=== PATIENT | female | born 1960 | race Two or more races ===

== ENCOUNTER → 2020-09-24 09:58 | Outpatient (BNVA) | payer OTHER, SELFPAY | PROVIDERS: PCP Internal Medicine; Visit Provider Student in an Organized Health Care Education/Training Program | DX: Z76.89 Persons encountering health services in other specified circumstances (principal) ==

== ENCOUNTER 2020-10-11 10:53 | Outpatient (REF) | payer OTHER, SELFPAY ==
--- NOTE | 2020-10-11 | PFT_ITS ---
FLOWS: FEV1 of 99% of predicted at 2.69 L. FVC 97% of predicted at 3.32 L. The patient refused bronchodilator testing. LUNG VOLUMES: Total lung capacity 106% of predicted at 5.69 L. Residual volume 101% of predicted at 2.17 L. Slow vital capacity 109% of predicted at 3.53 L. Expiratory reserve volume 168% of predicted at 1.55 L. Diffusion capacity is mildly decreased. IMPRESSION: No obstructive or restrictive ventilatory defect. The patient refused bronchodilator testing. Isolated decrease in diffusion capacity suggests underlying pulmonary vascular or parenchymal disease. Clinical correlation is advised. MD SHABBIR Guerra/MODL / [id number]
== END 2020-10-11 10:54 | disposition home or self-care (01) ==
LOC: HO.RESP 10:53
PROVIDERS: Visit Provider Internal Medicine Pulmonary Disease
DX: M35.00 Sjogren syndrome, unspecified (principal)
CPT/HCPCS: 94010; 94727; 94729

== ENCOUNTER 2020-11-08 10:22 | Outpatient (REF) | payer OTHER, SELFPAY ==
--- NOTE | 2020-11-08 10:26 | CT_ITS ---
EXAMINATION: CT CHEST WITHOUT CONTRAST CLINICAL INFORMATION: Pulmonary nodules. COMPARISON: None TECHNIQUE: Multidetector volumetric CT imaging of the chest was done. Axial MIP volume rendering provided. Sagittal and coronal reformatted images were obtained. This CT examination was performed using dose optimization techniques as appropriate, variously including the following: *Automated exposure control *Adjustment of mA and/or kV according to patient size (this includes techniques or standardized protocols for targeted exams where dose is matched to indication/reason for exam; i.e. extremities or head) *Use of iterative reconstruction technique DLP: 109 mGy-cm FINDINGS: GRADUATE INTERNSHIP: Unremarkable. LUNGS: The lungs are well expanded with bilateral apical pleural thickening and parenchymal scarring. There is a 2 mm nodule left apex image 72/5, tubular subpleural nodule right upper lobe axial image 14/4, 2 mm subpleural nodule left upper lobe axial image 138/5, 2 mm nodule right upper lobe axial image 160/5, 2 mm nodule right upper lobe anteriorly image 184/5, 214/5, 2 mm nodule left upper lobe likely intrabronchial image 235/5, 2 mm nodule left lower lobe axial image 370/5. There are small 1 mm calcified nodules in the right lung. No large mass or consolidation seen. There is no ground-glass density. MEDIASTINUM: Heart size and the great vessels are normal caliber. Central trachea and the bronchi are widely patent. There are surgical mary likely on either side of trachea likely from thyroidectomy. No abnormal-sized mediastinal or hilar lymph nodes seen. There is no pericardial effusion. PLEURA: There is no pleural effusion. No pleural mass or thickening. AXILLA: No lymphadenopathy. UPPER ABDOMEN: Visualized liver, spleen, pancreas and bilateral adrenal glands are unremarkable. There are no radiopaque gallstones. OSSEOUS STRUCTURES: There is no lytic or sclerotic process. 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 There is C7 rib fused to T1 rib. Hemangioma of T10 vertebra is noted. CT/CT chest wo con IMPRESSION: Several small 2 mm and less pleural nodules. A few 1 mm calcified nodules right upper lobes. No abnormal mediastinal lymph nodes or mass. According to the UPDATED 2017 Fleischner Society recommendations, the advised follow-up imaging for nodules less than 2 mm there is no followup required. If patient is high risk, optional followup can be performed in 12 months.
== END 2020-11-08 10:23 | disposition home or self-care (01) ==
LOC: HO.CT 10:22
PROVIDERS: Visit Provider Internal Medicine Pulmonary Disease
DX: R91.8 Other nonspecific abnormal finding of lung field (principal)
CPT/HCPCS: 71250

== ENCOUNTER → 2020-11-12 15:08 | Outpatient (BNVA) | payer OTHER, SELFPAY | PROVIDERS: PCP Internal Medicine; Visit Provider Internal Medicine Pulmonary Disease ==

== ENCOUNTER → 2020-11-18 14:37 | Outpatient (BNVA) | payer OTHER, SELFPAY | PROVIDERS: PCP Internal Medicine; Visit Provider Internal Medicine Gastroenterology ==

== ENCOUNTER → 2020-12-02 15:44 | Outpatient (BNVA) | payer OTHER, SELFPAY | PROVIDERS: PCP Internal Medicine; Visit Provider Student in an Organized Health Care Education/Training Program ==

== ENCOUNTER → 2020-12-20 07:49 | Outpatient (BNVA) | payer OTHER, SELFPAY | PROVIDERS: Visit Provider Internal Medicine Gastroenterology ==

== ENCOUNTER 2021-01-10 16:45 | Outpatient (REF) | payer OTHER, SELFPAY ==
[2021-01-10 18:20] LABS: Blood Urea Nitrogen 14 mg/dL (9-16); Estimated Glomerular Filt Rate > 60
== END 2021-01-10 16:46 | disposition home or self-care (01) ==
LOC: HO.LAB 16:45
PROVIDERS: Visit Provider Internal Medicine Gastroenterology
DX: R93.2 Abnormal findings on diagnostic imaging of liver and biliary tract (principal)
CPT/HCPCS: 36415; 82565; 84520

== ENCOUNTER 2021-01-13 18:20 | Outpatient (REF) | payer OTHER, SELFPAY ==
--- NOTE | ~2021-01-13 | MR_ITS ---
EXAMINATION: MR ABDOMEN WITHOUT AND WITH CONTRAST CLINICAL INFORMATION: Abnormal findings on diagnostic imaging of liver and biliary tract. The report of a CT scan performed at [facility] 10/15/2020 indicates 1.6 cm low-density lesion in right lobe of liver. Density greater than simple fluid. Several similar smaller lesions within the right lobe of the liver. Subcentimeter low-density lesion within the left lobe of the liver. COMPARISON: The previous outside CT is not available for direct comparison. TECHNIQUE: Anatomic and fluid sensitive MR sequences were used to examine the abdomen. Imaging before and after the IV administration of 6.5 mL of Gadavist. MRCP was performed. FINDINGS: There is artifact on many of the images including portions of the liver which limits evaluation. LIVER: The right lobe of the liver measures 15.0 cm which is within normal limits. The liver contour is smooth. The background hepatic signal is homogeneous. There are at least 5 focal liver lesions. In the posteromedial aspect at the upper aspect of hepatic segment 6 there is a circumscribed homogeneous T2 intense mass which measures 2.0 cm. This demonstrates peripheral nodular enhancement equal to the blood pool. This progresses over later phases and completely enhances on late phase imaging. There is adjacent abnormal signal with irregular but persistent enhancement. There is a punctate internal hyperintensity. This may correspond to a phlebolith. There is a 1.0 cm somewhat linear signal abnormality in the periphery of the right lobe at the interface between hepatic segments 6 and 7. Artifact limits early phase assessment, but this completely enhances on late phase. This is also hyperintense on anatomic series. There is an approximately 1.0 cm sharply circumscribed T2 intense lesion abutting the ventral aspect of hepatic segment 3. This demonstrates homogeneous late-phase enhancement. Artifact limits characterization of the early phase enhancement. There are a few other tiny lesions in the liver. These are difficult to characterize. BILIARY TRACT: There is no cholelithiasis or biliary dilation. SPLEEN: Within normal limits. PANCREAS: Within normal limits. ADRENAL GLANDS: There is minimal nodular thickening in the medial limb of the left adrenal gland. This is too small to characterize on wyt-gi-[id number] chemical shift imaging. In the absence of a known primary malignancy or clinical evidence of abnormal hormone secretion this does not require any further evaluation. KIDNEYS: There is no dilation of the urinary collecting system on either side. There is a tiny cyst in the medial lower right kidney. GASTROINTESTINAL TRACT: No definite bowel wall thickening. ABDOMINAL WALL: No significant hernia is appreciated. LYMPHOVASCULAR STRUCTURES AND FLUID: There is no abdominal aortic aneurysm. The portal vein enhances. No enlarged lymph nodes in the upper abdomen. MUSCULOSKELETAL: There is a signal abnormality in the right side of one of the midthoracic vertebrae on the right. This may represent hemangioma. This has a bubbly appearance on CT and extends into the posterior elements. VISUALIZED LOWER CHEST: Artifact limits assessment. No suspicious signal abnormality in the visualized lower chest. MR/MR abdomen wo/w con IMPRESSION: There are multiple focal liver lesions. There is no evidence of underlying chronic liver disease. There is no history to suggest the presence of underlying primary malignancy. The largest lesion is characterized as a hemangioma based on morphology, signal features and enhancement pattern. The smaller lesions may also represent hemangiomata but are difficult to fully characterize. In the absence of a known primary malignancy or underlying chronic liver disease these do not require any further evaluation.
== END 2021-01-13 18:21 | disposition home or self-care (01) ==
LOC: HO.MRI 18:20
PROVIDERS: Visit Provider Internal Medicine Gastroenterology
DX: R93.2 Abnormal findings on diagnostic imaging of liver and biliary tract (principal)
CPT/HCPCS: 74183; A9585

== ENCOUNTER → 2021-01-27 09:26 | Outpatient (BNVA) | payer OTHER, SELFPAY | PROVIDERS: PCP Internal Medicine; Visit Provider Internal Medicine Gastroenterology ==

== ENCOUNTER 2021-01-31 09:25 | Day surgery (SDC) | payer OTHER, SELFPAY ==
[2021-01-26 10:56] VITALS: BMI 21.4
[2021-01-31 09:39] VITALS: BP 143/78; PULSE 76; RESP 18; TEMP 36.5; O2SAT 100
--- NOTE | 2021-01-31 10:08 | HO.ANESPROP2 ---
[facility] Active Problems Active Problems: All Active Problems (Updated 01/27/21 @ 10:29 by Ricarda Aguilar MD) Hepatic hemangioma (Acute) Pulmonary nodules (Acute) GERD (gastroesophageal reflux disease) (Acute) Dysphagia (Acute) Abnormal CT scan, liver (Acute) MIRLANDE positive (Acute) Sjogrens syndrome (Acute) Past Medical History Medical History MIRLANDE positive Ankylosis of thoracic spine Arthritis of both hips Goiter Pulmonary nodules Sicca syndrome with keratoconjunctivitis Sjogrens syndrome Family History Family History Father Diabetes Stroke Mother Alzheimer disease Parkinson disease Surgical History Surgical History History of thyroidectomy Hx of colonoscopy Social History Social History Household Members: None Alcohol intake: never Smoking Status: Former smoker Smoking Quit Date: 20 yrs ago Use of substances other than those prescribed or required for medical reasons: Yes Substance Use Type: Marijuana Substance Use Frequency: Daily Have you been hit, kicked, punched, or otherwise hurt by someone within the past year? 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 0.5 mg-rell-Zn tablet levothyroxine 88 mcg capsule 88 mcg PO DAILY 09/24/20 01/27/21 Unknown History lorazepam 0.5 mg tablet 0.5 mg PO BEDTIME PRN 09/24/20 01/27/21 Unknown History multivitamin with iron 1 tab PO DAILY 09/24/20 01/27/21 Unknown History Exam Exam Date and Time: January 31, 2021 1008 Height,Weight and Vital Signs: Height 5 ft 6 in Weight 60.328 kg Last Vital Signs Temp 97.7 F 01/31/21 09:39 Pulse 76 01/31/21 09:39 Resp 18 01/31/21 09:39 BP 143/78 H 01/31/21 09:39 Pulse Ox 100 01/31/21 09:39 Airway Mallampati Class: II TM Dist: >3cm Neck ROM: Full Loose/Missing/Broken Teeth: No Heart: RRR Lungs: CTA Assessment and Plan Assessment Anesthesia Assessment: Anesthesia Plan Discussed and Chart Reviewed Final Anesthetic Review NPO: Yes ASA Class: II Final Preanesthetic Review: Meds/Allgs Chart Reviewed, Consent Obtained/Reviewed and Anes Risks/Benef Reviewed Patient Risk: Low Procedure Risk: Intermediate Anesthetic Plan Anesthetic Plan: MAC: Disposition: Standard PACU
--- NOTE | 2021-01-31 10:09 | P.OP_ITS ---
Operative Note Operative Note Date of Service: 01/31/21 Narrative: Pre-op diagnosis: Dysphagia, gerd Post-op diagnosis: other (GERD, dysphagia, gastritis) Procedure: FLEXIBLE TRANSORAL UPPER GASTROINTESTINAL ENDOSCOPY WITH BIOPSIES AND ESOPHAGEAL BALLOON DILATION Consent: Indications for the procedure and potential complications of bleeding, perforation, reaction to medications and missed diagnosis were discussed with the patient and informed consent was obtained. Instrument: Olympus GIF H 190 mid size upper endoscope Monitoring: Vital signs and clinical assessment, continuous EKG monitoring, Pulse oximetry, Carbon Dioxide monitoring and blood pressure monitoring were done throughout the procedure. Procedure: The patient was placed in the left lateral decubitis position and pre-procedure medications were administered and a bite block was placed. The endoscope was inserted into the mouth and advanced under direct vision to the third part of duodenum. A careful inspection was made as the upper endoscope was withdrawn including a retroflexed examination of the proximal stomach; Findings and interventions are described below. Findings: Larynx: Normal Esophagus: GE junction at 36 cms. Irregular Z line - biopsied to check for Roberson's. Balloon dilation was performed with a 19 and 20 mm (60 F) CRE balloon x 60 seconds at each level. Biopsies were obtained from proximal esophagus to check for EOE. Stomach: Moderate diffuse gastric erythema with nodular appearing gastric mucosa - biopsies were obtained from the antrum and body. Grade 2 flap valve on retroflexed examination of the cardia. Duodenum: Normal bulb and descending duodenum Intervention: Biopsies as noted above Impression and Post Procedure Diagnosis: Endoscopy Findings: ESOPHAGUS: GE junction at 36 cms. Irregular Z line - biopsied to check for Roberson's. Balloon dilation was performed with a 19 and 20 mm CRE balloon x 60 seconds at each level. Biopsies were obtained from proximal esophagus to check for EOE. STOMACH: Moderate diffuse gastric erythema with nodular appearing gastric mucosa - biopsies were obtained from the antrum and body. Plan: Await pathology results. Patient has an appointment on 02/08/21 in the GI Clinic with Ricarda Aguilar M.D. If biopsies are normal, I will schedule patient for esophageal manometry at [facility] for further evaluation of dysphagia. Above findings were reviewed with the patient. Surgeon: Ricarda Aguilar MD Anesthesia: MAC (Dr Thomas) Measurement Department Chief Clerk: Emy Asher Estimated blood loss (mL): 0 Pathology: other ( A: GASTRIC ANTRUM R/O H. PYLORI B: GASTRIC BODY C: EG JUNCTION R/O ROBERSON'S D: PROXIMAL ESOPHAGUS R/O EOE) Condition: stable Disposition: PACU
--- NOTE | 2021-01-31 10:09 | MHC.SHP ---
Pre-Procedural Eval Section A The patient is an INPATIENT: No Changes since office visit: Yes Patient answered all questions; No Cold of Flu in the past 2 weeks, No New Medical Problems and No Changes in Medication The History & Physical has been completed within 30 days and I have reviewed it.: Yes Section B Chief Complaint: Dysphagia Allergies: Allergies Allergy/AdvReac Type Severity Reaction Status Date / Time penicillin V Allergy Intermediate swollen Verified 01/27/21 09:27 Exam Surgical H&P Exam: Normal: Heart, Normal: Lungs, Normal: Extremities and Normal: Abdomen Plan Diagnosis/Plan: Unchanged I have reviewed the history and physical and performed a pertinent physical examination on my patient. No changes have occurred unless specified.
[2021-01-31] MEDS: Lactated Ringers 1,000 ML 50 ML IV (10:47)
[2021-01-31 11:12] VITALS: BP 106/63; PULSE 81; RESP 18; TEMP 36.4; O2SAT 100
[2021-01-31 11:27] VITALS: BP 117/74; PULSE 88; RESP 18; O2SAT 99
[2021-01-31 11:35] VITALS: BP 121/69; PULSE 78; RESP 18; TEMP 36.6; O2SAT 100
== END 2021-01-31 12:00 | disposition home or self-care (01) ==
PROVIDERS: Visit Provider Internal Medicine Gastroenterology
PROC: (CPT 43239; principal; 2021-01-31 11:40)
DX: R13.10 Dysphagia, unspecified (principal); K21.9 Gastro-esophageal reflux disease without esophagitis; K29.50 Unspecified chronic gastritis without bleeding; B96.81 Helicobacter pylori [H. pylori] as the cause of diseases classified elsewhere; M35.00 Sjogren syndrome, unspecified; R91.8 Other nonspecific abnormal finding of lung field; Z87.891 Personal history of nicotine dependence; F12.90 Cannabis use, unspecified, uncomplicated; Z79.899 Other long term (current) drug therapy; Z88.0 Allergy status to penicillin
CPT/HCPCS: 43239; 43249; 88305; 88342; C1726

== ENCOUNTER → 2021-02-08 13:30 | Outpatient (BNVA) | payer OTHER, SELFPAY | PROVIDERS: Visit Provider Internal Medicine Gastroenterology ==

== ENCOUNTER 2021-02-22 14:38 | Outpatient (REF) | payer OTHER, SELFPAY ==
[2021-02-22 15:43] LABS: C Reactive Protein 0.07 mg/dL (< or = 0.50)
[2021-02-22 15:55] LABS: Glucose Urine UA NEG (NEG); Leukocyte Esterase Urine NEG (NEG); Nitrite Urine NEG (NEG); PH 6.5 (5.0-8.0); Urine Blood NEG (NEG); Urine Ketones NEG (NEG); Urine Protein NEG (NEG-TRACE)
[2021-02-22 16:06] LABS: Appearance Urine CLEAR; Color Urine YELLOW
[2021-02-22 16:19] LABS: Erythrocyte Sedimentation Rate 23 MM/HR (0-20)
[2021-02-22 18:39] LABS: Amorphous Sediment Urine 2+ /LPF; RBC Urine 0 /HPF (0); Squamous Epithelial Cell Urine TRACE /LPF; WBC Urine 0 /HPF (0-4)
[2021-02-23 10:57] LABS: Complement C3 72 mg/dL (83-193)
[2021-02-23 12:31] LABS: Anti DNA DS Antibody 2 IU/mL
[2021-02-23 15:01] LABS: IgA 333 mg/dL (70-320); IgG 1498 mg/dL (600-1540); IgM 204 mg/dL (50-300)
[2021-02-23 22:17] LABS: Prot Elec - Alpha1 0.3 g/dL (0.2-0.3); Prot Elec - Alpha2 0.7 g/dL (0.5-0.9); Prot Elec - Beta 1 0.4 g/dL (0.4-0.6); Prot Elec - Beta 2 0.4 g/dL (0.2-0.5); Prot Elec - Gamma 1.5 g/dL (0.8-1.7); Prot Elec - Total Protein 7.2 g/dL (6.1-8.1)
== END 2021-02-22 14:39 | disposition home or self-care (01) ==
LOC: HO.LAB 14:38
PROVIDERS: PCP Internal Medicine; Visit Provider Student in an Organized Health Care Education/Training Program
DX: M35.00 Sjogren syndrome, unspecified (principal)
CPT/HCPCS: 36415; 81001; 82784; 84155; 84165; 85652; 86140; 86160; 86225; 86334

== ENCOUNTER → 2021-03-01 09:59 | Outpatient (BNVA) | payer OTHER, SELFPAY | PROVIDERS: Visit Provider Student in an Organized Health Care Education/Training Program ==

== ENCOUNTER 2021-03-14 06:43 | Outpatient (REF) | payer OTHER, SELFPAY ==
[2021-03-14 07:01] LABS: MANUAL DIFF FLAG NO
[2021-03-14 07:05] LABS: Basophils Percent Auto 0.3 % (0-2); Eosinophils Percent Auto 1.1 % (0-4); Hematocrit 35.3 % (37-47); Hemoglobin 11.9 g/dl (12.0-16.0); Imm Gran Abs Auto 0.02 X10*3/uL (0.00-0.03); Imm Gran Pct Auto 0.5 % (0.0-0.4); Lymphocytes Absolute Auto 1.6 X10*3/uL (1.2-4.9); Lymphocytes Percent Auto 43.3 % (20-40); Mean Corpuscular HGB Conc 33.7 g/dl (31.0-35.0); Mean Corpuscular Hemoglobin 30.1 pg (27.0-33.0); Mean Corpuscular Volume 89.4 fL (80-98); Mean Platelet Volume 10.2 fL (9.4-12.3); Monocytes Absolute Auto 0.4 X10*3/uL (0.1-1.2); Monocytes Percent Auto 9.8 % (2-11); Neutrophils Absolute Auto 1.7 X10*3/uL (2.0-8.3); Platelet Count 152 X10*3/uL (160-400); Red Blood Count 3.95 X10*6/uL (4.20-5.50); Red Cell Distribution Width 13.6 % (11.0-16.0); White Blood Count 3.8 X10*3/uL (4.8-10.8)
[2021-03-14 07:36] LABS: Alanine Aminotransferase 19 U/L (0-31); Albumin Level 3.9 g/dL (3.5-5.0); Alkaline Phosphatase 80 U/L (39-117); Anion Gap 10 (12-20); Aspartate Amino Transferase 15 U/L (5-31); Blood Urea Nitrogen 14 mg/dL (9-16); Calcium 8.5 mg/dL (8.4-10.2); Carbon Dioxide 24 mmol/L (22-29); Chloride 113 mmol/L (96-108); Cholesterol 156 mg/dL; Estimated Glomerular Filt Rate > 60; Glucose Fasting 90 mg/dL (60-99); HDL Cholesterol 43 mg/dL; LDL Cholesterol Calculated 99 mg/dl; Potassium 3.9 mmol/L (3.3-5.1); Sodium 143 mmol/L (135-145); Total Protein 6.8 g/dL (6.5-8.0); Triglycerides 74 mg/dL
[2021-03-14 07:56] LABS: Thyroid Stimulating Hormone 0.68 uIU/mL (0.32-4.0)
== END 2021-03-14 06:44 | disposition home or self-care (01) ==
LOC: HO.LAB 06:43
PROVIDERS: PCP Internal Medicine; Visit Provider Internal Medicine
DX: K21.9 Gastro-esophageal reflux disease without esophagitis (principal); E78.5 Hyperlipidemia, unspecified; E03.9 Hypothyroidism, unspecified
CPT/HCPCS: 36415; 80053; 80061; 84443; 85025

== ENCOUNTER → 2021-04-18 09:16 | Outpatient (BNVA) | payer OTHER, SELFPAY | PROVIDERS: PCP Internal Medicine | DX: N32.81 Overactive bladder (principal) | CPT/HCPCS: 51798 ==

== ENCOUNTER → 2021-04-25 08:16 | Outpatient (BNVA) | payer OTHER, SELFPAY | PROVIDERS: PCP Internal Medicine; Visit Provider Nurse Practitioner Gerontology ==

== ENCOUNTER 2021-06-14 07:23 | Outpatient (REF) | payer OTHER, SELFPAY ==
[2021-06-14 07:54] LABS: MANUAL DIFF FLAG NO
[2021-06-14 08:02] LABS: Basophils Percent Auto 0.3 % (0-2); Eosinophils Percent Auto 0.8 % (0-4); Hematocrit 37.9 % (37-47); Hemoglobin 12.6 g/dl (12.0-16.0); Imm Gran Abs Auto 0.01 X10*3/uL (0.00-0.03); Imm Gran Pct Auto 0.3 % (0.0-0.4); Lymphocytes Absolute Auto 1.4 X10*3/uL (1.2-4.9); Lymphocytes Percent Auto 36.2 % (20-40); Mean Corpuscular HGB Conc 33.2 g/dl (31.0-35.0); Mean Corpuscular Hemoglobin 30.1 pg (27.0-33.0); Mean Corpuscular Volume 90.5 fL (80-98); Mean Platelet Volume 9.7 fL (9.4-12.3); Monocytes Absolute Auto 0.3 X10*3/uL (0.1-1.2); Monocytes Percent Auto 8.1 % (2-11); Neutrophils Absolute Auto 2.1 X10*3/uL (2.0-8.3); Neutrophils Percent Auto 54.3 % (45-73); Platelet Count 183 X10*3/uL (160-400); Red Blood Count 4.19 X10*6/uL (4.20-5.50); Red Cell Distribution Width 13.2 % (11.0-16.0); White Blood Count 3.8 X10*3/uL (4.8-10.8)
[2021-06-14 08:34] LABS: Alanine Aminotransferase 18 U/L (0-31); Albumin Level 4.1 g/dL (3.5-5.0); Alkaline Phosphatase 77 U/L (39-117); Anion Gap 12 (12-20); Aspartate Amino Transferase 15 U/L (5-31); Bilirubin Total 1.3 mg/dL (0.0-1.0); Blood Urea Nitrogen 10 mg/dL (9-16); C Reactive Protein 0.08 mg/dL (< or = 0.50); Calcium 9.2 mg/dL (8.4-10.2); Carbon Dioxide 24 mmol/L (22-29); Chloride 109 mmol/L (96-108); Estimated Glomerular Filt Rate > 60; Glucose Random 90 mg/dL (60-115); Potassium 4.2 mmol/L (3.3-5.1); Sodium 141 mmol/L (135-145); Total Protein 7.6 g/dL (6.5-8.0)
[2021-06-14 08:53] LABS: Free T4 (Free Thyroxine) 1.15 ng/dL (0.71-1.85); Thyroid Stimulating Hormone 0.63 uIU/mL (0.32-4.0)
[2021-06-14 09:00] LABS: Erythrocyte Sedimentation Rate 18 MM/HR (0-20)
[2021-06-14 09:43] LABS: Appearance Urine HAZY; Color Urine YELLOW; Glucose Urine UA NEG (NEG); Leukocyte Esterase Urine 1+ (NEG); Nitrite Urine NEG (NEG); PH 6.5 (5.0-8.0); Specific Gravity - Urine 1.025 (1.005-1.025); Urine Blood NEG (NEG); Urine Ketones NEG (NEG); Urine Protein NEG (NEG-TRACE)
[2021-06-14 10:32] LABS: Amorphous Sediment Urine 1+ /LPF; Mucus Urine 1+ /LPF; RBC Urine 0 /HPF (0); Squamous Epithelial Cell Urine 2+ /LPF
[2021-06-15 20:21] LABS: Thyroglobulin Antibodies 261 IU/mL (< or = 1)
[2021-06-15 20:26] LABS: Thyroid Peroxidase Antibodies 11 IU/mL (<9)
[2021-06-16 12:16] LABS: Complement C3 107 mg/dL (83-193)
[2021-06-17 14:11] LABS: Anti DNA DS Antibody 2 IU/mL; SM/Ribonucleoprotein Ab <1.0 NEG AI (<1.0 NEG); Smith Protein <1.0 NEG AI (<1.0 NEG)
== END 2021-06-14 07:24 | disposition home or self-care (01) ==
LOC: HO.LAB 07:23
PROVIDERS: Absent Provider Student in an Organized Health Care Education/Training Program; PCP Internal Medicine; Visit Provider Nurse Practitioner Gerontology
DX: E89.0 Postprocedural hypothyroidism (principal); M35.00 Sjogren syndrome, unspecified; R76.8 Other specified abnormal immunological findings in serum
CPT/HCPCS: 36415; 80053; 81001; 84439; 84443; 85025; 85652; 86140; 86160; 86225; 86235; 86376; 86800

== ENCOUNTER 2021-07-25 08:10 | Outpatient (REF) | payer OTHER, SELFPAY ==
[2021-07-25 14:32] LABS: Appearance Urine CLEAR; Color Urine YELLOW; Glucose Urine UA NEG (NEG); Leukocyte Esterase Urine NEG (NEG); Nitrite Urine NEG (NEG); Specific Gravity - Urine 1.025 (1.005-1.025); Urine Blood NEG (NEG); Urine Ketones NEG (NEG); Urine Protein NEG (NEG-TRACE)
[2021-07-25 14:35] LABS: Alanine Aminotransferase 16 U/L (0-31); Alkaline Phosphatase 85 U/L (39-117); Anion Gap 12 (12-20); Aspartate Amino Transferase 17 U/L (5-31); Bilirubin Total 0.9 mg/dL (0.0-1.0); Blood Urea Nitrogen 10 mg/dL (9-16); Calcium 8.9 mg/dL (8.4-10.2); Carbon Dioxide 22 mmol/L (22-29); Chloride 112 mmol/L (96-108); Estimated Glomerular Filt Rate > 60; Glucose Random 90 mg/dL (60-115); Potassium 3.5 mmol/L (3.3-5.1); Sodium 142 mmol/L (135-145); Total Protein 7.1 g/dL (6.5-8.0)
[2021-07-25 15:04] LABS: RBC Urine 0-2 /HPF (0); Squamous Epithelial Cell Urine 1+ /LPF; WBC Urine 0 /HPF (0-4)
[2021-07-26 14:51] LABS: Complement C3 115 mg/dL (83-193)
== END 2021-07-25 08:11 | disposition home or self-care (01) ==
LOC: HO.LAB 08:10
PROVIDERS: Student in an Organized Health Care Education/Training Program; PCP Internal Medicine; Visit Provider Internal Medicine Gastroenterology
DX: R76.8 Other specified abnormal immunological findings in serum (principal); R13.10 Dysphagia, unspecified; K21.9 Gastro-esophageal reflux disease without esophagitis; R93.2 Abnormal findings on diagnostic imaging of liver and biliary tract; D18.03 Hemangioma of intra-abdominal structures; K29.70 Gastritis, unspecified, without bleeding; A00-B99 Certain infectious and parasitic diseases
CPT/HCPCS: 36415; 80053; 81001; 86160

== ENCOUNTER 2021-08-08 14:57 | Outpatient (REF) | payer OTHER, SELFPAY | END 2021-08-08 14:58 | disposition home or self-care (01) | LOC: HO.LNP 14:57 | PROVIDERS: Visit Provider Internal Medicine Gastroenterology | DX: K29.70 Gastritis, unspecified, without bleeding (principal); B96.81 Helicobacter pylori [H. pylori] as the cause of diseases classified elsewhere | CPT/HCPCS: 87338 ==

== ENCOUNTER → 2021-08-31 10:00 | Outpatient (BNVA) | payer OTHER, SELFPAY | PROVIDERS: PCP Internal Medicine; Visit Provider Nurse Practitioner Gerontology ==

== ENCOUNTER → 2021-11-03 10:18 | Outpatient (BNVA) | payer OTHER, SELFPAY | PROVIDERS: PCP Internal Medicine; Visit Provider Internal Medicine Gastroenterology ==

== ENCOUNTER 2021-12-01 11:06 | Outpatient (REF) | payer OTHER, SELFPAY ==
--- NOTE | 2021-12-01 17:26 | PFT_ITS ---
INDICATION: Sjogren syndrome. SPIROMETRY: FEV1 to FVC of 84% with an FEV1 of 2.68 L, which is 100% predicted; FVC 3.19 L, which is 94% predicted. No significant response to bronchodilators noted. Maximum voluntary ventilation 114% predicted. LUNG VOLUMES: Total lung capacity 100% predicted with an expiratory reserve volume of 118% predicted. DIFFUSION CAPACITY: DLCO 64% predicted. COMPARISONS: PFTs from October 11, 2020. INTERPRETATION: No obstructive nor restrictive ventilatory defects identified. No significant response to bronchodilators noted. Normal maximum voluntary ventilation. Lung volumes are within normal limits. However, the patient does have an isolated [id number] diffusion impairment. When compared to 2020, there is significant decrease in the FVC, no significant change in the FEV1, significant decrease in the total lung capacity, and no significant change on the diffusion capacity. Clinical correlation warranted. Cristobal Flaherty MD MR/MODL / [id number]
== END 2021-12-01 11:07 | disposition home or self-care (01) ==
LOC: HO.RESP 11:06
PROVIDERS: PCP Internal Medicine; Visit Provider Internal Medicine Pulmonary Disease
DX: M35.00 Sjogren syndrome, unspecified (principal)
CPT/HCPCS: 94060; 94727; 94729

== ENCOUNTER → 2021-12-19 13:01 | Outpatient (BNVA) | payer OTHER, SELFPAY | PROVIDERS: PCP Internal Medicine | DX: J84.9 Interstitial pulmonary disease, unspecified (principal); F12.90 Cannabis use, unspecified, uncomplicated; R91.8 Other nonspecific abnormal finding of lung field; Z87.891 Personal history of nicotine dependence | CPT/HCPCS: 99212 ==

== ENCOUNTER 2022-05-01 10:13 | Outpatient (REF) | payer OTHER, SELFPAY ==
[2022-05-01 10:34] LABS: MANUAL DIFF FLAG NO
[2022-05-01 11:55] LABS: Basophils Percent Auto 0.3 % (0-2); Eosinophils Percent Auto 0.5 % (0-4); Hematocrit 35.9 % (37.0-47.0); Hemoglobin 11.8 g/dl (12.0-16.0); Imm Gran Abs Auto 0.01 X10*3/uL (0.00-0.03); Imm Gran Pct Auto 0.3 % (0.0-0.4); Lymphocytes Absolute Auto 1.7 X10*3/uL (1.2-4.9); Lymphocytes Percent Auto 44.6 % (20-40); Mean Corpuscular HGB Conc 32.9 g/dl (31.0-35.0); Mean Corpuscular Hemoglobin 29.8 pg (27.0-33.0); Mean Corpuscular Volume 90.7 fL (80.0-98.0); Mean Platelet Volume 10.7 fL (9.4-12.3); Monocytes Absolute Auto 0.3 X10*3/uL (0.1-1.2); Monocytes Percent Auto 7.9 % (2-11); Neutrophils Absolute Auto 1.8 x10*3/uL (2.0-8.3); Neutrophils Percent Auto 46.4 % (45-73); Platelet Count 160 X10*3/uL (160-400); Red Blood Count 3.96 X10*6/uL (4.20-5.50); Red Cell Distribution Width 13.3 % (11.0-16.0); White Blood Count 3.8 X10*3/uL (4.8-10.8)
[2022-05-01 12:30] LABS: Alanine Aminotransferase 14 U/L (0-31); Alkaline Phosphatase 73 U/L (39-117); Anion Gap 9 (12-20); Aspartate Amino Transferase 13 U/L (5-31); Blood Urea Nitrogen 10 mg/dL (9-16); Calcium 8.7 mg/dL (8.4-10.2); Carbon Dioxide 25 mmol/L (22-29); Chloride 111 mmol/L (96-108); Cholesterol 162 mg/dL; Estimated Glomerular Filt Rate > 60; Glucose Fasting 83 mg/dL (60-99); HDL Cholesterol 40 mg/dL; LDL Cholesterol Calculated 104 mg/dl; Potassium 4.1 mmol/L (3.3-5.1); Sodium 141 mmol/L (135-145); Triglycerides 93 mg/dL
[2022-05-01 12:51] LABS: Vitamin D 25-OH Total 27.2 ng/mL (>30)
[2022-05-01 13:03] LABS: Folate 10.3 ng/mL (> or = 4.0); Vitamin B12 313 pg/mL (200-900)
== END 2022-05-01 10:14 | disposition home or self-care (01) ==
LOC: HO.LAB 10:13
PROVIDERS: PCP Internal Medicine; Visit Provider Nurse Practitioner Family
DX: Z13.1 Encounter for screening for diabetes mellitus (principal); Z13.220 Encounter for screening for lipoid disorders; B02.29 Other postherpetic nervous system involvement
CPT/HCPCS: 36415; 80053; 80061; 82306; 82607; 82746; 85025

== ENCOUNTER 2022-07-24 10:09 | Outpatient (REF) | payer OTHER, SELFPAY ==
--- NOTE | ~2022-07-24 | FL_ITS ---
EXAMINATION: FL BARIUM SWALLOW CLINICAL INFORMATION: Inability to swallow. Pain in the neck region. COMPARISON: None TECHNIQUE: Barium swallow examination is performed using fluoroscopic evaluation in addition to multiple fluoroscopic spot views. The patient is imaged both upright and prone and using both thick and thin sulfate along with effervescent granules. Fluoroscopy time: 2.5 minutes DAP: 3.834 Gy-cm2 Images: 78 FINDINGS: Following oral administration of thick barium and barium-coated turkey, there is normal propagation of bolus from the oral cavity through the pharynx, esophagus into the stomach without any evidence of obstruction, narrowing or stricture. The course, caliber and peristalsis of the esophagus is normal. There is no laryngeal penetration or aspiration. No intraluminal filling defects seen in the pharynx. FL/FL barium swallow IMPRESSION: Unremarkable barium swallow exam.
== END 2022-07-24 10:10 | disposition home or self-care (01) ==
LOC: HO.XRAY 10:09
PROVIDERS: Visit Provider Internal Medicine Gastroenterology
DX: R13.10 Dysphagia, unspecified (principal)
CPT/HCPCS: 74220

== ENCOUNTER 2022-08-25 11:05 | Outpatient (REF) | payer OTHER, SELFPAY ==
[2022-08-25 11:22] LABS: MANUAL DIFF FLAG NO
[2022-08-25 11:58] LABS: Basophils Percent Auto 0.3 % (0-2); Eosinophils Percent Auto 0.3 % (0-4); Hematocrit 36.5 % (37.0-47.0); Hemoglobin 12.4 g/dl (12.0-16.0); Imm Gran Abs Auto 0.02 X10*3/uL (0.00-0.03); Imm Gran Pct Auto 0.5 % (0.0-0.4); Lymphocytes Absolute Auto 1.5 X10*3/uL (1.2-4.9); Lymphocytes Percent Auto 41.2 % (20-40); Mean Corpuscular Hemoglobin 30.1 pg (27.0-33.0); Mean Corpuscular Volume 88.6 fL (80.0-98.0); Mean Platelet Volume 10.3 fL (9.4-12.3); Monocytes Absolute Auto 0.3 X10*3/uL (0.1-1.2); Monocytes Percent Auto 8.7 % (2-11); Neutrophils Absolute Auto 1.8 x10*3/uL (2.0-8.3); Platelet Count 161 X10*3/uL (160-400); Red Blood Count 4.12 X10*6/uL (4.20-5.50); Red Cell Distribution Width 13.6 % (11.0-16.0); White Blood Count 3.7 X10*3/uL (4.8-10.8)
[2022-08-25 12:48] LABS: TSH reflex Free T4 0.74 uIU/mL (0.32-4.0)
[2022-08-25 12:53] LABS: Alanine Aminotransferase 15 U/L (0-31); Alkaline Phosphatase 86 U/L (39-117); Anion Gap 14 (12-20); Aspartate Amino Transferase 14 U/L (5-31); Bilirubin Total 1.4 mg/dL (0.0-1.0); Blood Urea Nitrogen 10 mg/dL (9-16); Calcium 8.8 mg/dL (8.4-10.2); Carbon Dioxide 22 mmol/L (22-29); Chloride 111 mmol/L (96-108); Cholesterol 164 mg/dL; Estimated Glomerular Filt Rate > 60; Glucose Fasting 96 mg/dL (60-99); HDL Cholesterol 43 mg/dL; LDL Cholesterol Calculated 107 mg/dl; Potassium 3.9 mmol/L (3.3-5.1); Sodium 143 mmol/L (135-145); Total Protein 7.6 g/dL (6.5-8.0); Triglycerides 70 mg/dL
[2022-08-25 13:03] LABS: Albumin Level 4.2 g/dL (3.5-5.0); Free T4 (Free Thyroxine) 1.27 ng/dL (0.71-1.85); Thyroid Stimulating Hormone 0.75 uIU/mL (0.32-4.0)
[2022-08-25 14:10] LABS: Vitamin D 25-OH Total 32.2 ng/mL (>30)
== END 2022-08-25 11:06 | disposition home or self-care (01) ==
LOC: HO.LAB 11:05
PROVIDERS: Nurse Practitioner Gerontology; PCP Nurse Practitioner Family; Visit Provider Nurse Practitioner Family
DX: Z00.00 Encounter for general adult medical examination without abnormal findings (principal); E89.0 Postprocedural hypothyroidism; B02.29 Other postherpetic nervous system involvement; R79.89 Other specified abnormal findings of blood chemistry
CPT/HCPCS: 36415; 80053; 80061; 82306; 84439; 84443; 85025

== ENCOUNTER 2022-09-11 10:15 | Outpatient (REF) | payer OTHER, SELFPAY ==
[2022-09-11 10:47] LABS: MANUAL DIFF FLAG NO
[2022-09-11 10:54] LABS: Basophils Percent Auto 0.2 % (0-2); Eosinophils Percent Auto 0.2 % (0-4); Hematocrit 37.6 % (37.0-47.0); Hemoglobin 12.7 g/dl (12.0-16.0); Imm Gran Abs Auto 0.02 X10*3/uL (0.00-0.03); Imm Gran Pct Auto 0.5 % (0.0-0.4); Lymphocytes Absolute Auto 1.7 X10*3/uL (1.2-4.9); Lymphocytes Percent Auto 39.8 % (20-40); Mean Corpuscular HGB Conc 33.8 g/dl (31.0-35.0); Mean Corpuscular Hemoglobin 29.7 pg (27.0-33.0); Mean Corpuscular Volume 88.1 fL (80.0-98.0); Monocytes Absolute Auto 0.3 X10*3/uL (0.1-1.2); Monocytes Percent Auto 7.1 % (2-11); Neutrophils Absolute Auto 2.2 x10*3/uL (2.0-8.3); Neutrophils Percent Auto 52.2 % (45-73); Platelet Count 151 X10*3/uL (160-400); Red Blood Count 4.27 X10*6/uL (4.20-5.50); Red Cell Distribution Width 13.2 % (11.0-16.0); White Blood Count 4.3 X10*3/uL (4.8-10.8)
[2022-09-11 11:46] LABS: Erythrocyte Sedimentation Rate 18 MM/HR (0-20)
[2022-09-11 15:39] LABS: Creatinine Urine 120.94 mg/dL; Total Protein Urine Random < 7 mg/dL (<12)
[2022-09-13 18:22] LABS: Complement C3 129 mg/dL (83-193)
[2022-09-14 13:23] LABS: Anti DNA DS Antibody 1 IU/mL; SM/Ribonucleoprotein Ab <1.0 NEG AI (<1.0 NEG); Smith Protein <1.0 NEG AI (<1.0 NEG)
== END 2022-09-11 10:16 | disposition home or self-care (01) ==
LOC: HO.10HDL 10:15
PROVIDERS: Visit Provider Internal Medicine Rheumatology
DX: M35.00 Sjogren syndrome, unspecified (principal); R76.8 Other specified abnormal immunological findings in serum
CPT/HCPCS: 36415; 84156; 85025; 85652; 86160; 86225; 86235

== ENCOUNTER 2022-09-18 14:33 | Outpatient (REF) | payer OTHER, SELFPAY ==
--- NOTE | ~2022-09-18 | XR_ITS ---
EXAMINATION: XR ANKLE, RIGHT CLINICAL INFORMATION: Pain right ankle and joints of right foot. COMPARISON: None TECHNIQUE: AP, lateral, and mortise views of the right ankle. FINDINGS: The ankle mortise and subtalar joints are maintained normal. No bony erosive changes, loose bodies or joint effusion seen. There is a moderate size calcaneal heel and small retrocalcaneal enthesophytes. Also visualized are small enthesophytes along the medial and lateral malleoli. The intertarsal, tarsometatarsal joints are normal. There is mild lateral malleolar soft tissue swelling. XR/XR ankle RT min 3V IMPRESSION: Moderate size calcaneal heel and small retrocalcaneal enthesophytes. No visible acute fracture, dislocation or subluxation seen. Mild lateral malleolar soft tissue swelling. Small enthesophytes along the tip of medial and lateral malleoli.
--- NOTE | ~2022-09-18 | XR_ITS ---
EXAMINATION: XR KNEE, RIGHT CLINICAL INFORMATION: Pain. COMPARISON: None TECHNIQUE: 3 views of the right knee. FINDINGS: The tricompartment joint space is maintained normal. There are no loose bodies, bony erosive changes, fracture or suprapatellar joint effusion. There is anterior superior and anterior inferior patellar enthesophytes. XR/XR knee RT 3V IMPRESSION: Anterior superior and anterior inferior patellar enthesophytes. No visible acute fracture, dislocation or subluxation seen.
--- NOTE | ~2022-09-18 | MM_ITS ---
EXAMINATION: MM SCREENING DIGITAL BREAST TOMOSYNTHESIS, BILATERAL CLINICAL INFORMATION: Screening. Asymptomatic. The lifetime risk of breast cancer based on the Tyrer-Cuzick Model is 6%. COMPARISON: Mammography: August 15, 2021 and studies dating back to January 18, 2019 TECHNIQUE: Digital breast tomosynthesis is performed in both the craniocaudal and mediolateral oblique views along with computer-aided detection (CAD). Synthesized 2D images are generated from the tomosynthesis. FINDINGS: The breasts are extremely dense, which lowers the sensitivity of mammography (ACR BI-RADS breast composition Category d). There are no significant masses, abnormal calcifications, or other abnormalities. MM/MM tomosynthesis screening BI IMPRESSION: No significant changes from prior exam. ASSESSMENT: BI-RADS 1: Negative RECOMMENDATION: Routine annual mammography screening. This patient's information was entered into a reminder system with a target due date for their next mammogram.
== END 2022-09-18 14:34 | disposition home or self-care (01) ==
LOC: HO.MAMMO 14:33
PROVIDERS: Absent Provider Internal Medicine Rheumatology; PCP Nurse Practitioner Family; Visit Provider Nurse Practitioner Family
DX: Z12.31 Encounter for screening mammogram for malignant neoplasm of breast (principal); M25.571 Pain in right ankle and joints of right foot; G89.29 Other chronic pain; M25.561 Pain in right knee
CPT/HCPCS: 73562; 73610; 77063; 77067

== ENCOUNTER → 2022-11-30 08:04 | Outpatient (BNVA) | payer OTHER, SELFPAY | PROVIDERS: PCP Nurse Practitioner Family; Visit Provider Internal Medicine Gastroenterology | DX: Z13.89 Encounter for screening for other disorder (principal) ==

== ENCOUNTER 2022-12-08 15:31 | Outpatient (REF) | payer OTHER, SELFPAY ==
[2022-12-10 14:10] LABS: H Pylori Breath Test Negative (Negative)
== END 2022-12-08 15:32 | disposition home or self-care (01) ==
LOC: CF 15:31
PROVIDERS: PCP Nurse Practitioner Family; Visit Provider Internal Medicine Gastroenterology
DX: Z11.0 Encounter for screening for intestinal infectious diseases (principal)
CPT/HCPCS: 36415; 83013

== ENCOUNTER → 2023-02-14 07:34 | Outpatient (BNVA) | payer OTHER, SELFPAY | PROVIDERS: PCP Nurse Practitioner Family; Visit Provider Psychiatry & Neurology Neurology ==

== ENCOUNTER 2023-02-15 12:09 | Outpatient (REF) | payer OTHER, SELFPAY ==
[2023-02-15 14:44] LABS: Alanine Aminotransferase 13 U/L (0-31); Albumin Level 4.1 g/dL (3.5-5.0); Alkaline Phosphatase 72 U/L (39-117); Anion Gap 13 (12-20); Aspartate Amino Transferase 15 U/L (5-31); Bilirubin Total 1.5 mg/dL (0.0-1.0); Blood Urea Nitrogen 10 mg/dL (9-16); Carbon Dioxide 25 mmol/L (22-29); Chloride 111 mmol/L (96-108); Estimated Glomerular Filt Rate > 60; Glucose Random 79 mg/dL (60-115); Potassium 4.1 mmol/L (3.3-5.1); Sodium 145 mmol/L (135-145); Total Protein 7.1 g/dL (6.5-8.0)
[2023-02-15 14:50] LABS: TSH reflex Free T4 0.12 uIU/mL (0.32-4.0); Vitamin D 25-OH Total 30.7 ng/mL (>30)
== END 2023-02-15 12:10 | disposition home or self-care (01) ==
LOC: HO.LAB 12:09
PROVIDERS: PCP Internal Medicine; Visit Provider Nurse Practitioner Family
DX: E03.9 Hypothyroidism, unspecified (principal); B02.29 Other postherpetic nervous system involvement; E55.9 Vitamin D deficiency, unspecified
CPT/HCPCS: 36415; 80053; 82306; 84439; 84443

== ENCOUNTER 2023-04-05 08:19 | Outpatient (REF) | payer OTHER, SELFPAY ==
--- NOTE | 2023-04-05 08:21 | EMG_ITS ---
Bilateral tibial and peroneal motor studies were performed. Bilateral sural and superficial peroneal sensory studies were performed. Tibial H reflexes were obtained and paraspinal muscles were tested with a needle. IMPRESSION: Moderately severe axonal sensory motor peripheral neuropathy. MD STEPHY Avila/EDUARDO / [id number]
== END 2023-04-05 08:20 | disposition home or self-care (01) ==
LOC: HO.NEURO 08:19
PROVIDERS: PCP Internal Medicine; Visit Provider Psychiatry & Neurology Neurology
DX: G60.8 Other hereditary and idiopathic neuropathies (principal)
CPT/HCPCS: 95886; 95911

== ENCOUNTER 2023-05-10 11:28 | Outpatient (AMB) | payer SELFPAY ==
--- NOTE | 2023-05-10 11:33 | A.OFFVIS_ITS ---
Intake Vital Signs 05/10/23 11:35 Height 5 ft 6 in Weight 144 lb BMI 23.2 BP 113/55 L Blood Pressure Location Lt brachial Position Sitting Pulse 88 Intake Visit Reasons: 6 month follow up Intake Note: Patient follow up for h pylori results. Patient cc: Nauseas on and off, sharp RLQ pain, abdominal bloating, some burning sensation, between diarrhea and constipation. Patient still have some swallowing problems. Quotation Checker Required: No Accompanied by: Self / Same As Patient Allergies penicillin V Allergy (Intermediate, Verified 05/10/23 11:33) swollen Penicillins Allergy (Unknown, Verified 05/10/23 11:33) Swelling Medication List - Last Reconciled 05/10/23 by Ricarda Aguilar MD gabapentin 300 mg PO TID 90 days ibuprofen 800 mg PO Q8H PRN 30 days levothyroxine 75 mcg PO DAILY 90 days lorazepam 0.5 mg PO BEDTIME PRN HPI 6 month follow up HPI Details GI clinic visit for this 62 YF with positive MIRLANDE, pulmonary nodules and Sjogren's syndrome for FU of dysphagia OUTSIDE LABS:? 10/15/20 showed H&H of 12.1 and 35.1, platelet 164, normal Chem panel, lipase and LFTs IMAGING STUDIES:? 07/24/22 BARIUM SWALLOW SHOWED: Following oral administration of thick barium and barium-coated turkey, there is normal propagation of bolus from the oral cavity through the pharynx, esophagus into the stomach without any evidence of obstruction, narrowing or stricture. The course, caliber and peristalsis of the esophagus is normal. There is no laryngeal penetration or aspiration. No intraluminal filling defects seen in the pharynx. 01/13/21 MRI abdomen showed: There are multiple focal liver lesions. There is no evidence of underlying chronic liver disease. There is no history to suggest the presence of underlying primary malignancy. The largest lesion is characterized as a hemangioma based on morphology, signal features and enhancement pattern. The smaller lesions may also represent hemangiomata but are difficult to fully characterize. In the absence of a known primary malignancy or underlying chronic liver disease these do not require any further evaluation. 10/15/[address] SCAN (WITHOUT IV CONTRAST)AT [facility] SHOWED: A 1.8 cm low-density lesion within the right lobe of the liver.? The density of this lesion is greater than simple fluid. Several smaller lesions within the right lobe of the liver.? Subcentimeter low- density lesion within the left lobe of the liver. Bilateral adrenal gland thickening. Subcentimeter low-density lesions within the left ovary most likely representing small cysts. IMPRESSION 1. No evidence of nephrolithiasis 2.? Multiple appendicoliths within the appendix 3. Indeterminate lesions within the liver some of which have soft tissue density. Further evaluation with contrast enhanced MRI or CT scan is recommended on an outpatient basis if these are not correct arise previously 11/08/20 MODIFIED BARIUM SWALLOW SHOWED: At fluoroscopy there was a normal initiation of swallowing reflex without evidence for aspiration or penetration. Vallecular residue was identified with multiple barium challenges. The patient tolerated a 13 mm barium tablet. ENDOSCOPIC STUDIES:? 01/31/2021 EGD SHOWED: ESOPHAGUS: GE junction at 36 cms.? Irregular Z line - biopsied to check for Dawson's. Balloon dilation was performed with a 19 and 20 mm CRE balloon x 60 seconds at each level. Biopsies were obtained from proximal esophagus to check for EOE. STOMACH: Moderate diffuse gastric erythema with nodular appearing gastric mucosa - biopsies were obtained from the antrum and body. Plan:? Patient has an appointment on 02/08/21 in the GI Clinic with iRcarda Aguilar M.D. If biopsies are normal, I will schedule patient for esophageal manometry at [facility] for further evaluation of dysphagia. BIOPSIES SHOWED: A.? Stomach, antrum, biopsy: - Antral-type mucosa with severe chronic, focally active, inflammation. ? - Rare form consistent with H pylori identified. B.? Stomach, body, biopsy: - Oxyntic mucosa with severe chronic active inflammation. ? - Positive for H pylori. C.? EG junction, biopsy: - Cardiofundic-type mucosa with moderate chronic inactive inflammation; no intestinal metaplasia seen. ? - Squamous mucosa within normal limits. D.? Esophagus, proximal, biopsy:? Squamous epithelium within normal limits; no inflammation seen. TODAY'S VISIT: Continues to have dysphagia and is handling it, Gets intermittent sharp 6-7/10 stabbing RLQ pain - once in a while Pain is quick and resolves in 2-3 seconds. Unable to identify any precipitating factors. Denies association with food or activity. Can have pain while she is sitting down. Constipation last 2-3 days followed by normal stools followed by diarrhea The kind that you got to run Stool is usually brown. When she has diarrhea, it can be black and upto 6-7 or more in a day. If diarrhea gets real bad, she takes peptobismol PAST VISITS: Continues to have abdominal bloating and would like to be checked for H Pylori infection. Still have issues with swallowing and has learnt to live with it Thinks dysphagia is likely due to dry mouth related to sjogren's. Has constipation alternating with diarrhea. Had constipation x 3 weeks and then had soft stools. Now having normal stools and there are times when she has diarrhea. Not taking a PPI at present. Patient follow up for dysphagia and Barium Swallow results. Patient cc: diarrhea and acid reflex both on and off. Patient said her throat is closing, she is been having difficulty to swallow solid and the liquid bothers her throat too. Also her neck is hurting and stiffness. It feels as if my throat is closing. Sometimes when she drinks liquids, it seems that it may go in the wrong pipe. Denies coughing spells with drinking liquids. Also notes neck pain and stiffness Trying to chew the food more and is more mindful of how she swallows. Scheduled to see Rheumatology in 09/2022. Feels acidy and has a sour stomach. Has been having constipation with bloating for the past 3 days - stomach is streching. Has a BM 1-2 times a day with hard stools - difficult to pass stool. Had soft stools 4-5 days ago Had a colonoscopy 3-4 yrs ago. Saw the ENT physician (Dr Moreno) and was told everything is normal. Patient cc: Nauseas, some abdominal pain, she need GERD medication, diarrhea but more constipation, hemorrhoids are out without blood, and some dysphagia. Complains of nausea, intermittent regurgitation with burning. Afraid to have esophageal manometry Has nausea, abdominal pain, diarrhea with ? dehydration Has been having more of acid reflux. Able to swallow a little more since her last EGD - still has to be careful. Unable to go for manometry testing since she was told she had to stay for the whole day. EGD and bx results reviewed. She was swallowing a little better Sometimes she feels a burp is stuck in the esophagus and makes her throat tighter. Avoiding steaks. Being very careful with what she eats. Its hard to adjust and accept - takes rice and makes sure it has some liquid gr morgan and water so she does not choke. Dying to eat a cheese papaselli napper grinder. Seen at [facility] ER in Sep, 2020 and was informed she had some lesions in the liver. MRI results reviewed with the patient Had a ? modified barium swallow test at [facility] on 11/08/20 by her neurologist. Complains of dysphagia 1.5 yrs - had a choking episode and had to cough it out. Noticed intermittent problems with noodles. Had to have a hemlich manuver at a restuarant after she had some steak Has to be really careful what she eats and has lost 30 lbs. Intermittent mild acid reflux and burping. Has chronic constipation and denies black stools or rectal bleeding. (stool is normal most of the time) Patient denies major cardiac or pulmonary problems, Has loud snoring and denies sleep apnea Denies problems with anesthesia in the past. Denies being on chronic anticoagulation. Patient denies known family history of colon cancer or other GI malignancies. Dad had colon polyps removed [facility] Medical History MIRLANDE positive Ankylosis of thoracic spine Arthritis of both hips Depression Goiter Hypothyroidism Ingrown toenail Mild recurrent major depression Overactive bladder Postherpetic neuralgia Pulmonary nodules Sicca syndrome with keratoconjunctivitis Sjogrens syndrome Surgical History History of brain surgery History of thyroidectomy Hx of colonoscopy Hx of esophagogastroduodenoscopy Family History Father Diabetes Stroke Alzheimer disease Mother Alzheimer disease Parkinson disease Depression Son Multiple sclerosis Son Learning disability Brother Diabetes Sister Diabetes Hypertension Social History Household Members: None Housing: Condominium Alcohol intake: never Patient Tobacco Use Status: Former Tobacco user Tobacco use type: Cigarette e-Cigarette/Vaping Use: Never Used Second Hand Smoke Exposure: No Substance Use Type: Marijuana service: No Current occupational status: employed Current occupation: [employer] Cognitive needs: No Hearing needs: No Vision needs: No Review of Systems Const All systems reviewed & are unremarkable except as noted in HPI and below Physical Exam Vital Signs: Last Vital Signs Pulse 88 05/10/23 11:35 BP 113/55 L 05/10/23 11:35 BMI result Body Mass Index 23.2 Const General: healthy appearing and no acute distress Nutritional Appearance: average body habitus Orientation/consciousness: patient oriented x3 Limitations: no limitations HEENT Head: Yes normal to inspection Ears: hearing grossly normal bilaterally Eyes Sclerae: sclerae normal Pupils: Equal, round and reactive pupils present Neck Neck: Yes normal visual inspection Chest Chest palpation & inspection: normal inspection of the chest Resp Effort & Inspection: normal respiratory effort Auscultation: clear to auscultation bilaterally Cardio Palpation: normal PMI Rate: regular rate Rhythm: regular rhythm Heart sounds: S1 normal heart sound present, S2 normal heart sound present and no murmurs GI Palpation (GI): Soft to palpation, nontender and No hepatosplenomegaly present Auscultation: normal bowel sounds Rectal Exam - Female: deferred Skin General skin exam: no rashes or lesions noted Neuro General: patient oriented x3, gait normal and moves all extremities Cranial nerves: Yes Equal, round and reactive pupils present Psych Appearance: grossly normal Mental Status: mental status grossly normal Assessment & Plan Assessment & Plan (1) Helicobacter pylori gastritis: Comment: 01/31/21 EGD with dilation was performed with temporary improvement lasting for a few days. Gastric bx was positive for H Pylori.? Post treatment stool test for H Pylori antigen was negative in 08/2021 Code(s): K29.70 - Gastritis, unspecified, without bleeding; B96.81 - Helicobacter pylori [H. pylori] as the cause of diseases classified elsewhere (2) GERD (gastroesophageal reflux disease): Code(s): K21.9 - Gastro-esophageal reflux disease without esophagitis Qualifiers: Esophagitis presence: esophagitis presence not specified Qualified Code(s): K21.9 - Gastro-esophageal reflux disease without esophagitis (3) Hepatic hemangioma: Code(s): D18.03 - Hemangioma of intra-abdominal structures (4) Dysphagia: Code(s): R13.10 - Dysphagia, unspecified (5) Abnormal CT scan, liver: Code(s): R93.2 - Abnormal findings on diagnostic imaging of liver and biliary tract Plan 62 YF with Sjogren's syndrome, positive MIRLANDE and pulmonary nodules referred to GI for evaluation of GERD and dysphagia. 09/2020 EGD was negative and dilation to 20 mm was performed with transient improvement in swallowing lasting for a week after EGD. 11/08/20 MODIFIED BARIUM SWALLOW SHOWED: At fluoroscopy there was a normal initiation of swallowing reflex without evidence for aspiration or penetration. Vallecular residue was identified with multiple barium challenges. The patient tolerated a 13 mm barium tablet. Dysphagia is likely related to dry mouth and esophageal motility disorder associated with Sjogren syndrome 01/31/21 EGD with dilation was performed with temporary improvement lasting for a few days. Gastric bx was positive for H Pylori.? Post treatment stool test for H Pylori antigen was negative in 08/2021 Pt was referred to [facility] for esophageal manometry/impedence testing - she is reluctant to go since she was told she will need to stay there all day. 10/15/[address] scan without IV contrast showed indeterminate lesions within the liver some of which have soft tissue density. MRI showed the largest lesion characterized as a hemangioma based on morphology, signal features and enhancement pattern. The smaller lesions may also represent hemangiomata but are difficult to fully characterize. Pt complains of constipation and bloating.? She was prescribed Senna. Advised to call back if symptoms persist. If pt continues to have constipation, she will be scheduled for further evaluation with Colonoscopy (she may need same day EGD + dil for dysphagia) Last colon was in 2017 at [facility] and was normal per patient 11/30/22 H Pylori Breath test was performed at pt's request and was negative 05/10/23 Pt advised to schedule an EGD (FU of dysphagia and diarrhea) and a colonoscopy (diarrhea alternating with constipation) GI FU in 4 months Coding Level of Care Code Est Pt Level 4 (21024) Diagnoses Helicobacter pylori gastritis K29.70; B96.81 GERD (gastroesophageal reflux disease) K21.9 Esophagitis presence: esophagitis presence not specified Hepatic hemangioma D18.[address] scan, liver R93.2 Time Spent (min) 24
[2023-05-10 11:35] VITALS: BP 113/55; PULSE 88; BMI 23.2
== END 2023-05-10 12:55 | disposition home or self-care (01) ==
PROVIDERS: Visit Provider Internal Medicine Gastroenterology
DX: K29.70 Gastritis, unspecified, without bleeding (principal); B96.81 Helicobacter pylori [H. pylori] as the cause of diseases classified elsewhere; K21.9 Gastro-esophageal reflux disease without esophagitis; D18.03 Hemangioma of intra-abdominal structures; R13.10 Dysphagia, unspecified; R93.2 Abnormal findings on diagnostic imaging of liver and biliary tract
CPT/HCPCS: 99214

== ENCOUNTER → 2023-05-10 11:28 | Outpatient (BNVA) | payer OTHER, SELFPAY | PROVIDERS: Visit Provider Internal Medicine Gastroenterology ==

== ENCOUNTER 2023-05-16 10:10 | Outpatient (AMB) | payer SELFPAY ==
[2023-05-16 10:23] VITALS: BP 104/62; BMI 23.4
--- NOTE | 2023-05-16 10:23 | MHC.OFFVIS ---
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 No complaints. Last Mammogram was BI-RADS 1 in 09/28 Last Colonoscopy was in 2019, the recommendation was to repeat in 5 years [facility] Medical History MIRLANDE positive Ankylosis of thoracic spine Arthritis of both hips Depression Goiter Hypothyroidism Ingrown toenail Mild recurrent major depression Overactive bladder Postherpetic neuralgia Pulmonary nodules Sicca syndrome with keratoconjunctivitis Sjogrens syndrome Surgical History History of brain surgery History of thyroidectomy Hx of colonoscopy Hx of esophagogastroduodenoscopy Family History Father Diabetes Stroke Alzheimer disease Mother Alzheimer disease Parkinson disease Depression Son Multiple sclerosis Son Learning disability Brother Diabetes Sister Diabetes Hypertension Social History Household Members: None Housing: Condominium Alcohol intake: never Patient Tobacco Use Status: Former Tobacco user Tobacco use type: Cigarette e-Cigarette/Vaping Use: Never Used Second Hand Smoke Exposure: No Substance Use Type: Marijuana service: No Current occupational status: employed Current occupation: [employer] Cognitive needs: No Hearing needs: No Vision needs: No Female Reproductive History Menstrual Menopause type: natural Total pregnancies: 2 Full term: 2 Number of Living Children: 2 Date of Mammogram: 09/18/22 Review of Systems Const All systems reviewed & are unremarkable except as noted in HPI and below Card Reports as per HPI Resp Reports as per HPI GI Reports as per HPI and Reports no additional complaints Reports as per HPI Physical Exam Vital Signs: BMI result Body Mass Index 23.4 Const General: cooperative, healthy appearing and comfortable Chest Chest palpation & inspection: normal inspection of the chest and normal palpation of entire chest wall Breast/axilla inspection: normal inspection of the breasts and normal inspection of the axillae Breast/axilla palpation: normal palpation of the breasts, normal palpation of the axillae and no axillary lymphadenopathy Resp Effort & Inspection: normal respiratory effort Auscultation: clear to auscultation bilaterally Percussion: percussion normal Cardio Palpation: normal PMI Rate: regular rate Rhythm: regular rhythm Heart sounds: no murmurs and no rubs Peripheral pulses: Peripheral pulses 2+ throughout GI Inspection: Yes normal to inspection Palpation (GI): Soft to palpation, nontender, no guarding, not rigid and No hepatosplenomegaly present Percussion: Yes normal to percussion Auscultation: normal bowel sounds Rectal Exam - Female: deferred General: Yes bladder normal to palpation External Female Exam: No lesion Speculum Exam - Vagina: normal appearance of the vagina, normal palpation, normal vaginal discharge and not erythematous Speculum Exam - Cervix: normal appearance of the cervix and normal palpation Bimanual exam- vagina & uterus: normal bimanual exam, normal palpation, uterine size normal, bladder normal to palpation, consistency normal and normal palpation Bimanual Exam- Adnexa, other: normal adnexae, no masses and no tenderness Assessment & Plan Assessment & Plan (1) Well woman exam: Code(s): Z01.419 - Encounter for gynecological examination (general) (routine) without abnormal findings Plan: Co testing done. Counseled the patient about the recommended dietary allowance of 1200 mg of Calcium & 600 IU of vitamin D. Mammogram ordered for 09/29 , the patient is up-to-date with her screening colonoscopy . The patient was instructed to perform monthly self-breast exams and schedule annual exam in a year; all questions answered and the patient verbalized understanding. Coding Level of Care Code New Pt Prev Care 40-64y(02391) Diagnoses Well woman exam Z01.419
== END 2023-05-16 10:51 | disposition home or self-care (01) ==
LOC: HO.HWS 10:10
PROVIDERS: PCP Internal Medicine; Visit Provider Obstetrics & Gynecology
DX: Z01.419 Encounter for gynecological examination (general) (routine) without abnormal findings (principal)
CPT/HCPCS: 99386

== ENCOUNTER 2023-05-16 10:10 | Outpatient (REF) | payer OTHER, SELFPAY ==
[2023-05-23 04:14] LABS: HPV mRNA E6/E7 rflx Not Detected (Not Detected)
== END 2023-05-16 10:11 | disposition home or self-care (01) ==
LOC: HO.LNP 10:10
PROVIDERS: PCP Internal Medicine; Visit Provider Obstetrics & Gynecology
DX: Z01.419 Encounter for gynecological examination (general) (routine) without abnormal findings (principal)
CPT/HCPCS: 87624; 88142

== ENCOUNTER 2023-05-23 07:38 | Outpatient (AMB) | payer OTHER, SELFPAY ==
--- NOTE | 2023-05-23 07:39 | MHC.OFFVIS ---
Intake Vital Signs 05/23/23 07:40 Height 5 ft 6 in Weight 146 lb 4 oz BMI 23.6 BP 140/80 H Blood Pressure Location Rt brachial Position Sitting Pulse 71 Pulse Source Pulse Oximeter Pulse Oximetry (%) 99 Oxygen Delivery Method Room Air Intake Visit Reasons: 3m follow up polyneuropathy-confirmed Intake Note: Pt presents as 3 month f/u for polyneuropathy Postdoctoral Fellow Required: No Allergies Penicillins Allergy (Unknown, Verified 05/23/23 07:48) Swelling Medication List - Last Reconciled 05/23/23 by Brigitte Gutiérrez MD gabapentin 300 mg PO TID 90 days ibuprofen 800 mg PO Q8H PRN 30 days levothyroxine 75 mcg PO DAILY 90 days lorazepam 0.5 mg PO BEDTIME PRN HPI HPI Comments History of Present Illness Details 62y/o female comes for follow up of numbness , tingling in bilateral lower extremities. 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 In April 2022 she had shingles in her right leg. SInce then she started having tingling numbness and pain in her right foot and leg . she started having numbness and tingling in her left foot a few weeks later. she feels her right leg is worse now- she is on gabapentin Her right knee and leg weakness balance is better with PT she was diagnosed with Sjogrens about 5 years ago - she sees Dr. Aparicio and currently not on any medications. She denies any burning sensation or redness in her feet. She had a brain surgery for a cyst in 1991 and had numbness in left toe. she also reports chronic sleep issues. she has loud snoring with frequent arousals and excessive daytime fatigue [facility] Medical History (Updated 05/23/23 @ 08:12 by Brigitte Gutiérrez MD) MIRLANDE positive Ankylosis of thoracic spine Arthritis of both hips Depression Goiter Hypothyroidism Ingrown toenail Loud snoring Mild recurrent major depression Overactive bladder Postherpetic neuralgia Pulmonary nodules Sicca syndrome with keratoconjunctivitis Sjogrens syndrome Witnessed apneic spells Surgical History History of brain surgery History of thyroidectomy Hx of colonoscopy Hx of esophagogastroduodenoscopy Family History Father Diabetes Stroke Alzheimer disease Mother Alzheimer disease Parkinson disease Depression Son Multiple sclerosis Son Learning disability Brother Diabetes Sister Diabetes Hypertension Social History Household Members: None Housing: Condominium Alcohol intake: never Patient Tobacco Use Status: Former Tobacco user Tobacco use type: Cigarette e-Cigarette/Vaping Use: Never Used Second Hand Smoke Exposure: No service: No Current occupational status: employed Current occupation: [employer] Cognitive needs: No Hearing needs: No Vision needs: No Physical Exam Vital Signs: Last Vital Signs Pulse 71 05/23/23 07:40 BP 140/80 H 05/23/23 07:40 Pulse Ox 99 05/23/23 07:40 Oxygen Delivery Method Room Air 05/23/23 07:40 BMI result Body Mass Index 23.6 Const General: cooperative, comfortable and no acute distress Nutritional Appearance: average body habitus Orientation/consciousness: patient oriented x3 Neuro Other: decreased pp in su feet and right leg Right knee swollen with restricted range of motion General: patient oriented x3, tone normal, moves all extremities and no focal motor deficits Cognition (Neuro): normal cognition Gait exam (Neuro): Antalgic gait present Motor exam (neuro): 5/5 motor strength present throughout and Normal motor muscle tone present throughout Deep tendon reflexes (DTR's): Right triceps reflex intensity grade: 2+, Left triceps reflex intensity grade: 2+, Rt Biceps (C5, C6): 2+, Left biceps reflex intensity grade: 2+, Right brachioradialis reflex intensity grade: 2+, Left brachioradialis reflex intensity grade: 2+, Right patellar reflex intensity grade: 3+ and Left patellar reflex intensity grade: 3+ Coordination: [id number] test normal Results Reviewed Results Reviewed: EMG ? Bilateral tibial and peroneal motor studies were performed.? Bilateral sural and superficial peroneal sensory studies were performed.? Tibial H reflexes were obtained and paraspinal muscles were tested with a needle. ? IMPRESSION:? Moderately severe axonal sensory motor peripheral neuropathy. Assessment & Plan Assessment & Plan (1) Peripheral neuropathy: Comment: ? sjogrens related Code(s): G62.9 - Polyneuropathy, unspecified (2) Knee pain, chronic: Code(s): M25.569 - Pain in unspecified knee; G89.29 - Other chronic pain (3) Postherpetic neuralgia: Code(s): B02.29 - Other postherpetic nervous system involvement (4) Loud snoring: Code(s): R06.83 - Snoring Plan EMG NCS LE- results discussed Continue gabapentin 300mg tid suggested alpha lipoic acid 300mg qd PT for right knee and gait training- helped and she is continuing to exercise Home sleep test for sleep apnea Orders: Orders RT home sleep study Today R06.81 - Apnea, not elsewhere classified, R06.83 - Snoring Coding Level of Care Code Est Pt Level 4 (37150) Diagnoses Peripheral neuropathy G62.9 Knee pain, chronic M25.569; G89.29 Postherpetic neuralgia B02.29 Loud snoring R06.83
[2023-05-23 07:40] VITALS: BP 140/80; PULSE 71; O2SAT 99; BMI 23.6
== END 2023-05-23 08:00 | disposition home or self-care (01) ==
PROVIDERS: Visit Provider Psychiatry & Neurology Neurology
DX: G62.9 Polyneuropathy, unspecified (principal); M25.569 Pain in unspecified knee; G89.29 Other chronic pain; B02.29 Other postherpetic nervous system involvement; R06.83 Snoring
CPT/HCPCS: 99214

== ENCOUNTER → 2023-05-23 07:38 | Outpatient (BNVA) | payer OTHER, SELFPAY | PROVIDERS: Visit Provider Psychiatry & Neurology Neurology | DX: B02.29 Other postherpetic nervous system involvement (principal); G62.9 Polyneuropathy, unspecified; M25.569 Pain in unspecified knee; G89.29 Other chronic pain ==

== ENCOUNTER → 2023-06-28 09:46 | Outpatient (REF) | payer OTHER, SELFPAY ==
--- NOTE | 2023-06-28 10:19 | HM_ITS ---
* Total monitoring time 2 days. * Underlying rhythm is sinus. Average ventricular rate 72/Min. Range 49 to 135/Min. * Rare supraventricular and ventricular ectopy. * No sustained arrhythmias. * No significant pauses or AV blocks. * No patient markers or events in diary. MTDD
[2023-06-28 11:17] LABS: Thyroid Stimulating Hormone 2.19 uIU/mL (0.32-4.0)
[2023-06-28 11:19] LABS: TSH reflex Free T4 2.23 uIU/mL (0.32-4.0)
[2023-06-28 11:34] LABS: Folate 10.6 ng/mL (> or = 4.0); Vitamin B12 598 pg/mL (200-900)
== END ==
LOC: HO.SL 09:46
PROVIDERS: Nurse Practitioner Family; Absent Provider Internal Medicine; PCP Internal Medicine; Visit Provider Psychiatry & Neurology Neurology
DX: G47.33 Obstructive sleep apnea (adult) (pediatric) (principal); E53.8 Deficiency of other specified B group vitamins; E89.0 Postprocedural hypothyroidism; R06.83 Snoring; R00.2 Palpitations
CPT/HCPCS: 36415; 82607; 82746; 84443; 93225; 95806

== ENCOUNTER → 2023-06-28 10:17 | Outpatient (BNV) | payer OTHER, SELFPAY | PROVIDERS: Absent Provider Internal Medicine; PCP Internal Medicine; Visit Provider Psychiatry & Neurology Neurology | DX: G47.33 Obstructive sleep apnea (adult) (pediatric) (principal) | CPT/HCPCS: 95806 ==

== ENCOUNTER → 2023-06-28 10:19 | Outpatient (BNV) | payer OTHER, SELFPAY | PROVIDERS: Absent Provider Internal Medicine; PCP Internal Medicine; Visit Provider Internal Medicine | DX: I47.1 Supraventricular tachycardia (principal) | CPT/HCPCS: 93227 ==

== ENCOUNTER 2023-07-05 10:47 | Outpatient (AMB) | payer OTHER, SELFPAY ==
--- NOTE | 2023-07-05 10:58 | MHC.OFFVIS ---
Intake Vital Signs 07/05/23 10:59 Height 5 ft 6 in Weight 140 lb 3.424 oz BMI 22.6 BP 126/80 Blood Pressure Location Lt brachial Position Sitting Pulse 72 Intake Visit Reasons: NPV/Palpitations/Sharon Bautista Tolliver Intake Note: NPV w/ EKG Transformation Consultant Required: No Accompanied by: Self / Same As Patient Allergies Penicillins Allergy (Unknown, Verified 07/05/23 11:02) Swelling Medication List - Last Reconciled 07/05/23 by Vitaly Swain MD bisacodyl (Dulcolax (bisacodyl)) 10 mg (2 x 5 mg) PO ONCE 2 days gabapentin 400 mg PO TID 90 days ibuprofen 800 mg PO Q8H PRN 30 days levothyroxine 75 mcg PO DAILY 90 days lorazepam 0.5 mg PO BEDTIME PRN polyethylene glycol 3350 (Miralax) 17 grams PO DAILY 1 day tramadol 50 mg PO Q4H PRN HPI HPI Comments History of Present Illness Details Lily has been referred for palpitations. She states she gets random episodes as she can feel some heart fluttering. She does not have any known cardiac issues. No history of any coronary artery disease, myocardial infarction or cardiomyopathy. No limitations of any activity and she states she never has chest pains or shortness of breath or other symptoms. [facility] Medical History (Updated 07/05/23 @ 11:20 by Vitaly Swain MD) Witnessed apneic spells Loud snoring Postherpetic neuralgia Mild recurrent major depression Depression Ingrown toenail Overactive bladder Hypothyroidism Pulmonary nodules Ankylosis of thoracic spine Goiter 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 Sjogrens syndrome Surgical History History of brain surgery Hx of esophagogastroduodenoscopy Hx of colonoscopy History of thyroidectomy Family History Father Diabetes Stroke Alzheimer disease Mother Alzheimer disease Parkinson disease Depression Son Multiple sclerosis Son Learning disability Brother Diabetes Sister Diabetes Hypertension Social History (Updated 07/05/23 @ 11:02 by Haley Little) Household Members: None Housing: Condominium Alcohol intake: never Patient Tobacco Use Status: Former Tobacco user e-Cigarette/Vaping Use: Never Used Second Hand Smoke Exposure: No Substance Use Type: Marijuana service: No Current occupational status: employed Current occupation: [employer] Cognitive needs: No Hearing needs: No Vision needs: No Review of Systems Const Denies chills, Denies daytime sleepiness, Denies fatigue, Denies fever(s), Denies frequent falls, Denies night sweats, Denies snoring, Denies weakness, Denies weight gain and Denies weight loss Eyes Denies loss of vision ENT Denies dizziness and Denies hearing loss Card Denies chest pain, Denies chest pain with activity, Denies syncope, Denies rapid heart rate, Denies edema, Denies claudication, Denies leg edema, Denies lightheadedness, Denies palpitations, Denies dyspnea, Denies dyspnea on exertion and Denies orthopnea Resp Denies cough, Denies excessive phlegm production, Denies dyspnea, Denies dyspnea on exertion, Denies snoring and Denies wheezing GI Denies abdominal pain, Denies hematochezia, Denies change in bowel habits, Denies change in stool character, Denies heartburn, Denies nausea and Denies vomiting Denies hematuria, Denies urinary frequency and Denies dysuria Musc Denies arthralgias, Denies muscle weakness, Denies numbness and Denies tingling Skin/Breast Denies nail changes and Denies rash Neuro Denies Abnormal speech present, Denies dizziness, Denies syncope, Denies frequent falls, Denies loss of vision, Denies memory loss, Denies numbness, Denies tingling and Denies weakness Psych Denies depression and Denies memory loss Endo Denies fatigue and Denies palpitations Aller/Immun Denies wheezing Physical Exam Vital Signs: Last Vital Signs Pulse 72 07/05/23 10:59 BP 126/80 07/05/23 10:59 BMI result Body Mass Index 22.6 Const General: comfortable and no acute distress Orientation/consciousness: patient oriented x3 HEENT Other: Unremarkable Head: Yes normal to inspection Neck Neck: Yes normal visual inspection Chest Chest palpation & inspection: normal inspection of the chest Resp Auscultation: clear to auscultation bilaterally Cardio Palpation: normal PMI Heart sounds: S1 normal heart sound present, S2 normal heart sound present, no gallops, no murmurs and no rubs GI Palpation (GI): Soft to palpation Back/Spine/Pelvis Other: unremarkable Skin General skin exam: no rashes or lesions noted Neuro General: patient oriented x3 Speech: No Abnormal speech present Extrem General: Yes normal to inspection Psych Mental Status: mental status grossly normal Office Procedures EKG Details: EKG shows sinus rhythm at 72/Min; no significant ST-T changes and otherwise unremarkable[place] [address]-[id number], Complete Assessment & Plan Assessment & Plan (1) Palpitation: Code(s): R00.2 - Palpitations Plan Baseline EKG is unremarkable. Holter shows underlying sinus rhythm and rare ectopy but otherwise unremarkable. Symptoms seem to be rather anxiety than anything else. Mainly reassurance only. Hold off further workup at this time. Coding Level of Care Code New Pt Level 3 (54334) Diagnoses Palpitation R00.2 CPT Codes EKG - CPT: 44105-[id number], Complete ([id number])
[2023-07-05 10:59] VITALS: BP 126/80; PULSE 72; BMI 22.6
== END 2023-07-05 11:16 | disposition home or self-care (01) ==
PROVIDERS: PCP Internal Medicine; Visit Provider Internal Medicine
DX: R00.2 Palpitations (principal)
CPT/HCPCS: 93010; 99213

== ENCOUNTER → 2023-07-05 10:47 | Outpatient (BNVA) | payer OTHER, SELFPAY | PROVIDERS: PCP Internal Medicine; Visit Provider Internal Medicine | DX: R00.2 Palpitations (principal) | CPT/HCPCS: 93005 ==

== ENCOUNTER 2023-08-01 14:46 | Outpatient (REF) | payer OTHER, SELFPAY ==
--- NOTE | ~2023-08-01 | CT_ITS ---
EXAMINATION: CT CHEST WITHOUT CONTRAST CLINICAL INFORMATION: Residual pulmonary fibrosis COMPARISON: 11/08/2020. TECHNIQUE: Multidetector volumetric CT imaging of the chest was done. Axial MIP volume rendering provided. Sagittal and coronal reformatted images were obtained. This CT examination was performed using dose optimization techniques as appropriate, variously including the following: *Automated exposure control *Adjustment of mA and/or kV according to patient size (this includes techniques or standardized protocols for targeted exams where dose is matched to indication/reason for exam; i.e. extremities or head) *Use of iterative reconstruction technique DLP: 114 mGy-cm FINDINGS: [employer]: Negative LUNGS: Trachea and bronchi are patent. Underlying hyperinflation with mild centrilobular emphysema. Lingular atelectasis. No consolidations. 6 mm groundglass opacity posterior right upper lobe, 9:61. Unchanged bilateral upper lobe subpleural micronodules. Minimal biapical pleural scarring. MEDIASTINUM: Thyroid clips. Nonspecific lymph nodes. No pathologic lymphadenopathy. Nonenlarged heart. No pericardial effusion. Atherosclerotic calcifications nonaneurysmal aorta. Nonenlarged pulmonary arteries. CORONARY ARTERY CALCIFICATION: None visualized on this study. PLEURA: There is no pleural effusion. No pleural mass or thickening. AXILLA: No lymphadenopathy. UPPER ABDOMEN: Redemonstration of ill-defined hepatic hypodensities, largest inferomedial right hepatic lobe measuring 1.8 cm. Subsequent MRI demonstrated morphologic characteristics of hemangioma. Unchanged thickening left adrenal gland. Nonspecific left retroperitoneal lymph nodes. Distended debris-filled stomach. OSSEOUS STRUCTURES: T10 hemangioma. Fused T2/T3, T4/T5 vertebral bodies and fusion left C7/T1 ribs. Right shoulder calcifications, question calcific tendinopathy. CT/CT chest wo IV con IMPRESSION: 6 mm posterior RUL groundglass opacity, possibly infectious. CT follow-up recommended in 3-6 months time. Multiple other stable intrathoracic, upper abdominal and bony findings. Fleischner guidelines were followed.
== END 2023-08-01 14:47 | disposition home or self-care (01) ==
LOC: HO.CT 14:46
PROVIDERS: PCP Internal Medicine; Visit Provider Internal Medicine Pulmonary Disease
DX: J84.9 Interstitial pulmonary disease, unspecified (principal)
CPT/HCPCS: 71250

== ENCOUNTER 2023-08-14 12:31 | Outpatient (AMB) | payer OTHER, SELFPAY ==
[2023-08-14 12:59] VITALS: BP 108/62; PULSE 87; O2SAT 98; BMI 23.1
--- NOTE | 2023-08-14 12:59 | A.OFFVIS_ITS ---
Intake Vital Signs 08/14/23 12:59 Height 5 ft 6 in Weight 143 lb 4.807 oz BMI 23.1 BP 108/62 Blood Pressure Location Lt brachial Position Sitting Pulse 87 Pulse Source Auscultation Pulse Oximetry (%) 98 Oxygen Delivery Method Room Air Intake Visit Reasons: CT results Allergies Penicillins Allergy (Unknown, Verified 08/14/23 13:03) Swelling HPI CT results HPI Details 61-year-old lady, former less than 10 pa ck-year smoker, quit 20 years prior, now smoking weed at night, with underlying history of Sjogren's syndrome now on Plaquenil, previously on methotrexate, followed [place] [facility] [place], followed for pulmonary nodules and possible pulmonary involvement in Sjogren's. Patient denies dyspnea, cough or sputum production.? After the last office visit patient had repeat CT chest that showed a new 6 mm nodule, otherwise stable findings. She denies any other symptoms. [facility] Medical History (Updated 07/05/23 @ 11:20 by Vitaly Swain MD) Witnessed apneic spells Loud snoring Postherpetic neuralgia Mild recurrent major depression Depression Ingrown toenail Overactive bladder Hypothyroidism Pulmonary nodules Ankylosis of thoracic spine Goiter 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 Sjogrens syndrome Surgical History History of brain surgery Hx of esophagogastroduodenoscopy Hx of colonoscopy History of thyroidectomy Family History Father Diabetes Stroke Alzheimer disease Mother Alzheimer disease Parkinson disease Depression Son Multiple sclerosis Son Learning disability Brother Diabetes Sister Diabetes Hypertension Social History Household Members: None Housing: Condominium Alcohol intake: never Patient Tobacco Use Status: Former Tobacco user e-Cigarette/Vaping Use: Never Used Second Hand Smoke Exposure: No service: No Current occupational status: employed Current occupation: [employer] Cognitive needs: No Hearing needs: No Vision needs: No Review of Systems Const Denies daytime sleepiness, Denies excessive sweating, Denies fatigue, Denies fev er(s), Denies lethargy, Denies malaise, Denies night sweats, Denies snoring and Denies weight loss Eyes Denies blurry vision and Denies itchy eyes ENT Denies nasal congestion, Denies post nasal drip, Denies sinus pain, Denies sinus pressure and Denies other ( Thrush) Card Denies chest pain, Denies pedal edema, Denies dyspnea, Denies orthopnea and Denies paroxysmal nocturnal dyspnea Resp Denies cough, Denies hemoptysis, Denies excessive phlegm production, Denies dyspnea, Denies snoring and Denies wheezing GI Denies abdominal pain and Denies heartburn Musc Denies myalgias, Denies arthralgias and Denies joint swelling Skin/Breast Denies rash Neuro Denies memory loss and Denies seizure-like activity Psych Denies abnormal sleep pattern, Denies anxiety and Denies memory loss Endo Denies excessive sweating, Denies fatigue and Denies heat intolerance Jozef/Lymph Denies easy bruising Aller/Immun Denies itchy eyes, Denies seasonal rhinorrhea and Denies wheezing Physical Exam Vital Signs: Last Vital Signs Pulse 87 08/14/23 12:59 BP 108/62 08/14/23 12:59 Pulse Ox 98 08/14/23 12:59 Oxygen Delivery Method Room Air 08/14/23 12:59 BMI result Body Mass Index 23.1 Const General: no acute distress and alert Nutritional Appearance: not obese Orientation/consciousness: Other orientation findings ( oriented) HEENT Head: Yes atraumatic Eyes General: appearance normal, both eyes and all related structures Sclerae: sclerae normal EOM: EOMs intact bilaterally Neck Neck: Yes supple Lymphatic: no lymphadenopathy noted Resp Effort & Inspection: normal respiratory effort and no use of accessory muscles Auscultation: clear to auscultation bilaterally Cardio Rate: regular rate Rhythm: regular rhythm Heart sounds: no gallops, no murmurs and no rubs Skin General skin exam: other ( warm) Extrem General: No clubbing, No cyanosis and No edema Assessment & Plan Assessment & Plan (1) ILD (interstitial lung disease): Code(s): J84.9 - Interstitial pulmonary disease, unspecified (2) Pulmonary nodules: Code(s): R91.8 - Other nonspecific abnormal finding of lung field Plan Underlying mild interstitial lung disease with findings stable on CT chest. Otherwise asymptomatic. New 6 mm pulmonary nodules. Will repeat CT chest in 12 months. Orders: Orders CT chest wo IV con 07/14/24 R91.8 - Other nonspecific abnormal finding of lung field Coding Level of Care Code Est Pt Level 4 (04307) Diagnoses ILD (interstitial lung disease) J84.9 Pulmonary nodules R91.8
== END 2023-08-14 13:23 | disposition home or self-care (01) ==
PROVIDERS: PCP Internal Medicine; Visit Provider Internal Medicine Pulmonary Disease
DX: J84.9 Interstitial pulmonary disease, unspecified (principal); R91.8 Other nonspecific abnormal finding of lung field
CPT/HCPCS: 99214

== ENCOUNTER → 2023-08-14 12:31 | Outpatient (BNVA) | payer OTHER, SELFPAY | PROVIDERS: PCP Internal Medicine; Visit Provider Internal Medicine Pulmonary Disease ==

== ENCOUNTER 2023-09-13 07:16 | Outpatient (AMB) | payer OTHER, SELFPAY ==
--- NOTE | 2023-09-13 07:42 | A.OFFVIS_ITS ---
Intake Vital Signs 09/13/23 07:50 BP 120/78 Blood Pressure Location Rt brachial Position Sitting Pulse 82 Pulse Source Pulse Oximeter Pulse Oximetry (%) 99 Oxygen Delivery Method Room Air Intake Visit Reasons: 3m f/u polyneuropathy - LVM Intake Note: Patient presents for 3 month folow up. I want to know what's going on because I have some symptoms that I don't want to have. I have tingling in my spine, my legs and my back. Allergies Penicillins Allergy (Unknown, Verified 09/13/23 07:45) Swelling Medication List - Last Reconciled 09/13/23 by Brigitte Gutiérrez MD bisacodyl (Dulcolax (bisacodyl)) 10 mg (2 x 5 mg) PO ONCE 2 days calcium carbonate-vitamin D3 600 mg-20 mcg (800 unit) (Caltrate 600 plus D) 1 tab PO DAILY gabapentin 600 mg PO TID ibuprofen 800 mg PO Q8H PRN 30 days levothyroxine 75 mcg PO DAILY 90 days lorazepam 0.5 mg PO BEDTIME PRN polyethylene glycol 3350 (Miralax) 17 grams PO DAILY 1 day tramadol 50 mg PO Q4H PRN HPI HPI Comments History of Present Illness Details 62y/o female comes for follow up of numb ness , tingling in bilateral lower extremities. 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 In April 2022 she had shingles in her right leg. SInce then she started having tingling numbness and pain in her right foot and leg . she started having numbness and tingling in her left foot a few weeks later. she feels her right leg is worse now- she is on gabapentin Her right knee and leg weakness balance is better with PT she was diagnosed with Sjogrens about 5 years ago - she sees Dr. Aparicio and currently not on any medications. She denies any burning sensation or redness in her feet. She had a brain surgery for a cyst in 1991 and had numbness in left toe. she also reports chronic sleep issues. she has loud snoring with frequent arousals and excessive daytime fatigue . Her sleep study was significant for mild LUCIA - AHI 5/hr . [facility] Medical History (Updated 09/13/23 @ 07:58 by Brigitte Gutiérrez MD) Obstructive sleep apnea hypopnea, mild Witnessed apneic spells Loud snoring Postherpetic neuralgia Mild recurrent major depression Depression Ingrown toenail Overactive bladder Hypothyroidism Pulmonary nodules Ankylosis of thoracic spine Goiter 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 Sjogrens syndrome Surgical History History of brain surgery Hx of esophagogastroduodenoscopy Hx of colonoscopy History of thyroidectomy Family History Father Diabetes Stroke Alzheimer disease Mother Alzheimer disease Parkinson disease Depression Son Multiple sclerosis Son Learning disability Brother Diabetes Sister Diabetes Hypertension Social History Household Members: None Housing: Condominium Alcohol intake: never Patient Tobacco Use Status: Former Tobacco user e-Cigarette/Vaping Use: Never Used Second Hand Smoke Exposure: No service: No Current occupational status: employed Current occupation: [employer] Cognitive needs: No Hearing needs: No Vision needs: No Physical Exam Vital Signs: Last Vital Signs Pulse 82 09/13/23 07:50 BP 120/78 09/13/23 07:50 Pulse Ox 99 09/13/23 07:50 Oxygen Delivery Method Room Air 09/13/23 07:50 Const General: cooperative, comfortable and no acute distress Nutritional Appearance: average body habitus Orientation/consciousness: patient oriented x3 Neuro Other: decreased pp in su feet and right leg Right knee swollen with restricted range of motion General: patient oriented x3, tone normal, moves all extremities and no focal motor deficits Cognition (Neuro): normal cognition Gait exam (Neuro): Antalgic gait present Motor exam (neuro): 5/5 motor strength present throughout and Normal motor muscle tone present throughout Deep tendon reflexes (DTR's): Right triceps reflex intensity grade: 2+, Left triceps reflex intensity grade: 2+, Rt Biceps (C5, C6): 2+, Left biceps reflex intensity grade: 2+, Right brachioradialis reflex intensity grade: 2+, Left brachioradialis reflex intensity grade: 2+, Right patellar reflex intensity grade: 3+ and Left patellar reflex intensity grade: 3+ Coordination: [id number] test normal Assessment & Plan Assessment & Plan (1) Peripheral neuropathy: Comment: ? sjogrens related Code(s): G62.9 - Polyneuropathy, unspecified (2) Knee pain, chronic: Code(s): M25.569 - Pain in unspecified knee; G89.29 - Other chronic pain (3) Postherpetic neuralgia: Code(s): B02.29 - Other postherpetic nervous system involvement (4) Obstructive sleep apnea hypopnea, mild: Code(s): G47.33 - Obstructive sleep apnea (adult) (pediatric) Plan EMG NCS LE- results discussed Increase gabapentin 600mg tid suggested alpha lipoic acid 600mg qd PT for right knee and gait training- helped and she is continuing to exercise Her sleep apnea was mild. Results discussed. Hold off on CPAP for now . suggested avoiding supine sleep. Rheumatology eval for Sjogrens Orders: Referrals Rheumatology Referral M35.00 - Sjogren syndrome, unspecified Medications: New gabapentin 600 mg PO TID 90 tabs 6RF Discontinued gabapentin Discontinued Reason: Doctor's Order 400 mg PO TID 270 caps 0RF 90 days B02.29 - Other postherpetic nervous system involvement, G62.9 - Polyneuropathy, unspecified Coding Level of Care Code Est Pt Level 4 (27424) Diagnoses Peripheral neuropathy G62.9 Knee pain, chronic M25.569; G89.29 Postherpetic neuralgia B02.29 Obstructive sleep apnea hypopnea, mild G47.33
[2023-09-13 07:50] VITALS: BP 120/78; PULSE 82; O2SAT 99
== END 2023-09-13 08:12 | disposition home or self-care (01) ==
PROVIDERS: PCP Internal Medicine; Visit Provider Psychiatry & Neurology Neurology
DX: G62.9 Polyneuropathy, unspecified (principal); M25.569 Pain in unspecified knee; G89.29 Other chronic pain; B02.29 Other postherpetic nervous system involvement; G47.33 Obstructive sleep apnea (adult) (pediatric)
CPT/HCPCS: 99214

== ENCOUNTER → 2023-09-13 07:16 | Outpatient (BNVA) | payer OTHER, SELFPAY | PROVIDERS: PCP Internal Medicine; Visit Provider Psychiatry & Neurology Neurology | DX: B02.29 Other postherpetic nervous system involvement (principal); G62.9 Polyneuropathy, unspecified; M25.569 Pain in unspecified knee; G89.29 Other chronic pain ==

== ENCOUNTER 2023-09-21 15:42 | Outpatient (REF) | payer OTHER, SELFPAY | END 2023-09-21 15:43 | disposition home or self-care (01) | LOC: HO.MAMMO 15:42 | PROVIDERS: PCP Nurse Practitioner Family; Visit Provider Nurse Practitioner Family | DX: Z12.31 Encounter for screening mammogram for malignant neoplasm of breast (principal) | CPT/HCPCS: 77063; 77067 ==

== ENCOUNTER → 2023-09-21 16:00 | Outpatient (BNV) | payer OTHER, SELFPAY | PROVIDERS: PCP Nurse Practitioner Family; Visit Provider Radiology Diagnostic Radiology | DX: Z12.31 Encounter for screening mammogram for malignant neoplasm of breast (principal) | CPT/HCPCS: 77063; 77067 ==

== ENCOUNTER 2023-10-19 13:18 | Outpatient (AMB) | payer OTHER, SELFPAY ==
--- NOTE | 2023-10-19 13:26 | A.OFFVIS_ITS ---
Intake Vital Signs 10/19/23 13:28 Height 5 ft 6 in Weight 139 lb BMI 22.4 BP 92/56 L Blood Pressure Location Rt brachial Position Sitting Pulse 100 Pulse Source Pulse Oximeter Temp 97 F Temp Source Skin Pulse Oximetry (%) 87 L Oxygen Delivery Method Room Air Intake Visit Reasons: Sjogren syndrome Intake Note: Current patient, internally referred by Neuro, presents to office today for Sjogren's syndrome. Last seen by Dr. Aparicio September,. c/o feet and leg pain c/o morning stifness in fingers Basket Hand Weaver Required: No Accompanied by: Son Allergies Penicillins Allergy (Unknown, Verified 10/19/23 13:31) Swelling HPI HPI Comments History of Present Illness Details Ms. Turk 62 yoF last seen in the office 2021, acompanied by her son Tigre today. She has returned for follow-up evaluation due to some recent medical concerns. She states she was told by the neurologist to come back to Rheumatology for us to assess if her neuralgia is a consequence of Sjogren's. She is not on any medications per Rheum. She was told she had sjogren's and at one point Lupus. However, the Lupus Diagnosis was refuted by Sr. Aparicio and so she is here for clear-cut answers . She saw Dr. Al in the summer, at that time hydroxychloroquine was prescribed but the patient decided she did not need it in that she was not feeling all that bad. She had previously a few months of methotrexate which she thought was helpful at relieving some of her joint stiffness and swelling but it was discontinued because another Freelance Operator told me heid not want me on that medication because it was too strong . She has had pains in the right knee, right ankle, and some stiffness in the hands but not bothersome. She no longer has the right knee or right ankle swelling. She does take gabapentin for it as she has been told she has nerve damage from the shingles, mostly to the right leg. She did see a neurologist (Dr. Sanches) for this and was diagnosed with Postherpetic Neuralgia. 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 She still gets dry eyes and dry mouth. She use Biotene oral products and eyedrops once a night which are helpful. She notes declining dental health. She has not had any problems with oral ulcers, skin rashes, chest pain or abdominal pain. She was also told she might have lupus and is concerned about that diagnosis. PAST GI HISTORY BY REVIEW OF MEDICAL RECORDS: 09/24/20 Pt was seen by Dr Drake in eumatology: 59yoF presents for follow-up of Sjogrens . Last seen in August 2019. Visit conducted via telemedicine. Underwent full thyroidectomy in March 2020. Initially doing well, now with difficulty swallowing. Has dysphagia for both solids and liquids. States that she has choked in the past. States that she is afraid to eat because of these symptoms and has been losing weight. Also reports increasing joint pain mostly in her hands, ankles, elbows. States her ankles can become swollen towards the end of the day. No joint swelling in her hands. In the past, she states she was treated with methotrexate for her joint pain and it helps a little. She states she was also given Plaquenil but thinks it did not help very much however she is unsure whether she was on it long enough to see any true results. Serology with MIRLANDE 1:640 centromere pattern, + anti-centromere Ab, + RF low titer, negative CCP, +SS-A, leukopenia, thrombocytopenia. Initial Serology with MIRLANDE 1:640 centromere pattern, +SS-A, +RF low titer, negative CCP, leukopenia, thrombocytopenia, +anti-centromere Ab, normal C3/C4 and DsDNA, no proteinuria. She denies Raynauds, photosensitivity, oral or nasal uclers, foamy urine Previously treated with MTX 6 tabs weekly - her joint pain improved on this dose. Now off MTX since May 2018. At her last visit, there was no evidence of synovitis on exam. She was also previously treated with Plaquenil but she stop this medication on her own as she states she did not feel much improvement. She is unsure if she was on the medication for long enough. I discussed with patient that I would like to check serology to see how active her disease is. Would also like to examine her in person in the office to elicit whether there is true synovitis on exam as she does have a low titer positive rheumatoid factor. She will do labs and follow-up in the office in 2 months. She will continue to follow regularly with her field support representative and her dentist. She will contact her bilingual speech language pathologist regarding her dysphagia. 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 Sjogrens syndrome Surgical History History of brain surgery Hx of esophagogastroduodenoscopy Hx of colonoscopy History of thyroidectomy Family History (Updated 10/19/23 @ 13:32 by WALE Nicole) Father Diabetes Stroke Alzheimer disease Mother Alzheimer disease Parkinson disease Depression Arthritis Son Multiple sclerosis Son Learning disability Brother Diabetes Sister Diabetes Hypertension Social History (Updated 10/19/23 @ 13:31 by WALE Nicole) Household Members: None Housing: Condominium Alcohol intake: never Patient Tobacco Use Status: Former Tobacco user e-Cigarette/Vaping Use: Never Used Second Hand Smoke Exposure: No Substance Use Type: Marijuana service: No Current occupational status: employed Current occupation: [employer] Cognitive needs: No Hearing needs: No Vision needs: No Female Reproductive History Menstrual Total pregnancies: 2 Review of Systems Const All systems reviewed & are unremarkable except as noted in HPI and below Physical Exam Vital Signs: Last Vital Signs Temp 97 F 10/19/23 13:28 Pulse 100 10/19/23 13:28 BP 92/56 L 10/19/23 13:28 Pulse Ox 87 L 10/19/23 13:28 Oxygen Delivery Method Room Air 10/19/23 13:28 BMI result Body Mass Index 22.4 APPEARANCE: Patient in no acute distress EYES no redness, pupils equal and reactive to light, eyelids normal EARS: External ear normal, canal clear and tympanic membrane normal. NOSE/SINUS: Airflow through both nares, no nasal discharge, no bleeding THROAT: Oral mucosa moist, no ulcerations NECK: No thyromegaly or masses, no adenopathy, trachea midline. HEART: Regulrar rhythm, S1-S2 heard, no murmurs, rubs or gallops. LUNG: Clear to percussion and auscultation ABD: Normal bowel sounds, no organomegaly, masses or tenderness. EXTREMITIES: No edema, no calf tenderness, normal peripheral pulses. NEURO: Oriented and alert x3. No focal weakness. Reflexes symmetric. Gait normal. SKIN: No inflammatory or neoplastic lesions. Normal color and turgor. No objective signs of Raynaud's disease. JOINT EXAM:.?? Cervical Spine:.? Full range of motion with slight discomfort at the extremes of motion. No tenderness. Thoracic Spine:.? No scoliosis.? No tenderness on palpation. Lumbar Spine:.? Alignment normal.? Full range of motion without pain, no tenderness. Chest Wall:.? No tenderness, swelling, increased warmth or erythema. Hands:.? Normal pain-free range of motion without tenderness, swelling, increased warmth or erythema. There is no flexor tendon triggering, thenar atrophy, or sensory loss. Wrists:.? Slight pain with extremes of normal flexion or extension. Minimal tenderness with no swelling, increased warmth or erythema. Elbows:. Normal pain-free range of motion without tenderness, swelling, increased warmth or erythema. Shoulders:.?? Full range of motion without pain. No tenderness, weakness, swelling, increased warmth or erythema. Hips:.? Full range of motion without pain. Hip bursa:.? No tenderness. Knees:.??Right: Normal pain-free range of motion with mild medial tenderness but no effusion, crepitus, soft tissue swelling, increased warmth or erythema.? Left: Normal pain-free range of motion with no tenderness or swelling. No patellofemoral crepitation Ankles: Right: Questionable valgus deformity. Slight pain with extremes of inversion and eversion. AP motion seems intact and pain-free. There is minimal medial and lateral tenderness without swelling or redness. Left:? Normal pain- free range of motion without tenderness, swelling, increased warmth or erythema. Feet:.? Normal pain-free range of motion with mild 1st MTP bony enlargement. This is a bit more prominent on the left. In the feet there is no tenderness, soft tissue swelling, increased warmth or erythema. Tender points:.? Mild tenderness to digital palpation at the lateral epicondyle, knees, greater trochanter area bilaterally. ? Assessment & Plan Assessment & Plan (1) MIRLANDE positive: Code(s): R76.8 - Other specified abnormal immunological findings in serum (2) Sjogrens syndrome: Code(s): M35.00 - Sjogren syndrome, unspecified Qualifiers: Sjogren's organ involvement: unspecified organ involvement Qualified Code(s): M35.00 - Sicca syndrome, unspecified (3) ILD (interstitial lung disease): Code(s): J84.9 - Interstitial pulmonary disease, unspecified (4) Postherpetic neuralgia: Code(s): B02.29 - Other postherpetic nervous system involvement Plan #Sjogren's/ILD: Ms. Turk returns to clinic after a one year absence. Her sjogren's syndrome is mostly symptoms of dry eyes and dry mouth. Patient wants to know what can be done to treat Sjogren's. I discussed with patient, that there is really no empric treatment for Sjogren's. Any secondary findings of Sjogren's is treated according to the system affected. She has had a trial of cholinergic medications in the past that were not helpful. She should continue with the Biotene and eyedrops as she has been doing for the dryness symptoms. She desires to do the lip biopsy for Sjogren's. I think this is reasonable given that she is also under the care of Pulmonolgy for Interstitial Lung Disease (ILD) which can be caused by Sjogren's. I do not think this will impact her treatment for ILD. Per Pulmonary records, it appears she is currently under annual monitoring. #+MIRLANDE with centromere pattern:Based on labs and records, there is no doubt that patient is on the CTD spectrum based on her serology and some significant episodes of joint swelling in her history. However, there are no signs or symptoms to suggest active CTD/SLE on PE today and she denies such within the last year. She does not seem to have any inflammatory synovitis on exam today. There may be some stiffness in the hands related to early or mild OA. The ankle has some tenderness and maybe valgus deformity. This seemed to be sequelae from a shingles outbreak. It is also important to note that she sees GI and is treated for dysphagia/GERD. She can moisten her food but she has had to have her esophagus stretched because food gets stuck. Given her dysphagia (esophageal dysmotility)/GERD and the centromere pattern of the high tither MIRLANDE, I have considered CREST/Scleroderma. I discussed the symptoms of CREST with the patient and there is possible episodes of Ryanaud's. Patient will take pictures of any occurrence. I discussed with patient and she agrees that there is no further intervention required at this time. We will repeat some of her serologies, complement levels, CBC, microalbumin, and acute phase reactants to see where they stand today. I will get back to her with any adverse results of her studies. #PostHerpetic Neuralgia: She will continue to follow-up with her neurologist and continue with the gabapentin. I have spent 50 minutes reviewing records, evaluating patient and documenting Orders: Orders Complement C3 Today R76.8 - Other specified abnormal immunological findings in serum Complement C4 Today R76.8 - Other specified abnormal immunological findings in serum Comprehensive Met. Panel Today R76.8 - Other specified abnormal immunological findings in serum Scleroderma 70 Antibody Today R76.8 - Other specified abnormal immunological findings in serum Rheumatoid Factor Today J84.9 - Interstitial pulmonary disease, unspecified Cyclic Citrullinated Peptide Today J84.9 - Interstitial pulmonary disease, unspecified Complete Blood Count Auto Diff Today R76.8 - Other specified abnormal immunological findings in serum C Reactive Protein Today R76.8 - Other specified abnormal immunological findings in serum Erythrocyte Sedimentation Rate Today R76.8 - Other specified abnormal immunological findings in serum UA w Microscopic Today R76.8 - Other specified abnormal immunological findings in serum Anti Extractable Nuclear Ag Today R76.8 - Other specified abnormal immunological findings in serum MIRLANDE Reflex Titer and Pattern Today R76.8 - Other specified abnormal immunological findings in serum Anti-Centromere B Antibodies Today R76.8 - Other specified abnormal immunological findings in serum Anti DNA DS Antibody Today R76.8 - Other specified abnormal immunological findings in serum Sjogren's Antibodies Today R76.8 - Other specified abnormal immunological findings in serum Referrals General Surgery Referral J84.9 - Interstitial pulmonary disease, unspecified, R76.8 - Other specified abnormal immunological findings in serum Coding Level of Care Code Est Pt Level 5 (10176) Diagnoses MIRLANDE positive R76.8 Sjogren's syndrome, with unspecified organ involvement M35.00 Sjogren's organ involvement: unspecified organ involvement ILD (interstitial lung disease) J84.9 Postherpetic neuralgia B02.29
[2023-10-19 13:28] VITALS: BP 92/56; PULSE 100; TEMP 36.1; O2SAT 87; BMI 22.4
== END 2023-10-19 14:25 | disposition home or self-care (01) ==
PROVIDERS: PCP Nurse Practitioner Family; Visit Provider Nurse Practitioner Family
DX: M35.00 Sjogren syndrome, unspecified (principal); R76.8 Other specified abnormal immunological findings in serum; J84.9 Interstitial pulmonary disease, unspecified; B02.29 Other postherpetic nervous system involvement
CPT/HCPCS: 99215

== ENCOUNTER 2023-10-19 13:18 | Outpatient (REF) | payer OTHER, SELFPAY ==
[2023-10-19 14:59] LABS: MANUAL DIFF FLAG NO
[2023-10-19 15:43] LABS: Basophils Percent Auto 0.3 % (0-2); Eosinophils Percent Auto 0.5 % (0-4); Hematocrit 35.6 % (37.0-47.0); Hemoglobin 11.9 g/dl (12.0-16.0); Imm Gran Abs Auto 0.01 X10*3/uL (0.00-0.03); Imm Gran Pct Auto 0.3 % (0.0-0.4); Lymphocytes Absolute Auto 1.8 X10*3/uL (1.2-4.9); Lymphocytes Percent Auto 46.2 % (20-40); Mean Corpuscular HGB Conc 33.4 g/dl (31.0-35.0); Mean Corpuscular Hemoglobin 30.4 pg (27.0-33.0); Mean Platelet Volume 11.1 fL (9.4-12.3); Monocytes Absolute Auto 0.3 X10*3/uL (0.1-1.2); Monocytes Percent Auto 6.9 % (2-11); Neutrophils Absolute Auto 1.8 x10*3/uL (2.0-8.3); Neutrophils Percent Auto 45.8 % (45-73); Platelet Count 109 X10*3/uL (160-400); Red Blood Count 3.91 X10*6/uL (4.20-5.50); Red Cell Distribution Width 13.7 % (11.0-16.0); White Blood Count 3.9 X10*3/uL (4.8-10.8)
[2023-10-19 16:11] LABS: Erythrocyte Sedimentation Rate 16 MM/HR (0-20)
[2023-10-19 16:35] LABS: Alanine Aminotransferase 16 U/L (0-31); Albumin Level 4.1 g/dL (3.5-5.0); Alkaline Phosphatase 77 U/L (39-117); Anion Gap 9 (12-20); Aspartate Amino Transferase 16 U/L (5-31); Bilirubin Total 0.9 mg/dL (0.0-1.0); Blood Urea Nitrogen 14 mg/dL (9-16); C Reactive Protein < 0.10 mg/dL (< or = 0.50); Calcium 9.1 mg/dL (8.4-10.2); Carbon Dioxide 27 mmol/L (22-29); Chloride 111 mmol/L (96-108); Estimated Glomerular Filt Rate > 60; Glucose Random 83 mg/dL (60-115); Potassium 3.6 mmol/L (3.3-5.1); Sodium 143 mmol/L (135-145); Total Protein 7.4 g/dL (6.5-8.0)
[2023-10-19 16:43] LABS: Rheumatoid Factor < 13.0 IU/mL (<15.0)
[2023-10-19 17:58] LABS: Appearance Urine Clear; Color Urine Yellow; Glucose Urine UA Negative (Negative); Leukocyte Esterase Urine Small (1+) (Negative); Nitrite Urine Negative (Negative); PH >= 9.0 (5.0-9.0); Specific Gravity - Urine 1.025 (1.005-1.025); UMIC TRIGGER UA YES; Urine Blood Negative (Negative); Urine Ketones Negative (Negative); Urine Protein Trace mg/dL (Neg-Trace)
[2023-10-19 18:18] LABS: Bacteria Urine None Seen (None Seen); Hyaline Casts Urine 0-2 /LPF (0-2); RBC Urine 0-2 /HPF (0-2); Squamous Epithelial Cell Urine 0-2 /HPF (0-2)
[2023-10-22 10:48] LABS: Cyclic Citrullinated Peptide <16 UNITS
[2023-10-22 22:53] LABS: Anti DNA DS Antibody 1 IU/mL; Antibody to SS-A Antigen >8.0 POS AI (<1.0 NEG); Antibody to SS-B Antigen <1.0 NEG AI (<1.0 NEG); SM/Ribonucleoprotein Ab <1.0 NEG AI (<1.0 NEG); Scleroderma 70 Antibody <1.0 NEG AI (<1.0 NEG); Smith Protein <1.0 NEG AI (<1.0 NEG)
[2023-10-23 19:17] LABS: Complement C3 105 mg/dL (83-193)
[2023-10-23 20:33] LABS: Anti-Centromere B Antibodies >8.0 POS AI (<1.0 NEG)
[2023-10-25 14:39] LABS: Anti Nuclear Antibody Pattern Nuclear, Centromere; Anti Nuclear Antibody Screen POSITIVE (NEGATIVE)
== END 2023-10-19 13:19 | disposition home or self-care (01) ==
LOC: HO.LAB 13:18
PROVIDERS: PCP Internal Medicine; Visit Provider Nurse Practitioner Family
DX: R76.8 Other specified abnormal immunological findings in serum (principal); J84.9 Interstitial pulmonary disease, unspecified; M35.00 Sjogren syndrome, unspecified; B02.29 Other postherpetic nervous system involvement
CPT/HCPCS: 36415; 80053; 81001; 85025; 85652; 86038; 86039; 86140; 86160; 86200; 86225; 86235; 86431

== ENCOUNTER 2023-11-16 09:27 | Outpatient (AMB) | payer OTHER, SELFPAY ==
[2023-11-16 09:39] VITALS: BP 154/80; PULSE 79; BMI 22.8
--- NOTE | 2023-11-16 09:39 | A.OFFVIS_ITS ---
Intake Vital Signs 11/16/23 09:39 Height 5 ft 6 in Weight 141 lb BMI 22.8 BP 154/80 H Blood Pressure Location Rt brachial Position Sitting Pulse 79 Intake Visit Reasons: Lip bx Intake Note: Patient referred by Adriana Daily for lip bx. Patient wants to rule out sjogren's syndrome. Patient c/o: no lesions on lips. No hx of skin ca. Oriental Medicine Practitioner Required: No Accompanied by: son Tigre Allergies Penicillins Allergy (Unknown, Verified 11/16/23 09:43) Swelling HPI HPI Comments History of Present Illness Details Patient presents with her son. She has been worked up by Neurology and Rheumatology for presumptive diagnosis of Sjogren's syndrome. She presents here in case she needs a lip biopsy for further confirmation of the diagnosis. 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 Sjogrens syndrome Surgical History History of brain surgery Hx of esophagogastroduodenoscopy Hx of colonoscopy History of thyroidectomy Family History Father Diabetes Stroke Alzheimer disease Mother Alzheimer disease Parkinson disease Depression Arthritis Son Multiple sclerosis Son Learning disability Brother Diabetes Sister Diabetes Hypertension Social History Household Members: None Housing: Condominium Alcohol intake: never Patient Tobacco Use Status: Former Tobacco user e-Cigarette/Vaping Use: Never Used Second Hand Smoke Exposure: No Substance Use Type: Marijuana service: No Current occupational status: employed Current occupation: [employer] Cognitive needs: No Hearing needs: No Vision needs: No Physical Exam Vital Signs: Last Vital Signs Pulse 79 11/16/23 09:39 BP 154/80 H 11/16/23 09:39 BMI result Body Mass Index 22.8 Assessment & Plan Assessment & Plan (1) SS-A antibody positive: Code(s): R76.8 - Other specified abnormal immunological findings in serum (2) Sjogren syndrome with lung involvement: Code(s): M35.02 - Sjogren syndrome with lung involvement Plan At present, I will wait for a formal consult from either the patient's waste and batting waste chopper or neurologist to perform a lip biopsy. At present, the 2 physicians involved with the case have not formally asked for lip biopsy this is the patient's reading on the Internet. She will contact us should the above- mentioned physicians require lip biopsy. All questions answered. Patient otherwise follow-up p.r.n.. Coding Level of Care Code New Pt Level 3 (64909) Diagnoses SS-A antibody positive R76.8 Sjogren syndrome with lung involvement M35.02
== END 2023-11-16 10:11 | disposition home or self-care (01) ==
PROVIDERS: PCP Internal Medicine; Referring Provider Nurse Practitioner Family; Visit Provider Surgery
DX: R76.8 Other specified abnormal immunological findings in serum (principal); M35.02 Sjogren syndrome with lung involvement
CPT/HCPCS: 99203

== ENCOUNTER → 2023-11-16 09:27 | Outpatient (BNVA) | payer OTHER, SELFPAY | PROVIDERS: PCP Internal Medicine; Referring Provider Nurse Practitioner Family; Visit Provider Surgery ==

== ENCOUNTER 2024-01-31 12:14 | Outpatient (AMB) | payer OTHER, SELFPAY ==
[2024-01-31 12:17] VITALS: BP 126/80; BMI 22.1
--- NOTE | 2024-01-31 12:17 | A.OFFPC_ITS ---
Vital Signs 01/31/24 12:17 Height 5 ft 6 in Weight 137 lb BMI 22.1 BP 126/80 Blood Pressure Location Lt brachial Position Sitting Intake Visit Reasons: annual exam Intake Note: Patient here for a physical exam,c/o right knee/ankle pain and swelling Product Support Sales Representative Required: No Accompanied by: Self / Same As Patient Allergies Penicillins Allergy (Unknown, Verified 01/31/24 12:35) Swelling Medication List - Last Reconciled 01/31/24 by Sharon Tolliver MD bisacodyl (Dulcolax (bisacodyl)) 10 mg (2 x 5 mg) PO ONCE 2 days calcium carbonate-vitamin D3 600 mg-20 mcg (800 unit) (Caltrate 600 plus D) 1 tab PO DAILY gabapentin 600 mg PO TID ibuprofen 800 mg PO Q8H PRN 30 days levothyroxine 75 mcg PO DAILY 90 days lorazepam 0.5 mg PO BEDTIME PRN polyethylene glycol 3350 (Miralax) 17 grams PO DAILY 1 day Tobacco use date assessed: 01/31/24 Fall risk assessment: No Falls in past year Last assessed Fall Risk: 01/31/24 Dental Screening Dental Screen Date: 01/31/24 Did you have a dental visit in the last 12 months?: Yes Did you have a dental problem in the last 6 months where you did not have access to dental care?: No Was dental information given to patient?: Patient has dentist HPI HPI Comments History of Present Illness Details This is a 63-year-old female with Sjogren syndrome with lung involvement, interstitial lung disease and mild recurrent major depression that comes for her physical exam. Sjogren syndrome is been follow by Rheumatology. Has interstitial lung disease follow by pulmonology. Depression has been stable without the need of medication. Pap smear done May 2023 and was normal. Mammogram done September 2023 and was normal. Colonoscopy done at [facility] was normal in 2019. Colonoscopy will be repeated this year. She does complains of dry eyes and dry mouth secondary to Sjogren's. She also has diffuse joint pain and joint swelling as well as paresthesias most likely due to her autoimmune condition. In the past was on hydroxychloroquine with inadequate response and was on methotrexate also with significant improvement of her joint pain and neuropathy. [facility] Medical History (Updated 01/31/24 @ 15:57 by Sharon Tolliver MD) Mild recurrent major depression Hypothyroidism Obstructive sleep apnea hypopnea, mild Witnessed apneic spells Loud snoring Postherpetic neuralgia Depression Ingrown toenail Overactive bladder Hypothyroidism Pulmonary nodules Ankylosis of thoracic spine Goiter 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 Sjogrens syndrome Surgical History SS-A antibody positive Sjogren syndrome with lung involvement History of brain surgery Hx of esophagogastroduodenoscopy Hx of colonoscopy History of thyroidectomy Family History Father Diabetes Stroke Alzheimer disease Mother Alzheimer disease Parkinson disease Depression Arthritis Son Multiple sclerosis Son Learning disability Brother Diabetes Sister Diabetes Hypertension Social History Household Members: None Housing: Condominium Alcohol intake: never Patient Tobacco Use Status: Former Tobacco user Tobacco use type: Cigarette e-Cigarette/Vaping Use: Never Used Second Hand Smoke Exposure: No Substance Use Type: Marijuana service: No Current occupational status: employed Current occupation: [employer] Cognitive needs: No Hearing needs: No Vision needs: No Questionnaire PHQ-9 Over the last 2 weeks, how often have you been bothered by any of the following problems? 1. Little interest or pleasure in doing things: several days 2. Feeling down, depressed, or hopeless: more than half the days 3. Trouble falling or staying asleep, or sleeping too much: nearly every day 4. Feeling tired or having little energy: more than half the days 5. Poor appetite or overeating: not at all 6. Feeling bad about yourself - or that you are a failure or have let yourself or your family down: not at all 7. Trouble concentrating on things, such as reading the newspaper or watching television: more than half the days 8. Moving or speaking so slowly that other people could have noticed. Or the opposite - being so fidgety or restless that you have been moving around a lot more than usual: several days 9. Thoughts that you would be better off or of hurting yourself in some way: not at all Total score: 11 Depression Screening Interpretation: Positive Depression Screening Follow-up: Existing condition Depression Screening Done: Yes 18389 - PHQ-9 Billing: Yes Source: Developed by Drs. Blayne Tijerina, Henrry Whitlock and colleagues, with an educational zachariah from [employer]. Thrive Questionnaire Date Thrive assessed: 01/31/24 I am a: Patient What is your living situation today?: I have a steady place to live Within the past 12 months, did the food you bought not last and you didn't have the money to get more?: Never true Within the past 12 months, did you worry whether your food would run out before you got money to buy more?: Never true Do you have trouble paying for medicines?: No Do you have trouble getting transportation to medical appointments?: No Do you have trouble paying your heating and electricity bill?: No Do you have trouble taking care of your child, family member or friend?: No Do you have trouble with day-to-day activities such as bathing, preparing meals, shopping, managing finances, etc.?: No Are you currently unemployed and looking for a job?: No Are you interested in more education?: No Please select the resources that you would like help with: None Currently or been in a relationship where the following occur: no concerns reported THRIVE Score: 0 AUDIT C Alcohol Use Questionnaire (AUDIT-C) 1. How often do you have a drink containing alcohol?: Never Total Score: 0 Score Reviewed/Action Taken: No PATTI-7 AMB Questionnaire PATTI-7 Date PATTI - 7 assessed: 01/31/24 Feeling nervous, anxious, or on edge: 2 = More than half the days Not being able to stop or control worryin = Not at all Worrying too much about different things: 2 = More than half the days Trouble relaxin = More than half the days Being so restless that it is hard to sit still: 3 = Nearly every day Becoming easily annoyed or irritable: 3 = Nearly every day Feeling afraid as if something awful might happen: 3 = Nearly every day Total PATTI-7 score (0-4 normal; 5-9 mild; 10-14 moderate; 15-21 severe): 15 Source: Developed by Ritika Briscoe Kurt Kroenke and colleagues, with an educational zachariah from [employer]. PATTI-7 Assessment Billing PATTI-7 Assessment Tool: PATTI-7 Assessment 69186 Review of Systems Const All systems reviewed & are unremarkable except as noted in HPI and below Card Denies chest pain at rest, Denies chest pain with activity, Denies edema, Denies irregular heart rhythm, Denies claudication, Denies dyspnea, Denies dyspnea on exertion, Denies orthopnea, Denies paroxysmal nocturnal dyspnea and Denies slow heart rate Resp Denies cough, Denies dyspnea and Denies dyspnea on exertion GI Denies abdominal pain, Denies change in bowel habits, Denies excessive flatus, Denies nausea and Denies vomiting Denies urinary incontinence, Denies urinary hesitancy and Denies urinary urgency Musc Denies abnormal gait, Denies atrophy, Denies deformity, Reports arthralgias, Reports joint swelling, Denies limited range of motion and Reports numbness Skin/Breast Denies bleeding lesions, Denies changing lesions and Denies rash Neuro Denies abnormal gait, Denies behavioral changes, Denies confusion, Denies lack of coordination and Reports numbness Psych Denies behavioral changes and Denies confusion Physical exam (Primary Care) Vital Signs: Last Vital Signs BP 126/80 01/31/24 12:17 BMI result Body Mass Index 22.1 Tobacco/Smoking Status: Tobacco use Status Tobacco use date assessed 01/31/24 01/31/24 12:23 Patient Tobacco Use Status Former Tobacco user 01/31/24 12:23 Tobacco use type Cigarette 01/31/24 12:23 e-Cigarette/Vaping Use Never Used 01/31/24 12:23 PHQ-9: PHQ-9 Score PHQ-9: Total score 11 01/31/24 13:06 Depression Screening Interpretation: Positive Depression Screening Follow-up: Existing condition Thrive Assessment: Date of Thrive Assessment Date Thrive assessed 01/31/24 01/31/24 12:27 Currently or been in a relationship where the following occur: no concerns reported Const General: No confusion Orientation/consciousness: patient oriented x3 and No confusion HENMT Head: Yes normal to inspection, Yes normocephalic and Yes atraumatic Ears: external ears normal Eyes General: appearance normal, both eyes and all related structures Eyelids: Yes eyelids normal Conjunctivae: conjunctivae normal Neck Neck: Yes normal visual inspection and Yes supple Resp Effort & Inspection: normal respiratory effort Auscultation: clear to auscultation bilaterally Cardio Jugular venous distension: no JVD Rate: regular rate Rhythm: regular rhythm Heart sounds: S1 normal heart sound present and S2 normal heart sound present GI Inspection: Yes normal to inspection Palpation (GI): Soft to palpation and nontender Auscultation: normal bowel sounds Skin General skin exam: no rashes or lesions noted Neuro General: patient oriented x3, no focal motor deficits and No confusion Extrem General: Yes full ROM Right lower extremity: knee Details: swelling Left lower extremity: knee Details: swelling Psych Appearance: grossly normal Immunizations pneumoc 20-jamila conj-dip cr(PF) 0.5 mL IM syringe Performing Provider: Sharon Tolliver MD Performing Location: [facility] Administered by: WALE Kumar on 01/31/24 13:06 Dose Route Admin Location Dispensed Lot Number Expiration Date NDC [place] [employer] 0.5 mL IM Left Deltoid 0.5 mL [id number] 02/05/25 3601-2054-85 [place] [employer] VIS Given Date VIS Provided VIS Publication Date 01/31/24 Single Vaccine 21 Eligibility Eligibility Date Funding Source Not [facility] Eligible 01/31/24 Private Assessment and Plan Assessment & Plan (1) Physical exam: Code(s): Z00.00 - Encounter for general adult medical examination without abnormal findings Plan: Repeat in a year. (2) Sjogren syndrome with lung involvement: Code(s): M35.02 - Sjogren syndrome with lung involvement Plan: Advised to use artificial tears preservative-free as needed. Also advised to chew gum and use biotin. (3) ILD (interstitial lung disease): Code(s): J84.9 - Interstitial pulmonary disease, unspecified Plan: Follow-up with pulmonology. (4) Mild recurrent major depression: Code(s): F33.0 - Major depressive disorder, recurrent, mild Plan: Stable without the need of medication. Orders: Orders Celiac Disease Panel Today D64.9 - Anemia, unspecified Complete Blood Count Auto Diff Today D64.9 - Anemia, unspecified Vitamin D 25-OH Total Today E55.9 - Vitamin D deficiency, unspecified Comprehensive Moran. Panel Fast Today Z00.00 - Encounter for general adult medical examination without abnormal findings Pneumococcal 20 Immunization Today Z23 - Encounter for immunization IRON PROFILE Today D64.9 - Anemia, unspecified Vitamin B12 and Folate Today E53.8 - Deficiency of other specified B group vitamins Thyroid Stimulating Hormone Today E89.0 - Postprocedural hypothyroidism Lipid Panel Today Z00.00 - Encounter for general adult medical examination without abnormal findings Coding Level of Care Code Est Pt Prev Care >65y(13729) Diagnoses Physical exam Z00.00 Sjogren syndrome with lung involvement M35.02 ILD (interstitial lung disease) J84.9 Mild recurrent major depression F33.0 Additional Codes PATTI-7 Assessment Billing - PATTI-7 Assessment Tool: PATTI-7 Assessment 83996 ([id number]) Time Spent (min) 35
== END 2024-01-31 13:16 | disposition home or self-care (01) ==
PROVIDERS: PCP Internal Medicine; Visit Provider Internal Medicine
DX: Z00.00 Encounter for general adult medical examination without abnormal findings (principal); M35.02 Sjogren syndrome with lung involvement; J84.9 Interstitial pulmonary disease, unspecified; Z23 Encounter for immunization; F33.0 Major depressive disorder, recurrent, mild
CPT/HCPCS: 90471; 90677; 99397

== ENCOUNTER 2024-02-01 06:50 | Outpatient (REF) | payer OTHER, SELFPAY ==
[2024-02-01 07:00] LABS: MANUAL DIFF FLAG NO
[2024-02-01 07:46] LABS: Basophils Percent Auto 0.4 % (0-2); Eosinophils Percent Auto 0.8 % (0-4); Hematocrit 35.3 % (37.0-47.0); Hemoglobin 11.8 g/dl (12.0-16.0); Imm Gran Abs Auto 0.03 X10*3/uL (0.00-0.03); Imm Gran Pct Auto 0.6 % (0.0-0.4); Lymphocytes Absolute Auto 1.5 X10*3/uL (1.2-4.9); Lymphocytes Percent Auto 28.1 % (20-40); Mean Corpuscular HGB Conc 33.4 g/dl (31.0-35.0); Mean Corpuscular Hemoglobin 31.1 pg (27.0-33.0); Mean Corpuscular Volume 93.1 fL (80.0-98.0); Mean Platelet Volume 10.8 fL (9.4-12.3); Monocytes Absolute Auto 0.4 X10*3/uL (0.1-1.2); Monocytes Percent Auto 7.8 % (2-11); Neutrophils Absolute Auto 3.3 x10*3/uL (2.0-8.3); Neutrophils Percent Auto 62.3 % (45-73); Platelet Count 124 X10*3/uL (160-400); Red Blood Count 3.79 X10*6/uL (4.20-5.50); Red Cell Distribution Width 13.5 % (11.0-16.0); White Blood Count 5.2 X10*3/uL (4.8-10.8)
[2024-02-01 08:17] LABS: Alanine Aminotransferase 10 U/L (0-31); Alkaline Phosphatase 68 U/L (39-117); Anion Gap 11 (12-20); Aspartate Amino Transferase 14 U/L (5-31); Bilirubin Total 0.8 mg/dL (0.0-1.0); Blood Urea Nitrogen 13 mg/dL (9-16); Calcium 9.3 mg/dL (8.4-10.2); Carbon Dioxide 26 mmol/L (22-29); Chloride 109 mmol/L (96-108); Cholesterol 138 mg/dL (<200); Estimated Glomerular Filt Rate > 60; Glucose Fasting 91 mg/dL (60-99); HDL Cholesterol 35 mg/dL (>40); Iron 56 mcg/dL (30-160); LDL Cholesterol Calculated 80 mg/dL (<100); Percent Iron Saturation 22 % (15-50); Potassium 3.7 mmol/L (3.3-5.1); Sodium 142 mmol/L (135-145); Total Iron Binding Capacity 256 mcg/dL (228-428); Total Protein 7.5 g/dL (6.5-8.0); Triglycerides 116 mg/dL (<150); Unsaturated Iron Binding 200 ug/dL
[2024-02-01 08:35] LABS: Thyroid Stimulating Hormone 2.88 uIU/mL (0.32-4.0); Vitamin D 25-OH Total 32.5 ng/mL (>30)
[2024-02-01 09:02] LABS: Folate 9.2 ng/mL (> or = 4.0); Vitamin B12 494 pg/mL (200-900)
[2024-02-05 22:04] LABS: Immunoglobulin A 312 mg/dL (70-320); Transglutaminase IgA <1.0 U/mL
== END 2024-02-01 06:51 | disposition home or self-care (01) ==
LOC: HO.LAB 06:50
PROVIDERS: PCP Internal Medicine; Visit Provider Internal Medicine
DX: Z00.00 Encounter for general adult medical examination without abnormal findings (principal); D64.9 Anemia, unspecified; E53.8 Deficiency of other specified B group vitamins; E89.0 Postprocedural hypothyroidism; E55.9 Vitamin D deficiency, unspecified
CPT/HCPCS: 36415; 80053; 80061; 82306; 82607; 82746; 82784; 83540; 84443; 85025; 86364

== ENCOUNTER 2024-02-21 08:00 | Outpatient (REF) | payer OTHER, SELFPAY ==
--- NOTE | ~2024-02-21 | MM_ITS ---
EXAMINATION: BONE DENSITOMETRY CLINICAL INDICATION: Unspecified menopausal and perimenopausal disorder. COMPARISON: This is the patient's baseline examination. TECHNIQUE: Using a [employer]age DXA System (software version: 13.1) manufactured by [employer], dual-energy x-ray absorptiometry was performed of the lumbar spine and left hip. The images are of good technical quality. Summary results are attached. FINDINGS: LEFT FEMUR, NECK: BMD 0.897 g/cm2, Z-score 0.5, T-score -1.0, normal. LEFT FEMUR, TOTAL: BMD 0.925 g/cm2, Z-score 0.6, T-score -0.7, normal. AP SPINE L1-L4: BMD 1.097 g/cm2, Z-score 1.0, T-score -0.7, normal. IDENTIFIED RISK FACTORS: Anticonvulsant, menopause. HISTORY OF FRACTURE: None listed. MEDICATIONS: Calcium supplements or multivitamin, vitamin D. MM/XR DEXA axial skeleton IMPRESSION: 1. DIAGNOSIS: Normal bone density based on the lowest T-score value of -1.0 in the femoral neck applying World Health Organization criteria. 2. 10-YEAR FRACTURE RISK PREDICTION, FRAX: According to the guidelines, FRAX calculation should only be performed on patients in the osteopenia bone density category. Therefore, FRAX was not performed on this patient. 3. Treatment Recommendations: NOF guidelines recommend consideration for treatment in postmenopausal women and men age 50 and older presenting with the following: -A hip or vertebral (clinical or morphometric) fracture. -T-score less than or equal to -2.5 at the femoral neck or spine after appropriate evaluation to exclude secondary causes. -Low bone mass at the hip or spine and a 10-year fracture probability by FRAX of greater than or equal to 3% for hip fracture or greater than or equal to 20% for major osteoporotic fracture based on the [place] adapted WHO algorithm. 4. Other Recommendations: All treatment decisions require clinical judgment and consideration of individual patient factors, including patient preferences, comorbidities, previous drug use, risk factors not captured in the FRAX model (e.g. frailty, falls, vitamin D deficiency, increased bone turnover, interval significant decline in bone density) and possible under or overestimation of fracture risk by FRAX. FUTURE SCAN RECOMMENDATION: People with diagnosed cases of osteoporosis or at high risk for fracture should have regular bone mineral density tests. For patients eligible for Medicare, routine testing is allowed once every 2 years. The testing frequency can be increased to one year for patients who have rapidly progressing disease, those who are receiving or discontinuing medical therapy to restore bone mass, or have additional risk factors.
== END 2024-02-21 08:01 | disposition home or self-care (01) ==
LOC: HO.MAMMO 08:00
PROVIDERS: PCP Internal Medicine; Visit Provider Internal Medicine
DX: Z13.820 Encounter for screening for osteoporosis (principal); Z78.0 Asymptomatic menopausal state
CPT/HCPCS: 77080

== ENCOUNTER → 2024-02-25 12:18 | Outpatient (BNV) | payer OTHER, SELFPAY | PROVIDERS: PCP Internal Medicine; Referring Provider Internal Medicine; Visit Provider Internal Medicine | DX: D69.6 Thrombocytopenia, unspecified (principal) | CPT/HCPCS: 99204 ==

== ENCOUNTER 2024-02-29 07:02 | Day surgery (SDC) | payer OTHER, SELFPAY ==
[2023-09-26 12:39] VITALS: BMI 23.2
--- NOTE | 2023-09-27 12:32 | P.CONAN_ITS ---
HPI - Anesthesia Eval Consult details Narrative: 62yo F for Upper Endoscopy and Colonoscopy [facility] Active Problems Active Problems: All Active Problems (Updated 09/26/23 @ 12:32 by Lupe Roche, RN) Well woman exam (Acute) Palpitation (Acute) Vaginal dryness (Acute) Knee pain, chronic (Acute) Ankle pain, right (Acute) Anxiety (Acute) Peripheral neuropathy (Acute) Toenail fungus (Acute) Low vitamin D level (Acute) ILD (interstitial lung disease) (Acute) Helicobacter pylori gastritis (Acute) Hepatic hemangioma (Acute) Abnormal CT scan, liver (Acute) Dysphagia (Acute) GERD (gastroesophageal reflux disease) (Acute) Obstructive sleep apnea hypopnea, mild (Acute) Witnessed apneic spells (Acute) Loud snoring (Acute) History of brain surgery (Acute) Postherpetic neuralgia (Acute) Pulmonary nodules (Acute) Depression (Acute) Overactive bladder (Acute) Hypothyroidism (Acute) MIRLANDE positive (Acute) Sjogrens syndrome (Acute) Past Medical History Medical History (Updated 09/26/23 @ 12:32 by Lupe Roche RN) Hypothyroidism Obstructive sleep apnea hypopnea, mild Witnessed apneic spells Loud snoring Postherpetic neuralgia Mild recurrent major depression Depression Ingrown toenail Overactive bladder Hypothyroidism Pulmonary nodules Ankylosis of thoracic spine Goiter 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 Sjogrens syndrome Family History Family History Father Diabetes Stroke Alzheimer disease Mother Alzheimer disease Parkinson disease Depression Son Multiple sclerosis Son Learning disability Brother Diabetes Sister Diabetes Hypertension Surgical History Surgical History History of brain surgery Hx of esophagogastroduodenoscopy Hx of colonoscopy History of thyroidectomy Social History Social History Household Members: None Housing: Condominium Alcohol intake: never Patient Tobacco Use Status: Former Tobacco user e-Cigarette/Vaping Use: Never Used Second Hand Smoke Exposure: No service: No Current occupational status: employed Current occupation: [employer] Cognitive needs: No Hearing needs: No Vision needs: No Meds Allergies Allergy/AdvReac Type Severity Reaction Status Date / Time Penicillins Allergy Unknown Swelling Verified 09/13/23 07:45 Home Medications Medication Instructions Recorded Confirmed Last Taken Type tramadol 50 mg tablet 50 mg PO Q4H PRN 07/05/23 09/13/23 Unknown History calcium carbonate 600 mg-vitamin 1 tab PO DAILY 09/13/23 09/13/23 Unknown History D3 20 mcg (800 unit) chewable tablet (Caltrate 600 plus D) Exam Height,Weight and Vital Signs: Height 5 ft 6 in Weight 65.317 kg Assessment and Plan Assessment Anesthesia Assessment: Chart Reviewed
--- NOTE | 2024-02-27 14:31 | P.CONAN_ITS ---
HPI - Anesthesia Eval Consult details Narrative: 63yo F for Upper Endoscopy and Colonoscopy Follows [facility] Heme for thrombocytopenia, likely ITP Seen by [facility] cardiology 2022 for palps. Reassured and no further w/u [facility] Active Problems Active Problems: All Active Problems Thrombocytopenia (Chronic) Mild recurrent major depression (Acute) Physical exam (Acute) Anemia (Acute) SS-A antibody positive (Acute) Sjogren syndrome with lung involvement (Acute) Well woman exam (Acute) Palpitation (Acute) Vaginal dryness (Acute) Knee pain, chronic (Acute) Ankle pain, right (Acute) Anxiety (Acute) Peripheral neuropathy (Acute) Toenail fungus (Acute) Low vitamin D level (Acute) ILD (interstitial lung disease) (Acute) Helicobacter pylori gastritis (Acute) Hepatic hemangioma (Acute) Abnormal CT scan, liver (Acute) Dysphagia (Acute) GERD (gastroesophageal reflux disease) (Acute) Obstructive sleep apnea hypopnea, mild (Acute) Witnessed apneic spells (Acute) Loud snoring (Acute) History of brain surgery (Acute) Postherpetic neuralgia (Acute) Pulmonary nodules (Acute) Depression (Acute) Overactive bladder (Acute) Hypothyroidism (Acute) MIRLANDE positive (Acute) Sjogrens syndrome (Acute) Past Medical History Medical History Mild recurrent major depression Hypothyroidism Obstructive sleep apnea hypopnea, mild Witnessed apneic spells Loud snoring Postherpetic neuralgia Depression Ingrown toenail Overactive bladder Hypothyroidism Pulmonary nodules Ankylosis of thoracic spine Goiter 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 Sjogrens syndrome Family History Family History Father Diabetes Stroke Alzheimer disease Mother Alzheimer disease Parkinson disease Depression Arthritis Son Multiple sclerosis Son Learning disability Brother Diabetes Sister Diabetes Hypertension Surgical History Surgical History SS-A antibody positive Sjogren syndrome with lung involvement History of brain surgery Hx of esophagogastroduodenoscopy Hx of colonoscopy History of thyroidectomy Social History Social History Household Members: None Housing: Condominium Alcohol intake: never Patient Tobacco Use Status: Former Tobacco user Tobacco use type: Cigarette e-Cigarette/Vaping Use: Never Used Second Hand Smoke Exposure: No Substance Use Type: Marijuana service: No Current occupational status: employed Current occupation: [employer] Cognitive needs: No Hearing needs: No Vision needs: No Meds Allergies Allergy/AdvReac Type Severity Reaction Status Date / Time Penicillins Allergy Unknown Swelling Verified 02/29/24 07:19 Home Medications ?Medication ?Instructions ?Recorded ?Confirmed ?Last Taken ?Type calcium carbonate 600 mg-vitamin 1 tab PO DAILY 09/13/23 02/29/24 Unknown History D3 20 mcg (800 unit) chewable tablet (Caltrate 600 plus D) Exam Height,Weight and Vital Signs: Height 5 ft 6 in Weight 65.317 kg Pertinent Lab Results Pertinent Lab Results: Laboratory Tests 02/01/24 02/25/24 06:58 14:00 WBC 4.7 L Hgb 12.1 Hct 37.0 Plt Count 133 L Sodium 142 Potassium 3.7 Chloride 109 H Carbon Dioxide 26 BUN 13 Creatinine 0.65 Assessment and Plan Assessment Anesthesia Assessment: Chart Reviewed
[2024-02-27 16:56] VITALS: BMI 23.1
[2024-02-29 07:24] VITALS: BMI 21.8
[2024-02-29 07:37] VITALS: BP 136/82; PULSE 78; RESP 16; TEMP 37.2; O2SAT 100
[2024-02-29] MEDS: Lactated Ringers 1,000 ML 100 ML IVCONT (07:58)
--- NOTE | 2024-02-29 07:58 | HO.ANESPROP2 ---
[facility] Active Problems Active Problems: All Active Problems Thrombocytopenia (Chronic) Mild recurrent major depression (Acute) Physical exam (Acute) Anemia (Acute) SS-A antibody positive (Acute) Sjogren syndrome with lung involvement (Acute) Well woman exam (Acute) Palpitation (Acute) Vaginal dryness (Acute) Knee pain, chronic (Acute) Ankle pain, right (Acute) Anxiety (Acute) Peripheral neuropathy (Acute) Toenail fungus (Acute) Low vitamin D level (Acute) ILD (interstitial lung disease) (Acute) Helicobacter pylori gastritis (Acute) Hepatic hemangioma (Acute) Abnormal CT scan, liver (Acute) Dysphagia (Acute) GERD (gastroesophageal reflux disease) (Acute) Obstructive sleep apnea hypopnea, mild (Acute) Witnessed apneic spells (Acute) Loud snoring (Acute) History of brain surgery (Acute) Postherpetic neuralgia (Acute) Pulmonary nodules (Acute) Depression (Acute) Overactive bladder (Acute) Hypothyroidism (Acute) MIRLANDE positive (Acute) Sjogrens syndrome (Acute) Past Medical History Medical History Mild recurrent major depression Hypothyroidism Obstructive sleep apnea hypopnea, mild Witnessed apneic spells Loud snoring Postherpetic neuralgia Depression Ingrown toenail Overactive bladder Hypothyroidism Pulmonary nodules Ankylosis of thoracic spine Goiter 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 Sjogrens syndrome Functional capacity: independent ambulation Patient : No Family History Family History Father Diabetes Stroke Alzheimer disease Mother Alzheimer disease Parkinson disease Depression Arthritis Son Multiple sclerosis Son Learning disability Brother Diabetes Sister Diabetes Hypertension Family history of problems with anesthesia: No Surgical History Surgical History SS-A antibody positive Sjogren syndrome with lung involvement History of brain surgery Hx of esophagogastroduodenoscopy Hx of colonoscopy History of thyroidectomy History of Problems with Anesthesia: No Social History Social History Household Members: None Housing: Condominium Alcohol intake: never Patient Tobacco Use Status: Former Tobacco user Tobacco use type: Cigarette e-Cigarette/Vaping Use: Never Used Second Hand Smoke Exposure: No Substance Use Type: Marijuana service: No Current occupational status: employed Current occupation: [employer] Cognitive needs: No Hearing needs: No Vision needs: No Meds Allergies Allergy/AdvReac Type Severity Reaction Status Date / Time Penicillins Allergy Unknown Swelling Verified 02/29/24 07:19 Active Medications: Current Medications Lactated Ringer's (Lr) 1,000 mls @ 100 mls/hr IVCONT .Q10H ENOCH Home Medications ?Medication ?Instructions ?Recorded ?Confirmed ?Last Taken ?Type calcium carbonate 600 mg-vitamin 1 tab PO DAILY 09/13/23 02/29/24 Unknown History D3 20 mcg (800 unit) chewable tablet (Caltrate 600 plus D) Exam Height,Weight and Vital Signs: Height 5 ft 6 in Weight 61.235 kg Last Vital Signs Temp 99.0 F 02/29/24 07:37 Pulse 78 02/29/24 07:37 Resp 16 02/29/24 07:37 BP 136/82 02/29/24 07:37 Pulse Ox 100 02/29/24 07:37 O2 Del Method Room Air 02/29/24 07:37 Airway Mallampati Class: II TM Dist: >3cm Neck ROM: Full Heart: RRR Lungs: CTA Assessment and Plan Assessment Anesthesia Assessment: Anesthesia Plan Discussed Final Anesthetic Review Family History of Problems with Anesthesia: No History of Problems with Anesthesia: No NPO: Yes ASA Class: II Final Preanesthetic Review: Meds/Allgs Chart Reviewed, Consent Obtained/Reviewed and Anes Risks/Benef Reviewed Patient Risk: Low Procedure Risk: Low Anesthetic Plan Anesthetic Plan: MAC: Disposition: Standard PACU
--- NOTE | 2024-02-29 08:22 | P.HPSUR_ITS ---
Pre-Procedural Eval Section A - 24 Hr Update-Section A only Date of Service: 02/29/24 Section B - Complete if H&P > 30 days Chief Complaint: IBS,dysphagia Details of Present Illness: fh of colon polyps in father Relevant Family History (Specify if Yes): Yes Relevant Social History: Other (specify) (thc use) Present Medications: see Short Stay Collaborative assessment Medical History: Significant History (MIRLANDE positive Ankylosis of thoracic spine Arthritis of both hips Depression Goiter Hypothyroidism Ingrown toenail Mild recurrent major depression Overactive bladder Postherpetic neuralgia Pulmonary nodules Sicca syndrome with keratoconjunctivitis Sjogrens syndrome) History of Previous Operations: Relevant previous surgery/procedure and date(s) (History of brain surgery History of thyroidectomy Hx of colonoscopy Hx of esophagogastroduodenoscopy) Allergies: Allergies Allergy/AdvReac Type Severity Reaction Status Date / Time Penicillins Allergy Unknown Swelling Verified 02/29/24 07:19 Review of Systems Sugical H&P ROS: Negative: Constitution, Cardiovascular, Respiratory, Neurological, Psychiatric, Hem-Onc, Allergic/Immunologic, Gastrointestinal, Genitourinary, Musculoskeletal, Integumentary, Endocrine and Eyes/Ears/Nose /Throat Exam Surgical H&P Exam: Normal: HEENT, Normal: Heart, Normal: Lungs, Normal: Extremities, Normal: Abdomen, Normal: Skin and Normal: Neurological Plan Diagnosis/Plan: Unchanged I have reviewed the history and physical and performed a pertinent physical examination on my patient. No changes have occurred unless specified. Time Spent With Patient Time: Total time managing care of this patient today ____ minutes.
--- NOTE | 2024-02-29 08:24 | P.OPN-COLO_ITS ---
Colonoscopy Operative Note Operative Note Date of Service: 02/29/24 Narrative: Operative Information Procedure Description: EGD, Colonoscopy Indication: dysphagia, abn bowel habit Anesthesia: MAC FLEXIBLE TRANSORAL UPPER GASTROINTESTINAL ENDOSCOPY AND COLONOSCOPY PROCEDURE NOTE UPPER ENDOSCOPY Consent: Indications for the procedure and potential complications of bleeding, perforation, reaction to medications and missed diagnosis were discussed with the patient and informed consent was obtained. Instrument: Olympus GIF H 190 J mid size upper endoscope Monitoring: Vital signs and clinical assessment, continuous EKG monitoring, Pulse oximetry, Carbon Dioxide monitoring and blood pressure monitoring were done throughout the procedure. Procedure: The patient was placed in the left lateral decubitis position and pre-procedure medications were administered and a bite block was placed. The endoscope was inserted into the mouth and advanced under direct vision to the third part of duodenum. A careful inspection was made as the upper endoscope was withdrawn including a retroflexed examination of the proximal stomach; Findings and interventions are described below. Findings: Larynx:normal Esophagus: GE junction at 37 cm, diaphragm hiatus at 37 cm, bx taken from GEJ, distal and proximal esophagus, balloon dilation done at UES and LES to 19 mm, no tears seen --mild esophagitis at GEJ Stomach:atrophic gastritis. Biopsies were obtained. Grade 2 flap valve on retroflexed examination of the cardia. Duodenum: Normal bulb and descending duodenum, Intervention: Biopsies as noted above, balloon dilation COLONOSCOPY Instrument: Olympus variable stiffness pediatric scope 190L Colonoscopy Monitoring: Vital signs and clinical assessment, continuous EKG monitoring, Pulse oximetry, Carbon Dioxide monitoring and blood pressure monitoring were done throughout the procedure. Colon withdrawal time was 10 minutes. Procedure: The patient was placed in the left lateral decubitis position and pre-procedure medications were administered. After a digital rectal examination of the ano-rectum, the video colonoscope was inserted into the rectum and advanced through the colon to the cecum/TI. The colonoscope was slowly withdrawn in a retrograde panoramic fashion and the colon mucosa was carefully examined including a retroflexed view of the rectum. Findings and interventions are described below. Procedure Difficulty:moderate Findings: Terminal Ileum-normal, random bx taken Random colon bx taken Cecum:normal Ascending Colon: normal Transverse Colon -normal Descending Colon:normal Sigmoid Colon: normal Rectum: Retroflexion with small internal hemorrhoids, grade I Anorectum - normal Colon preparation: Branford Bowel Preparation Scale Right colon; 2 Transverse colon: 2 Left colon; 2 (0 = Unprepared colon segment with mucosa not seen due to solid stool that cannot be cleared. 1 = Portion of mucosa of the colon segment seen, but other areas of the colon segment not well seen due to staining, residual stool and/or opaque liquid. 2 = Minor amount of residual staining, small fragments of stool and/or opaque liquid, but mucosa of colon segment seen well. 3 = Entire mucosa of colon segment seen well with no residual staining, small fragments of stool or opaque liquid) Impression and Post Procedure Diagnosis: Endoscopy Findings: gastritis esophagitis Colonoscopy Findings: internal hemorrhoids Plan: Await Pathology results Repeat Colonoscopy in 5 years due to FH of colon polyps in father or earlier if clinically indicated High fiber diet leaflet avoid straining at stool, epsom salts and sitz bath, anusol supps or cream confirm if taking PPI, if not can consider trial of PPI Above findings were reviewed with the patient and relevant handouts were provided if indicated.
[2024-02-29 09:25] VITALS: BP 87/47; PULSE 75; RESP 16; TEMP 36.2; O2SAT 98
[2024-02-29 09:40] VITALS: BP 118/76; PULSE 78; RESP 18; O2SAT 100
[2024-02-29 09:53] VITALS: BP 124/74; PULSE 79; RESP 18; TEMP 36.2; O2SAT 100
--- NOTE | 2024-02-29 15:32 | HO.POSTANES ---
Post Anesthesia Evaluation Post Anesthesia Evaluation Date of Service: 02/29/24 Vital Signs: Vital Signs Temp Pulse Resp BP Pulse Ox O2 Del Method 02/29/24 09:53 97.2 F 79 18 124/74 100 02/29/24 09:40 78 18 118/76 100 02/29/24 09:25 97.2 F 75 16 87/47 L 98 Room Air 02/29/24 07:37 99.0 F 78 16 136/82 100 Room Air Anesthesia: Monitored Mental Status: Awake Pain Control: Satisfactory Nausea/Vomiting: None Hydration: Adequate Anesthesia-Related Issues: No Anes. Related Issues
== END 2024-02-29 10:16 | disposition home or self-care (01) ==
PROVIDERS: PCP Nurse Practitioner Family; Visit Provider Internal Medicine Gastroenterology
PROC: (CPT 43249; principal; 2024-02-29 08:30)
DX: K29.60 Other gastritis without bleeding (principal); K20.80 Other esophagitis without bleeding; R13.10 Dysphagia, unspecified; K21.9 Gastro-esophageal reflux disease without esophagitis; K64.0 First degree hemorrhoids; Z83.719 Family history of colon polyps, unspecified; K58.2 Mixed irritable bowel syndrome; D64.9 Anemia, unspecified; D18.03 Hemangioma of intra-abdominal structures; G47.33 Obstructive sleep apnea (adult) (pediatric); F33.0 Major depressive disorder, recurrent, mild; Z79.899 Other long term (current) drug therapy
CPT/HCPCS: 43249; 43239; 45380; 88305; 88313; 88342; C1726; J1596; J2704

== ENCOUNTER → 2024-02-29 07:02 | Outpatient (BNV) | payer OTHER, SELFPAY | PROVIDERS: PCP Nurse Practitioner Family; Visit Provider Internal Medicine Gastroenterology | DX: R13.10 Dysphagia, unspecified (principal); K20.90 Esophagitis, unspecified without bleeding; K29.40 Chronic atrophic gastritis without bleeding; R19.4 Change in bowel habit; K64.0 First degree hemorrhoids | CPT/HCPCS: 43239; 43249; 45380 ==

== ENCOUNTER 2024-03-18 10:11 | Outpatient (AMB) | payer OTHER, SELFPAY ==
--- NOTE | 2024-03-18 10:26 | A.OFFVIS_ITS ---
Vital Signs 03/18/24 10:27 Height 5 ft 6 in Weight 139 lb BMI 22.4 BP 104/60 Blood Pressure Location Rt brachial Position Sitting Respiration 16 Pulse 85 Pulse Source Pulse Oximeter Pulse Oximetry (%) 98 Oxygen Delivery Method Room Air Intake Visit Reasons: 6 mo f/u: Polyneuropathy - LVM w/add Intake Note: Pt presents tot he office for a 6 month follow up for polyneuropathy. Pt wants to discuss changing meds she feels Gabapentin is not working. 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 In April 2022 she had shingles in her right leg. SInce then she started having tingling numbness and pain in her right foot and leg . she started having numbness and tingling in her left foot a few weeks later. she feels her right leg is worse now- she is on gabapentin Her right knee and leg weakness balance is better with PT she was diagnosed with Sjogrens about 5 years ago - she sees Dr. Aparicio and currently not on any medications. She had a brain surgery for a cyst in 1991 and had numbness in left toe. she also reports chronic sleep issues. she has loud snoring with frequent arousals and excessive daytime fatigue . Her sleep study was significant for mild LUCIA - AHI 5/hr . [facility] Medical History Mild recurrent major depression Hypothyroidism Obstructive sleep apnea hypopnea, mild Witnessed apneic spells Loud snoring Postherpetic neuralgia Depression Ingrown toenail Overactive bladder Hypothyroidism Pulmonary nodules Ankylosis of thoracic spine Goiter 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 Sjogrens syndrome Surgical History SS-A antibody positive Sjogren syndrome with lung involvement History of brain surgery Hx of esophagogastroduodenoscopy Hx of colonoscopy History of thyroidectomy Family History Father Diabetes Stroke Alzheimer disease Mother Alzheimer disease Parkinson disease Depression Arthritis Son Multiple sclerosis Son Learning disability Brother Diabetes Sister Diabetes Hypertension Social History Household Members: None Housing: Condominium Alcohol intake: never Patient Tobacco Use Status: Former Tobacco user Tobacco use type: Cigarette e-Cigarette/Vaping Use: Never Used Second Hand Smoke Exposure: No Substance Use Type: Marijuana service: No Current occupational status: employed Current occupation: [employer] Cognitive needs: No Hearing needs: No Vision needs: No Physical Exam Vital Signs: Last Vital Signs Pulse 85 03/18/24 10:27 Resp 16 03/18/24 10:27 BP 104/60 03/18/24 10:27 Pulse Ox 98 03/18/24 10:27 Oxygen Delivery Method Room Air 03/18/24 10:27 BMI result Body Mass Index 22.4 Const General: cooperative, comfortable and no acute distress Nutritional Appearance: average body habitus Orientation/consciousness: patient oriented x3 Neuro Other: decreased pp in su feet and right leg Right knee swollen with restricted range of motion General: patient oriented x3, tone normal, moves all extremities and no focal motor deficits Cognition (Neuro): normal cognition Gait exam (Neuro): Antalgic gait present Motor exam (neuro): 5/5 motor strength present throughout and Normal motor muscle tone present throughout Deep tendon reflexes (DTR's): Right triceps reflex intensity grade: 2+, Left triceps reflex intensity grade: 2+, Rt Biceps (C5, C6): 2+, Left biceps reflex intensity grade: 2+, Right brachioradialis reflex intensity grade: 2+, Left brachioradialis reflex intensity grade: 2+, Right patellar reflex intensity grade: 3+ and Left patellar reflex intensity grade: 3+ Coordination: [id number] test normal Assessment & Plan Assessment & Plan (1) Peripheral neuropathy: Comment: ? sjogrens related Code(s): G62.9 - Polyneuropathy, unspecified Category: Medical (2) Knee pain, chronic: Code(s): M25.569 - Pain in unspecified knee; G89.29 - Other chronic pain Category: Medical (3) Postherpetic neuralgia: Code(s): B02.29 - Other postherpetic nervous system involvement Category: Medical (4) Obstructive sleep apnea hypopnea, mild: Code(s): G47.33 - Obstructive sleep apnea (adult) (pediatric) Category: Medical Plan EMG NCS LE- results discussed gabapentin 600mg tid suggested alpha lipoic acid 600mg qd I will trial her on duloxetine 20 mg bid PT for right knee and gait training- helped and she is continuing to exercise Her sleep apnea was mild. Results discussed. Hold off on CPAP for now . suggested avoiding supine sleep. Rheumatology F/u Medications: New duloxetine 20 mg PO BID 60 caps 6RF Coding Level of Care Code Est Pt Level 4 (25009) Complex EM visit Add On G2211 Diagnoses Peripheral neuropathy G62.9 Knee pain, chronic M25.569; G89.29 Postherpetic neuralgia B02.29 Obstructive sleep apnea hypopnea, mild G47.33
[2024-03-18 10:27] VITALS: BP 104/60; PULSE 85; RESP 16; O2SAT 98; BMI 22.4
== END 2024-03-18 10:44 | disposition home or self-care (01) ==
PROVIDERS: PCP Internal Medicine; Visit Provider Psychiatry & Neurology Neurology
DX: G62.9 Polyneuropathy, unspecified (principal); M25.569 Pain in unspecified knee; G89.29 Other chronic pain; B02.29 Other postherpetic nervous system involvement; G47.33 Obstructive sleep apnea (adult) (pediatric)
CPT/HCPCS: 99214

== ENCOUNTER → 2024-03-18 10:11 | Outpatient (BNVA) | payer OTHER, SELFPAY | PROVIDERS: PCP Internal Medicine; Visit Provider Psychiatry & Neurology Neurology ==

== ENCOUNTER 2024-07-14 10:20 | Outpatient (REF) | payer OTHER, SELFPAY ==
--- NOTE | ~2024-07-14 | CT_ITS ---
EXAMINATION: CT CHEST WITHOUT CONTRAST CLINICAL INFORMATION: Pulmonary nodules, follow-up . 63-year-old female. COMPARISON: None available. TECHNIQUE: Multidetector volumetric CT imaging of the chest was done. Axial MIP volume rendering provided. Sagittal and coronal reformatted images were obtained. This CT examination was performed using dose optimization techniques as appropriate, variously including the following: *Automated exposure control *Adjustment of mA and/or kV according to patient size (this includes techniques or standardized protocols for targeted exams where dose is matched to indication/reason for exam; i.e. extremities or head) *Use of iterative reconstruction technique DLP: 93 mGy-cm FINDINGS: PULMONARY NODULES: -A few scattered micronodules and calcified granulomata and apices are unchanged. -Previously seen posterior aspect right apical segment 6 mm groundglass opacity has resolved. -Stable far inferomedial right upper lobe pleural-based nodule measuring 4 mm (series 7, image 327). -No new or enlarging pulmonary nodules identified. LUNGS: -Stable linear lingular scarring. -Mild centrilobular emphysema, also similar. -Minimal bronchiectasis throughout both lungs without wall thickening or endobronchial filling defect. -Mild biapical pleural parenchymal scarring, unchanged. -No consolidative opacities, new groundglass opacities, or evidence of active lung disease. -Central airways are normal. MEDIASTINUM: -Thyroidectomy with surgical clips noted. -No abnormal mediastinal or hilar lymphadenopathy. -Aorta is normal in caliber and course with minimal atheromatous change. No aneurysm. -Main pulmonary artery is normal. -Heart size is normal. No pericardial effusion. -Esophagus and GE junction appear normal. CORONARY ARTERY CALCIFICATION: Mild LAD calcifications. PLEURA: There is no pleural effusion. No pleural mass or thickening. AXILLA/CHEST WALL: No masses or lymphadenopathy. UPPER ABDOMEN: -11 mm hypodensity in segment 3 of the liver, subcapsular location, unchanged, consistent with benignity. Also, stable 2.4 cm rounded hypodensity segment 7, suggesting benignity. Additionally, anterior segment 7 1.7 cm linear hypodensity, also stable suggesting benignity. -Remainder upper abdomen normal. 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 Left C7 accessory rib partially fused to left T1 rib. Large hemangioma present T10. -No suspicious abnormalities. CT/CT chest wo IV con IMPRESSION: 1. Mild emphysema, with stable scarring in the lingular segment. 2. Previously seen right upper lobe groundglass nodule is no longer evident. This was presumably inflammatory. No new suspicious or enlarging nodules. Scattered stable calcified and noncalcified micronodules in both lungs. 3. No active pulmonary disease. 4. Stable ancillary findings as discussed in the body of the report. Fleischner guidelines were followed. Electronically signed by: Baron Gracia MD 08/08/2024 04:34 PM EDT
== END 2024-07-14 10:21 | disposition home or self-care (01) ==
LOC: HO.CT 10:20
PROVIDERS: PCP Internal Medicine; Visit Provider Internal Medicine Pulmonary Disease
DX: R91.8 Other nonspecific abnormal finding of lung field (principal)
CPT/HCPCS: 71250

== ENCOUNTER → 2024-07-14 10:21 | Outpatient (BNV) | payer OTHER, SELFPAY | PROVIDERS: PCP Internal Medicine; Visit Provider Radiology Diagnostic Radiology | DX: R91.8 Other nonspecific abnormal finding of lung field (principal) | CPT/HCPCS: 71250 ==

== ENCOUNTER 2024-07-30 08:19 | Outpatient (REF) | payer OTHER, SELFPAY ==
[2024-07-30 09:16] LABS: MANUAL DIFF FLAG NO
[2024-07-30 09:43] LABS: Basophils Percent Auto 0.6 % (0-2); Eosinophils Percent Auto 0.6 % (0-4); Hematocrit 33.5 % (37.0-47.0); Hemoglobin 11.3 g/dl (12.0-16.0); Imm Gran Abs Auto 0.02 X10*3/uL (0.00-0.03); Imm Gran Pct Auto 0.6 % (0.0-0.4); Lymphocytes Absolute Auto 1.1 X10*3/uL (1.2-4.9); Lymphocytes Percent Auto 34.3 % (20-40); Mean Corpuscular HGB Conc 33.7 g/dl (31.0-35.0); Mean Corpuscular Hemoglobin 30.5 pg (27.0-33.0); Mean Corpuscular Volume 90.5 fL (80.0-98.0); Mean Platelet Volume 10.6 fL (9.4-12.3); Monocytes Absolute Auto 0.4 X10*3/uL (0.1-1.2); Monocytes Percent Auto 11.8 % (2-11); Neutrophils Absolute Auto 1.7 x10*3/uL (2.0-8.3); Neutrophils Percent Auto 52.1 % (45-73); Platelet Count 106 X10*3/uL (160-400); White Blood Count 3.2 X10*3/uL (4.8-10.8)
[2024-07-30 10:21] LABS: Erythrocyte Sedimentation Rate 19 MM/HR (0-20)
[2024-07-30 10:45] LABS: Alanine Aminotransferase 14 U/L (0-31); Albumin Level 3.8 g/dL (3.5-5.0); Alkaline Phosphatase 69 U/L (39-117); Anion Gap 8 (12-20); Aspartate Amino Transferase 21 U/L (5-31); Bilirubin Total 0.9 mg/dL (0.0-1.0); Blood Urea Nitrogen 8 mg/dL (9-16); Calcium 9.3 mg/dL (8.4-10.2); Carbon Dioxide 29 mmol/L (22-29); Chloride 110 mmol/L (96-108); Estimated Glomerular Filt Rate > 60; Glucose Random 87 mg/dL (60-115); Potassium 3.9 mmol/L (3.3-5.1); Sodium 143 mmol/L (135-145)
[2024-07-30 11:01] LABS: Vitamin D 25-OH Total 33.1 ng/mL (>30)
[2024-07-30 11:08] LABS: Folate 8.5 ng/mL (> or = 4.0); Vitamin B12 308 pg/mL (200-900)
[2024-07-30 11:34] LABS: Rheumatoid Factor < 13.0 IU/mL (<15.0)
[2024-07-30 11:39] LABS: Thyroid Stimulating Hormone 6.02 uIU/mL (0.32-4.0)
[2024-08-01 13:48] LABS: Anti DNA DS Antibody <1 IU/mL
[2024-08-01 14:29] LABS: Complement C3 108 mg/dL (83-193)
[2024-08-01 17:03] LABS: CRP High Sensitivity 0.8 mg/L
[2024-08-01 20:03] LABS: Anti-Centromere B Antibodies >8.0 POS AI (<1.0 NEG)
[2024-08-04 15:08] LABS: ANA Pattern 2 Nuclear, Speckled; ANA Titer 2 1:40 titer; Anti Nuclear Antibody Pattern Nuclear, Centromere; Anti Nuclear Antibody Screen POSITIVE (NEGATIVE); Anti Nuclear Antibody Titer > OR = 1:1280 titer
[2024-08-04 20:14] LABS: Cyclic Citrullinated Peptide <16 UNITS
[2024-08-06 16:03] LABS: Complement Total CH50 39 U/mL (31-60)
== END 2024-07-30 08:20 | disposition home or self-care (01) ==
LOC: HO.LAB 08:19
PROVIDERS: PCP Internal Medicine; Visit Provider Internal Medicine
DX: M25.50 Pain in unspecified joint (principal); M35.02 Sjogren syndrome with lung involvement; E53.8 Deficiency of other specified B group vitamins; E89.0 Postprocedural hypothyroidism; D64.9 Anemia, unspecified; E55.9 Vitamin D deficiency, unspecified; F33.0 Major depressive disorder, recurrent, mild; D69.6 Thrombocytopenia, unspecified
CPT/HCPCS: 36415; 80053; 82306; 82607; 82746; 84443; 85025; 85652; 86038; 86039; 86141; 86160; 86162; 86200; 86225; 86235; 86431; 90471

== ENCOUNTER 2024-07-30 08:19 | Outpatient (AMB) | payer OTHER, SELFPAY ==
[2024-07-30 08:21] VITALS: BP 112/80; BMI 22.8
--- NOTE | 2024-07-30 08:21 | A.OFFPC_ITS ---
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 Digital Marketing Required: No Accompanied by: Self / Same As Patient Allergies Penicillins Allergy (Unknown, Verified 07/30/24 08:33) Swelling Medication List - Last Reconciled 07/30/24 by Sharon Tolliver MD calcium carbonate-vitamin D3 600 mg-20 mcg (800 unit) (Caltrate 600 plus D) 1 tab PO DAILY gabapentin 600 mg PO TID 90 days ibuprofen 800 mg PO Q8H PRN 30 days levothyroxine 75 mcg PO DAILY 90 days lorazepam 0.5 mg PO BEDTIME PRN Tobacco use date assessed: 01/31/24 Fall risk assessment: No Falls in past year Last assessed Fall Risk: 07/30/24 Dental Screening Dental Screen Date: 01/31/24 HPI HPI Comments History of Present Illness Details This is a 63-year-old female with hypothyroidism, Sjogren's with lung involvement, thrombocytopenia, mild recurrent major depression and polyarthralgia that comes today for follow-up on her conditions. TSH will be done today. Saw pulmonology recently which order a chest CT done this month and results are still pending. She denies any chest pain or shortness on breath. Complains of dry eyes and dry mouth and use artificial tear and drink lots of water. Does have thrombocytopenia but denies any active bleeding. This has been follow by Hematology-Oncology which said she will monitor. Depression has been stable with no need for medication. Has diffuse joint pain and was seen Rheumatology in the past Dr. Drake which diagnosed her with lupus and start her on methotrexate which did relieved the joint pain. She started seeing Rheumatology again Dr. Palumbo which rule out lupus and discontinue methotrexate. I will order labs today regarding her joints. She will see Rheumatology at [facility] this month for her joint pain. No chest pain or shortness on breath. [facility] Medical History (Updated 07/30/24 @ 08:51 by Sharon Tolliver MD) Mild recurrent major depression Hypothyroidism Obstructive sleep apnea hypopnea, mild Witnessed apneic spells Loud snoring Postherpetic neuralgia Depression Ingrown toenail Overactive bladder Hypothyroidism Pulmonary nodules Ankylosis of thoracic spine Goiter 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 Sjogrens syndrome Surgical History SS-A antibody positive Sjogren syndrome with lung involvement History of brain surgery Hx of esophagogastroduodenoscopy Hx of colonoscopy History of thyroidectomy Family History Father Diabetes Stroke Alzheimer disease Mother Alzheimer disease Parkinson disease Depression Arthritis Son Multiple sclerosis Son Learning disability Brother Diabetes Sister Diabetes Hypertension Social History Household Members: None Housing: Condominium Alcohol intake: never Patient Tobacco Use Status: Former Tobacco user Tobacco use type: Cigarette e-Cigarette/Vaping Use: Never Used Second Hand Smoke Exposure: No Substance Use Type: Marijuana service: No Current occupational status: employed Current occupation: [employer] Current occupational exposures/hazards: No Cognitive needs: No Hearing needs: No Vision needs: No Questionnaire Thrive Questionnaire Date Thrive assessed: 01/31/24 PATTI-7 AMB Questionnaire PATTI-7 Date PATTI - 7 assessed: 01/31/24 Source: Developed by Drs. Blayne Tijerina, Ritika Briggs, Henrry Biggs and colleagues, with an educational zachariah from [employer]. Review of Systems Const All systems reviewed & are unremarkable except as noted in HPI and below Card Denies chest pain at rest, Denies chest pain with activity, Denies edema, Denies irregular heart rhythm, Denies claudication, Denies dyspnea, Denies dyspnea on exertion, Denies orthopnea, Denies paroxysmal nocturnal dyspnea and Denies slow heart rate Resp Denies cough, Denies dyspnea and Denies dyspnea on exertion GI Denies abdominal pain, Denies change in bowel habits, Denies excessive flatus, Denies nausea and Denies vomiting Musc Reports arthralgias and Reports joint swelling Physical exam (Primary Care) Vital Signs: Last Vital Signs BP 112/80 07/30/24 08:21 BMI result Body Mass Index 22.8 Tobacco/Smoking Status: Tobacco use Status Tobacco use date assessed 01/31/24 07/30/24 08:27 Patient Tobacco Use Status Former Tobacco user 10/23/24 08:27 Tobacco use type Cigarette 07/30/24 08:27 e-Cigarette/Vaping Use Never Used 07/30/24 08:27 Thrive Assessment: Date of Thrive Assessment Date Thrive assessed 01/31/24 07/30/24 08:27 Resp Effort & Inspection: normal respiratory effort Auscultation: clear to auscultation bilaterally Cardio Jugular venous distension: no JVD Rate: regular rate Rhythm: regular rhythm Heart sounds: S1 normal heart sound present and S2 normal heart sound present Office Procedures Flu Questionnaire Does the patient have a severe egg allergy?: No Immunizations Fluarix Triv [id number] (PF) 45 mcg (15 mcg x 3)/0.5 mL IM syringe Performing Provider: Sharon Tolliver MD [place] [facility] [place] [facility] Documented (not given) by: WALE Kumar on 07/30/24 08:29 Reason Not Given: Patient Refused Coding Level of Care Code Est Pt Level 4 (25950) Complex EM visit Add On G2211 Diagnoses Mild recurrent major depression F33.0 Sjogren syndrome with lung involvement M35.02 Polyarthralgia M25.50 Thrombocytopenia D69.6 Postoperative hypothyroidism E89.0 Hypothyroidism type: postoperative Time Spent (min) 25 Assessment & Plan Assessment & Plan (1) Mild recurrent major depression: Code(s): F33.0 - Major depressive disorder, recurrent, mild Category: Medical Plan: Declines medication or counseling. (2) Sjogren syndrome with lung involvement: Code(s): M35.02 - Sjogren syndrome with lung involvement Category: Surgical Plan: Continue artificial tears, to come and drink water. Follow-up with pulmonology for chest CT. (3) Polyarthralgia: Code(s): M25.50 - Pain in unspecified joint Category: Medical Plan: Labs ordered. Follow-up with rheumatology this month. (4) Thrombocytopenia: Code(s): D69.6 - Thrombocytopenia, unspecified Category: Medical Plan: Follow-up with Hematology-Oncology. (5) Hypothyroidism: Code(s): E03.9 - Hypothyroidism, unspecified Category: Medical Qualifiers: Hypothyroidism type: postoperative Qualified Code(s): E89.0 - Postprocedural hypothyroidism Plan: Continue levothyroxine. Monitor TSH today. Orders: Orders Influenza [id number] Immunization Today Z23 - Encounter for immunization Erythrocyte Sedimentation Rate Today M25.50 - Pain in unspecified joint Complement C4 Today M35.02 - Sjogren syndrome with lung involvement Vitamin B12 and Folate Today E53.8 - Deficiency of other specified B group vitamins Cyclic Citrullinated Peptide Today M25.50 - Pain in unspecified joint SHARON Reflex Titer and Pattern Today M35.02 - Sjogren syndrome with lung involvement Thyroid Stimulating Hormone Today E89.0 - Postprocedural hypothyroidism CRP High Sensitivity Today M25.50 - Pain in unspecified joint Complement C3 Today M35.02 - Sjogren syndrome with lung involvement Complement Total CH50 Today M25.50 - Pain in unspecified joint, M35.02 - Sjogren syndrome with lung involvement Complete Blood Count Auto Diff Today D64.9 - Anemia, unspecified Vitamin D 25-OH Total Today E55.9 - Vitamin D deficiency, unspecified Rheumatoid Factor Today M25.50 - Pain in unspecified joint Anti DNA DS Antibody Today M35.02 - Sjogren syndrome with lung involvement Anti-Centromere B Antibodies Today M35.02 - Sjogren syndrome with lung involvement Comprehensive Met. Panel Today M25.50 - Pain in unspecified joint Medications: Refilled lorazepam 0.5 mg PO BEDTIME PRN 30 tabs 0RF anxiety F41.9 - Anxiety disorder, unspecified
== END 2024-07-30 08:48 | disposition home or self-care (01) ==
PROVIDERS: PCP Internal Medicine; Visit Provider Internal Medicine
DX: F33.0 Major depressive disorder, recurrent, mild (principal); M35.02 Sjogren syndrome with lung involvement; M25.50 Pain in unspecified joint; D69.6 Thrombocytopenia, unspecified; E89.0 Postprocedural hypothyroidism; Z23 Encounter for immunization

== ENCOUNTER 2024-08-11 12:55 | Outpatient (AMB) | payer OTHER, SELFPAY ==
[2024-08-11 13:10] VITALS: BP 108/64; PULSE 77; O2SAT 99; BMI 23.3
--- NOTE | 2024-08-11 13:10 | MHC.OFFVIS ---
Vital Signs 08/11/24 13:10 Height 5 ft 6 in Weight 144 lb 6.444 oz BMI 23.3 BP 108/64 Blood Pressure Location Lt brachial Position Sitting Pulse 77 Pulse Source Doppler Pulse Oximetry (%) 99 Oxygen Delivery Method Room Air Intake Visit Reasons: ILD Allergies Penicillins Allergy (Unknown, Verified 07/30/24 08:33) Swelling HPI HPI ILD: Details: 63-year-old lady, former less than 10 pack-year smoker, quit 20 years prior, now smoking weed at night, with underlying history of Sjogren's syndrome previously on Plaquenil and methotrexate, [place] [facility] [facility], followed for pulmonary nodules and possible pulmonary involvement in Sjogren's. Patient denies dyspnea, cough or sputum production.? Her follow-up CT chest showed improved findings. She denies any dyspnea on exertion. [facility] Medical History Mild recurrent major depression Hypothyroidism Obstructive sleep apnea hypopnea, mild Witnessed apneic spells Loud snoring Postherpetic neuralgia Depression Ingrown toenail Overactive bladder Hypothyroidism Pulmonary nodules Ankylosis of thoracic spine Goiter 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 Sjogrens syndrome Surgical History SS-A antibody positive Sjogren syndrome with lung involvement History of brain surgery Hx of esophagogastroduodenoscopy Hx of colonoscopy History of thyroidectomy Family History Father Diabetes Stroke Alzheimer disease Mother Alzheimer disease Parkinson disease Depression Arthritis Son Multiple sclerosis Son Learning disability Brother Diabetes Sister Diabetes Hypertension Social History Household Members: None Housing: Condominium Alcohol intake: never Patient Tobacco Use Status: Former Tobacco user Tobacco use type: Cigarette e-Cigarette/Vaping Use: Never Used Second Hand Smoke Exposure: No Substance Use Type: Marijuana service: No Current occupational status: employed Current occupation: [employer] Current occupational exposures/hazards: No Cognitive needs: No Hearing needs: No Vision needs: No Review of Systems Const Denies daytime sleepiness, Denies excessive sweating, Denies fatigue, Denies fever(s), Denies lethargy, Denies malaise, Denies night sweats, Denies snoring and Denies weight loss Eyes Denies blurry vision and Denies itchy eyes ENT Denies nasal congestion, Denies post nasal drip, Denies sinus pain, Denies sinus pressure and Denies other ( Thrush) Card Denies chest pain, Denies pedal edema, Denies dyspnea, Denies orthopnea and Denies paroxysmal nocturnal dyspnea Resp Denies cough, Denies hemoptysis, Denies excessive phlegm production, Denies dyspnea, Denies snoring and Denies wheezing GI Denies abdominal pain and Denies heartburn Musc Denies myalgias, Denies arthralgias and Denies joint swelling Skin/Breast Denies rash Neuro Denies memory loss and Denies seizure-like activity Psych Denies abnormal sleep pattern, Denies anxiety and Denies memory loss Endo Denies excessive sweating, Denies fatigue and Denies heat intolerance Jozef/Lymph Denies easy bruising Aller/Immun Denies itchy eyes, Denies seasonal rhinorrhea and Denies wheezing Physical Exam Vital Signs: Last Vital Signs Pulse 77 08/11/24 13:10 BP 108/64 08/11/24 13:10 Pulse Ox 99 08/11/24 13:10 Oxygen Delivery Method Room Air 08/11/24 13:10 BMI result Body Mass Index 23.3 Const General: no acute distress and alert Nutritional Appearance: not obese Orientation/consciousness: Other orientation findings ( oriented) HEENT Head: Yes atraumatic Eyes General: appearance normal, both eyes and all related structures Sclerae: sclerae normal EOM: EOMs intact bilaterally Neck Neck: Yes supple Lymphatic: no lymphadenopathy noted Resp Effort & Inspection: normal respiratory effort and no use of accessory muscles Auscultation: clear to auscultation bilaterally Cardio Rate: regular rate Rhythm: regular rhythm Heart sounds: no gallops, no murmurs and no rubs Skin General skin exam: other ( warm) Extrem General: No clubbing, No cyanosis and No edema Assessment & Plan Assessment & Plan (1) ILD (interstitial lung disease): Code(s): J84.9 - Interstitial pulmonary disease, unspecified Category: Medical Plan: Asymptomatic. Stable CT chest finding. Continue with imaging follow-up. Next in July of 2025. (2) Pulmonary nodules: Code(s): R91.8 - Other nonspecific abnormal finding of lung field Category: Medical Plan: Improved pulmonary nodules. Follow-up CT chest in 12 months. Orders: Orders CT chest wo IV con 07/11/25 J84.9 - Interstitial pulmonary disease, unspecified Coding Level of Care Code Est Pt Level 4 (23869) Diagnoses ILD (interstitial lung disease) J84.9 Pulmonary nodules R91.8
== END 2024-08-11 13:32 | disposition home or self-care (01) ==
LOC: HO.HPS 12:56
PROVIDERS: PCP Internal Medicine; Visit Provider Internal Medicine Pulmonary Disease
DX: J84.9 Interstitial pulmonary disease, unspecified (principal); R91.8 Other nonspecific abnormal finding of lung field
CPT/HCPCS: 99214

== ENCOUNTER 2024-08-18 13:36 | Outpatient (AMB) | payer OTHER, SELFPAY ==
[2024-08-18 13:45] VITALS: BP 98/58; BMI 22.6
--- NOTE | 2024-08-18 13:45 | A.OFFVIS_ITS ---
Vital Signs 08/18/24 13:45 Height 5 ft 6 in Weight 140 lb 3.424 oz BMI 22.6 BP 98/58 L Blood Pressure Location Lt brachial Position Sitting Intake Visit Reasons: Left side arm pain/sharp pain lt side Implementation Manager Required: No Accompanied by: Spouse Allergies Penicillins Allergy (Unknown, Verified 07/30/24 08:33) Swelling Medication List - Last Reconciled 08/18/24 by Vitaly Swain MD calcium carbonate-vitamin D3 600 mg-20 mcg (800 unit) (Caltrate 600 plus D) 1 tab PO DAILY gabapentin 600 mg PO TID 90 days ibuprofen 800 mg PO Q8H PRN 30 days levothyroxine 88 mcg PO DAILY 90 days lorazepam 0.5 mg PO BEDTIME PRN HPI Comments Details: Lily is here for evaluation of chest pain. She has been seen previously regarding palpitations. At that time, thought to be mainly from anxiety. Now she states she is getting some pain in the left side of the chest. She is pointing to different areas including underneath the left breast, on the nipple extra. She also gets the discomfort at the same time in the left shoulder and left arm. Can happen at rest as well as exertion. Sounds somewhat atypical. No previously documented coronary disease. [facility] Medical History Mild recurrent major depression Hypothyroidism Obstructive sleep apnea hypopnea, mild Witnessed apneic spells Loud snoring Postherpetic neuralgia Depression Ingrown toenail Overactive bladder Hypothyroidism Pulmonary nodules Ankylosis of thoracic spine Goiter 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 Sjogrens syndrome Surgical History SS-A antibody positive Sjogren syndrome with lung involvement History of brain surgery Hx of esophagogastroduodenoscopy Hx of colonoscopy History of thyroidectomy Family History Father Diabetes Stroke Alzheimer disease Mother Alzheimer disease Parkinson disease Depression Arthritis Son Multiple sclerosis Son Learning disability Brother Diabetes Sister Diabetes Hypertension Social History Household Members: None Housing: Condominium Alcohol intake: never Patient Tobacco Use Status: Former Tobacco user Tobacco use type: Cigarette e-Cigarette/Vaping Use: Never Used Second Hand Smoke Exposure: No Substance Use Type: Marijuana service: No Current occupational status: employed Current occupation: [employer] Current occupational exposures/hazards: No Cognitive needs: No Hearing needs: No Vision needs: No Review of Systems Const Denies chills, Denies fatigue, Denies fever(s), Denies weight gain and Denies weight loss ENT Denies dizziness Card Reports chest pain, Denies leg edema, Denies lightheadedness, Reports palpitations, Denies dyspnea on exertion, Denies orthopnea and Denies other Resp Denies cough and Denies dyspnea on exertion GI Denies hematochezia and Denies change in stool character Musc Denies abnormal gait, Denies muscle weakness, Denies numbness, Denies radiating pain into limb and Denies tingling Neuro Denies abnormal gait, Denies dizziness, Denies numbness and Denies tingling Endo Denies fatigue and Reports palpitations Physical Exam Vital Signs: Last Vital Signs BP 98/58 L 08/18/24 13:45 BMI result Body Mass Index 22.6 Const General: comfortable and no acute distress Orientation/consciousness: patient oriented x3 HEENT Other: Unremarkable Head: Yes normal to inspection Neck Neck: Yes normal visual inspection Chest Chest palpation & inspection: normal inspection of the chest Resp Auscultation: clear to auscultation bilaterally Cardio Palpation: normal PMI Heart sounds: S1 normal heart sound present, S2 normal heart sound present, no gallops, no murmurs and no rubs GI Palpation (GI): Soft to palpation Back/Spine/Pelvis Other: unremarkable Skin General skin exam: no rashes or lesions noted Neuro General: patient oriented x3 Extrem General: Yes normal to inspection Psych Mental Status: mental status grossly normal Office Procedures EKG Details: EKG with underlying sinus rhythm at 74/Min; short ME interval. Nonspecific ST-T changes; [place] [id number], Complete Assessment & Plan Assessment & Plan (1) Precordial chest pain: Code(s): R07.2 - Precordial pain Category: Medical Plan Atypical sounding chest pain. No clear ischemic findings on the EKG. Obtain exercise stress echocardiogram for further evaluation. Orders: Orders CA echo transthoracic complete Today R07.2 - Precordial pain CA echo stress exercise Today R07.2 - Precordial pain Coding Level of Care Code Est Pt Level 3 (46411) Diagnoses Precordial chest pain R07.2 CPT Codes EKG - CPT: 98753-[id number], Complete ([id number])
== END 2024-08-18 14:07 | disposition home or self-care (01) ==
PROVIDERS: PCP Internal Medicine; Visit Provider Internal Medicine
DX: R07.2 Precordial pain (principal)
CPT/HCPCS: 93010; 99213

== ENCOUNTER → 2024-08-18 13:36 | Outpatient (BNVA) | payer OTHER, SELFPAY | PROVIDERS: PCP Internal Medicine; Visit Provider Internal Medicine | DX: R07.2 Precordial pain (principal) | CPT/HCPCS: 93005 ==

== ENCOUNTER → 2024-09-15 10:57 | Outpatient (REF) | payer OTHER, SELFPAY ==
--- NOTE | 2024-09-15 11:00 | CA_ITS ---
Transthoracic Echocardiogram Patient (Last, First, Middle): Lily Turk, Gender: Female Date of : 1960 Age: 63 Procedure Date: 09/15/2024 Procedure Type: Transthoracic Echocardiogram Location: OP Height: 167.64 cm Weight: 65.77 kg BSA: 1.74 m2 Heart Rate: bpm BP: 118 / 68 mmHg Marine Safety Officer: JEY Referring MD: Vitaly Swain MD Shellfish Checker: Aroldo Crane MD Symptoms: R07.2 - Precordial pain Study Quality: Adequate ECG Rhythm: Sinus Conclusions: - 1. Normal LV ejection fraction of 60 65% with impaired relaxation filling pattern 2. Mild aortic regurgitation 3. Normal RV systolic pressure 4. No gross pericardial effusion Findings Left Ventricle Normal left ventricular size, thickness, and systolic function. The visually estimated ejection fraction is between 60-65%. Spectral Doppler is indicative of an impaired relaxation filling pattern. E/E prime ratio is between 8 and 15 consistent with indeterminate filling pressures. Right Ventricle Normal right ventricular cavity size and systolic function. Atria Both atria are normal in size. There is no evidence of interatrial shunt. Aortic Valve The aortic valve was not well visualized. There is no aortic valve stenosis. There is mild aortic valve regurgitation. Mitral Valve There is mild anterior mitral leaflet thickening. The posterior mitral leaflet has restricted mobility. There is mild mitral annular calcification. There is trace mitral valve regurgitation. There is no mitral valve stenosis. Pulmonic Valve The pulmonic valve was not well visualized. Tricuspid Valve Likely normal tricuspid valve structure and function. There is trace tricuspid valve regurgitation. The right ventricular systolic pressure is normal. The right ventricular systolic pressure is 23 mmHg. Normal right atrial pressure. There is no evidence of pulmonary hypertension. Great Vessels The aorta was not well visualized. The pulmonary artery was not well visualized. There is no dilatation of the ascending aorta. There is no evidence of plaque in the aorta. Venous The inferior vena cava is normal in size and collapses greater than 50% with inspiration. Pericardium/Pleural There is no evidence of pericardial effusion. Prior Study Comparison No prior study available for comparison. Measurements 2D Linear Measurements IVSd: 0.98 0.6-0.9/0.6-1.0 cm LVIDd: 4.63 3.9-5.3/4.2-5.9 cm LVIDd Index: 2.66 2.4-3.2/2.2-3.1 cm/m2 LVIDs: 2.87 2.0-3.6 cm LVPWd: 0.85 0.7-1.1 cm LA Diam: 3.10 2.7-3.8/3.0-4.0 cm LAIDs Index: 1.78 1.5-2.3 cm/m2 LV Mass: 177.80 67-162/88-224 g LV Mass Index: 102.18 43-95/49-115 g/m2 LVOT Diam: 2.00 3.0+(-)1.3 cm 2D Systolic Function EF 4C: 62.30 >55% EF 2C: 64.60 >55% EF BiP: 62.30 >55% Mitral Valve MV Pk E: 0.86 MV PK A: 1.00 MV Decel Time: 243.00 E/A: 0.90 E'Lateral: 9.25 E'Medial: 7.83 E/E' Med: 11.00 E/E' Lat: 9.30 PHT: 71.00 MVA PHT: 3.10 Decel [place]: 3.55 Aortic Valve AoV Pk Pablo: 1.64 AoV Mn Pablo: 1.01 AoV VTI: 0.29 AoV Pk Grad: 11.00 Aov Mn Grad: 5.00 OH Cont.VTI: 2.38 LVOT LVOT Pk Pablo: 1.08 LVOT Mn Pablo: 0.73 LVOT VTI: 0.22 LVOT Pk Grad: 5.00 LVOT Mn Grad: 2.00 LVOT Diam: 2.00 LVOT Area: 3.14 Diastolic Function MV Pk E: 0.86 MV Pk A: 1.00 E/A: 0.90 E'Medial: 7.83 E/E' Med: 11.00 E' Laterial: 9.25 E/E' Lat: 9.30 Right Ventricle TAPSE (mm): 26.90 TVS' Pablo: 12.50 Tricuspid Valve TR Pk Pablo: 2.22 TR Pk Grad: 20.00 RA Press: 3.00 RVSP: 23.00 Great Vessels Aorta Sinus of Valsalva: 3.30 2.0-3.5 cm Updated in Other Vendor System with Status of Final Aroldo Crane MD electronically signed on 09/16/2024 12:36:19 PM with status of Final
--- OUTSIDE RECORDS SUMMARY | 2024-09-17 14:53 | XMS_ITS | Continuity of Care Document ---
Author Organization [facility] Address [address] [place] [address] [address] [place] [phone] Phone Care Team Providers Care Fastener Technologist Name Role Phone Livan ROSALES, ALTAF, [...] Mins- [place] & [place] [facility], [address] [place] [address] [address], [place], [id number], [place] tel:[phone] CVR - [place] - [place] Chronic venous hypertension (idiopathic) with other complications of bilateral lower extremityPain in right legPain in left legRestless legs syndromeEssen tial (primary) hypertensionV enous insufficiency (chronic) (peripheral)C ramp and spasmLocalize d edema 4 Livan ROSALES, ALTAF, JUAN Cisneros. [address] [facility], [facility] [address], [place], [place], [id number] , [place]. tel:[phone] Referring Provider: Sharon Baum MD, [address] [place] [address] , [address] [place] D/B/A: ana [facility] [place], [address]. tel:[phone] [facility], [address] [facility] [address], [place], [id number], [place] tel:[phone] [facility] Chronic venous hypertension (idiopathic) with other complications of bilateral lower extremity Livan ROSALES, RVT, RPVI Blayne. [address] [facility] [address], [place], [place], [id number] , [place]. tel:[phone] Referring Provider: Sharon Baum MD, [address] [facility] , [address] [place] D/B/A: [place], [address]. tel:[phone] Family History Family Member Type Diagnosis Age At Onset No Information Payers Payer name Insurance type Covered green party ID Authoriza tiradha(s) Azeb [id number] Social History Type Description Quantity Date Captured [...]
== END ==
LOC: HO.CARD 10:57
PROVIDERS: PCP Internal Medicine; Visit Provider Internal Medicine
DX: R07.2 Precordial pain (principal)
CPT/HCPCS: 93306

== ENCOUNTER → 2024-09-15 11:00 | Outpatient (BNV) | payer OTHER, SELFPAY | PROVIDERS: PCP Internal Medicine; Visit Provider Internal Medicine Cardiovascular Disease | DX: I34.81 Nonrheumatic mitral (valve) annulus calcification (principal); R07.2 Precordial pain | CPT/HCPCS: 93306 ==

== ENCOUNTER 2024-09-16 14:12 | Outpatient (AMB) | payer OTHER, SELFPAY ==
--- NOTE | 2024-09-16 14:33 | MHC.PC.OV ---
Vital Signs 09/16/24 14:35 Height 5 ft 6 in Weight 140 lb BMI 22.6 BP 118/80 Blood Pressure Location Lt brachial Position Sitting Intake Visit Reasons: follow up Intake Note: Patient here for a follow up Lacing Cutter Required: No Accompanied by: Self / Same As Patient Allergies Penicillins Allergy (Unknown, Verified 09/16/24 14:47) Swelling Medication List - Last Reconciled 09/16/24 by Sharon Tolliver MD calcium carbonate-vitamin D3 600 mg-20 mcg (800 unit) (Caltrate plus D) 1 tab PO DAILY gabapentin 600 mg PO TID 90 days ibuprofen 800 mg PO Q8H PRN 30 days levothyroxine 88 mcg PO DAILY 90 days lorazepam 0.5 mg PO BEDTIME PRN Tobacco use date assessed: 01/31/24 Fall risk assessment: No Falls in past year Last assessed Fall Risk: 09/16/24 Dental Screening Dental Screen Date: 09/16/24 Did you have a dental visit in the last 12 months?: No Did you have a dental problem in the last 6 months where you did not have access to dental care?: No Was dental information given to patient?: Patient has dentist HPI HPI Comments History of Present Illness Details The patient is a 63-year-old female presenting with follow-up for hypothyroidism and possible scleroderma. She has been experiencing chronic symptoms related to these conditions but has reported ineffectiveness of her current medication regimen. She has been on levothyroxine 88 mcg for the past 8 months to 1 year, but recent lab results indicated a need for an increased dose to 100 mcg due to abnormal thyroid function tests. Additionally, she has been managing pain with gabapentin 600 mg three times daily, which has not provided adequate relief, and she uses ibuprofen as needed. Her anxiety, for which she takes lorazepam 0.5 mg, has increased, necessitating a more consistent supply to manage symptoms. A CT scan confirmed mild emphysema, and recent labs revealed leukopenia with a white blood cell count of 3.2 and anemia with a hemoglobin level of 11.3. SHARON testing was markedly positive, with a titer of 1:1280, and centromere B antibody also tested positive, indicating active autoimmune involvement. Despite these findings, complement levels were normal, ruling out active lupus. The patient did not attend a rheumatology appointment due to navigational difficulties. Past medication trials include methotrexate, which showed benefits before being discontinued. [facility] Medical History (Updated 09/16/24 @ 15:47 by Sharon Tolliver MD) Mild recurrent major depression Hypothyroidism Obstructive sleep apnea hypopnea, mild Witnessed apneic spells Loud snoring Postherpetic neuralgia Depression Ingrown toenail Overactive bladder Hypothyroidism Pulmonary nodules Ankylosis of thoracic spine Goiter 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 Sjogrens syndrome Surgical History SS-A antibody positive Sjogren syndrome with lung involvement History of brain surgery Hx of esophagogastroduodenoscopy Hx of colonoscopy History of thyroidectomy Family History Father Diabetes Stroke Alzheimer disease Mother Alzheimer disease Parkinson disease Depression Arthritis Son Multiple sclerosis Son Learning disability Brother Diabetes Sister Diabetes Hypertension Social History Household Members: None Housing: Condominium Alcohol intake: never Patient Tobacco Use Status: Former Tobacco user Tobacco use type: Cigarette e-Cigarette/Vaping Use: Never Used Second Hand Smoke Exposure: No Substance Use Type: Marijuana service: No Current occupational status: employed Current occupation: [employer] Current occupational exposures/hazards: No Cognitive needs: No Hearing needs: No Vision needs: No Questionnaire Thrive Questionnaire Date Thrive assessed: 01/31/24 PATTI-7 AMB Questionnaire PATTI-7 Date PATTI - 7 assessed: 01/31/24 Source: Developed by Drs. Blayne Tijerina, Ritika Briggs, Henrry Biggs and colleagues, with an educational zachariah from [employer]. Review of Systems Const All systems reviewed & are unremarkable except as noted in HPI and below Card Denies chest pain at rest, Denies chest pain with activity, Denies edema, Denies irregular heart rhythm, Denies claudication, Denies dyspnea, Denies dyspnea on exertion, Denies orthopnea, Denies paroxysmal nocturnal dyspnea and Denies slow heart rate Resp Denies cough, Denies dyspnea and Denies dyspnea on exertion Musc Reports back pain, Denies atrophy, Denies deformity, Reports arthralgias and Denies limited range of motion Physical exam (Primary Care) Vital Signs: Last Vital Signs BP 118/80 09/16/24 14:35 BMI result Body Mass Index 22.6 Tobacco/Smoking Status: Tobacco use Status Tobacco use date assessed 01/31/24 09/16/24 14:34 Patient Tobacco Use Status Former Tobacco user 09/16/24 14:34 Tobacco use type Cigarette 09/16/24 14:34 e-Cigarette/Vaping Use Never Used 09/16/24 14:34 Thrive Assessment: Date of Thrive Assessment Date Thrive assessed 01/31/24 09/16/24 14:34 Resp Effort & Inspection: normal respiratory effort Auscultation: clear to auscultation bilaterally Cardio Jugular venous distension: no JVD Rate: regular rate Rhythm: regular rhythm Heart sounds: S1 normal heart sound present and S2 normal heart sound present Extrem General: Yes full ROM Office Procedures Flu Questionnaire Does the patient have a severe egg allergy?: No Immunizations Fluarix Triv [id number] (PF) 45 mcg (15 mcg x 3)/0.5 mL IM syringe Performing Provider: Sharon Tolliver MD [facility] Documented (not given) by: WALE Kumar on 09/16/24 14:39 Reason Not Given: Patient Refused Coding Level of Care Code Est Pt Level 4 (35195) Complex EM visit Add On G2211 Diagnoses Sjogren syndrome with lung involvement M35.02 Postoperative hypothyroidism E89.0 Hypothyroidism type: postoperative SHARON positive R76.8 Emphysema lung J43.9 Anxiety F41.9 Time Spent (min) 25 Assessment & Plan Assessment & Plan (1) Sjogren syndrome with lung involvement: Code(s): M35.02 - Sjogren syndrome with lung involvement Category: Surgical (2) Hypothyroidism: Code(s): E03.9 - Hypothyroidism, unspecified Category: Medical Qualifiers: Hypothyroidism type: postoperative Qualified Code(s): E89.0 - Postprocedural hypothyroidism (3) SHARON positive: Code(s): R76.8 - Other specified abnormal immunological findings in serum Category: Medical (4) Emphysema lung: Code(s): J43.9 - Emphysema, unspecified Category: Medical (5) Anxiety: Code(s): F41.9 - Anxiety disorder, unspecified Category: Medical Plan - Hypothyroidism: Increase levothyroxine dose to 100 mcg with follow-up thyroid function testing in six weeks. - Scleroderma: Initiate methotrexate treatment with concurrent folic acid supplementation, ensuring folic acid is withheld on the day methotrexate is administered. - Anxiety: Refill lorazepam for continued management with monitoring for potential dependence. - Leukopenia and Anemia: Monitor hematological parameters given the leukopenia and anemia. - Mild Emphysema: Advise cessation of cannabis smoking to prevent further pulmonary compromise. Patient was informed and verbally consented to the use of an ambient scribe for clinic note documentation during this visit. I discussed with the patient the necessity to increase her levothyroxine dosage to 100 mcg and reviewed the follow-up plan for thyroid function tests in six weeks. We addressed initiating methotrexate therapy for her scleroderma symptoms, highlighting the importance of folic acid supplementation to mitigate potential adverse effects, and ensuring she understands to not take folic acid on methotrexate days. I acknowledged her past effective response to methotrexate and the importance of adherence to this regimen. We talked about her ongoing anxiety management with lorazepam and the associated risks, emphasizing that it should be used sparingly to avoid potential addiction. The patient was counseled on ceasing cannabis use for improved lung function and was advised on the implications of her blood results, especially in the context of autoimmune disease. Possible navigation aids or support for future appointments were encouraged. Orders: Orders Influenza [id number] Immunization Today Z23 - Encounter for immunization Thyroid Stimulating Hormone 6 Weeks E89.0 - Postprocedural hypothyroidism Complete Blood Count Auto Diff 4 Months M25.50 - Pain in unspecified joint Comprehensive Met. Panel 4 Months M25.50 - Pain in unspecified joint Histone Antibody Today M25.50 - Pain in unspecified joint IVON 1 Antibody Today M25.50 - Pain in unspecified joint Anti DNA DS Antibody Today M25.50 - Pain in unspecified joint Medications: New levothyroxine 100 mcg PO DAILY 90 tabs 1RF 90 days folic acid 1 mg PO DAILY 90 tabs 1RF 90 days gabapentin 300 mg PO TID 90 caps 0RF 30 days methotrexate sodium 10 mg (4 x 2.5 mg) PO QWEEK 20 tabs 4RF 30 days Refilled lorazepam 0.5 mg PO BEDTIME PRN 30 tabs 0RF anxiety F41.9 - Anxiety disorder, unspecified Discontinued gabapentin Discontinued Reason: Patient Completed Course 600 mg PO TID 90 days 270 tabs 1RF levothyroxine Discontinued Reason: Patient Completed Course 88 mcg PO DAILY 90 days 90 tabs 0RF Patient Instructions: - Follow the newly prescribed regimen of levothyroxine 100 mcg and schedule follow-up lab tests in six weeks. - Begin methotrexate therapy as instructed, with folic acid supplementation on non-methotrexate days. - Ensure availability of lorazepam for anxiety management while being cautious of overuse. - Avoid smoking cannabis to improve lung health. - Seek assistance for navigating to medical appointments if needed. - Report any new or worsening symptoms and discuss any concerns during follow-up visits. - Maintain current medication regimen and notify the office if any prescriptions are running low.
[2024-09-16 14:35] VITALS: BP 118/80; BMI 22.6
--- OUTSIDE RECORDS SUMMARY | 2024-09-17 22:02 | XMS_ITS | Continuity of Care Document ---
Author Organization [facility] Address [address] [place] [address] [address] [place] [phone] Phone Care Team Providers Care Hair And Makeup Designer Name Role Phone Livan ROSALES, ALTAF, Blayne [...] Mins- [place] & [place] [facility], [address] [place] [address] [address], [place], [id number], [place] tel:[phone] CVR - [place] - [place] Chronic venous hypertension (idiopathic) with other complications of bilateral lower extremityPain in right legPain in left legRestless legs syndromeEssen tial (primary) hypertensionV enous insufficiency (chronic) (peripheral)C ramp and spasmLocalize d edema 4 Livan ROSALES, ALTAF, JUAN Cisneros. [address] [facility], [facility] [address], [place], [place], [id number] , [place]. tel:[phone] Referring Provider: Sharon Baum MD, [address] [place] [address] , [address] [place] D/B/A: ana [facility] [place], [address]. tel:[phone] [facility], [address] [facility] [address], [place], [id number], [place] tel:[phone] [facility] Chronic venous hypertension (idiopathic) with other complications of bilateral lower extremity Livan ROSALES, RVT, RPVI Blayne. [address] [facility] [address], [place], [place], [id number] , [place]. tel:[phone] Referring Provider: Sharon Baum MD, [address] [facility] , [address] [place] D/B/A: [place], [address]. tel:[phone] Family History Family Member Type Diagnosis Age At Onset No Information Payers Payer name Insurance type Covered alliance party ID Authoriza tiradha(s) Azeb [id number] Social History Type Description Quantity Date Captured [...]
== END 2024-09-16 15:11 | disposition home or self-care (01) ==
PROVIDERS: PCP Internal Medicine; Visit Provider Internal Medicine
DX: M35.02 Sjogren syndrome with lung involvement (principal); E89.0 Postprocedural hypothyroidism; R76.8 Other specified abnormal immunological findings in serum; J43.9 Emphysema, unspecified; F41.9 Anxiety disorder, unspecified; Z23 Encounter for immunization

== ENCOUNTER → 2024-09-16 14:12 | Outpatient (BNVA) | payer OTHER, SELFPAY | PROVIDERS: PCP Internal Medicine; Visit Provider Internal Medicine | DX: M35.02 Sjogren syndrome with lung involvement (principal); E89.0 Postprocedural hypothyroidism; R76.8 Other specified abnormal immunological findings in serum; J43.9 Emphysema, unspecified; F41.9 Anxiety disorder, unspecified; M34.9 Systemic sclerosis, unspecified; D72.819 Decreased white blood cell count, unspecified; D64.9 Anemia, unspecified; Z79.899 Other long term (current) drug therapy; Z28.21 Immunization not carried out because of patient refusal | CPT/HCPCS: 90471 ==

== ENCOUNTER 2024-09-22 09:53 | Outpatient (REF) | payer OTHER, SELFPAY ==
--- OUTSIDE RECORDS SUMMARY | 2024-09-22 09:56 | XMS_ITS | Continuity of Care Document ---
Author Organization [facility] Address [address] [place] [address] [address] [place] [phone] Phone Care Team Providers Care Mold Filling Operator Name Role Phone Livan ROSALES, ALTAF, Blayne [...] Mins- [place] & [place] [facility], [address] [place] [address] [address], [place], [id number], [place] tel:[phone] CVR - [place] - [place] Chronic venous hypertension (idiopathic) with other complications of bilateral lower extremityPain in right legPain in left legRestless legs syndromeEssen tial (primary) hypertensionV enous insufficiency (chronic) (peripheral)C ramp and spasmLocalize d edema 4 Livan ROSALES, ALTAF, JUAN Cisneros. [address] [facility], [facility] [address], [place], [place], [id number] , [place]. tel:[phone] Referring Provider: Sharon Baum MD, [address] [place] [address] , [address] [place] D/B/A: ana [facility] [place], [address]. tel:[phone] [facility], [address] [facility] [address], [place], [id number], [place] tel:[phone] [facility] Chronic venous hypertension (idiopathic) with other complications of bilateral lower extremity Livan ROSALES, RVT, RPVI Blayne. [address] [facility] [address], [place], [place], [id number] , [place]. tel:[phone] Referring Provider: Sharon Baum MD, [address] [facility] , [address] [place] D/B/A: [place], [address]. tel:[phone] Family History Family Member Type Diagnosis Age At Onset No Information Payers Payer name Insurance type Covered alliance party ID Authoriza tiradha(s) Azeb [id number] Social History Type Description Quantity Date Captured [...]
== END 2024-09-22 09:54 | disposition home or self-care (01) ==
LOC: HO.MAMMO 09:53
PROVIDERS: PCP Internal Medicine; Visit Provider Internal Medicine
DX: Z12.31 Encounter for screening mammogram for malignant neoplasm of breast (principal)
CPT/HCPCS: 77063; 77067

== ENCOUNTER → 2024-09-22 10:15 | Outpatient (BNV) | payer OTHER, SELFPAY | PROVIDERS: PCP Internal Medicine; Visit Provider Internal Medicine | DX: Z12.31 Encounter for screening mammogram for malignant neoplasm of breast (principal) | CPT/HCPCS: 77063; 77067 ==

== ENCOUNTER 2024-09-29 13:42 | Outpatient (REF) | payer OTHER, SELFPAY ==
[2024-10-02 13:58] LABS: Anti DNA DS Antibody 1 IU/mL; JO 1 Antibody <1.0 NEG AI (<1.0 NEG)
[2024-10-06 12:43] LABS: Histone Antibody <1.0 U (<1.0)
== END 2024-09-29 13:43 | disposition home or self-care (01) ==
LOC: HO.LAB 13:42
PROVIDERS: PCP Internal Medicine; Visit Provider Internal Medicine
DX: M25.50 Pain in unspecified joint (principal)
CPT/HCPCS: 36415; 83516; 86225; 86235

== ENCOUNTER → 2024-10-20 07:40 | Outpatient (REF) | payer OTHER, SELFPAY ==
--- NOTE | 2024-10-20 07:42 | CA_ITS ---
Acquisition Time: 2024-10-20 08:08:52 Total Exercise Time: 00:05:01 Test Indications: CP,Palpitations Medications: Protocol: MAVERICK Max HR: 155 BPM 100% of Pred: 155 BPM Max BP: 140/78 mmHG Max Work Load: 7.0 METS Exercise Stress Test with exercise 5 mins 1 sec of Maverick Protocol, achieving 100% MPHR, without any anginal symptoms, reports leg pain requesting to stop, with isolated PVCs, with normotensive response to exercise. With borderline ST depression inferiorly and in V3-V5. Will order further testing with nuclear imaging. Handout given. Test reviewed with Dr. Hurd. Referred By: Vitaly Swain Electronically Signed By: Victoriano Mendoza
== END ==
LOC: HO.CARD 07:40
PROVIDERS: PCP Internal Medicine; Visit Provider Internal Medicine
DX: R07.2 Precordial pain (principal)
CPT/HCPCS: 93017

== ENCOUNTER → 2024-10-20 07:42 | Outpatient (BNV) | payer OTHER, SELFPAY | PROVIDERS: PCP Internal Medicine | DX: I49.3 Ventricular premature depolarization (principal) | CPT/HCPCS: 93016; 93018 ==

== ENCOUNTER 2024-12-01 09:24 | Outpatient (AMB) | payer OTHER, SELFPAY ==
--- NOTE | 2024-12-01 09:38 | MHC.OFFVIS ---
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 Patient reports her pain has been present for about 3 years after she felt a snap while standing. Currently she has constant pain at the lateral and posterior aspect of knee that radiates up her leg. Intermittent swelling. She attended PT about a year ago at [facility] however she stopped going as she could not afford the copay. She continued to do at home exercises that she learned. She has concerns as she is not able to fully straighten her leg and her knee has given out. She mentions about 4 weeks ago her left knee gave out. 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 She states she experiences a snapping in the right knee. She has difficulty with full extension. She feels as though her knee is going to give out if she is ambulating in her legs snaps. 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 Sjogrens syndrome Surgical History SS-A antibody positive Sjogren syndrome with lung involvement History of brain surgery Hx of esophagogastroduodenoscopy Hx of colonoscopy History of thyroidectomy Family History Father Diabetes Stroke Alzheimer disease Mother Alzheimer disease Parkinson disease Depression Arthritis Son Multiple sclerosis Son Learning disability Brother Diabetes Sister Diabetes Hypertension Social History Household Members: None Housing: Condominium Alcohol intake: never Patient Tobacco Use Status: Former Tobacco user Tobacco use type: Cigarette e-Cigarette/Vaping Use: Never Used Second Hand Smoke Exposure: No Substance Use Type: Marijuana service: No Current occupational status: employed Current occupation: [employer] Current occupational exposures/hazards: No Cognitive needs: No Hearing needs: No Vision needs: No Review of Systems Const All systems reviewed & are unremarkable except as noted in HPI and below Physical Exam Vital Signs: BMI result Body Mass Index 22.8 Const General: cooperative and no acute distress Orientation/consciousness: patient oriented x3 Resp Effort & Inspection: normal respiratory effort and able to speak in complete sentences Cardio Peripheral pulses: Peripheral pulses 2+ throughout Neuro General: patient oriented x3 Extrem Other: Right knee normal to inspection no joint effusion present. She has full flexion and extension however her left knee does hyperextend. Lateral retropatellar tenderness present with crepitus. No ligamentous laxity noted. Neurovascularly intact. Results Reviewed Results Reviewed: X-rays of the right knee obtained in the office today are negative for any acute or chronic abnormalities. Mild PF oa. Assessment & Plan Assessment & Plan (1) Patellofemoral arthritis of right knee: Code(s): M17.11 - Unilateral primary osteoarthritis, right knee Category: Medical Plan: We discussed options today which include physical therapy to work on strengthening exercises. She was also fit for a Genumed knee brace today. If symptoms persist or worsen she will contact our office and we can discuss treatment options such as a steroid injection otherwise follow-up as needed. Orders: Orders XR knee RT 3V Today M17.11 - Unilateral primary osteoarthritis, right knee XR knee LT 1V Today M25.562 - Pain in left knee PT Evaluation and Treatment Today M17.11 - Unilateral primary osteoarthritis, right knee Coding Level of Care Code New Pt Level 3 (93246) Complex EM visit Add On G2211 Diagnoses Patellofemoral arthritis of right knee M17.11
[2024-12-01 09:39] VITALS: BMI 22.8
--- OUTSIDE RECORDS SUMMARY | 2024-12-01 10:11 | XMS_ITS | Clinical Summary ---
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 Smith who is monitoring for now Anxiety 06/10/2010 DX:Anxiety; COMM ENT: 04/16-negative stress test at [facility] Brain cyst 10/24/2010 DX:Brain cyst; C OMMENT: Colloid cyst removed in .no mri's since Sjogren's syndrome (CMS/HCC) DX: Sjogren's syndrome (HCC) Family History Medical History Relation Name Comments Coronary artery disease Brother Diabetes Brother Alzheimer's disease Father Alzheimer's disease Mother Breast cancer Neg Hx Relation Name Status Comments Brother 3,AIDS,CAD and dm Father stroke and robert ntia Maternal Grandfather Maternal Grandmother Mother dementia Paternal Grandfather Paternal Grandmother Sister 2,hep c and sto mach cancer Social History Tobacco Use Types Packs/Day Years Used Date Smoking Tobacco: Former Smokeless Tobacco: Never Alcohol Use Standard Drinks/Week Comments Yes 0 (1 standard drink = 0.6 oz pur e alcohol) Comments Unknown Sex and Gender Information Value Date Recorded Sex Assigned at Not on file Legal Sex Female 5:40 PM EST Gender Identity Not on file Sexual Orientation Not on file Obstetrics History Plan of Treatment Health Maintenance Due Date Last Done Comments Pneumococcal Vaccine: 50+ Years (1 of 1 - PCV) 2008 Zoster Vaccines (1 of 2) 2008 DTaP,Tdap,and Td Vaccines (2 - Td or Tdap) 08/02/2017 08/02/2007 Colorectal Cancer Screening: Colonoscopy 09/16/2022 Depression Screening 09/16/2022 Hepatitis C Screening 09/16/2022 Osteoporosis Screening (Bone Density Screening) 09/16/2022 Social Influencers of Health Screening 09/16/2022 Breast Cancer Screening 08/08/2023 08/08/20, 08/08/2020, 01/18/2019 Falls Risk Assessment 2023 COVID-19 Vaccine ( - 2023-2 5 season) 2024 Influenza Vaccine (#1) 2024 5, 08/07/2014, 06/26/2011 RSV Immunization Patients 60 + Years Old (1 - 1-dose 75+ series) 2033 Hepatitis B Vaccines Completed 08/21/2003, 03/16/2003, 02/13/2003 HIB Vaccines Aged Out No longer eligi ble based on patient's age to complete this topic HPV Vaccines Aged Out No longer eligi ble based on patient's age to complete this topic Hepatitis A Vaccines Aged Out No long er eligible based on patient's age to complete this topic IPV Vaccines Aged Out No longer eligi ble based on patient's age to complete this topic MMR Vaccines Aged Out No longer eligi ble based on patient's age to complete this topic Meningococcal ACWY Vaccine Aged Out N o longer eligible based on patient's age to complete this topic Meningococcal B Vacine Aged Out No lo nger eligible based on patient's age to complete this topic RSV Immunization Patients Under 20 months Aged Out No longer eligible b ased on patient's age to complete this topic Varicella Vaccines Aged Out No longer eligible based on patient's age to complete this topic Procedures Procedure Name Priority Date/Time Associated Diagnosis Comments TOMI SCREENING DIGITAL Routine 08/08/2021 11:24 AM EDT Encounter for screening mammogram for malignant neoplasm of breast from Last 3 Months or Most Recently Relevant to Health Maintenance Results * TOMI SCREENING DIGITAL (08/08/2021 11:24 AM EDT) Anatomical Region Laterality Modality Mammography 08/08/2021 9:06 AM EDT Narrative 08/08/2021 11:24 AM EDT [facility] Diagnostic Imaging Department [address] [place] [id number] Patient: ??SUMIT DOWNING ?/Age/Sex: 1960 - 60 - F Unit#: ??[id number] ? Location/Status: ??SPDIMAM/REG CLI ? Mnemonic/Ordering Site: ??DIGSC/SPMAM Ordering Physician: ??KENDRICK LARSON MD [facility] Screening Digital - 08/08/21927 EXAM: [facility] Screening Digital EXAM DATE AND TIME: 08/08/2021 9:29 AM HISTORY: ??Screening. COMPARISON: ??08/07/20, 01/18/19, 06/28/17 TECHNIQUE: CC and MLO views of both breasts were obtained using full field digital mammography. Bilateral digital breast tomosynthesis was performed in the MLO projection. Computer aided detection with the [employer] 7.2-H was employed. TISSUE DENSITY: c. The breasts are heterogeneously dense, which may obscure small masses. FINDINGS: Motion artifact is present on the right MLO view, requiring a repeat image. No suspicious masses, grouped microcalcifications, or areas of architectural distortion are seen. Vascular calcification is present. The skin is unremarkable. IMPRESSION: 1. Motion artifact on the right MLO view, requiring a repeat image. The patient will be called back. 2. Stable mammographic appearance of the left breast. No evidence of malignancy is seen. BI-RADS: ??Category 0: Incomplete - Need Additional Imaging Evaluation RECOMMENDATION(S): 1: Repeat film(s) needed RIGHT 98332, 71295 3340F, 7025F Dictating Physician: ??LISBETH KWOK MD Electronically Signed by: ??LISBETH KWOK MD Dic Date/Time: ??08/08/21 1123 Sign date/Time: ??08/08/21 1124 Procedure Note Lisbeth Kwok MD - 09/27/2022 [facility] Diagnostic Imaging Department [address] [place] [address] Patient: ALFONSO DOWNINGA /Age/Sex: 1960 - 60 - F Unit#: [id number] [facility]onic/Ordering Site: [facility] Ordering Physician: KENDRICK LARSON MD [facility] Screening Digital - 08/08/21927 EXAM: [facility] Screening Digital EXAM DATE AND TIME: 08/08/2021 9:29 AM HISTORY: Screening. COMPARISON: 08/07/20, 01/18/19, 06/28/17 TECHNIQUE: CC and MLO views of both breasts were obtained using fullfield digital mammography. Bilateral digital breast tomosynthesis was performedin the MLO projection. Computer aided detection with the Sunnova.2-zandaas employed. TISSUE DENSITY: c. The breasts are heterogeneously dense, which mayobscure small masses. FINDINGS: Motion artifact is present on the right MLO view, requiring a repeatimage. No suspicious masses, grouped microcalcifications, or areas ofarchitectural distortion are seen. Vascular calcification is present. The skin is unremarkable. IMPRESSION: 1. Motion artifact on the right MLO view, requiring a repeat image. Thepatient will be called back. 2. Stable mammographic appearance of the left breast. No evidence ofmalignancy is seen. BI-RADS: Category 0: Incomplete - Need Additional Imaging Evaluation RECOMMENDATION(S): 1: Repeat film(s) needed RIGHT 95547, 83820 3340F, 7025F Dictating Physician: LISBETH KWOK MD Electronically Signed by: LISBETH KWOK MD Dic Date/Time: 08/08/21 1123 Sign date/Time: 08/08/21 1124 us Sharon Tolliver MD IMG BI PROCEDURES Final Result from Last 3 Months or Most Recently Relevant to Health Maintenance
--- OUTSIDE RECORDS SUMMARY | 2024-12-01 10:11 | XMS_ITS ---
Author Organization [facility] Address [address] [place] [address] Care Team Providers Care Middleware Solutions Architect Name Role Phone Mirta Gardner [phone] ALLERGIES, ADVERSE REACTIONS, ALERTS Substance Code Code System Type Reaction Severity Status Start Date End Date Penicillins Unknown Drug allergy () 1 Penicillins RxNorm Drug allergy () 0 No known non-drug allergies RxNorm Other substance demarcus rgy () 1 MEDICATIONS Medication Code Code System Start Date Stop Date Route Dosage Directions Fill Instructions right leg venous duplex , if DVT positive send directly to the ED RxNorm 022 levothyroxine RxNorm 022 dextromethorphan polistirex 2654025 RxNorm 025 oral 5 gabapentin 0 RxNorm oral naproxen RxNorm 022 folic acid 0 RxNorm oral Valtrex 742620 RxNorm 022 2021 oral 1 ibuprofen 549783 RxNorm 022 2021 oral 1 ipratropium bromide 6770269 RxNorm 025 intranasal 2 PROBLEMS Problem Name Code Code System Start Date End Date Stat us Hypothyroidism 33013052 [facility] 01/27/2022 Activ e Pain in right leg 514967746 [facility] 01/27/2022 In active Pain in right knee 133541661902462 [facility] 01/27/2022 Inactive Dermatitis 59011755 [facility] 01/27/2022 Inactive Acute bronchitis, unspecified 76150400 [facility] 11/02/2024 Active ENCOUNTERS Encounter Diagnosis Code Code System Date Stat us Acute bronchitis, unspecified 59101319 [facility] 025 Active IMMUNIZATIONS * None VITAL SIGNS Code Code System Vitals Name Date Value and Un its 8462-4 [facility] Blood Pressure-Diastolic 11/02/2024 77 mmHg 8480-6 [facility] Blood Pressure-Systolic 11/02/2024 1 11 mmHg 8867-4 [facility] Heart Rate 11/02/2024 100 /min 9279-1 [facility] Respiratory Rate 11/02/2024 17 /min 8310-5 [facility] Body Temperature 11/02/2024 97.6 F 35500-6 [facility] Oxygen Saturation 11/02/2024 96 % SOCIAL HISTORY * None PROCEDURES * None MEDICAL EQUIPMENT * Patient has no history of implantable devices ASSESSMENT Assessment Acute bronchitis is a common clinical condition characterized by an acute onset but persistent cough, with or without sputum production. Often due to Upper Respiratory Tract Infection.For the respiratory tract virus symptom relief: Take pseudoephedrine for congestion (so long as there is no contraindications that she has a history of hypertension), dextromethorphan (i.e. Robitussin or Delsym) for cough, and ibuprofen and/or Tylenol as needed for pain headaches, fevers, sore throats...Acute bronchitis and viral infections are typically self-limited, resolving within one to three weeks, but may last longer. Symptoms result from inflammation of the lower respiratory tract and are most frequently due to viral infection.For most patients, acute bronchitis is a self-limited illness that does not require specific diagnostic testing or treatment.Treatment is focused on patient education and supportive care. Antibiotics are NOT needed for the great majority of patients with acute bronchitis and are greatly overused for this condition. Reducing antibiotic use for acute bronchitis is a national and international health care priority.Non-pharmaceutical treatment : throat lozenges, hot tea, honey, and/or smoking cessation or avoidance of secondhand smoke is a reasonable first step. TREATMENT PLAN Type Description Date MEDICATION Take 30 mg/5 mL suspension, exte nded release 12 hr 11/02/2024 MEDICATION Take 21 mcg (0.03 %) spray, non- aerosol 11/02/2024 APPOINTMENT If not feeling timothy r in 3 day(s), please see your primary care physician. If you do not have a primary care physician, please return to this clinic. 11/02/2024 Lab Tests None GOALS * None HEALTH CONCERNS * No Health Concerns FUNCTIONAL AND COGNITIVE STATUS Condition Type Condition Effective Dates Condition Status CONSULTATION NOTES * None DISCHARGE SUMMARY NOTES * None HISTORY AND PHYSICAL NOTES * Reason for visit - Illness Patient: SUMIT DOWNING, Sex: F (ID# [id number]) Date of : 1960 (63 years) Visit on 11/02/2024 (Log# [id number]) Historian: Self Triage Notes: pt reports body aches, cough, headache x8 days. History of Present Illness: Patient comes in urgent care today for evaluation of a cough it has been present for the last 5 days. Over the past week starting 8 days ago she started off with fevers chills body aches and nasal congestion along with a scratchy throat she has not had any fevers in 3 days and her body does not hurt as much anymore but she has this residual dry cough especially at nighttime. She does not feel short of breath no abdominal pain no nausea vomiting no diarrhea. She did have 1 episode of brown loosestools on the first day of her illness. She is not feeling worse but also not better want to get checked out as she does not feel she is ready to go back to work. Denies any dizziness or headaches has gotten her appetite back and is tolerating p.o. fluids and voiding regularly she is taken OTC medicine not very helpful. No travel or rashes. Complaint: The patient presents with a chief complaint of constant (but worse at times) cough of the central chest since 8 days ago. It has the following quality: nonproductive. Context - Initial History: The patient reports it was not the result of an injury, which had a sudden onset. The patient has had a similar problem in the past. The patient reports that the onset was:ASSOCIATED WITH CONGESTION. The patient also reports chills, headache, sweats, change in appetite, and aches/pains as abnormal symptoms related to the complaint. Review of Systems: The patient complains of the following recent symptoms: Constitutional: change in appetite chills sweats fatigue Neurological: headache Respiratory: cough: See HPI Musculoskeletal: aches/pains Allergies: Penicillins: Drug allergy. 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 Thyroid Surgery: - (Not Sure of Date) Social History: Tobacco Use: denies Family History: patient specifies no conditions Vitals: 09:58 AM (11/02/2024)Temperature: 97.6 ?F (Tympanic [L]), Pulse: 100 BPM, BP: 111/77 ( Arm [L] ), Respirations: 17/min, O2 Saturation: 96%, O2 Delivery: RAFirst entered 11/02/2024 09:58 by Mirta Gardner Physical Exam: The following exam elements were documented to be abnormal: ENT: abnormality of oropharynx noted. Pharynx: Non-erythematous. No injection. No petechiae. No swelling. Normal voice. Normal swallow reflex. Post-nasal drip noted, with clear fluid. Uvula normal. Normal salivary glands. [place] tonsils: Right: No exudate. Tonsil normal in color. No swelling. Left: No exudate. Tonsil normal in color. No swelling, Uvula is midline no trismus. Respiratory: abnormal breath sounds on auscultation. Lung sounds: normal volume of breath sounds, vesicular breath sounds, no rales, rhonchi noted, mildrhonchi, over right upper lung field, over left upper lung field, no rubs, no wheezing. The following exam elements were documented to be normal: Cardiovascular: S1, S2 noted, normal rate, regular rhythm, and no murmurs, rubs, gallop, or extra heart sounds. ENT: speaks in normal voice without hoarseness. ENT: oral mucosa without ulcer, plaque, or laceration. ENT: tympanic membranes normal bilaterally. ENT: grossly visible nasal discharge absent. ENT: lips without swelling or lesion, good dentition, no gum swelling, tongue normal in appearance. Eyes: normal conjunctiva bilaterally. General: well developed, well nourished, and in no apparent distress. Muscular: normal active cervical range of motion noted. Neurological: normal cognitive function. Psychiatric: oriented and alert. Respiratory: breathing effort and rate are grossly normal, speaks in full sentences. Respiratory: no increased work of breathing. Skin: no visible rash/lesions. X-Rays: Study: Chest 2 views, frontal/lateral Code(s): 65315 Shielding: Transport: walk Ordered: 11/02/2024 10:05 by Naomi Love Completed: 11/02/2024 10:11 by Luis F Murdock In-Clinic Reading: no infiltrate, no atelectasis, normal diaphragm, no effusion, normal hilum, no pleural thickening, no pulmonary edema, no cardiomegaly, no masses, normal ribs, normal vertebrae, Readin11/02/2024 10:17 by Naomi Love Radiologist Impression: History: Cough-Central Chest: The patient presents with a chief complaint of constant (but worse at times) cough of the central chest since 8 days ago. It has the following quality: nonproductive. Context - Initial History: The patient reports it was not the result of an injury, which had a sudden onset. The patient has had a similar problem in the past. The patient reports that the onset was: ASSOCIATED WITH CONGESTION. The patient also reports chills, headache, sweats,change in appetite, and aches/pains as abnormal symptoms related to the complaint.ExaminationDescription: Chest xray, frontal and lateral viewsComparisons:None provided. FindingsThe cardiomediastinal silhouette is within normal limits. No focal consolidation identified.No pleural effusions are seen.No pneumothorax is seen. No acute appearing soft tissue or osseous abnormality.IMPRESSION:No focal consolidation or effusion. Over Read Generated: 11/02/2024 09:17 by Teleradiologist Specialist Over Read Received: 11/02/2024 09:17 Over Read Reviewed: 11/02/2024 10:18 by Naomi Love Diagnoses: Acute bronchitis, unspecified (J20.9) Differential Diagnosis: AOm/AOE: no erythema bacterial sinusitis: 1/3 strep/mono/tonsillitis; SNF is -1, testing not indicated pNA: no current fevers, CXR clear Medication Orders: Prescribed: dextromethorphan polistirex 30 mg/5 mL suspension, extended release 12 hr; Take 5 mL (oral) 2 times per day for 7 days (PRN - Cough); Total Qty: 70 (seventy) milliliter; 0 refill(s); Substitutions allowed; Earliest Fill Date: 11/02/2024Faxed at 10:20 AM on 11/02/2024 by Naomi Love,PAPrescription sent to [facility]/pharmacy #[id number] (P: [phone] F: [phone]) [phone] [place], [address] Prescribed: ipratropium bromide 21 mcg (0.03 %) spray, non-aerosol; Take 2 sprays (intranasal) 2 times per day for 7 days administer into each nostril; Total Qty: 30 (thirty) milliliter; 1 refill(s);Substitutions allowed; Earliest Fill Date: 11/02/2024Faxed at 10:20 AM on 11/02/2024 by JOHNNY Bourgeoisrescription sent to [facility]/pharmacy #[id number] (P: [phone] F: [phone]) [phone] [place], [address] Discharge Instructions: Acute Bronchitis, Adult Plan: If not feeling better in 3 day(s), please see your primary care physician. If you do not have a primary care physician, please return to this clinic. Patient Fit for duty without restrictions as of 11/05/2024 Notes: May return sooner if feeling better. Acute bronchitis is a common clinical condition characterized by an acute onset but persistent cough, with or without sputum production. Often due to Upper Respiratory Tract Infection. For the respiratory tract virus symptom relief: Take pseudoephedrine for congestion (so long as there is no contraindications that she has a history of hypertension), dextromethorphan (i.e. Robitussin or Delsym) for cough, and ibuprofen and/or Tylenol as needed for pain headaches, fevers, sore throats... Acute bronchitis and viral infections are typically self-limited, resolving within one to three weeks, but may last longer. Symptoms result from inflammation of the lower respiratory tract and are most frequently due to viral infection. For most patients, acute bronchitis is a self-limited illness that does not require specific diagnostic testing or treatment. Treatment is focused on patient education and supportive care. Antibiotics are NOT needed for the great majority of patients with acute bronchitis and are greatly overused for this condition. Reducing antibiotic use for acute bronchitis is a national and international health care priority. Non-pharmaceutical treatment : throat lozenges, hot tea, honey, and/or smoking cessation or avoidance of secondhand smoke is a reasonable first step. Medical Decision Making Notes: Based on the patient's presentation and diagnostic findings, including an unremarkable chest X-ray and absence of evidence for bacterial infection, the diagnosis of acute bronchitis, most likely viral in nature, has been established. Given the viral etiology and absence of complicating factors such as pulmonary disease, the use of oral antibiotics or steroids is not indicated at this time. Vital signs are reassuring, indicating stability. Xjgb-uwh-[id number] measures, such as cough suppressants, are recommended to alleviate symptoms and provide symptomatic relief. The patient has been educated on the disease process of acute bronchitis, including common symptoms and expected course of i llness. Potential complications, such as exacerbation of symptoms or development of secondary infections, have been discussed. The patient has been advised on when to seek reevaluation, including persistent or worsening symptoms, as well as precautions for when to seek emergency medical attention, such as difficulty breathing or severe chest pain. Continued monitoring and follow-up may be necessary to ensure resolution of symptoms and to address any concerns that may arise. Patient demonstratedverbal understanding of the plan and agreed. Discharged to home. Visit discharged at 11/02/2024 10:20:36 AM by Naomi Love PA-C Signed electronically by Naomi Love PA-C on 11/02/2024 10:21:56 AM IMAGING NOTES * /Eastern History: Cough-Central Chest: The patient presents with a chief complaint of constant (but worse attimes) cough of the central chest since 8 days ago. It has the following quality: nonproductive. Context - Initial History: The patient reports it was not the result of an injury, which had a sudden onset. The patient has had a similar problem in the past. The patient reports that the onset was: ASSOCIATED WITH CONGESTION. The patient also reports chills, headache, sweats, change in appetite, andaches/pains as abnormal symptoms related to the complaint.ExaminationDescription: Chest xray, frontal and lateral viewsComparisons:None provided. FindingsThe cardiomediastinal silhouette is within normal limits. No focal consolidation identified.No pleural effusions are seen.No pneumothorax is seen. No acute appearing soft tissue or osseous abnormality.IMPRESSION:No focal consolidation or effusion. LABORATORY REPORT NARRATIVE NOTES * None PATHOLOGY REPORT NARRATIVE NOTES * None PROGRESS NOTES * None
== END 2024-12-01 10:20 | disposition home or self-care (01) ==
PROVIDERS: PCP Internal Medicine; Visit Provider Physician Assistant
DX: M17.11 Unilateral primary osteoarthritis, right knee (principal)
CPT/HCPCS: 99203

== ENCOUNTER → 2024-12-01 09:35 | Outpatient (BNV) | payer OTHER, SELFPAY | PROVIDERS: Visit Provider Radiology Diagnostic Radiology | DX: M17.11 Unilateral primary osteoarthritis, right knee (principal) | CPT/HCPCS: 73562 ==

== ENCOUNTER 2024-12-01 10:27 | Outpatient (REF) | payer OTHER, SELFPAY ==
[2024-12-01 10:54] LABS: MANUAL DIFF FLAG NO
[2024-12-01 11:33] LABS: Basophils Percent Auto 0.5 % (0-2); Eosinophils Percent Auto 0.7 % (0-4); Hematocrit 34.3 % (37.0-47.0); Hemoglobin 11.4 g/dl (12.0-16.0); Imm Gran Abs Auto 0.03 X10*3/uL (0.00-0.03); Imm Gran Pct Auto 0.7 % (0.0-0.4); Lymphocytes Absolute Auto 1.4 X10*3/uL (1.2-4.9); Mean Corpuscular HGB Conc 33.2 g/dl (31.0-35.0); Mean Corpuscular Hemoglobin 30.5 pg (27.0-33.0); Mean Corpuscular Volume 91.7 fL (80.0-98.0); Mean Platelet Volume 10.3 fL (9.4-12.3); Monocytes Absolute Auto 0.5 X10*3/uL (0.1-1.2); Monocytes Percent Auto 12.4 % (2-11); Neutrophils Absolute Auto 2.2 x10*3/uL (2.0-8.3); Neutrophils Percent Auto 51.7 % (45-73); Platelet Count 157 X10*3/uL (160-400); Red Blood Count 3.74 X10*6/uL (4.20-5.50); White Blood Count 4.2 X10*3/uL (4.8-10.8)
--- OUTSIDE RECORDS SUMMARY | 2024-12-01 11:46 | XMS_ITS | Clinical Summary ---
[facility] Organization [facility] Address [address] [place] [address] Care Team Providers Care Maintenance Repairer Name Role Phone Unavailable Primary Care Provider [...] DX:Anxiety; COMM ENT: 04/16-negative stress test at [facility] Brain cyst 10/24/2010 DX:Brain cyst; C OMMENT: [...] AM EDT Narrative 08/08/2021 11:24 AM EDT [facility] Diagnostic Imaging Department [address] [place] [address] Patient: ??SUMIT DOWNING ?/Age/Sex: 1960 - 60 - F Unit#: ??[id number] ? Location/Status: ??SPDIMAM/REG CLI ? Mnemonic/Ordering Site: ??DIGSC/SPMAM Ordering Physician: ??KENDRICK LARSON MD [facility] Screening Digital - 08/08/21927 EXAM: [facility] Screening Digital EXAM DATE AND TIME: 08/08/2021 9:29 AM HISTORY: ??Screening. COMPARISON: ??08/07/20, 01/18/19, 06/28/17 TECHNIQUE: CC and MLO views of both breasts were obtained using full field digital mammography. Bilateral digital breast tomosynthesis was performed in the MLO projection. Computer aided detection with the [employer] 7.2-H was employed. TISSUE DENSITY: c. The [...] Evaluation RECOMMENDATION(S): 1: Repeat film(s) needed RIGHT 80466, 54919 3340F, 7025F Dictating Physician: ??LISBETH KWOK MD Electronically Signed by: ??LISBETH KWOK MD Dic Date/Time: ??08/08/21 1123 Sign date/Time: ??08/08/21 1124 Procedure Note Lisbeth Kwok MD - 09/27/2022 [facility] Diagnostic Imaging Department [address] [place] [address] Patient: ALFONSO DOWNINGA /Age/Sex: 1960 - 60 - F Unit#: [id number] [facility]Ordering Site: [facility] Ordering Physician: KENDRICK LARSON MD [facility] Screening Digital - 08/08/21927 EXAM: [facility] Screening Digital EXAM DATE AND TIME: 08/08/2021 9:29 AM HISTORY: Screening. COMPARISON: 08/07/20, 01/18/19, 06/28/17 TECHNIQUE: CC and MLO views of both breasts were obtained using fullfield digital mammography. Bilateral digital breast tomosynthesis was performedin the MLO projection. Computer aided detection with the [employer] employed. TISSUE DENSITY: c. The breasts are [...] Evaluation RECOMMENDATION(S): 1: Repeat film(s) needed RIGHT 31503, 43247 3340F, 7025F Dictating Physician: LISBETH KWOK MD Electronically Signed by: LISBETH KWOK MD Dic Date/Time: 08/08/21 1123 Sign date/Time: 08/08/21 1124 us Sharon Tolliver MD IMG BI PROCEDURES Final Result from Last 3 Months or Most Recently Relevant to Health Maintenance
--- OUTSIDE RECORDS SUMMARY | 2024-12-01 11:46 | XMS_ITS ---
Author Organization [facility] Address [address] [place] [address] Care Team Providers Care Night Custodian Name Role Phone Mirta Gardner [phone] ALLERGIES, ADVERSE REACTIONS, ALERTS Substance Code Code System Type Reaction Severity Status Start Date End Date Penicillins RxNorm Drug allergy () 0 No known non-drug allergies RxNorm Other substance demarcus rgy () 1 Penicillins Unknown Drug allergy () 1 MEDICATIONS Medication Code Code System Start Date Stop Date Route Dosage Directions Fill Instructions right leg venous duplex , if DVT positive send directly to the ED RxNorm 022 levothyroxine RxNorm 022 dextromethorphan polistirex 3214152 RxNorm 025 oral 5 gabapentin 0 RxNorm oral naproxen RxNorm 022 folic acid 0 RxNorm oral Valtrex 646776 RxNorm 022 2021 oral 1 ibuprofen 120132 RxNorm 022 2021 oral 1 ipratropium bromide 5651002 RxNorm 025 intranasal 2 PROBLEMS Problem Name Code Code System Start Date End Date Stat us Hypothyroidism 85576769 [facility] 01/27/2022 Activ e Pain in right leg 590700679 [facility] 01/27/2022 In active Pain in right knee 061284054835655 [facility] 01/27/2022 Inactive Dermatitis 05758039 [facility] 01/27/2022 Inactive Acute bronchitis, unspecified 82532576 [facility] 11/02/2024 Active ENCOUNTERS Encounter Diagnosis Code Code System Date Stat us Acute bronchitis, unspecified 45792365 [facility] 025 Active IMMUNIZATIONS * None VITAL SIGNS Code Code System Vitals Name Date Value and Un its 8462-4 [facility] Blood Pressure-Diastolic 11/02/2024 77 mmHg 8480-6 [facility] Blood Pressure-Systolic 11/02/2024 1 11 mmHg 8867-4 [facility] Heart Rate 11/02/2024 100 /min 9279-1 [facility] Respiratory Rate 11/02/2024 17 /min 8310-5 [facility] Body Temperature 11/02/2024 97.6 F 22802-2 [facility] Oxygen Saturation 11/02/2024 96 % SOCIAL HISTORY [...] Illness Patient: SUMIT DOWNING, Sex: F (ID# [id number]) Date of : 1960 (63 years) Visit on 11/02/2024 (Log# [id number]) Historian: Self Triage Notes: pt reports body [...] clear fluid. Uvula normal. Normal salivary glands. [place] tonsils: Right: No exudate. Tonsil normal in [...] X-Rays: Study: Chest 2 views, frontal/lateral Code(s): 97220 Shielding: Transport: walk Ordered: 11/02/2024 10:05 by [...] AOm/AOE: no erythema bacterial sinusitis: 1/3 strep/mono/tonsillitis; INTERMEDIATE is -1, testing not indicated pNA: no current fevers, CXR clear Medication Orders: Prescribed: dextromethorphan polistirex 30 mg/5 mL suspension, extended release 12 hr; Take 5 mL (oral) 2 times per day for 7 days (PRN - Cough); Total Qty: 70 (seventy) milliliter; 0 refill(s); Substitutions allowed; Earliest Fill Date: 11/02/2024Faxed at 10:20 AM on 11/02/2024 by Naomi Love,PAPrescription sent to [facility]/pharmacy #[id number] (P: [phone] F: [phone]) [phone] [place], [address] Prescribed: ipratropium bromide 21 mcg (0.03 %) spray, non-aerosol; Take 2 sprays (intranasal) 2 times per day for 7 days administer into each nostril; Total Qty: 30 (thirty) milliliter; 1 refill(s);Substitutions allowed; Earliest Fill Date: 11/02/2024Faxed at 10:20 AM on 11/02/2024 by JOHNNY Bourgeoisrescription sent to [facility]/pharmacy #[id number] (P: [phone] F: [phone]) [phone] [place], [address] Discharge Instructions: Acute Bronchitis, Adult Plan: If [...] time. Vital signs are reassuring, indicating stability. Nljm-sba-iuzcgzg measures, such as cough suppressants, are recommended [...]
[2024-12-01 12:27] LABS: Thyroid Stimulating Hormone 0.09 uIU/mL (0.32-4.0)
[2024-12-01 12:41] LABS: Anion Gap 11 (12-20)
[2024-12-01 12:45] LABS: Alanine Aminotransferase 15 U/L (0-31); Albumin Level 3.7 g/dL (3.5-5.0); Alkaline Phosphatase 82 U/L (39-117); Aspartate Amino Transferase 19 U/L (5-31); Bilirubin Total 1.1 mg/dL (0.0-1.0); Blood Urea Nitrogen 14 mg/dL (9-16); Calcium 8.9 mg/dL (8.4-10.2); Carbon Dioxide 23 mmol/L (22-29); Chloride 112 mmol/L (96-108); Estimated Glomerular Filt Rate > 60; Glucose Random 84 mg/dL (60-115); Sodium 142 mmol/L (135-145); Total Protein 7.4 g/dL (6.5-8.0)
== END 2024-12-01 10:28 | disposition home or self-care (01) ==
LOC: HO.LAB 10:27
PROVIDERS: PCP Internal Medicine; Visit Provider Internal Medicine
DX: M25.50 Pain in unspecified joint (principal); E89.0 Postprocedural hypothyroidism
CPT/HCPCS: 36415; 80053; 84443; 85025

== ENCOUNTER 2024-12-01 12:24 | Outpatient (REF) | payer OTHER, SELFPAY ==
--- NOTE | ~2024-12-01 | XR_ITS ---
EXAMINATION: XR KNEE 3 VIEWS RIGHT HISTORY: M17.11 - Unilateral primary osteoarthritis, right knee COMPARISON: Comparison is made with the prior examination dated 09/18/2022. FINDINGS: Three views of the right knee and an additional standing AP view of the left knee are submitted. Osseous mineralization is normal. There is no fracture or dislocation. The joint spaces are preserved. The soft tissues are unremarkable. There is no joint effusion. XR/XR knee RT 3V IMPRESSION: Unremarkable examination of the right knee. Electronically signed by: Blayne Damian MD 12/02/2024 11:07 AM HOME
--- OUTSIDE RECORDS SUMMARY | 2024-12-02 15:02 | XMS_ITS ---
Author Organization [facility] Address [address] [place] [address] Care Team Providers Care Graduate Teaching Associate Name Role Phone Mirta Gardner [phone] ALLERGIES, ADVERSE REACTIONS, ALERTS Substance Code Code System Type Reaction Severity Status Start Date End Date No known non-drug allergies RxNorm Other substance demarcus rgy () 1 Penicillins Unknown Drug allergy () 1 Penicillins RxNorm Drug allergy () 0 MEDICATIONS Medication Code Code System Start Date Stop Date Route Dosage Directions Fill Instructions right leg venous duplex , if DVT positive send directly to the ED RxNorm 022 levothyroxine RxNorm 022 dextromethorphan polistirex 3799189 RxNorm 025 oral 5 gabapentin 0 RxNorm oral naproxen RxNorm 022 folic acid 0 RxNorm oral Valtrex 328691 RxNorm 022 2021 oral 1 ibuprofen 607351 RxNorm 022 2021 oral 1 ipratropium bromide 7888167 RxNorm 025 intranasal 2 PROBLEMS Problem Name Code Code System Start Date End Date Stat us Hypothyroidism 09092526 [facility] 01/27/2022 Activ e Pain in right leg 563996349 [facility] 01/27/2022 In active Pain in right knee 237294728380422 [facility] 01/27/2022 Inactive Dermatitis 52281227 [facility] 01/27/2022 Inactive Acute bronchitis, unspecified 24554870 [facility] 11/02/2024 Active ENCOUNTERS Encounter Diagnosis Code Code System Date Stat us Acute bronchitis, unspecified 13351743 [facility] 025 Active IMMUNIZATIONS * None VITAL SIGNS Code Code System Vitals Name Date Value and Un its 8462-4 [facility] Blood Pressure-Diastolic 11/02/2024 77 mmHg 8480-6 [facility] Blood Pressure-Systolic 11/02/2024 1 11 mmHg 8867-4 [facility] Heart Rate 11/02/2024 100 /min 9279-1 [facility] Respiratory Rate 11/02/2024 17 /min 8310-5 [facility] Body Temperature 11/02/2024 97.6 F 29729-6 [facility] Oxygen Saturation 11/02/2024 96 % SOCIAL [...] Illness Patient: SUMIT DOWNING, Sex: F (ID# [id number]) Date of : 1960 (63 years) Visit on 11/02/2024 (Log# [id number]) Historian: Self Triage Notes: pt reports body [...] clear fluid. Uvula normal. Normal salivary glands. [place] tonsils: Right: No exudate. Tonsil normal in [...] X-Rays: Study: Chest 2 views, frontal/lateral Code(s): 66198 Shielding: Transport: walk Ordered: 11/02/2024 10:05 by [...] AOm/AOE: no erythema bacterial sinusitis: 1/3 strep/mono/tonsillitis; RETIREMENT is -1, testing not indicated pNA: no current fevers, CXR clear Medication Orders: Prescribed: dextromethorphan polistirex 30 mg/5 mL suspension, extended release 12 hr; Take 5 mL (oral) 2 times per day for 7 days (PRN - Cough); Total Qty: 70 (seventy) milliliter; 0 refill(s); Substitutions allowed; Earliest Fill Date: 11/02/2024Faxed at 10:20 AM on 11/02/2024 by Naomi Love,PAPrescription sent to [facility]/pharmacy #[id number] (P: [phone] F: [phone]) [phone] [place], [address] Prescribed: ipratropium bromide 21 mcg (0.03 %) spray, non-aerosol; Take 2 sprays (intranasal) 2 times per day for 7 days administer into each nostril; Total Qty: 30 (thirty) milliliter; 1 refill(s);Substitutions allowed; Earliest Fill Date: 11/02/2024Faxed at 10:20 AM on 11/02/2024 by JOHNNY Bourgeoisrescription sent to [facility]/pharmacy #[id number] (P: [phone] F: [phone]) [phone] [place], [address] Discharge Instructions: Acute Bronchitis, Adult Plan: If [...] time. Vital signs are reassuring, indicating stability. Oqaq-myw-iyatltj measures, such as cough suppressants, are recommended [...]
--- OUTSIDE RECORDS SUMMARY | 2024-12-02 15:02 | XMS_ITS | Clinical Summary ---
[facility] Address [address] [place] [address] Care Team Providers Care Track Laborer Name Role Phone Unavailable Primary Care Provider [...] DX:Anxiety; COMM ENT: 04/16-negative stress test at [facility] Brain cyst 10/24/2010 DX:Brain cyst; C OMMENT: [...] AM EDT Narrative 08/08/2021 11:24 AM EDT [facility] Diagnostic Imaging Department [address] [place] [address] Patient: ??SUMIT DOWNING ?/Age/Sex: 1960 - 60 - F Unit#: ??[id number] ? Location/Status: ??SPDIMAM/REG CLI ? Mnemonic/Ordering Site: ??DIGSC/SPMAM Ordering Physician: ??KENDRICK LARSON MD [facility] Screening Digital - 08/08/21927 EXAM: [facility] Screening Digital EXAM DATE AND TIME: 08/08/2021 9:29 AM HISTORY: ??Screening. COMPARISON: ??08/07/20, 01/18/19, 06/28/17 TECHNIQUE: CC and MLO views of both breasts were obtained using full field digital mammography. Bilateral digital breast tomosynthesis was performed in the MLO projection. Computer aided detection with the [employer] 7.2-H was employed. TISSUE DENSITY: c. The [...] Evaluation RECOMMENDATION(S): 1: Repeat film(s) needed RIGHT 43538, 95629 3340F, 7025F Dictating Physician: ??LISBETH KWOK MD Electronically Signed by: ??LISBETH KWOK MD Dic Date/Time: ??08/08/21 1123 Sign date/Time: ??08/08/21 1124 Procedure Note Lisbeth Kwok MD - 09/27/2022 [facility] Diagnostic Imaging Department [address] [place] [address] Patient: ALFONSO DOWNINGA /Age/Sex: 1960 - 60 - F Unit#: [id number] [facility] Ordering Physician: KENDRICK LARSON MD [facility] Screening Digital - 08/08/21927 EXAM: [facility] Screening Digital EXAM DATE AND TIME: 08/08/2021 9:29 AM HISTORY: Screening. COMPARISON: 08/07/20, 01/18/19, 06/28/17 TECHNIQUE: CC and MLO views of both breasts were obtained using fullfield digital mammography. Bilateral digital breast tomosynthesis was performedin the MLO projection. Computer aided detection with the [employer]as employed. TISSUE DENSITY: c. The breasts are [...] Evaluation RECOMMENDATION(S): 1: Repeat film(s) needed RIGHT 86566, 63382 3340F, 7025F Dictating Physician: LISBETH KWOK MD Electronically Signed by: LISBETH KWOK MD Dic Date/Time: 08/08/21 1123 Sign date/Time: 08/08/21 1124 us Sharon Tolliver MD IMG BI PROCEDURES Final Result from Last 3 Months or Most Recently Relevant to Health Maintenance
== END 2024-12-01 12:25 | disposition home or self-care (01) ==
LOC: HO.HOSX 12:24
PROVIDERS: Visit Provider Physician Assistant
DX: M17.11 Unilateral primary osteoarthritis, right knee (principal); M25.561 Pain in right knee
CPT/HCPCS: 73562

== ENCOUNTER 2025-01-12 13:26 | Outpatient (AMB) | payer OTHER, SELFPAY ==
--- NOTE | 2025-01-12 13:29 | MHC.OFFVIS ---
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 No complaints. 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 Sjogrens syndrome Surgical History SS-A antibody positive Sjogren syndrome with lung involvement History of brain surgery Hx of esophagogastroduodenoscopy Hx of colonoscopy History of thyroidectomy Family History Father Diabetes Stroke Alzheimer disease Mother Alzheimer disease Parkinson disease Depression Arthritis Son Multiple sclerosis Son Learning disability Brother Diabetes Sister Diabetes Hypertension Family/Other History of breast cancer Social History Household Members: None Housing: Condominium Alcohol intake: never Patient Tobacco Use Status: Former Tobacco user Tobacco use type: Cigarette e-Cigarette/Vaping Use: Never Used Second Hand Smoke Exposure: No Substance Use Type: Marijuana service: No Current occupational status: employed Current occupation: [employer] Current occupational exposures/hazards: No Cognitive needs: No Hearing needs: No Vision needs: No Female Reproductive History Menstrual Total pregnancies: 2 Full term: 2 Number of Living Children: 2 Date of last pap smear: 05/16/23 (neg pap and hpv) Date of Mammogram: 09/22/24 Review of Systems Const All systems reviewed & are unremarkable except as noted in HPI and below Card Reports as per HPI Resp Reports as per HPI GI Reports as per HPI and Reports no additional complaints Reports as per HPI Physical Exam Vital Signs: BMI result Body Mass Index 24.2 Const General: cooperative, healthy appearing and comfortable Chest Chest palpation & inspection: normal inspection of the chest and normal palpation of entire chest wall Breast/axilla inspection: normal inspection of the breasts and normal inspection of the axillae Breast/axilla palpation: normal palpation of the breasts, normal palpation of the axillae and no axillary lymphadenopathy Resp Effort & Inspection: normal respiratory effort Auscultation: clear to auscultation bilaterally Percussion: percussion normal Cardio Palpation: normal PMI Rate: regular rate Rhythm: regular rhythm Heart sounds: no murmurs and no rubs Peripheral pulses: Peripheral pulses 2+ throughout GI Inspection: Yes normal to inspection Palpation (GI): Soft to palpation, nontender, no guarding, not rigid and No hepatosplenomegaly present Percussion: Yes normal to percussion Auscultation: normal bowel sounds Rectal Exam - Female: deferred General: Yes bladder normal to palpation External Female Exam: No lesion Speculum Exam - Vagina: normal appearance of the vagina, normal palpation, normal vaginal discharge and not erythematous Speculum Exam - Cervix: normal appearance of the cervix and normal palpation Bimanual exam- vagina & uterus: normal bimanual exam, normal palpation, uterine size normal, bladder normal to palpation, consistency normal and normal palpation Bimanual Exam- Adnexa, other: normal adnexae, no masses and no tenderness Assessment & Plan Assessment & Plan (1) Well woman exam: Code(s): Z01.419 - Encounter for gynecological examination (general) (routine) without abnormal findings Category: Medical Plan: Co testing not indicated this year. Counseled the patient about the recommended dietary allowance of 1200 mg of Calcium & 800 IU of vitamin D. Instructions given to patient to schedule next screening Mammogram in 10/01. The patient was instructed to perform monthly self-breast exams and to schedule an annual exam in a year; All questions answered and the patient verbalized understanding. Coding Level of Care Code Est Pt Prev Care >65y(15987) Diagnoses Well woman exam Z01.419
[2025-01-12 13:30] VITALS: BP 112/64; BMI 24.2
--- OUTSIDE RECORDS SUMMARY | 2025-01-12 15:57 | XMS_ITS | Clinical Summary ---
[facility] Address [address] [place] [address] Care Team Providers Care Meeting Facilitator Name Role Phone Unavailable Primary Care Provider [...] DX:Anxiety; COMM ENT: 04/16-negative stress test at [facility] Brain cyst 10/24/2010 DX:Brain cyst; C [...] (#1) 2024 5, 08/07/2014, 06/26/2011 RSV Immunization Adult Patients (1 - 1-dose 75+ series) 2033 Hepatitis [...] age to complete this topic Meningococcal B Vaccine Aged Out No l onger eligible based on patient's age to complete [...] AM EDT Narrative 08/08/2021 11:24 AM EDT [facility] Diagnostic Imaging Department [address] [place] [address] Patient: ??SUMIT DOWNING ?/Age/Sex: 1960 - 60 - F Unit#: ??[id number] ? Location/Status: ??SPDIMAM/REG CLI ? Mnemonic/Ordering Site: ??DIGSC/SPMAM Ordering Physician: ??KENDRICK LARSON MD [facility] Screening Digital - 08/08/21927 EXAM: [facility] Screening Digital EXAM DATE AND TIME: 08/08/2021 9:29 AM HISTORY: ??Screening. COMPARISON: ??08/07/20, 01/18/19, 06/28/17 TECHNIQUE: CC and MLO views of both breasts were obtained using full field digital mammography. Bilateral digital breast tomosynthesis was performed in the MLO projection. Computer aided detection with the [employer] 7.2-H was employed. TISSUE DENSITY: c. The [...] Evaluation RECOMMENDATION(S): 1: Repeat film(s) needed RIGHT 43142, 33984 3340F, 7025F Dictating Physician: ??LISBETH KWOK MD Electronically Signed by: ??LISBETH KWOK MD Dic Date/Time: ??08/08/21 1123 Sign date/Time: ??08/08/21 1124 Procedure Note Lisbeth wKok MD - 09/27/2022 [facility] Diagnostic Imaging Department [address] [place] [address] Patient: SALINASUMIT /Age/Sex: 1960 - 60 - F Unit#: [id number] [facility] Ordering Physician: KENDRICK LARSON MD [facility] Screening Digital - 08/08/21927 EXAM: [facility] Screening Digital EXAM DATE AND TIME: 08/08/2021 9:29 AM HISTORY: Screening. COMPARISON: 08/07/20, 01/18/19, 06/28/17 TECHNIQUE: CC and MLO views of both breasts were obtained using fullfield digital mammography. Bilateral digital breast tomosynthesis was performedin the MLO projection. Computer aided detection with the [employer]ex[employer]as employed. TISSUE DENSITY: c. The breasts are [...] Evaluation RECOMMENDATION(S): 1: Repeat film(s) needed RIGHT 73087, 40240 3340F, 7025F Dictating Physician: LISBETH KWOK MD Electronically Signed by: LISBETH KWOK MD Dic Date/Time: 08/08/21 1123 Sign date/Time: 08/08/21 1124 Sharon Tolliver MD IMG BI PROCEDURES Final Result from Last 3 Months or Most Recently Relevant to Health Maintenance
== END 2025-01-12 13:47 | disposition home or self-care (01) ==
LOC: HO.HWS 13:26
PROVIDERS: PCP Internal Medicine; Visit Provider Obstetrics & Gynecology
DX: Z01.419 Encounter for gynecological examination (general) (routine) without abnormal findings (principal)
CPT/HCPCS: 99397; 99459

== ENCOUNTER 2025-01-22 09:59 | Outpatient (REF) | payer OTHER, SELFPAY ==
[2025-01-22 10:13] LABS: MANUAL DIFF FLAG NO
[2025-01-22 11:10] LABS: Basophils Percent Auto 0.3 % (0-2); Eosinophils Percent Auto 1.1 % (0-4); Hematocrit 35.7 % (37.0-47.0); Hemoglobin 11.9 g/dl (12.0-16.0); Imm Gran Abs Auto 0.01 X10*3/uL (0.00-0.03); Imm Gran Pct Auto 0.3 % (0.0-0.4); Lymphocytes Absolute Auto 1.7 X10*3/uL (1.2-4.9); Lymphocytes Percent Auto 47.1 % (20-40); Mean Corpuscular HGB Conc 33.3 g/dl (31.0-35.0); Mean Platelet Volume 10.1 fL (9.4-12.3); Monocytes Absolute Auto 0.3 X10*3/uL (0.1-1.2); Monocytes Percent Auto 9.7 % (2-11); Neutrophils Absolute Auto 1.5 x10*3/uL (2.0-8.3); Neutrophils Percent Auto 41.5 % (45-73); Platelet Count 150 X10*3/uL (160-400); Red Blood Count 3.84 X10*6/uL (4.20-5.50); Red Cell Distribution Width 13.9 % (11.0-16.0); White Blood Count 3.5 X10*3/uL (4.8-10.8)
--- OUTSIDE RECORDS SUMMARY | 2025-01-22 11:45 | XMS_ITS | Clinical Summary ---
Author Organization [employer] [facility] Address [address] [place] [address] Care Team Providers Care Color Straining Bag Washer Name Role Phone Unavailable Primary Care Provider [...] ENT: 04/16-negative stress test at [facility] Brain cyst 10/24/2010 DX:Brain cyst; C OMMENT: Colloid cyst removed in .no mri's since Sjogren's syndrome (CMS/HCC V24) DX:Sjogren's syndrome (HCC) Family History Medical History Relation [...] - 2023-2 5 season) 2024 Influenza Vaccine (Season Ended) 2025 09/16/2015, 08/07/2014, 06/26/2011 RSV Immunization Adult Patients (1 [...] Recently Relevant to Health Maintenance Results * [facility] SCREENING DIGITAL (08/08/2021 11:24 AM EDT) Anatomical Region Laterality Modality Mammography 08/08/2021 9:06 AM EDT Narrative 08/08/2021 11:24 AM EDT [facility] Diagnostic Imaging Department [address] [place] [id number] Patient: ??SUMIT DOWNING ?/Age/Sex: 1960 - 60 - F Unit#: ??[id number] ? Location/Status: ??SPDIMAM/REG CLI ? Mnemonic/Ordering Site: ??DIGSC/SPMAM Ordering Physician: ??KENDRICK LARSON MD [facility] Screening Digital - 08/08/21927 EXAM: [facility] Screening Digital EXAM DATE AND TIME: 08/08/2021 9:29 AM HISTORY: ??Screening. COMPARISON: ??08/07/20, 01/18/19, 06/28/17 TECHNIQUE: CC and MLO views of both breasts were obtained using full field digital mammography. Bilateral digital breast tomosynthesis was performed in the MLO projection. Computer aided detection with the [employer] 7.2-H was employed. TISSUE DENSITY: c. The [...] Evaluation RECOMMENDATION(S): 1: Repeat film(s) needed RIGHT 73599, 68690 3340F, 7025F Dictating Physician: ??LISBETH KWOK MD Electronically Signed by: ??LISBETH KWOK MD Dic Date/Time: ??08/08/21 1123 Sign date/Time: ??08/08/21 1124 Procedure Note Lisbeth Kwok MD - 09/27/2022 [facility] Diagnostic Imaging Department [address] [place] [address] Patient: SALINASUMIT /Age/Sex: 1960 - 60 - F Unit#: [id number] [facility]Ordering Site: [facility] Ordering Physician: KENDRICK LARSON MD [facility] Screening Digital - 08/08/21927 EXAM: [facility] Screening Digital EXAM DATE AND TIME: 08/08/2021 9:29 AM HISTORY: Screening. COMPARISON: 08/07/20, 01/18/19, 06/28/17 TECHNIQUE: CC and MLO views of both breasts were obtained using fullfield digital mammography. Bilateral digital breast tomosynthesis was performedin the MLO projection. Computer aided detection with the [employer] employed. TISSUE DENSITY: c. The breasts are [...] Evaluation RECOMMENDATION(S): 1: Repeat film(s) needed RIGHT 21443, 09069 3340F, 7025F Dictating Physician: LISBETH KWOK MD Electronically Signed by: LISBETH KWOK MD Dic Date/Time: 08/08/21 1123 Sign date/Time: 08/08/21 1124 Sharon Tolliver MD IMG BI PROCEDURES Final Result from Last 3 Months or Most Recently Relevant to Health Maintenance
--- OUTSIDE RECORDS SUMMARY | 2025-01-22 11:45 | XMS_ITS | Continuity of Care Document ---
Author Organization [facility] Address [address] [place] [address] [address] [place] [address] Phone Care Team Providers Care Case Liner Name Role Phone Livan ROSALES, ALTAF, Blayne [...] Mins- [place] & [place] [facility], [address] [place] [address] [address], [place], [id number], [place] tel:[phone] [facility] - [place] - [place] Chronic venous hypertension (idiopathic) with other complications of bilateral lower extremityPain in right legPain in left legRestless legs syndromeEssen tial (primary) hypertensionV enous insufficiency (chronic) (peripheral)C ramp and spasmLocalize d edema 4 Livan ROSALES, ALTAF, JUAN Cisneros. [address] [facility], [facility] [address], [place], [place], [id number] , [place]. tel:[phone] Referring Provider: Sharon Baum MD, [address] [place] [address] , [address] [place] D/B/A: ana [facility] [place], [address]. tel:[phone] [facility], [address] [facility] [address], [place], [id number], [place] tel:[phone] [facility] Chronic venous hypertension (idiopathic) with other complications of bilateral lower extremity Livan ROSALES, RVT, RPVI Blayne. [address] [facility] [address], [place], [place], [id number] , [place]. tel:[phone] Referring Provider: Sharon Baum MD, [address] [facility] , [address] [place] D/B/A: [place], [address]. tel:[phone] Family History Family Member Type Diagnosis Age At Onset No Information Payers Payer name Insurance type Covered green party ID Authoriza tiradha(s) Azeb [id number] Social History Type Description Quantity Date Captured [...]
[2025-01-22 12:02] LABS: Alanine Aminotransferase 21 U/L (0-31); Albumin Level 3.9 g/dL (3.5-5.0); Anion Gap 10 (12-20); Aspartate Amino Transferase 23 U/L (5-31); Blood Urea Nitrogen 16 mg/dL (9-16); Calcium 9.2 mg/dL (8.4-10.2); Carbon Dioxide 25 mmol/L (22-29); Chloride 110 mmol/L (96-108); Estimated Glomerular Filt Rate > 60; Glucose Fasting 83 mg/dL (60-99); Iron 88 mcg/dL (30-160); Percent Iron Saturation 32 % (15-50); Potassium 3.9 mmol/L (3.3-5.1); Sodium 141 mmol/L (135-145); Thyroid Stimulating Hormone 0.59 uIU/mL (0.32-4.0); Total Iron Binding Capacity 278 mcg/dL (228-428); Total Protein 7.7 g/dL (6.5-8.0); Unsaturated Iron Binding 190 ug/dL; Vitamin D 25-OH Total 32.4 ng/mL (>30)
[2025-01-22 12:13] LABS: Alkaline Phosphatase 90 U/L (39-117); Folate 11.1 ng/mL (> or = 4.0); Vitamin B12 368 pg/mL (200-900)
== END 2025-01-22 10:00 | disposition home or self-care (01) ==
LOC: HO.LAB 09:59
PROVIDERS: PCP Internal Medicine; Visit Provider Internal Medicine
DX: D64.9 Anemia, unspecified (principal); E53.8 Deficiency of other specified B group vitamins; E89.0 Postprocedural hypothyroidism; E55.9 Vitamin D deficiency, unspecified; J43.9 Emphysema, unspecified
CPT/HCPCS: 36415; 80053; 82306; 82607; 82746; 83540; 84443; 85025

== ENCOUNTER 2025-01-26 07:59 | Outpatient (AMB) | payer OTHER, SELFPAY ==
--- NOTE | 2025-01-26 08:07 | A.OFFPC_ITS ---
Vital Signs 01/26/25 08:11 Height 5 ft 6 in Weight 149 lb 14.629 oz BMI 24.2 BP 110/82 Blood Pressure Location Lt brachial Position Sitting Intake Visit Reasons: thyroid Intake Note: Patient here for a follow up Thyroid Watch Case Polisher Required: No Accompanied by: Self / Same As Patient Allergies Penicillins Allergy (Unknown, Verified 01/26/25 08:07) Swelling Medication List - Last Reconciled 01/26/25 by Sharon Tolliver MD calcium carbonate-vitamin D3 600 mg-20 mcg (800 unit) (Caltrate plus D) 1 tab PO DAILY folic acid 1 mg PO DAILY 90 days gabapentin 600 mg PO TID 30 days ibuprofen 800 mg PO Q8H PRN 30 days levothyroxine 88 mcg PO DAILY 90 days lorazepam 0.5 mg PO BEDTIME PRN methotrexate sodium 10 mg (4 x 2.5 mg) PO QWEEK 30 days multivitamin (Multiple Vitamins tablet) 1 tab PO DAILY Tobacco use date assessed: 01/26/25 Fall risk assessment: No Falls in past year Last assessed Fall Risk: 01/26/25 Dental Screening Dental Screen Date: 01/26/25 Did you have a dental visit in the last 12 months?: No Did you have a dental problem in the last 6 months where you did not have access to dental care?: No Was dental information given to patient?: Patient has dentist HPI HPI Comments History of Present Illness Details The patient is a 64-year-old female presenting with chronic pain management and evaluation of autoimmune and rheumatological conditions. Her medical history includes Sjogren's syndrome with lung involvement, characterized by positive centromere antibodies, emphysema, and interstitial lung disease. She reports severe joint pain linked to her rheumatologic diagnoses. Recently, the patient has been experiencing dizziness, possibly related to her gabapentin therapy for peripheral neuropathy. Additionally, she has been diagnosed with anemia and has noticed a slight increase in hemoglobin levels. Her white blood cell count has decreased, suggesting a connection to her autoimmune condition. She has a stable history of thrombocytopenia with no significant episodes of bleeding and engages in regular hematology monitoring. Also has mild major depression in remission and hypothyroidism in which TSH is normal. [facility] Medical History (Updated 01/26/25 @ 08:39 by Sharon Tolliver MD) Mild recurrent major depression Hypothyroidism Obstructive sleep apnea hypopnea, mild Witnessed apneic spells Loud snoring Postherpetic neuralgia Depression Ingrown toenail Overactive bladder Hypothyroidism Pulmonary nodules Ankylosis of thoracic spine Goiter 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 Sjogrens syndrome Surgical History SS-A antibody positive Sjogren syndrome with lung involvement History of brain surgery Hx of esophagogastroduodenoscopy Hx of colonoscopy History of thyroidectomy Family History Father Diabetes Stroke Alzheimer disease Mother Alzheimer disease Parkinson disease Depression Arthritis Son Multiple sclerosis Son Learning disability Brother Diabetes Sister Diabetes Hypertension Family/Other History of breast cancer Social History Household Members: None Housing: Condominium Alcohol intake: never Patient Tobacco Use Status: Former Tobacco user Tobacco use type: Cigarette e-Cigarette/Vaping Use: Never Used Second Hand Smoke Exposure: No Substance Use Type: Marijuana service: No Current occupational status: employed Current occupation: [employer] Current occupational exposures/hazards: No Cognitive needs: No Hearing needs: No Vision needs: No Questionnaire PHQ-9 Over the last 2 weeks, how often have you been bothered by any of the following problems? 1. Little interest or pleasure in doing things: not at all 2. Feeling down, depressed, or hopeless: not at all 3. Trouble falling or staying asleep, or sleeping too much: not at all 4. Feeling tired or having little energy: not at all 5. Poor appetite or overeating: not at all 6. Feeling bad about yourself - or that you are a failure or have let yourself or your family down: not at all 7. Trouble concentrating on things, such as reading the newspaper or watching television: not at all 8. Moving or speaking so slowly that other people could have noticed. Or the opposite - being so fidgety or restless that you have been moving around a lot more than usual: not at all 9. Thoughts that you would be better off or of hurting yourself in some way: not at all Total score: 0 Depression Screening Interpretation: Negative Depression Screening Done: Yes 81254 - PHQ-9 Billing: Yes Source: Developed by Drs. Blayne Tijerina, Ritika Briggs, Henrry Biggs and colleagues, with an educational zachariah from [employer]. Thrive Questionnaire Date Thrive assessed: 01/26/25 I am a: Patient What is your living situation today?: I have a steady place to live Within the past 12 months, did the food you bought not last and you didn't have the money to get more?: Never true Within the past 12 months, did you worry whether your food would run out before you got money to buy more?: Never true Do you have trouble paying for medicines?: No Do you have trouble getting transportation to medical appointments?: No Do you have trouble paying your heating and electricity bill?: No Do you have trouble taking care of your child, family member or friend?: No Do you have trouble with day-to-day activities such as bathing, preparing meals, shopping, managing finances, etc.?: No Are you currently unemployed and looking for a job?: No Are you interested in more education?: No Please select the resources that you would like help with: None Currently or been in a relationship where the following occur: No concerns reported THRIVE Score: 0 AUDIT C Alcohol Use Questionnaire (AUDIT-C) 1. How often do you have a drink containing alcohol?: Never Total Score: 0 Score Reviewed/Action Taken: No PATTI-7 AMB Questionnaire PATTI-7 Date PATTI - 7 assessed: 01/26/25 Feeling nervous, anxious, or on edge: 0 = Not at all Not being able to stop or control worryin = Not at all Worrying too much about different things: 0 = Not at all Trouble relaxin = Not at all Being so restless that it is hard to sit still: 0 = Not at all Becoming easily annoyed or irritable: 0 = Not at all Feeling afraid as if something awful might happen: 0 = Not at all Total PATTI-7 score (0-4 normal; 5-9 mild; 10-14 moderate; 15-21 severe): 0 Source: Developed by Drs. Blayne Tijerina, Ritika Briggs, Henrry Biggs and colleagues, with an educational zachariah from [employer]. PATTI-7 Assessment Billing PATTI-7 Assessment Tool: PATTI-7 Assessment 31699 Review of Systems Const All systems reviewed & are unremarkable except as noted in HPI and below Card Denies chest pain at rest, Denies chest pain with activity, Denies edema, Denies irregular heart rhythm, Denies claudication, Denies dyspnea, Denies dyspnea on exertion, Denies orthopnea, Denies paroxysmal nocturnal dyspnea and Denies slow heart rate Resp Denies cough, Denies dyspnea and Denies dyspnea on exertion GI Denies abdominal pain, Denies change in bowel habits, Denies excessive flatus, Denies nausea and Denies vomiting Physical exam (Primary Care) Vital Signs: Last Vital Signs BP 110/82 01/26/25 08:11 BMI result Body Mass Index 24.2 Tobacco/Smoking Status: Tobacco use Status Tobacco use date assessed 01/26/25 01/26/25 08:15 Patient Tobacco Use Status Former Tobacco user 01/26/25 08:15 Tobacco use type Cigarette 01/26/25 08:15 e-Cigarette/Vaping Use Never Used 01/26/25 08:15 PHQ-9: PHQ-9 Score PHQ-9: Total score 0 01/26/25 08:15 Depression Screening Interpretation: Negative Thrive Assessment: Date of Thrive Assessment Date Thrive assessed 01/26/25 01/26/25 08:15 Currently or been in a relationship where the following occur: No concerns reported Resp Effort & Inspection: normal respiratory effort Auscultation: clear to auscultation bilaterally Cardio Jugular venous distension: no JVD Rate: regular rate Rhythm: regular rhythm Heart sounds: S1 normal heart sound present and S2 normal heart sound present Skin General skin exam: no rashes or lesions noted Extrem General: Yes full ROM Coding Level of Care Code Est Pt Level 4 (00344) Complex EM visit Add On G2211 Diagnoses Emphysema lung J43.9 Thrombocytopenia D69.6 Mild recurrent major depression F33.0 Sjogren syndrome with lung involvement M35.02 ILD (interstitial lung disease) J84.9 Peripheral neuropathy G62.9 Postoperative hypothyroidism E89.0 Hypothyroidism type: postoperative Additional Codes PHQ-9 - 01559 - PHQ-9 Billing: Yes ([id number]) PATTI-7 Assessment Billing - PATTI-7 Assessment Tool: PATTI-7 Assessment [id number] ([id number]) Time Spent (min) 23 Assessment & Plan Assessment & Plan (1) Emphysema lung: Code(s): J43.9 - Emphysema, unspecified Category: Medical (2) Thrombocytopenia: Code(s): D69.6 - Thrombocytopenia, unspecified Category: Medical (3) Mild recurrent major depression: Code(s): F33.0 - Major depressive disorder, recurrent, mild Category: Medical (4) Sjogren syndrome with lung involvement: Code(s): M35.02 - Sjogren syndrome with lung involvement Category: Surgical (5) ILD (interstitial lung disease): Code(s): J84.9 - Interstitial pulmonary disease, unspecified Category: Medical (6) Peripheral neuropathy: Comment: ? sjogrens related Code(s): G62.9 - Polyneuropathy, unspecified Category: Medical (7) Hypothyroidism: Code(s): E03.9 - Hypothyroidism, unspecified Category: Medical Qualifiers: Hypothyroidism type: postoperative Qualified Code(s): E89.0 - Postprocedural hypothyroidism Plan We will maintain the current management for Sjogren?s syndrome and associated lung involvement, ensuring vigilant monitoring of oral medications, particularly gabapentin, due to dizziness. Methotrexate use will be reassessed at her next rheumatology appointment in April. Anemia and thrombocytopenia will be monitored with regular hematology follow-ups. She will continue taking folic acid, gabapentin, and lorazepam as currently prescribed. Pulmonary and rheumatology appointments remain a priority, along with scheduled blood work in preparation for her upcoming consultations. Additionally, she will stay committed to regular health screenings to manage her chronic conditions effectively. Patient was informed and verbally consented to the use of an ambient scribe for clinic note documentation during this visit. I discussed with the patient the current management of her Sjogren?s syndrome and related lung issues, ensuring her understanding of the importance of regular follow-up with her rug receiving clerk. We addressed her chronic pain, reassessing the use of methotrexate as an option to manage significant joint pain and her potential concerns regarding this treatment moving forward. As dizziness has been noted with gabapentin, we discussed the benefits and risks of its continued use. Anemia and thrombocytopenia will be monitored regularly, and she will be reminded of the need to check in with oncology and rheumatology. I have reinforced the importance of attending all healthcare appointments and continuing her vigilance towards her health maintenance strategies. Patient Instructions: - Continue current medications as prescribed: folic acid, gabapentin, and lorazepam. - Monitor for any increase in dizziness and report immediately. - Maintain scheduled appointments with hematology, pulmonology, rheumatology, and any upcoming physicals. - Consider potential use of methotrexate after consulting with your interventional radiology technologist. - Ensure routine health screenings are up to date. - Report any new symptoms, such as significant fatigue, unusual bruising, or bleeding, promptly.
[2025-01-26 08:11] VITALS: BP 110/82; BMI 24.2
== END 2025-01-26 08:36 | disposition home or self-care (01) ==
LOC: HO.HMCH 07:59
PROVIDERS: PCP Internal Medicine; Visit Provider Internal Medicine
DX: J43.9 Emphysema, unspecified (principal); D69.6 Thrombocytopenia, unspecified; F33.0 Major depressive disorder, recurrent, mild; M35.02 Sjogren syndrome with lung involvement; J84.9 Interstitial pulmonary disease, unspecified; G62.9 Polyneuropathy, unspecified; E89.0 Postprocedural hypothyroidism

== ENCOUNTER → 2025-01-26 07:59 | Outpatient (BNVA) | payer OTHER, SELFPAY | PROVIDERS: PCP Internal Medicine; Visit Provider Internal Medicine | DX: J43.9 Emphysema, unspecified (principal); D69.6 Thrombocytopenia, unspecified; F33.0 Major depressive disorder, recurrent, mild; M35.02 Sjogren syndrome with lung involvement; J84.9 Interstitial pulmonary disease, unspecified; G62.9 Polyneuropathy, unspecified; E89.0 Postprocedural hypothyroidism | CPT/HCPCS: 96127 ==

== ENCOUNTER 2025-01-27 09:21 | Outpatient (AMB) | payer OTHER, SELFPAY ==
--- NOTE | 2025-01-27 09:23 | A.OFFVIS_ITS ---
Vital Signs 01/27/25 09:25 Height 5 ft 6 in Weight 149 lb 0.52 oz BMI 24.1 BP 150/90 H Blood Pressure Location Lt brachial Position Sitting Pulse 83 Pulse Source Pulse Oximeter Pulse Oximetry (%) 99 Oxygen Delivery Method Room Air Intake Visit Reasons: SS Intake Note: Patient presents today for a follow up for trochanteric bursitis. Accompanied by: Self / Same As Patient Allergies Penicillins Allergy (Unknown, Verified 01/27/25 09:33) Swelling HPI HPI SS: Details: Patient is being evaluated for positive serologies SHARON 1:1280, SSA antibody >8.0, anticentromere antibody >8.0 and rheumatoid factor (documented positive rheumatology note in the past but no result found in expanse. She has seen multiple rheumatologists in the past. She was given a diagnosis of Sjogren syndrome. She has also had adult secondary education instructor tell her that she does not have rheumatological condition. She is confused about her rheumatological conditions and would like answers. Her PCP's concerned that she has lupus. She continues to have dry eyes and dry mouth. She had eye exam 1 week ago. She was told to use sustane drops and a cream at night. Dry eyes is mild. Uses biotene mouth wash and toothpaste. She has never been on pilocarpine and cevelimine. She did not like xylimelts. She has joint pain. She denies fever, dyspnea, pleurisy, urinary symptoms, DVT or PE. 2 miscarriages at 8-10 weeks. She has 2 sons without complications. +photosensitivity Raynaud's phenomena in feet with discoloration occurs once a week. She has hx of polyneuropathy affecting her feet of unclear etiology per patient. She had an intermittent pruritis rash on her upper back a few years ago. She has spots on her legs. She was on MTX 09/2024 prescribed by PCP for short term for joint pain, which reduced her joint pain. She then discontinued it due to fear of lung disease. Hx of ILD attributed to Sjogren syndrome. She follows with mold sheet cleaner Dr. Matias. CT scans reviewed with patient, which revealed 6 mm posterior right upper lobe ground-glass opacity on CT chest July 2023. There was no active pulmonary disease with resolution of ground-glass opacity on CT chest July 2024. She will be having a follow-up CT chest in July 2025. Mild emphysema was noted on both CT chests. Patient is asymptomatic at this time. She is seeing neurologist Dr. Lira for workup of Sjogren's related neuropathy. He is recommending spinal aspiration for further workup. She is having an EMG performed. She is currently in physical therapy for knee osteoarthritis. Medical record reviewed. Chronic leukopenia and normocytic microcytic anemia. Normal kidney function and liver function. Previous history of low C3 and C4 2020. Complements repeated in multiple occasions and have been normal. She has negative double-stranded DNA/SM/STUDENT ADVISOR/SSB antibodies. [facility], [facility] Medical History (Updated 01/27/25 @ 22:42 by Rome Abbott MD) Sjogrens syndrome Mild recurrent major depression Hypothyroidism Obstructive sleep apnea hypopnea, mild Witnessed apneic spells Loud snoring Postherpetic neuralgia Depression Ingrown toenail Overactive bladder Hypothyroidism Pulmonary nodules Ankylosis of thoracic spine Goiter 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 Surgical History SS-A antibody positive Sjogren syndrome with lung involvement History of brain surgery Hx of esophagogastroduodenoscopy Hx of colonoscopy History of thyroidectomy Family History Father Diabetes Stroke Alzheimer disease Mother Alzheimer disease Parkinson disease Depression Arthritis Son Multiple sclerosis Son Learning disability Brother Diabetes Sister Diabetes Hypertension Family/Other History of breast cancer Social History Household Members: None Housing: Condominium Alcohol intake: never Patient Tobacco Use Status: Former Tobacco user Tobacco use type: Cigarette e-Cigarette/Vaping Use: Never Used Second Hand Smoke Exposure: No Substance Use Type: Marijuana service: No Current occupational status: employed Current occupation: [employer] Current occupational exposures/hazards: No Cognitive needs: No Hearing needs: No Vision needs: No Review of Systems Const All systems reviewed & are unremarkable except as noted in HPI and below Physical Exam Vital Signs: Last Vital Signs Pulse 83 01/27/25 09:25 BP 150/90 H 01/27/25 09:25 Pulse Ox 99 01/27/25 09:25 Oxygen Delivery Method Room Air 01/27/25 09:25 BMI result Body Mass Index 24.1 Const Other: General: Comfortable CVS: RRR Respiratory: clear to auscultation bilaterally. Good respiratory effort Skin: No lesions seen. No skin tightening. No telangiectasia. MSK: Tender to palpate right medial epicondyle. No pain with resisted wrist flexion or extension. No diffuse allodynia. Normal range of motion of upper extremity and lower extremity. Crepitus right knee palpated. Mild valgus deformity bilateral knees. No synovitis. Assessment & Plan Assessment & Plan (1) Systemic lupus erythematosus: Comment: SHARON 1:1280, negative Sm/DsDNA, pancytopenia (leukopenia, chronic normocytic anemia, thrombocytopenia), low C3 and C4 (2020), photosensitivity, raynaud's syndrome, peripheral neuropathy (no alternative etiology found at this time, workup with Neurology in process) is suggestive of SLE. She meets SLICC criteria. She does not have inflammatory arthritis on exam. She did not have multiple tender points on exam to suggest fibromyalgia. Unclear etiology for chronic diffuse arthralgias and myalgias at this time. It is interesting to note that she had resolution of chronic arthralgias when she was prescribed methotrexate 15 mg once weekly from PCP, which patient discontinued due to diagnosis of interstitial lung disease. HCQ was recommended by adult secondary education instructor Dr. Najera when she developed hypocomplementemia in 2020 but patient did not take it as she felt her symptoms are tolerable. She may have been on hydroxychloroquine in the past without any change in her clinical symptoms. Code(s): M32.9 - Systemic lupus erythematosus, unspecified Category: Medical Qualifiers: Systemic lupus erythematosus type: unspecified Systemic lupus erythematosus organ involvement: unspecified Qualified Code(s): M32.9 - Systemic lupus erythematosus, unspecified Plan: labs ordered to assess disease activity I recommend that she continue to follow up with Neurologist at [facility] Dr. Lira for workup of peripheral neuropathy RTC 3 months (2) Sjogrens syndrome: Comment: SSA+ and sicca symptoms is suggestive of secondary Sjogren's syndrome. Dry mouth is tolerable with using Biotene products. She did not like xylimelts. She has mild dry eyes. We discussed further workup with minor salivary gland biopsy to confirm diagnosis. She has been following up with mold sheet cleaner for interstitial lung disease attributed to Sjogren syndrome 1st found on imaging in July 2023. Repeat imaging July 2024 revealed resolution of 6 mm ground- glass opacity previously seen. PFTs from November 2021 reveal mild to moderate diffusion impairment. There has been report that patient had low titer positive rheumatoid factor and negative anti CCP antibody but I can not find result in expanse. Serological profile of high titer positive SHARON and rheumatoid factor can be seen in Sjogren syndrome. Code(s): M35.00 - Sjogren syndrome, unspecified Category: Medical Qualifiers: Sjogren's organ involvement: unspecified organ involvement Qualified Code(s): M35.00 - Sicca syndrome, unspecified Plan: General surgery consultation for minor salivary gland biopsy Dry eye management per Ophthalmology: Systane OTC and ocular gel at night Dry mouth: Continue Biotene OTC products Labs to assess disease activity ordered Follow up with mold sheet cleaner with plan to repeat CT chest July 2025. I recommend repeating PFTs with diffusion lung capacity. Return to clinic in 3 months (3) Anticentromere antibodies present: Comment: With history of GERD and Raynaud's syndrome. She does not meet criteria for limited cutaneous systemic sclerosis at this time. Code(s): R76.8 - Other specified abnormal immunological findings in serum Category: Medical Plan: Monitor clinically (4) SHARON positive: Code(s): R76.8 - Other specified abnormal immunological findings in serum Category: Medical Plan: See above (5) SS-A antibody positive: Code(s): R76.8 - Other specified abnormal immunological findings in serum Category: Surgical Plan: See above (6) Raynauds phenomenon: Comment: Secondary. Code(s): I73.00 - Raynaud's syndrome without gangrene Category: Medical Qualifiers: Raynaud?s-associated gangrene presence: without gangrene Qualified Code(s): I73.00 - Raynaud's syndrome without gangrene Plan: Continue conservative management Orders: Orders Protein Electrophoresis, Serum Today R76.8 - Other specified abnormal immunological findings in serum Hepatitis B,C Profile Today R76.8 - Other specified abnormal immunological findings in serum Sm Sm/STUDENT ADVISOR Antibodies Today R76.8 - Other specified abnormal immunological findings in serum Erythrocyte Sedimentation Rate Today R76.8 - Other specified abnormal immuno logical findings in serum C Reactive Protein Today R76.8 - Other specified abnormal immunological findings in serum Complement C3 Today R76.8 - Other specified abnormal immunological findings in serum Complement C4 Today R76.8 - Other specified abnormal immunological findings in serum UA w Microscopic Today R76.8 - Other specified abnormal immunological findings in serum Protein Creatinine Ratio, Ur Today R76.8 - Other specified abnormal immunological findings in serum Anti DNA DS Antibody Today R76.8 - Other specified abnormal immunological findings in serum Rheumatoid Factor Today M35.02 - Sjogren syndrome with lung involvement Referrals General Surgery Referral R76.8 - Other specified abnormal immunological findings in serum Coding Level of Care Code Est Pt Level 5 (90318) Diagnoses Systemic lupus erythematosus, unspecified SLE type, unspecified organ involveme nt status M32.9 Systemic lupus erythematosus type: unspecified Systemic lupus erythematosus organ involvement: unspecified Sjogren's syndrome, with unspecified organ involvement M35.00 Sjogren's organ involvement: unspecified organ involvement Anticentromere antibodies present R76.8 SHARON positive R76.8 SS-A antibody positive R76.8 Raynaud's phenomenon without gangrene I73.00 Raynaud?s-associated gangrene presence: without gangrene Time Spent (min) 60
[2025-01-27 09:25] VITALS: BP 150/90; PULSE 83; O2SAT 99; BMI 24.1
--- OUTSIDE RECORDS SUMMARY | 2025-01-27 10:06 | XMS_ITS | Clinical Summary ---
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 Location/Status: ??SPDIMAM/REG CLI ? Mnemonic/Ordering Site: ??DIGSC/SPMAM Ordering Physician: ??KENDRICK LARSON MD [facility] Screening Digital - 08/08/21927 EXAM: [facility] Screening Digital EXAM DATE AND TIME: 08/08/2021 9:29 AM HISTORY: ??Screening. COMPARISON: ??08/07/20, 01/18/19, 06/28/17 TECHNIQUE: CC and MLO views of both breasts were obtained using full field digital mammography. Bilateral digital breast tomosynthesis was performed in the MLO projection. Computer aided detection with the Envoy 7.2-H was employed. TISSUE DENSITY: c. The [...] Evaluation RECOMMENDATION(S): 1: Repeat film(s) needed RIGHT 00423, 44364 3340F, 7025F Dictating Physician: ??LISBETH KWOK MD Electronically Signed by: ??LISBETH KWOK MD Dic Date/Time: ??08/08/21 1123 Sign date/Time: ??08/08/21 1124 Procedure Note Lisbeth Kwok MD - 09/27/2022 [facility] Diagnostic Imaging Department [address] [place] [address] Patient: SALINASUMIT /Age/Sex: 1960 - 60 - F Unit#: [id number] [facility]Ordering Site: [facility] Ordering Physician: KENDRICK LARSON MD [facility] Screening Digital - 08/08/21927 EXAM: [facility] Screening Digital EXAM DATE AND TIME: 08/08/2021 9:29 AM HISTORY: Screening. COMPARISON: 08/07/20, 01/18/19, 06/28/17 TECHNIQUE: CC and MLO views of both breasts were obtained using fullfield digital mammography. Bilateral digital breast tomosynthesis was performedin the MLO projection. Computer aided detection with the Cytomedix.2-Omnistreamas employed. TISSUE DENSITY: c. The breasts are [...] Evaluation RECOMMENDATION(S): 1: Repeat film(s) needed RIGHT 82883, 14729 3340F, 7025F Dictating Physician: LISBETH KWOK MD Electronically Signed by: LISBETH KWOK MD Dic Date/Time: 08/08/21 1123 Sign date/Time: 08/08/21 1124 Sharon Tolliver MD IMG BI PROCEDURES Final Result from Last 3 Months or Most Recently Relevant to Health Maintenance
== END 2025-01-27 10:45 | disposition home or self-care (01) ==
LOC: HO.RHES 09:21
PROVIDERS: PCP Internal Medicine; Visit Provider Internal Medicine Rheumatology
DX: M32.9 Systemic lupus erythematosus, unspecified (principal); M35.00 Sjogren syndrome, unspecified; R76.8 Other specified abnormal immunological findings in serum; I73.00 Raynaud's syndrome without gangrene
CPT/HCPCS: 99215; 99417

== ENCOUNTER → 2025-01-27 09:21 | Outpatient (BNVA) | payer OTHER, SELFPAY | PROVIDERS: PCP Internal Medicine; Visit Provider Internal Medicine Rheumatology ==

== ENCOUNTER 2025-01-28 08:29 | Outpatient (REF) | payer OTHER, SELFPAY ==
--- OUTSIDE RECORDS SUMMARY | 2025-01-28 08:50 | XMS_ITS | Continuity of Care Document ---
Author Organization [facility] Address [address] [place] [address] [address] [place] [address] Phone Care Team Providers Care Professor Of Anthropology Name Role Phone Livan ROSALES, ALTAF, Blayne [...] Mins- [place] & [place] [facility], [address] [place] [address] [address], [place], [id number], [place] tel:[phone] [facility] - [place] [facility] [place] Chronic venous hypertension (idiopathic) with other complications of bilateral lower extremityPain in right legPain in left legRestless legs syndromeEssen tial (primary) hypertensionV enous insufficiency (chronic) (peripheral)C ramp and spasmLocalize d edema 4 Livan ROSALES, ALTAF, JUAN Cisneros. [address] [facility], [facility] [address], [place], [place], [id number] , [place]. tel:[phone] Referring Provider: Sharon Baum MD, [address] [place] [address] , [address] [place] D/B/A: ana [facility] [place], [address]. tel:[phone] [facility], [address] [facility] [address], [place], [id number], [place] tel:[phone] [facility] Chronic venous hypertension (idiopathic) with other complications of bilateral lower extremity Livan ROSALES, RVT, RPVI Blayne. [address] [facility] [address], [place], [place], [id number] , [place]. tel:[phone] Referring Provider: Sharon Baum MD, [address] [facility] , [address] [place] D/B/A: [place], [address]. tel:[phone] Family History Family Member Type Diagnosis Age At Onset No Information Payers Payer name Insurance type Covered libertarian ID Authoriza tiradha(s) Azeb [id number] Social History Type Description Quantity Date Captured [...]
--- OUTSIDE RECORDS SUMMARY | 2025-01-28 08:50 | XMS_ITS | Clinical Summary ---
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 Location/Status: ??SPDIMAM/REG CLI ? Mnemonic/Ordering Site: ??DIGSC/SPMAM Ordering Physician: ??KENDRICK LARSON MD [facility] Screening Digital - 08/08/21927 EXAM: [facility] Screening Digital EXAM DATE AND TIME: 08/08/2021 9:29 AM HISTORY: ??Screening. COMPARISON: ??08/07/20, 01/18/19, 06/28/17 TECHNIQUE: CC and MLO views of both breasts were obtained using full field digital mammography. Bilateral digital breast tomosynthesis was performed in the MLO projection. Computer aided detection with the RealOps 7.2-H was employed. TISSUE DENSITY: c. The [...] Evaluation RECOMMENDATION(S): 1: Repeat film(s) needed RIGHT 77668, 70276 3340F, 7025F Dictating Physician: ??LISBETH KWOK MD Electronically Signed by: ??LISBETH KWOK MD Dic Date/Time: ??08/08/21 1123 Sign date/Time: ??08/08/21 1124 Procedure Note Lisbeth Kwok MD - 09/27/2022 [facility] Diagnostic Imaging Department [address] [place] [address] Patient: SALNIASUMIT /Age/Sex: 1960 - 60 - F Unit#: [id number] [facility] Ordering Physician: KENDRICK LARSON MD [facility] Screening Digital - 08/08/21927 EXAM: [facility] Screening Digital EXAM DATE AND TIME: 08/08/2021 9:29 AM HISTORY: Screening. COMPARISON: 08/07/20, 01/18/19, 06/28/17 TECHNIQUE: CC and MLO views of both breasts were obtained using fullfield digital mammography. Bilateral digital breast tomosynthesis was performedin the MLO projection. Computer aided detection with the AllClear ID.2-25eightas employed. TISSUE DENSITY: c. The breasts are [...] Evaluation RECOMMENDATION(S): 1: Repeat film(s) needed RIGHT 97021, 29876 3340F, 7025F Dictating Physician: LISBETH KWOK MD Electronically Signed by: LISBETH KWOK MD Dic Date/Time: 08/08/21 1123 Sign date/Time: 08/08/21 1124 Sharon Tolliver MD IMG BI PROCEDURES Final Result from Last 3 Months or Most Recently Relevant to Health Maintenance
[2025-01-28 17:48] LABS: Appearance Urine Cloudy; Color Urine Yellow; Glucose Urine UA Negative (Negative); Leukocyte Esterase Urine Small (1+) (Negative); Nitrite Urine Negative (Negative); Specific Gravity - Urine 1.025 (1.005-1.025); UMIC TRIGGER UA YES; Urine Blood Negative (Negative); Urine Ketones Trace mg/dL (Negative); Urine Protein Negative (Neg-Trace)
[2025-01-28 18:10] LABS: Rheumatoid Factor < 13.0 IU/mL (<15.0)
[2025-01-28 18:16] LABS: C Reactive Protein < 0.10 mg/dL (< or = 0.50)
[2025-01-28 18:31] LABS: Bacteria Urine None Seen (None Seen); Calcium Oxalate Crystals Urine Present; Other Crystals Urine Present; RBC Urine 0-2 /HPF (0-2); Squamous Epithelial Cell Urine 0-2 /HPF (0-2); WBC Urine 0-5 /HPF (0-5); Waxy Casts Urine Present
[2025-01-28 18:33] LABS: Thyroid Stimulating Hormone 0.19 uIU/mL (0.32-4.0)
[2025-01-28 18:35] LABS: Creatinine Urine 209.96 mg/dL; Total Protein Urine Random 21 mg/dL (<12)
[2025-01-28 18:56] LABS: Erythrocyte Sedimentation Rate 20 MM/HR (0-20)
[2025-01-29 04:17] LABS: HBS Num1 0.51 mIU/mL (0-7.99); HBc Num1 0.26 S/CO (0.00-0.79); HBsAGNum1 0.34 S/CO (0.00-0.99); Hepatitis B Core Antibody Nonreactive (Nonreactive); Hepatitis B Surface Antigen Negative (Negative); ~HepC Num1 0.12 S/CO (0.00-0.79); ~Hepatitis B Surface Antibody NONREACTIVE (Nonreactive); ~Hepatitis C Antibody Nonreactive (Nonreactive)
[2025-01-29 20:28] LABS: Anti DNA DS Antibody 1 IU/mL; SM/Ribonucleoprotein Ab <1.0 NEG AI (<1.0 NEG); Smith Protein <1.0 NEG AI (<1.0 NEG)
[2025-01-29 23:19] LABS: Complement C3 117 mg/dL (83-193)
[2025-01-30 10:52] LABS: Prot Elec - Albumin 3.7 g/dL (3.8-4.8); Prot Elec - Alpha1 0.2 g/dL (0.2-0.3); Prot Elec - Alpha2 0.5 g/dL (0.5-0.9); Prot Elec - Beta 1 0.4 g/dL (0.4-0.6); Prot Elec - Beta 2 0.4 g/dL (0.2-0.5); Prot Elec - Gamma 1.6 g/dL (0.8-1.7); Prot Elec - Total Protein 6.7 g/dL (6.1-8.1)
== END 2025-01-28 08:30 | disposition home or self-care (01) ==
LOC: HO.HKASLDS 08:29
PROVIDERS: Internal Medicine; Visit Provider Internal Medicine Rheumatology
DX: E89.0 Postprocedural hypothyroidism (principal); M35.02 Sjogren syndrome with lung involvement; R76.8 Other specified abnormal immunological findings in serum
CPT/HCPCS: 36415; 81001; 82570; 84156; 84165; 84443; 85652; 86140; 86160; 86225; 86235; 86431; 86704; 86706; 86803; 87340

== ENCOUNTER 2025-02-09 09:30 | Outpatient (AMB) | payer OTHER, SELFPAY ==
--- NOTE | 2025-02-09 09:33 | A.OFFPC_ITS ---
Vital Signs 02/09/25 09:35 Height 5 ft 6 in Weight 152 lb BMI 24.5 BP 150/82 H Blood Pressure Location Lt brachial Position Sitting Intake Visit Reasons: annual exam Intake Note: Patient here for a physical exam Administrative Assistant Receptionist Required: No Accompanied by: Self / Same As Patient Allergies Penicillins Allergy (Unknown, Verified 02/09/25 09:46) Swelling Medication List - Last Reconciled 02/09/25 by Sharon Tolliver MD calcium carbonate-vitamin D3 600 mg-20 mcg (800 unit) (Caltrate plus D) 1 tab PO DAILY folic acid 1 mg PO DAILY 90 days gabapentin 600 mg PO TID 30 days ibuprofen 800 mg PO Q8H PRN 30 days levothyroxine 75 mcg PO DAILY 30 days lorazepam 0.5 mg PO BEDTIME PRN methotrexate sodium 10 mg (4 x 2.5 mg) PO QWEEK 30 days multivitamin (Multiple Vitamins tablet) 1 tab PO DAILY Tobacco use date assessed: 01/26/25 Fall risk assessment: No Falls in past year Last assessed Fall Risk: 02/09/25 Dental Screening Dental Screen Date: 01/26/25 HPI HPI Comments History of Present Illness Details The patient is a 64-year-old female presenting with concerns related to elevated blood pressure during a routine physical examination. Her blood pressure readings have been fluctuating, prompting concerns about potential cardiovascular risks. Despite attempts at lifestyle management, the blood pressu re remains poorly controlled. Dizziness has been reported, though not directly attributed to blood pressure fluctuations. She has a normal bone density test in 2023, with plans for another assessment in 2025. She has a history of a brain cyst removal in 1991 and is on levothyroxine following a thyroidectomy. The dosage is currently under review, but a recent adjustment has been made. The patient is being monitored for Sj?gren's Syndrome with an accompanying neuropathy condition, currently managed with gabapentin. She has thrombocytopenia that has been evaluated by Hematology-Oncology. Mild major depression in remission. Regarding health maintenance, the patient has completed a recent mammogram and pap smear, both yielding normal results. Previous colonoscopy was done within the last 4-5 years. Vaccinations are current, with the last pneumococcal vaccine administered at age 63 and a tetanus booster in 2021. - Routine mammogram completed September 08 - Pap smear in 2022 showing HPV negative - Pneumococcal vaccine administered at a ge 63 - Td vaccine received in 2021 - Last bone density test conducted in , normal results - Next bone density assessment scheduled for 2025 - Previous colonoscopy within the last 4 -5 years - Lifestyle discussions focused on low-s odium diet and exercise [facility] Medical History (Updated 02/09/25 @ 10:03 by Sharon Tolliver MD) Sjogrens syndrome Mild recurrent major depression Hypothyroidism Obstructive sleep apnea hypopnea, mild Witnessed apneic spells Loud snoring Postherpetic neuralgia Depression Ingrown toenail Overactive bladder Hypothyroidism Pulmonary nodules Ankylosis of thoracic spine Goiter 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 Surgical History SS-A antibody positive Sjogren syndrome with lung involvement History of brain surgery Hx of esophagogastroduodenoscopy Hx of colonoscopy History of thyroidectomy Family History Father Diabetes Stroke Alzheimer disease Mother Alzheimer disease Parkinson disease Depression Arthritis Son Multiple sclerosis Son Learning disability Brother Diabetes Sister Diabetes Hypertension Family/Other History of breast cancer Social History Household Members: None Housing: Condominium Alcohol intake: never Patient Tobacco Use Status: Former Tobacco user Tobacco use type: Cigarette e-Cigarette/Vaping Use: Never Used Second Hand Smoke Exposure: No Substance Use Type: Marijuana service: No Current occupational status: employed Current occupation: [employer] Current occupational exposures/hazards: No Cognitive needs: No Hearing needs: No Vision needs: No Questionnaire PHQ-9 Over the last 2 weeks, how often have you been bothered by any of the following problems? 1. Little interest or pleasure in doing things: not at all 2. Feeling down, depressed, or hopeless: not at all 3. Trouble falling or staying asleep, or sleeping too much: several days 4. Feeling tired or having little energy: several days 5. Poor appetite or overeating: several days 6. Feeling bad about yourself - or that you are a failure or have let yourself or your family down: not at all 7. Trouble concentrating on things, such as reading the newspaper or watching television: not at all 8. Moving or speaking so slowly that other people could have noticed. Or the opposite - being so fidgety or restless that you have been moving around a lot more than usual: not at all 9. Thoughts that you would be better off or of hurting yourself in some way: not at all Total score: 3 Depression Screening Interpretation: Positive Depression Screening Follow-up: Existing condition and Follow-up Visit Requested Depression Screening Done: Yes 94826 - PHQ-9 Billing: Yes Source: Developed by Drs. Blayne Tijerina, Ritika Briggs, Henrry Biggs and colleagues, with an educational zachariah from [employer]. Thrive Questionnaire Date Thrive assessed: 02/09/25 I am a: Patient What is your living situation today?: I choose not to answer this question Within the past 12 months, did the food you bought not last and you didn't have the money to get more?: I choose not to answer this question Within the past 12 months, did you worry whether your food would run out before you got money to buy more?: I choose not to answer this question Do you have trouble paying for medicines?: I choose not to answer this question Do you have trouble getting transportation to medical appointments?: I choose not to answer this question Do you have trouble paying your heating and electricity bill?: I choose not to answer this question Do you have trouble taking care of your child, family member or friend?: I choose not to answer this question Do you have trouble with day-to-day activities such as bathing, preparing meals, shopping, managing finances, etc.?: I choose not to answer this question Are you currently unemployed and looking for a job?: I choose not to answer this question Are you interested in more education?: I choose not to answer this question Please select the resources that you would like help with: None Currently or been in a relationship where the following occur: No concerns reported THRIVE Score: 0 AUDIT C Alcohol Use Questionnaire (AUDIT-C) 1. How often do you have a drink containing alcohol?: Never Total Score: 0 Score Reviewed/Action Taken: No PATTI-7 AMB Questionnaire PATTI-7 Date PATTI - 7 assessed: 02/09/25 Feeling nervous, anxious, or on edge: 0 = Not at all Not being able to stop or control worryin = Not at all Worrying too much about different things: 0 = Not at all Trouble relaxin = Not at all Being so restless that it is hard to sit still: 0 = Not at all Becoming easily annoyed or irritable: 0 = Not at all Feeling afraid as if something awful might happen: 0 = Not at all Total PATTI-7 score (0-4 normal; 5-9 mild; 10-14 moderate; 15-21 severe): 0 Source: Developed by Drs. Blayne Tijerina, Ritika Briggs, Henrry Biggs and colleagues, with an educational zachariah from [employer]. PATTI-7 Assessment Billing PATTI-7 Assessment Tool: PATTI-7 Assessment 45282 Review of Systems Const All systems reviewed & are unremarkable except as noted in HPI and below Card Denies chest pain at rest, Denies chest pain with activity, Denies edema, Denies irregular heart rhythm, Denies claudication, Denies dyspnea, Denies dyspnea on exertion, Denies orthopnea, Denies paroxysmal nocturnal dyspnea and Denies slow heart rate Resp Denies cough, Denies dyspnea and Denies dyspnea on exertion Physical exam (Primary Care) Vital Signs: Last Vital Signs BP 150/82 H 02/09/25 09:35 BMI result Body Mass Index 24.5 Tobacco/Smoking Status: Tobacco use Status Tobacco use date assessed 01/26/25 02/09/25 09:35 Patient Tobacco Use Status Former Tobacco user 02/09/25 09:35 Tobacco use type Cigarette 02/09/25 09:35 e-Cigarette/Vaping Use Never Used 02/09/25 09:35 PHQ-9: PHQ-9 Score PHQ-9: Total score 3 02/09/25 09:35 Depression Screening Interpretation: Positive Depression Screening Follow-up: Existing condition and Follow-up Visit Requested Thrive Assessment: Date of Thrive Assessment Date Thrive assessed 02/09/25 02/09/25 09:35 Currently or been in a relationship where the following occur: No concerns reported HENMT Head: Yes normal to inspection, Yes normocephalic and Yes atraumatic Ears: external ears normal Eyes General: appearance normal, both eyes and all related structures Eyelids: Yes eyelids normal Conjunctivae: conjunctivae normal Neck Neck: Yes normal visual inspection and Yes supple Resp Effort & Inspection: normal respiratory effort Auscultation: clear to auscultation bilaterally Cardio Jugular venous distension: no JVD Rate: regular rate Rhythm: regular rhythm Heart sounds: S1 normal heart sound present and S2 normal heart sound present GI Inspection: Yes normal to inspection Palpation (GI): Soft to palpation and nontender Auscultation: normal bowel sounds Skin General skin exam: no rashes or lesions noted Neuro General: no focal motor deficits Extrem General: Yes full ROM Psych Appearance: grossly normal Coding Level of Care Code Est Pt Level 3 (66573) Est Pt Prev Care >65y(31448) Diagnoses Physical exam Z00.00 Mild recurrent major depression F33.0 Sjogren syndrome with lung involvement M35.02 Thrombocytopenia D69.6 Essential hypertension I10 Right leg pain M79.604 Additional Codes PHQ-9 - 57673 - PHQ-9 Billing: Yes ([id number]) PATIT-7 Assessment Billing - PATTI-7 Assessment Tool: PATTI-7 Assessment 11874 ([id number]) Time Spent (min) 35 Assessment & Plan Assessment & Plan (1) Physical exam: Code(s): Z00.00 - Encounter for general adult medical examination without abnormal findings Category: Medical (2) Mild recurrent major depression: Code(s): F33.0 - Major depressive disorder, recurrent, mild Category: Medical (3) Sjogren syndrome with lung involvement: Code(s): M35.02 - Sjogren syndrome with lung involvement Category: Surgical (4) Thrombocytopenia: Code(s): D69.6 - Thrombocytopenia, unspecified Category: Medical (5) Essential hypertension: Code(s): I10 - Essential (primary) hypertension Category: Medical (6) Right leg pain: Code(s): M79.604 - Pain in right leg Category: Medical Plan During this visit, I addressed the patient's elevated blood pressure by initiating antihypertensive therapy. Due to the risk factors and potential for severe complications like myocardial infarction or stroke, a low-dose blood pressure medication was prescribed. Follow-up in three weeks will assess the effectiveness of this intervention and monitor for any side effects. Preventive care, including screenings for breast, cervical, and bone health, are current. The patient's thyroid function will be reassessed due to recent dosage adjustments in her thyroid medication. Current management of her neuropathy and general health maintenance discussions were also reviewed and deemed sufficient at this time. Patient was informed and verbally consented to the use of an ambient scribe for clinic note documentation during this visit. I explained to the patient the urgency of managing her elevated blood pressure to prevent cardiovascular complications. We discussed the initiation of antihypertensive therapy, its anticipated benefits, and potential side effects. The importance of lifestyle modifications, including diet and exercise, was reinforced as adjuncts to medication. Consent for initiating treatment was obtained after discussing potential risks. I emphasized the importance of follow-up and self-monitoring of symptoms. Regular thyroid monitoring will continue, and reassessment of this along with the patient's response to new medication will occur at the next scheduled evaluation. Orders: Orders Thyroid Stimulating Hormone 6 Weeks E89.0 - Postprocedural hypothyroidism US venous duplex LE RT Today M79.604 - Pain in right leg Medications: New losartan 25 mg PO DAILY 90 days 90 tabs 1RF I10 - Essential (primary) hypertension Patient Instructions: - Start taking prescribed blood pressure medication in the morning as directed - Monitor blood pressure at home and report any side effects - Return for a follow-up appointment in three weeks for a blood pressure check - Continue following a low-sodium diet and regular exercise routine - Report any new or worsening symptoms immediately
[2025-02-09 09:35] VITALS: BP 150/82; BMI 24.5
--- OUTSIDE RECORDS SUMMARY | 2025-02-09 10:18 | XMS_ITS | Continuity of Care Document ---
Author Organization [facility] Address [address] [place] [address] [address] [place] [address] Phone Care Team Providers Care Correctional Supply Supervisor Name Role Phone Livan ROSALES, ALTAF, Blayne [...] Mins- [place] & [place] [facility], [address] [place] [address] [address], [place], [id number], [place] tel:[phone] [facility] - [place] [facility] [place] Chronic venous hypertension (idiopathic) with other complications of bilateral lower extremityPain in right legPain in left legRestless legs syndromeEssen tial (primary) hypertensionV enous insufficiency (chronic) (peripheral)C ramp and spasmLocalize d edema 4 Livan ROSALES, ALTAF, JUAN Cisneros. [address] [facility], [facility] [address], [place], [place], [id number] , [place]. tel:[phone] Referring Provider: Sharon Baum MD, [address] [place] [address] , [address] [place] D/B/A: ana [facility] [place], [address]. tel:[phone] [facility], [address] [facility] [address], [place], [id number], [place] tel:[phone] [facility] Chronic venous hypertension (idiopathic) with other complications of bilateral lower extremity Livan ROSALES, RVT, RPVI Blayne. [address] [facility] [address], [place], [place], [id number] , [place]. tel:[phone] Referring Provider: Sharon Baum MD, [address] [facility] , [address] [place] D/B/A: [place], [address]. tel:[phone] Family History Family Member Type Diagnosis Age At Onset No Information Payers Payer name Insurance type Covered green party ID Authoriza tiradha(s) Azeb [id number] Social History Type Description Quantity Date Captured [...]
--- OUTSIDE RECORDS SUMMARY | 2025-02-09 10:18 | XMS_ITS | Clinical Summary ---
Author Organization [employer] [facility] Address [address] [place] [address] Care Team Providers Care Data Clerk Name Role Phone Unavailable Primary Care Provider [...] DX:Anxiety; COMM ENT: 04/16-negative stress test at [facility] Brain cyst 10/24/2010 DX:Brain cyst; [...] Recently Relevant to Health Maintenance Results * [facility] SCREENING DIGITAL (08/08/2021 11:24 AM EDT) Anatomical Region Laterality Modality Mammography 08/08/2021 9:06 AM EDT Narrative 08/08/2021 11:[address] [facility] Diagnostic Imaging Department [address] [place] [address] Patient: ??SUMIT DOWNING ?/Age/Sex: 1960 - 60 - F Unit#: ??[id number] ? Location/Status: ??SPDIMAM/REG CLI ? Mnemonic/Ordering Site: ??DIGSC/SPMAM Ordering Physician: ??KENDRICK LARSON MD [facility] Screening Digital - 08/08/21927 EXAM: [facility] Screening Digital EXAM DATE AND TIME: 08/08/2021 9:29 AM HISTORY: ??Screening. COMPARISON: ??08/07/20, 01/18/19, 06/28/17 TECHNIQUE: CC and MLO views of both breasts were obtained using full field digital mammography. Bilateral digital breast tomosynthesis was performed in the MLO projection. Computer aided detection with the [employer] 7.2-H was employed. TISSUE DENSITY: c. The [...] Evaluation RECOMMENDATION(S): 1: Repeat film(s) needed RIGHT 47547, 84772 3340F, 7025F Dictating Physician: ??LISBETH KWOK MD Electronically Signed by: ??LISBETH KWOK MD Dic Date/Time: ??08/08/21 1123 Sign date/Time: ??08/08/21 1124 Procedure Note Lisbeth Kwok MD - 09/27/[address] [facility] Diagnostic Imaging Department [address] [place] [address] Patient: SALINASUMIT /Age/Sex: 1960 - 60 - F Unit#: [id number] [facility] Ordering Physician: KENDRICK LARSON MD [facility] Screening Digital - 08/08/21927 EXAM: [facility] Screening Digital EXAM DATE AND TIME: 08/08/2021 9:29 AM HISTORY: Screening. COMPARISON: 08/07/20, 01/18/19, 06/28/17 TECHNIQUE: CC and MLO views of both breasts were obtained using fullfield digital mammography. Bilateral digital breast tomosynthesis was performedin the MLO projection. Computer aided detection with the [employer] Point[employer] employed. TISSUE DENSITY: c. The breasts are [...] Evaluation RECOMMENDATION(S): 1: Repeat film(s) needed RIGHT 31642, 67215 3340F, 7025F Dictating Physician: LISBETH KWOK MD Electronically Signed by: LISBETH KWOK MD Dic Date/Time: 08/08/21 1123 Sign date/Time: 08/08/21 1124 Sharon Tolliver MD IMG BI PROCEDURES Final Result from Last 3 Months or Most Recently Relevant to Health Maintenance
== END 2025-02-09 10:08 | disposition home or self-care (01) ==
LOC: HO.HMCH 09:30
PROVIDERS: PCP Internal Medicine; Visit Provider Internal Medicine
DX: Z00.00 Encounter for general adult medical examination without abnormal findings (principal); F33.0 Major depressive disorder, recurrent, mild; M35.02 Sjogren syndrome with lung involvement; D69.6 Thrombocytopenia, unspecified; I10 Essential (primary) hypertension; M79.604 Pain in right leg

== ENCOUNTER 2025-02-09 09:30 | Outpatient (REF) | payer OTHER, SELFPAY ==
--- NOTE | ~2025-02-09 | XR_ITS ---
EXAMINATION: XR KNEE 1-2 VIEWS LEFT HISTORY: M25.562 - Pain in left knee COMPARISON: Correlation is made with a standing AP view of the left knee dated 12/01/2024. FINDINGS: AP and lateral views of the left knee are submitted. Osseous mineralization is normal. There is no fracture or dislocation. The joint spaces are preserved. There is no joint effusion. There is a 10 mm loose body in the joint space. XR/XR knee LT 2V IMPRESSION: 10 mm loose body in the joint space. Otherwise unremarkable examination of the left knee. Electronically signed by: Blayne Damian MD 02/09/2025 03:04 PM EDT
--- OUTSIDE RECORDS SUMMARY | 2025-02-09 15:42 | XMS_ITS | Clinical Summary ---
Author Organization [employer] [facility] Address [address] [place] [address] Care Team Providers Care Manager Lsw Name Role Phone Unavailable Primary Care Provider [...] DX:Anxiety; COMM ENT: 04/16-negative stress test at [facility] Brain cyst 10/24/2010 DX:Brain cyst; C [...] Recently Relevant to Health Maintenance Results * [facility] SCREENING DIGITAL (08/08/2021 11:24 AM EDT) Anatomical Region Laterality Modality Mammography 08/08/2021 9:06 AM EDT Narrative 08/08/2021 11:24 AM EDT [facility] Diagnostic Imaging Department [address] [place] [id number] Patient: ??SUMIT DOWNING ?/Age/Sex: 1960 - 60 - F Unit#: ??[id number] ? Location/Status: ??SPDIMAM/REG CLI ? Mnemonic/Ordering Site: ??DIGSC/SPMAM Ordering Physician: ??KENDRICK LARSON MD [facility] Screening Digital - 08/08/21927 EXAM: [facility] Screening Digital EXAM DATE AND TIME: 08/08/2021 9:29 AM HISTORY: ??Screening. COMPARISON: ??08/07/20, 01/18/19, 06/28/17 TECHNIQUE: CC and MLO views of both breasts were obtained using full field digital mammography. Bilateral digital breast tomosynthesis was performed in the MLO projection. Computer aided detection with the Amed[employer] 7.2-H was employed. TISSUE DENSITY: c. The [...] Evaluation RECOMMENDATION(S): 1: Repeat film(s) needed RIGHT 15553, 00899 3340F, 7025F Dictating Physician: ??LISBETH KWOK MD Electronically Signed by: ??LISBETH KWOK MD Dic Date/Time: ??08/08/21 1123 Sign date/Time: ??08/08/21 1124 Procedure Note Lisbeth Kwok MD - 09/27/2022 [facility] Diagnostic Imaging Department [address] [place] [address] Patient: SALINASUMIT /Age/Sex: 1960 - 60 - F Unit#: [id number] [facility]/Ordering Site: [facility] Ordering Physician: KENDRICK LARSON MD [facility] Screening Digital - 08/08/21927 EXAM: [facility] Screening Digital EXAM DATE AND TIME: 08/08/2021 9:29 AM HISTORY: Screening. COMPARISON: 08/07/20, 01/18/19, 06/28/17 TECHNIQUE: CC and MLO views of both breasts were obtained using fullfield digital mammography. Bilateral digital breast tomosynthesis was performedin the MLO projection. Computer aided detection with the [employer] employed. TISSUE DENSITY: c. The breasts are [...] Evaluation RECOMMENDATION(S): 1: Repeat film(s) needed RIGHT 99540, 42442 3340F, 7025F Dictating Physician: LISBETH KWOK MD Electronically Signed by: LISBETH KWOK MD Dic Date/Time: 08/08/21 1123 Sign date/Time: 08/08/21 1124 Sharon Tolliver MD IMG BI PROCEDURES Final Result from Last 3 Months or Most Recently Relevant to Health Maintenance
--- OUTSIDE RECORDS SUMMARY | 2025-02-09 15:42 | XMS_ITS | Continuity of Care Document ---
Author Organization [facility] Address [address] [place] [address] [address] [place] [address] Phone Care Team Providers Care Sliver Lap Tender Name Role Phone Liavn ROSALES, ATLAF, Blayne MARTINEZ Unavailable U navailable Procedures Procedure [...] Mins- [place] & [place] [facility], [address] [place] [address] [address], [place], [id number], [place] tel:[phone] CVR - [place] - [place] Chronic venous hypertension (idiopathic) with other complications of bilateral lower extremityPain in right legPain in left legRestless legs syndromeEssen tial (primary) hypertensionV enous insufficiency (chronic) (peripheral)C ramp and spasmLocalize d edema 4 Livan ROSALES, ALTAF, JUAN Cisneros. [address] [facility], [facility] [address], [place], [place], [id number] , [place]. tel:[phone] Referring Provider: Sharon Baum MD, [address] [place] [address] , [address] [place] D/B/A: ana [facility] [place], [address]. tel:[phone] [facility], [address] [facility] [address], [place], [id number], [place] tel:[phone] [facility] Chronic venous hypertension (idiopathic) with other complications of bilateral lower extremity Livan ROSALES, RVT, RPVI Blayne. [address] [facility] [address], [place], [place], [id number] , [place]. tel:[phone] Referring Provider: Sharon Baum MD, [address] [facility] , [address] [place] D/B/A: [place], [address]. tel:[phone] Family History Family Member Type Diagnosis Age At Onset No Information Payers Payer name Insurance type Covered green party ID Authoriza tiradha(s) Azeb [id number] Social History Type Description Quantity Date Captured [...]
== END 2025-02-09 09:31 | disposition home or self-care (01) ==
LOC: HO.HOSX 09:30
PROVIDERS: PCP Internal Medicine; Visit Provider Internal Medicine
DX: M25.562 Pain in left knee (principal); M17.12 Unilateral primary osteoarthritis, left knee
CPT/HCPCS: 73560; 96127

== ENCOUNTER 2025-02-09 10:34 | Outpatient (REF) | payer OTHER, SELFPAY ==
--- NOTE | ~2025-02-09 | US_ITS ---
EXAMINATION: US LOWER EXTREMITY VEINS LIMITED FOLLOW UP RIGHT HISTORY: M79.604 - Pain in right leg COMPARISON: There are no prior studies for comparison. TECHNIQUE: Duplex and color Doppler sonographic examination of the deep venous system of the right lower extremity was performed. FINDINGS: The common femoral, superficial femoral, and popliteal veins are patent demonstrating normal compressibility, spontaneous flow, and augmentation. There is a normal color and spectral Doppler waveform appearance of the visualized deep venous system above the knee. The posterior tibial and peroneal veins are patent. US/US venous duplex LE RT IMPRESSION: No evidence of acute DVT in the right lower extremity. Electronically signed by: Blayne Damian MD 02/09/2025 11:13 AM EDT RP
--- OUTSIDE RECORDS SUMMARY | 2025-02-09 11:59 | XMS_ITS | Clinical Summary ---
Author Organization [employer] [facility] Address [address] [place] [address] Care Team Providers Care Project/Production Manager Imaging Name Role Phone Unavailable Primary Care Provider [...] DX:Anxiety; COMM ENT: 04/16-negative stress test at [facility] Brain cyst 10/24/2010 DX:Brain cyst; C OMMENT: [...] Recently Relevant to Health Maintenance Results * [facility] SCREENING DIGITAL (08/08/2021 11:24 AM EDT) Anatomical Region Laterality Modality Mammography 08/08/2021 9:06 AM EDT Narrative 08/08/2021 11:24 AM EDT [facility] Diagnostic Imaging Department [address] [place] [address] Patient: ??SUMIT DOWNING ?/Age/Sex: 1960 - 60 - F Unit#: ??[id number] ? Location/Status: ??SPDIMAM/REG CLI ? Mnemonic/Ordering Site: ??DIGSC/SPMAM Ordering Physician: ??KENDRICK LARSON MD [facility] Screening Digital - 08/08/21927 EXAM: [facility] Screening Digital EXAM DATE AND TIME: 08/08/2021 9:29 AM HISTORY: ??Screening. COMPARISON: ??08/07/20, 01/18/19, 06/28/17 TECHNIQUE: CC and MLO views of both breasts were obtained using full field digital mammography. Bilateral digital breast tomosynthesis was performed in the MLO projection. Computer aided detection with the [employer] 7.2-H was employed. TISSUE DENSITY: c. The [...] Evaluation RECOMMENDATION(S): 1: Repeat film(s) needed RIGHT 74452, 13730 3340F, 7025F Dictating Physician: ??LISBETH KWOK MD Electronically Signed by: ??LISBETH KWOK MD Dic Date/Time: ??08/08/21 1123 Sign date/Time: ??08/08/21 1124 Procedure Note Lisbeth Kwok MD - 09/27/2022 [facility] Diagnostic Imaging Department [address] [place] [address] Patient: SALINASUMIT /Age/Sex: 1960 - 60 - F Unit#: [id number] [facility]ing Site: [facility] Ordering Physician: KENDRICK LARSON MD [facility] Screening Digital - 08/08/21927 EXAM: [facility] Screening Digital EXAM DATE AND TIME: 08/08/2021 9:29 AM HISTORY: Screening. COMPARISON: 08/07/20, 01/18/19, 06/28/17 TECHNIQUE: CC and MLO views of both breasts were obtained using fullfield digital mammography. Bilateral digital breast tomosynthesis was performedin the MLO projection. Computer aided detection with the [employer] [place].[employer]as employed. TISSUE DENSITY: c. The breasts are [...] Evaluation RECOMMENDATION(S): 1: Repeat film(s) needed RIGHT 69635, 81125 3340F, 7025F Dictating Physician: LISBETH KWOK MD Electronically Signed by: LISBETH WKOK MD Dic Date/Time: 08/08/21 1123 Sign date/Time: 08/08/21 1124 Sharon Tolliver MD IMG BI PROCEDURES Final Result from Last 3 Months or Most Recently Relevant to Health Maintenance
--- OUTSIDE RECORDS SUMMARY | 2025-02-09 11:59 | XMS_ITS | Continuity of Care Document ---
Author Organization [facility] Address [address] [place] [address] [address] [place] [address] Phone Care Team Providers Care Cell Repairer Name Role Phone Livan ROSALES, ALTAF, Blayne [...] Mins- [place] & [place] [facility], [address] [place] [address] [address], [place], [id number], [place] tel:[phone] [facility] - [place] [facility] [place] Chronic venous hypertension (idiopathic) with other complications of bilateral lower extremityPain in right legPain in left legRestless legs syndromeEssen tial (primary) hypertensionV enous insufficiency (chronic) (peripheral)C ramp and spasmLocalize d edema 4 Livan ROSALES, ALTAF, JUAN Cisneros. [address] [facility], [facility] [address], [place], [place], [id number] , [place]. tel:[phone] Referring Provider: Sharon Baum MD, [address] [place] [address] , [address] [place] D/B/A: ana [facility] [place], [address]. tel:[phone] [facility], [address] [facility] [address], [place], [id number], [place] tel:[phone] [facility] Chronic venous hypertension (idiopathic) with other complications of bilateral lower extremity Livan ROSALES, RVT, RPVI Blayne. [address] [facility] [address], [place], [place], [id number] , [place]. tel:[phone] Referring Provider: Sharon Baum MD, [address] [facility] , [address] [place] D/B/A: [place], [address]. tel:[phone] Family History Family Member Type Diagnosis Age At Onset No Information Payers Payer name Insurance type Covered democrat ID Authoriza tiradha(s) Azeb [id number] Social History Type Description Quantity Date Captured [...]
== END 2025-02-09 10:35 | disposition home or self-care (01) ==
LOC: HO.US 10:34
PROVIDERS: PCP Internal Medicine; Visit Provider Internal Medicine
DX: M79.604 Pain in right leg (principal)
CPT/HCPCS: 93971

== ENCOUNTER → 2025-02-09 10:43 | Outpatient (BNV) | payer OTHER, SELFPAY | PROVIDERS: PCP Internal Medicine; Visit Provider Radiology Diagnostic Radiology | DX: M79.604 Pain in right leg (principal); M23.42 Loose body in knee, left knee | CPT/HCPCS: 73560; 93971 ==

== ENCOUNTER 2025-02-09 14:09 | Outpatient (AMB) | payer OTHER, SELFPAY ==
[2025-02-09 14:23] VITALS: BMI 24.5
--- NOTE | 2025-02-09 14:23 | A.OFFVIS_ITS ---
Vital Signs 02/09/25 14:23 Height 5 ft 6 in Weight 152 lb BMI 24.5 Intake Visit Reasons: New prob LT knee pain Intake Note: Lily is a 64 year old female who presents today for an evaluation of left knee pain. She was recently seen for her right knee and is doing P.T. Patient is current,y complaining of consent left knee pain that started approx 2-3 months ago and has worsen. States she is having swelling, sharp pain, gives out when walking and leg weakness. Pain is in her medial aspect of knee. Takes ibuprofen daily to help manage her pain. Hx of neuropathy, numbness and tingling in toes. Allergies Penicillins Allergy (Unknown, Verified 02/09/25 14:27) Swelling Medication List - Last Reconciled 02/09/25 by Nataliya Shanks PA-C calcium carbonate-vitamin D3 600 mg-20 mcg (800 unit) (Caltrate plus D) 1 tab PO DAILY folic acid 1 mg PO DAILY 90 days gabapentin 600 mg PO TID 30 days ibuprofen 800 mg PO Q8H PRN 30 days levothyroxine 75 mcg PO DAILY 30 days lorazepam 0.5 mg PO BEDTIME PRN losartan 25 mg PO DAILY 90 days methotrexate sodium 10 mg (4 x 2.5 mg) PO QWEEK 30 days multivitamin (Multiple Vitamins tablet) 1 tab PO DAILY HPI HPI New prob LT knee pain: Details: 64 yo female presents to the office today for left knee pain [id number]. Denies injury. She has medial sided pain that is worse with activity. She feels the knee will give out at times. [facility] Medical History Sjogrens syndrome Mild recurrent major depression Hypothyroidism Obstructive sleep apnea hypopnea, mild Witnessed apneic spells Loud snoring Postherpetic neuralgia Depression Ingrown toenail Overactive bladder Hypothyroidism Pulmonary nodules Ankylosis of thoracic spine Goiter 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 Surgical History SS-A antibody positive Sjogren syndrome with lung involvement History of brain surgery Hx of esophagogastroduodenoscopy Hx of colonoscopy History of thyroidectomy Family History Father Diabetes Stroke Alzheimer disease Mother Alzheimer disease Parkinson disease Depression Arthritis Son Multiple sclerosis Son Learning disability Brother Diabetes Sister Diabetes Hypertension Family/Other History of breast cancer Social History (Updated 02/09/25 @ 14:28 by ODILIA Newsome) Household Members: None Housing: Condominium Alcohol intake: never Patient Tobacco Use Status: Former Tobacco user Tobacco use type: Cigarette e-Cigarette/Vaping Use: Never Used Second Hand Smoke Exposure: No Substance Use Type: Marijuana service: No Current occupational status: employed Current occupation: [employer]/ rt hand Current occupational exposures/hazards: No Cognitive needs: No Hearing needs: No Vision needs: No Review of Systems Const All systems reviewed & are unremarkable except as noted in HPI and below Physical Exam Vital Signs: BMI result Body Mass Index 24.5 Extrem Other: Left knee normal to inspection. No joint effusion present. She has full range of motion. Medial joint line tenderness with a positive Angela's. Calf supple and nontender neurovascularly intact. Results Reviewed Results Reviewed: X-rays of the left knee obtained in the office today and reviewed by me show mild osteoarthritis of the medial joint line. Assessment & Plan Assessment & Plan (1) Osteoarthritis of left knee: Code(s): M17.12 - Unilateral primary osteoarthritis, left knee Category: Medical Plan: We discussed options today which include physical therapy. An order was placed today. I also fit her for a knee brace to help with stability. We discussed the benefits of steroid injection which she would like to hold off on at this time. If symptoms persist or worsen and there is significant limitations in daily activities she can contact our office to discuss further options whether it be an MRI versus injection. Orders: Orders XR knee LT 2V Today M25.562 - Pain in left knee Coding Level of Care Code Est Pt Level 3 (87673) Complex EM visit Add On G2211 Diagnoses Osteoarthritis of left knee M17.12
--- OUTSIDE RECORDS SUMMARY | 2025-02-09 15:44 | XMS_ITS | Continuity of Care Document ---
Author Organization [facility] Address [address] [place] [address] [address] [place] [address] Phone Care Team Providers Care Production Control Manager Name Role Phone Livan ROSALES, ALTAF, Blayne [...] [place] & [place] [facility], [address] [place] [address] [address], [place], [id number], [place] tel:[phone] [facility] - [place] Chronic venous hypertension (idiopathic) with other complications of bilateral lower extremityPain in right legPain in left legRestless legs syndromeEssen tial (primary) hypertensionV enous insufficiency (chronic) (peripheral)C ramp and spasmLocalize d edema 4 Livan ROSALES, ALTAF, JUAN Cisneros. [address] [facility], [facility] [address], [place], [place], [id number] , [place]. tel:[phone] Referring Provider: Sharon Baum MD, [address] [place] [address] , [address] [place] D/B/A: ana [facility] [place], [address]. tel:[phone] [facility], [address] [facility] [address], [place], [id number], [place] tel:[phone] [facility] Chronic venous hypertension (idiopathic) with other complications of bilateral lower extremity Livan ROSALES, RVT, RPVI Blayne. [address] [facility] [address], [place], [place], [id number] , [place]. tel:[phone] Referring Provider: Sharon Baum MD, [address] [facility] , [address] [place] D/B/A: [place], [address]. tel:[phone] Family History Family Member Type Diagnosis Age At Onset No Information Payers Payer name Insurance type Covered republican ID Authoriza tiradha(s) Azeb [id number] Social History Type Description Quantity Date Captured [...]
== END 2025-02-09 14:36 | disposition home or self-care (01) ==
LOC: HO.HOS 14:10
PROVIDERS: PCP Internal Medicine; Visit Provider Physician Assistant
DX: M17.12 Unilateral primary osteoarthritis, left knee (principal)
CPT/HCPCS: 99213

== ENCOUNTER 2025-02-18 09:51 | Outpatient (REF) | payer OTHER, SELFPAY ==
--- OUTSIDE RECORDS SUMMARY | 2025-02-18 11:44 | XMS_ITS | Continuity of Care Document ---
Author Organization [facility] Address [address] [place] [address] [address] [place] [address] Phone Care Team Providers Care Tie Inspector Name Role Phone Livan ROSALES, ALTAF, Blayne [...] [place] & [place] [facility], [address] [place] [address] [address], [place], [id number], [place] tel:[phone] [facility] [place] Chronic venous hypertension (idiopathic) with other complications of bilateral lower extremityPain in right legPain in left legRestless legs syndromeEssen tial (primary) hypertensionV enous insufficiency (chronic) (peripheral)C ramp and spasmLocalize d edema 4 Livan ROSALES, ALTAF, JUAN Cisneros. [address] [facility], [facility] [address], [place], [place], [id number] , [place]. tel:[phone] Referring Provider: Sharon Baum MD, [address] [place] [address] , [address] [place] D/B/A: ana [facility] [place], [address]. tel:[phone] [facility], [address] [facility] [address], [place], [id number], [place] tel:[phone] [facility] Chronic venous hypertension (idiopathic) with other complications of bilateral lower extremity Livan ROSALES, RVT, RPVI Blayne. [address] [facility] [address], [place], [place], [id number] , [place]. tel:[phone] Referring Provider: Sharon Baum MD, [address] [facility] , [address] [place] D/B/A: [place], [address]. tel:[phone] Family History Family Member Type Diagnosis Age At Onset No Information Payers Payer name Insurance type Covered alliance party ID Authoriza tiradha(s) Azeb [id number] Social History Type Description Quantity Date Captured [...]
--- OUTSIDE RECORDS SUMMARY | 2025-02-18 11:44 | XMS_ITS | Clinical Summary ---
Author Organization [employer] [facility] Address [address] [place] [address] Care Team Providers Care Vinyl Top Installer Name Role Phone Unavailable Primary Care Provider [...] DX:Anxiety; COMM ENT: 04/16-negative stress test at [facility] Brain cyst 10/24/2010 DX:Brain cyst; C OMMENT: [...] Recently Relevant to Health Maintenance Results * [facility] SCREENING DIGITAL (08/08/2021 11:24 AM EDT) Anatomical Region Laterality Modality Mammography 08/08/2021 9:06 AM EDT Narrative 08/08/2021 11:24 AM EDT [facility] Diagnostic Imaging Department [address] [place] [address] Patient: ??SUMIT DOWNING ?/Age/Sex: 1960 - 60 - F Unit#: ??[id number] ? Location/Status: ??SPDIMAM/REG CLI ? Mnemonic/Ordering Site: ??DIGSC/SPMAM Ordering Physician: ??KENDRICK LARSON MD [facility] Screening Digital - 08/08/21927 EXAM: [facility] Screening Digital EXAM DATE AND TIME: 08/08/2021 9:29 AM HISTORY: ??Screening. COMPARISON: ??08/07/20, 01/18/19, 06/28/17 TECHNIQUE: CC and MLO views of both breasts were obtained using full field digital mammography. Bilateral digital breast tomosynthesis was performed in the MLO projection. Computer aided detection with the [employer] 7.2-H was employed. TISSUE DENSITY: c. The [...] Evaluation RECOMMENDATION(S): 1: Repeat film(s) needed RIGHT 67662, 02911 3340F, 7025F Dictating Physician: ??LISBETH KWOK MD Electronically Signed by: ??LISBETH KWOK MD Dic Date/Time: ??08/08/21 1123 Sign date/Time: ??08/08/21 1124 Procedure Note Lisbeth Kwok MD - 09/27/2022 [facility] Diagnostic Imaging Department [address] [place] [address] Patient: SALINASUMIT /Age/Sex: 1960 - 60 - F Unit#: [id number] [facility]Ordering Site: [facility] Ordering Physician: KENDRICK LARSON MD [facility] Screening Digital - 08/08/21927 EXAM: [facility] Screening Digital EXAM DATE AND TIME: 08/08/2021 9:29 AM HISTORY: Screening. COMPARISON: 08/07/20, 01/18/19, 06/28/17 TECHNIQUE: CC and MLO views of both breasts were obtained using fullfield digital mammography. Bilateral digital breast tomosynthesis was performedin the MLO projection. Computer aided detection with the [employer]as employed. TISSUE DENSITY: c. The breasts are [...] Evaluation RECOMMENDATION(S): 1: Repeat film(s) needed RIGHT 08209, 51541 3340F, 7025F Dictating Physician: LISBETH KWOK MD Electronically Signed by: LISBETH KWOK MD Dic Date/Time: 08/08/21 1123 Sign date/Time: 08/08/21 1124 Sharon Tolliver MD IMG BI PROCEDURES Final Result from Last 3 Months or Most Recently Relevant to Health Maintenance
[2025-02-21 00:39] LABS: TS Negative Control Passed; TS Panel A 0; TS Panel B 0; TS Positive Control Passed; TSpotTB Negative (Negative)
[2025-02-23 15:48] LABS: Glucose-6-Phosphate Dehydrogen 17.7 U/g Hgb (7.0-20.5)
== END 2025-02-18 09:52 | disposition home or self-care (01) ==
LOC: HO.HKASLDS 09:51
PROVIDERS: PCP Internal Medicine; Visit Provider Internal Medicine Rheumatology
DX: M32.9 Systemic lupus erythematosus, unspecified (principal); M35.00 Sjogren syndrome, unspecified; R76.8 Other specified abnormal immunological findings in serum
CPT/HCPCS: 36415; 82955; 86481

== ENCOUNTER 2025-02-18 09:51 | Outpatient (AMB) | payer OTHER, SELFPAY ==
--- NOTE | 2025-02-18 09:53 | A.OFFVIS_ITS ---
Vital Signs 02/18/25 09:56 Height 5 ft 6 in Weight 154 lb BMI 24.9 BP 118/80 Blood Pressure Location Lt brachial Position Sitting Pulse 73 Pulse Source Pulse Oximeter Pulse Oximetry (%) 97 Oxygen Delivery Method Room Air Intake Visit Reasons: discuss labs Intake Note: Patient presents today for a follow up for trochanteric bursitis and positive SHARON Allergies Penicillins Allergy (Unknown, Verified 02/18/25 09:55) Swelling HPI HPI discuss labs: Details: She saw neurologist Dr. Lira recently polyneuropathy. She reports that there was no change of EMGs of bilateral of UE and LE. She is on gabapentin 600mg TID with benefit but still experiencing pain from neurpathy in LE. She has been experiencing hand pain and stiffness since age 38. MS hours. [facility] Medical History (Updated 02/18/25 @ 09:55 by Chelsy Montgomery [facility]) High blood pressure associated with diabetes Sjogrens syndrome Mild recurrent major depression Hypothyroidism Obstructive sleep apnea hypopnea, mild Witnessed apneic spells Loud snoring Postherpetic neuralgia Depression Ingrown toenail Overactive bladder Hypothyroidism Pulmonary nodules Ankylosis of thoracic spine Goiter 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 Surgical History SS-A antibody positive Sjogren syndrome with lung involvement History of brain surgery Hx of esophagogastroduodenoscopy Hx of colonoscopy History of thyroidectomy Family History Father Diabetes Stroke Alzheimer disease Mother Alzheimer disease Parkinson disease Depression Arthritis Son Multiple sclerosis Son Learning disability Brother Diabetes Sister Diabetes Hypertension Family/Other History of breast cancer Social History (Updated 02/09/25 @ 14:28 by ODILIA Newsome) Household Members: None Housing: Condominium Alcohol intake: never Patient Tobacco Use Status: Former Tobacco user Tobacco use type: Cigarette e-Cigarette/Vaping Use: Never Used Second Hand Smoke Exposure: No Substance Use Type: Marijuana service: No Current occupational status: employed Current occupation: [employer]/ rt hand Current occupational exposures/hazards: No Cognitive needs: No Hearing needs: No Vision needs: No Physical Exam Vital Signs: Last Vital Signs Pulse 73 02/18/25 09:56 BP 118/80 02/18/25 09:56 Pulse Ox 97 02/18/25 09:56 Oxygen Delivery Method Room Air 02/18/25 09:56 BMI result Body Mass Index 24.9 Assessment & Plan Assessment & Plan (1) Systemic lupus erythematosus: Comment: SHARON 1:1280, negative Sm/DsDNA, pancytopenia (leukopenia, chronic normocytic anemia, thrombocytopenia), low C3 and C4 (2020), photosensitivity, raynaud's syndrome, peripheral neuropathy (no alternative etiology found at this time, workup with Neurology in process) is suggestive of SLE. She meets SLICC criteria. She does not have inflammatory arthritis on exam. She did not have multiple tender points on exam to suggest fibromyalgia. Unclear etiology for chronic diffuse arthralgias and myalgias at this time. It is interesting to note that she had resolution of chronic arthralgias when she was prescribed methotrexate 15 mg once weekly from PCP, which patient discontinued due to diagnosis of interstitial lung disease. HCQ was recommended by media marketing coordinator Dr. Najera when she developed hypocomplementemia in 2020 but patient did not take it as she felt her symptoms are tolerable. She may have been on hydroxychloroquine in the past without any change in her clinical symptoms. Code(s): M32.9 - Systemic lupus erythematosus, unspecified Category: Medical Qualifiers: Systemic lupus erythematosus type: unspecified Systemic lupus erythematosus organ involvement: unspecified Qualified Code(s): M32.9 - Systemic lupus erythematosus, unspecified Plan: labs ordered to assess disease activity I recommend that she continue to follow up with Neurologist at [facility] Dr. Lira for workup of peripheral neuropathy RTC 3 months (2) Sjogrens syndrome: Comment: SSA+ and sicca symptoms is suggestive of secondary Sjogren's syndrome. Dry mouth is tolerable with using Biotene products. She did not like xylimelts. She has mild dry eyes. We discussed further workup with minor salivary gland biopsy to confirm diagnosis. She has been following up with parachute inspector for interstitial lung disease attributed to Sjogren syndrome 1st found on imaging in July 2023. Repeat imaging July 2024 revealed resolution of 6 mm ground- glass opacity previously seen. PFTs from November 2021 reveal mild to moderate diffusion impairment. There has been report that patient had low titer positive rheumatoid factor and negative anti CCP antibody but I can not find result in expanse. Serological profile of high titer positive SHARON and rheumatoid factor can be seen in Sjogren syndrome. Code(s): M35.00 - Sjogren syndrome, unspecified Category: Medical Qualifiers: Sjogren's organ involvement: unspecified organ involvement Qualified Code(s): M35.00 - Sicca syndrome, unspecified Plan: General surgery consultation for minor salivary gland biopsy Dry eye management per Ophthalmology: Systane OTC and ocular gel at night Dry mouth: Continue Biotene OTC products Labs to assess disease activity ordered Follow up with parachute inspector with plan to repeat CT chest July 2025. I recommend repeating PFTs with diffusion lung capacity. Return to clinic in 3 months (3) Anticentromere antibodies present: Comment: With history of GERD and Raynaud's syndrome. She does not meet criteria for limited cutaneous systemic sclerosis at this time. Code(s): R76.8 - Other specified abnormal immunological findings in serum Category: Medical Plan: Monitor clinically (4) SHARON positive: Code(s): R76.8 - Other specified abnormal immunological findings in serum Category: Medical Plan: See above (5) SS-A antibody positive: Code(s): R76.8 - Other specified abnormal immunological findings in serum Category: Surgical Plan: See above (6) Raynauds phenomenon: Comment: Secondary. Code(s): I73.00 - Raynaud's syndrome without gangrene Category: Medical Qualifiers: Raynaud?s-associated gangrene presence: without gangrene Qualified Code(s): I73.00 - Raynaud's syndrome without gangrene Plan: Continue conservative management Orders: Orders T Spot TB Today M32.9 - Systemic lupus erythematosus, unspecified, M35.00 - Sjogren syndrome, unspecified, R76.8 - Other specified abnormal immunological findings in serum Tfkmkel-0-Slwwxpnis Dehydrogen Today M32.9 - Systemic lupus erythematosus, unspecified, M35.00 - Sjogren syndrome, unspecified Coding Level of Care Code Est Pt Level 4 (87947) Complex EM visit Add On G2211 Diagnoses Systemic lupus erythematosus, unspecified SLE type, unspecified organ involvement status M32.9 Systemic lupus erythematosus type: unspecified Systemic lupus erythematosus organ involvement: unspecified Sjogren's syndrome, with unspecified organ involvement M35.00 Sjogren's organ involvement: unspecified organ involvement Anticentromere antibodies present R76.8 SHARON positive R76.8 SS-A antibody positive R76.8 Raynaud's phenomenon without gangrene I73.00 Raynaud?s-associated gangrene presence: without gangrene Time Spent (min) 33
[2025-02-18 09:56] VITALS: BP 118/80; PULSE 73; O2SAT 97; BMI 24.9
--- OUTSIDE RECORDS SUMMARY | 2025-02-18 10:37 | XMS_ITS | Continuity of Care Document ---
Author Organization [facility] Address [address] [place] [address] [address] [place] [address] Phone Care Team Providers Care Crown And Bridge Technician Name Role Phone Livan ROSALES, ALTAF, Blayne [...] Mins- [place] & [place] [facility], [address] [place] [address] [address], [place], [id number], [place] tel:[phone] CVR - [place] - [place] Chronic venous hypertension (idiopathic) with other complications of bilateral lower extremityPain in right legPain in left legRestless legs syndromeEssen tial (primary) hypertensionV enous insufficiency (chronic) (peripheral)C ramp and spasmLocalize d edema 4 Livan ROSALES, ALTAF, JUAN Cisneros. [address] [facility], [facility] [address], [place], [place], [id number] , [place]. tel:[phone] Referring Provider: Sharon Baum MD, [address] [place] [address] , [address] [place] D/B/A: ana [facility] [place], [address]. tel:[phone] [facility], [address] [facility] [address], [place], [id number], [place] tel:[phone] [facility] Chronic venous hypertension (idiopathic) with other complications of bilateral lower extremity Livan ROSALES, RVT, RPVI Blayne. [address] [facility] [address], [place], [place], [id number] , [place]. tel:[phone] Referring Provider: Sharon Baum MD, [address] [facility] , [address] [place] D/B/A: [place], [address]. tel:[phone] Family History Family Member Type Diagnosis Age At Onset No Information Payers Payer name Insurance type Covered republican ID Authoriza tiradha(s) Azeb [id number] Social History Type Description Quantity Date Captured [...]
--- OUTSIDE RECORDS SUMMARY | 2025-02-18 10:37 | XMS_ITS | Clinical Summary ---
Author Organization [employer] [facility] Address [address] [place] [address] Care Team Providers Care Weather Analyst Name Role Phone Unavailable Primary Care Provider [...] DX:Anxiety; COMM ENT: 04/16-negative stress test at [facility] Brain cyst 10/24/2010 DX:Brain [...] Recently Relevant to Health Maintenance Results * [facility] SCREENING DIGITAL (08/08/2021 11:24 AM EDT) Anatomical Region Laterality Modality Mammography 08/08/2021 9:06 AM EDT Narrative 08/08/2021 11:24 AM EDT [facility] Diagnostic Imaging Department [address] [place] [address] Patient: ??SUMIT DOWNING ?/Age/Sex: 1960 - 60 - F Unit#: ??[id number] ? Location/Status: ??SPDIMAM/REG CLI ? Mnemonic/Ordering Site: ??DIGSC/SPMAM Ordering Physician: ??KENDRICK LARSON MD [facility] Screening Digital - 08/08/21927 EXAM: [facility] Screening Digital EXAM DATE AND TIME: 08/08/2021 9:29 AM HISTORY: ??Screening. COMPARISON: ??08/07/20, 01/18/19, 06/28/17 TECHNIQUE: CC and MLO views of both breasts were obtained using full field digital mammography. Bilateral digital breast tomosynthesis was performed in the MLO projection. Computer aided detection with the Zilli[employer] 7.2-H was employed. TISSUE DENSITY: c. The [...] Evaluation RECOMMENDATION(S): 1: Repeat film(s) needed RIGHT 76219, 34028 3340F, 7025F Dictating Physician: ??LISBETH KWOK MD Electronically Signed by: ??LISBETH KWOK MD Dic Date/Time: ??08/08/21 1123 Sign date/Time: ??08/08/21 1124 Procedure Note Lisbeth Kwok MD - 09/27/2022 [facility] Diagnostic Imaging Department [address] [place] [address] Patient: SALINASUMIT /Age/Sex: 1960 - 60 - F Unit#: [id number] [facility]Ordering Site: [facility] Ordering Physician: KENDRICK LARSON MD [facility] Screening Digital - 08/08/21927 EXAM: [facility] Screening Digital EXAM DATE AND TIME: 08/08/2021 9:29 AM HISTORY: Screening. COMPARISON: 08/07/20, 01/18/19, 06/28/17 TECHNIQUE: CC and MLO views of both breasts were obtained using fullfield digital mammography. Bilateral digital breast tomosynthesis was performedin the MLO projection. Computer aided detection with the [employer].2-oomaas employed. TISSUE DENSITY: c. The breasts are [...] Evaluation RECOMMENDATION(S): 1: Repeat film(s) needed RIGHT 00327, 40358 3340F, 7025F Dictating Physician: LISBETH KWOK MD Electronically Signed by: LISBETH KWOK MD Dic Date/Time: 08/08/21 1123 Sign date/Time: 08/08/21 1124 Sharon Tolliver MD IMG BI PROCEDURES Final Result from Last 3 Months or Most Recently Relevant to Health Maintenance
== END 2025-02-18 10:39 | disposition home or self-care (01) ==
LOC: HO.RHES 09:52
PROVIDERS: PCP Internal Medicine; Visit Provider Internal Medicine Rheumatology
DX: M32.9 Systemic lupus erythematosus, unspecified (principal); M35.00 Sjogren syndrome, unspecified; R76.8 Other specified abnormal immunological findings in serum; I73.00 Raynaud's syndrome without gangrene
CPT/HCPCS: 99214

== ENCOUNTER 2025-03-30 11:04 | Outpatient (RCR) | payer OTHER, SELFPAY ==
[2025-01-19 09:59] VITALS: BP 116/60; PULSE 98; O2SAT 76
--- NOTE | 2025-01-19 11:09 | MHC.PT.EP ---
[facility] [place] Office [place] Office [place] Office [address] Karri Saucedo [address] [phone] F: [phone] F: [phone] F: [phone] F: [phone] Physical Therapy Plan of Care Date of Evaluation: 01/19/25 Date of Surgery: Diagnosis: PT eval and treat, M17.11 Unilateral primary OA, right knee, Patellofemoral arthritis of right knee by Eden Shanks PA-C 12/01/24 Assessment: Pt is a RHD 64 y/o female, referred to PT for treatment of PT julián and treat, M17.11 Unilateral primary OA, right knee, Patellofemoral arthritis of right knee by Eden Shanks PA-C 12/01/24 . Pt reports history of knee pain R>L for the past 4-5 years , saw PCP>orthopedic>had xrays, has never had formal PT. 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 She states her goal is trying to get R knee straight and get stronger. She verbalizes fear of instability and knees giving. Currently she lacks any participation in exercise activity but vocalizes desire to start. Pt exhibits (+) valgus deformity, poor quad control, decreased hip IR bilaterally, present with anterior pelvic tilt. Pt verbalizes history of delay seeking therapy due to financial constraints (has a $40 copay). Pt will benefit from attending skilled PT services at a frequency of PT 1x/week x 3 weeks then elisabet will downgrade to once every other week for 3-4 weeks to address impairments, implement HEP, and restore functional mobility to improve function. 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 Of note: Pt is booked for nerve conduction testing next week ([facility]). Frequency and Duration: The patient will be seen 1x/week x 3 weeks, every other week for 3 weeks Short Term Goals: 1. AAROM R knee ext to -5 degrees. (IR: -9 R knee ext). 2. Complete SLR with good strength control. (IR: unable on R knee, pain with active QS). 3. Strength hip abductors 4+/5 B/L. 4. Initiate self care/HEP program. 5. Reduce knee pain by 50% in ADLS/IADLS. Usp Goals: 1. R knee ext to 0 degrees. 2. Demonstrate good strength and symmetry with bridge. 3. Negotiate stairs with good dynamic balance, good eccentric control. 4. I HEP. 5. Pt will demonstrate hip abduction strength 5/5 B/L. 6. Transition to gym/silver sneakers program MOD I. Treatment Plan: Modalities to reduce pain, spasms and effusion. Manual therapy to restore motion and function. Therapeutic exercise to improve strength and flexibility. Neuromuscular re-education for posture and balance. Therapeutic activities to return to functional activities of daily living. Electronically signed by: Mgagy Tabares, PT, DPT Please sign and return to therapist. Thank you for your referral.
--- NOTE | 2025-03-09 12:22 | MHC.PT.OD ---
[facility] [place] [facility] [place] [facility] [address] Karri Saucedo [address] [phone] F: [phone] F: [phone] F: [phone] F: [phone] Physical Therapy Daily Note Diagnosis: PT eval and treat, M17.11 Unilateral primary OA, right knee, Patellofemoral arthritis of right knee by Eden Shanks PA-C 12/01/24 Date of Surgery: Date of Evaluation: 01/19/25 Date of Treatment: 03/09/25 Treatments to Date: Cancellations to Date: No Shows to Date: Authorized Visits: Insurance End Date: Precautions/ Contraindications: Subjective: Pain Score and Location: 10 Objective Flowsheet: Tests & Measures Exercises Modalities Assessment: 03/09/25; Pt NS for appt at 10:00am. 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 PT Plan: Short Term Goals: 1. AAROM R knee ext to -5 degrees. (IR: -9 R knee ext). 2. Complete SLR with good strength control. (IR: unable on R knee, pain with active QS). 3. Strength hip abductors 4+/5 B/L. 4. Initiate self care/HEP program. 5. Reduce knee pain by 50% in ADLS/IADLS. Dovetail Machine Operator Goals: 1. R knee ext to 0 degrees. 2. Demonstrate good strength and symmetry with bridge. 3. Negotiate stairs with good dynamic balance, good eccentric control. 4. I HEP. 5. Pt will demonstrate hip abduction strength 5/5 B/L. 6. Transition to gym/silver sneakers program MOD I. Electronically signed by: Maggy Tabares, PT, DPT
== END 2025-05-07 07:18 | disposition home or self-care (01) ==
LOC: HO.PTS 11:04
PROVIDERS: PCP Internal Medicine; Visit Provider Physician Assistant
DX: M17.0 Bilateral primary osteoarthritis of knee (principal)
CPT/HCPCS: 97110; 97140; 97162; 97535

== ENCOUNTER 2025-04-06 08:33 | Outpatient (AMB) | payer OTHER, SELFPAY ==
--- OUTSIDE RECORDS SUMMARY | 2024-01-03 07:30 | XMS_ITS | Continuity of Care Document ---
Author Organization [facility] Address [address] [place] [address] [address] [place] [address] Phone Care Team Providers Care Polysomnographic Technologist Name Role Phone Livan ROSALES, ALTAF, Blayne [...] Mins- [place] & [place] [facility], [address] [place] [address] [address], [place], [id number], [place] tel:[phone] CVR - [place] [facility] [place] Chronic venous hypertension (idiopathic) with other complications of bilateral lower extremityPain in right legPain in left legRestless legs syndromeEssen tial (primary) hypertensionV enous insufficiency (chronic) (peripheral)C ramp and spasmLocalize d edema 4 Livan ROSALES, ALTAF, JUAN Cisneros. [address] [facility], [facility] [address], [place], [place], [id number] , [place]. tel:[phone] Referring Provider: Sharon Baum MD, [address] [place] [address] , [address] [place] D/B/A: ana [facility] [place], [address]. tel:[phone] [facility], [address] [facility] [address], [place], [id number], [place] tel:[phone] [facility] Chronic venous hypertension (idiopathic) with other complications of bilateral lower extremity Livan ROSALES, RVT, RPVI Blayne. [address] [facility] [address], [place], [place], [id number] , [place]. tel:[phone] Referring Provider: Sharon Baum MD, [address] [facility] , [address] [place] D/B/A: [place], [address]. tel:[phone] Family History Family Member Type Diagnosis Age At Onset No Information Payers Payer name Insurance type Covered libertarian ID Authoriza tiradha(s) Azeb [id number] Social History Type Description Quantity Date Captured [...]
[2025-04-06 08:40] VITALS: BP 122/70; PULSE 70; O2SAT 99; BMI 24.4
--- NOTE | 2025-04-06 08:40 | MHC.OFFVIS ---
Vital Signs 04/06/25 08:40 Height 5 ft 6 in Weight 151 lb 3.794 oz BMI 24.4 BP 122/70 Blood Pressure Location Rt brachial Position Sitting Pulse 70 Pulse Source Pulse Oximeter Pulse Oximetry (%) 99 Oxygen Delivery Method Room Air Intake Visit Reasons: Postprocedural hypothyroidism Intake Note: Patient present today for postprocedural hypothyroidism. Body Shop Worker Required: No Accompanied by: Self / Same As Patient Allergies Penicillins Allergy (Unknown, Verified 04/06/25 08:44) Swelling Medication List - Last Reconciled 04/06/25 by Inez Sutton MD calcium carbonate-vitamin D3 600 mg-20 mcg (800 unit) (Caltrate plus D) 1 tab PO DAILY gabapentin 600 mg PO TID 30 days hydroxychloroquine 300 mg (1.5 x 200 mg) PO DAILY 30 days ibuprofen 800 mg PO Q8H PRN 30 days levothyroxine 75 mcg PO DAILY 30 days lorazepam 0.5 mg PO BEDTIME PRN losartan 25 mg PO DAILY 90 days multivitamin (Multiple Vitamins tablet) 1 tab PO DAILY HPI Comments Details: 64-year-old female coming in today for initial evaluation of postprocedural hypothyroidism. Hypothyroidism 03/2020 after complete thyroidectomy for nodule, who presents for management. Currently she is confused whether she is on levothyroxine 75 or 88 mcg daily. takes it appropriately. She shayla both bottles in, labs from January 2025 showed Tsh low at 0.19, no free t4 done, she was sent a precription for reducing levothyroxine from 88 to 75 but she doesnt know [facility] one she is taking currently. Some constipation, reports cold intolerance, she was having some palpitations for years , resolved after losartan was started summer. no tremors . Patient denies any pain on swallowing or voice changes or difficulty breathing. Describes some difficulty swallowing. Dysphagia is likely related to dry mouth and esophageal motility disorder associated with Sjogren syndrome per GI notes , she follows with GI and gets esophageal dilatation done. Patient denies any history of childhood neck radiation. Denies having ever used lithium, amiodarone or biotin supplements. Patient denies any family history of thyroid cancer. Mother, sister , niece some thyroid disease . Physical exam General: sitting comfortably in no acute distress HEENT: normocephalic/atraumatic, moist oral mucosa Neck: supple, symmetrical, no thyromegaly , Cardiac: normal heart sounds Pulm: normal breath sounds B/L, no added breath sounds Abd: not distended, no tenderness Extremities: no edema, no signs of myxedema Neuro: AAO x3, Speech: normal, no facial droop, moving all 4 extremities Laboratory Tests 07/30/24 12/01/24 01/22/25 09:14 10:53 10:11 TSH 6.02 H 0.09 L 0.59 01/28/25 08:35 TSH 0.19 L [facility] Medical History (Updated 02/18/25 @ 14:01 by Rome bAbott MD) High blood pressure associated with diabetes Sjogrens syndrome Mild recurrent major depression Hypothyroidism Obstructive sleep apnea hypopnea, mild Witnessed apneic spells Loud snoring Postherpetic neuralgia Depression Ingrown toenail Overactive bladder Hypothyroidism Pulmonary nodules Ankylosis of thoracic spine Goiter 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 Surgical History SS-A antibody positive Sjogren syndrome with lung involvement History of brain surgery Hx of esophagogastroduodenoscopy Hx of colonoscopy History of thyroidectomy Family History Father Diabetes Stroke Alzheimer disease Mother Alzheimer disease Parkinson disease Depression Arthritis Son Multiple sclerosis Son Learning disability Brother Diabetes Sister Diabetes Hypertension Family/Other History of breast cancer Social History Household Members: None Housing: Condominium Alcohol intake: never Patient Tobacco Use Status: Former Tobacco user Tobacco use type: Cigarette e-Cigarette/Vaping Use: Never Used Second Hand Smoke Exposure: No Substance Use Type: Marijuana service: No Current occupational status: employed Current occupation: [employer]/ rt hand Current occupational exposures/hazards: No Cognitive needs: No Hearing needs: No Vision needs: No Physical Exam Vital Signs: Last Vital Signs Pulse 70 04/06/25 08:40 BP 122/70 04/06/25 08:40 Pulse Ox 99 04/06/25 08:40 Oxygen Delivery Method Room Air 04/06/25 08:40 BMI result Body Mass Index 24.4 Assessment & Plan Assessment & Plan (1) Hypothyroidism: Code(s): E03.9 - Hypothyroidism, unspecified Category: Medical Qualifiers: Hypothyroidism type: postoperative Qualified Code(s): E89.0 - Postprocedural hypothyroidism Plan: 64-year-old female with a history of postsurgical hypothyroidism after thyroidectomy in March 2020 for a nodule. Per patient pathology was benign. She has been on levothyroxine since the surgery. Most recently blood work done in January 2025 by PCP showed TSH was 0.19 which is low. No free T4 was done. She did not have any significant symptoms of hyperthyroidism. However clearly indicated that her dosage of levothyroxine needed to be reduced. PCP adequately reduced the dose from 88 to 75 mcg daily. Patient however was unsure of her dose, and she has been taking whichever bottle she picks up in the morning, and she has both the 88 mcg at the 75 mcg pills on her. At this time given she is not sure what she is on, I have asked her to now stick with 75 mcg daily and then do blood work in 6 weeks. I will follow up with her in 7 weeks to discuss results. Plan: -continue levothyroxine 75 mcg daily -do TSH and free T4 in 6 weeks -follow up in 7 weeks to discuss results Plan I spent 45 minutes in reviewing the record, seeing the patient and documenting in the medical record. Orders: Orders Thyroid Stimulating Hormone 6 Weeks E89.0 - Postprocedural hypothyroidism Free T4 (Free Thyroxine) 6 Weeks E89.0 - Postprocedural hypothyroidism Patient Instructions: Continue levothyroxine 75 mcg daily Do blood work in 6 weeks Follow up with me in 7 weeks to discuss results Coding Level of Care Code New Pt Level 4 (63335) Diagnoses Postoperative hypothyroidism E89.0 Hypothyroidism type: postoperative Time Spent (min) 45
== END 2025-04-06 09:45 | disposition home or self-care (01) ==
LOC: HO.ENCR 08:34
PROVIDERS: PCP Internal Medicine; Visit Provider Student in an Organized Health Care Education/Training Program
DX: E89.0 Postprocedural hypothyroidism (principal)
CPT/HCPCS: 99204

== ENCOUNTER 2025-04-06 08:33 | Outpatient (REF) | payer OTHER, SELFPAY ==
--- NOTE | ~2025-04-06 | XR_ITS ---
CLINICAL HISTORY: M79.641 - Pain in right hand --- Additional Notes or Special Instructions: hx of chronic hand pain since age 38s. ?inflammatory arthritis 3 view left hand Comparison: None provided Findings: No fractures or dislocations. Mild degenerative change of the base of the left 1st metacarpal. No erosions. No radiopaque foreign body. IMPRESSION: 1. No acute findings 2. Mild degenerative changes. This document has been electronically signed by: Harjinder Hayden MD on 04/08/2025 12:45:55
--- NOTE | ~2025-04-06 | XR_ITS ---
CLINICAL HISTORY: M79.641 - Pain in right hand --- Additional Notes or Special Instructions: hx of chronic hand pain since age 38s. ?inflammatory arthritis 3 view right hand Comparison: None provided Findings: Bones intact. No dislocations. No significant loss of joint space or osteophytes. No erosions. No radiopaque foreign body. IMPRESSION: 1. No acute findings This document has been electronically signed by: Harjinder Hayden MD on 04/08/2025 12:45:31
== END 2025-04-06 08:34 | disposition home or self-care (01) ==
LOC: HO.XRAY 08:33
PROVIDERS: Absent Provider Internal Medicine Rheumatology; PCP Internal Medicine; Visit Provider Student in an Organized Health Care Education/Training Program
DX: M79.641 Pain in right hand (principal); M79.642 Pain in left hand
CPT/HCPCS: 73130

== ENCOUNTER → 2025-04-06 10:37 | Outpatient (BNV) | payer OTHER, SELFPAY | PROVIDERS: Absent Provider Internal Medicine Rheumatology; PCP Internal Medicine; Visit Provider Radiology Vascular & Interventional Radiology | DX: M79.641 Pain in right hand (principal); M79.642 Pain in left hand | CPT/HCPCS: 73130 ==

== ENCOUNTER 2025-05-04 08:46 | Outpatient (REF) | payer OTHER, SELFPAY ==
--- OUTSIDE RECORDS SUMMARY | 2024-01-03 07:30 | XMS_ITS | Continuity of Care Document ---
Author Organization [facility] Address [address] [place] [address] [address] [place] [address] Phone Care Team Providers Care Manager Salt Name Role Phone Livan ROSALES, ALTAF, Blayne MARTINEZ Unavailable U navailable Procedures Procedure Date Office/Oupt E&M New Pt 45 Mins- CT & [place] Duplex Scan-extrem Veins; Comp- [place] & [place] Advance Directives Directive Yes / No Effective Date File Name Other Directive No N/A N/A WARNING:The information contained in this section is historical and is provided for information only and does not constitute a legal document or any assurance that the information is still accurate. Please verify the information with the bonilla of the legal document before using it for clinical purposes. Encounters Encounter Description Practice Location Reason(s) For Visit Diagnoses Date Provider Providers Copied on Encounter Office/Oupt E&M New Pt 45 Mins- [place] & [place] [facility], [address] [place] [address] [address], [place], [id number], [place] tel:[phone] CVR - [place] Chronic venous hypertension (idiopathic) with other complications of bilateral lower extremityPain in right legPain in left legRestless legs syndromeEssen tial (primary) hypertensionV enous insufficiency (chronic) (peripheral)C ramp and spasmLocalize d edema 4 Livan ROSALES, ALTAF, JUAN Cisneros. [address] [facility], [facility] [address], [place], [place], [id number] , [place]. tel:[phone] Referring Provider: Sharon Baum MD, [address] [place] [address] , [address] [place] D/B/A: [facility] [place], [address]. tel:[phone] [facility], [address] [facility] [address], [place], [id number], [place] tel:[phone] [facility] Chronic venous hypertension (idiopathic) with other complications of bilateral lower extremity Livan ROSALES, RVT, RPVI Blayne. [address] [facility] [address], [place], [place], [id number] , [place]. tel:[phone] Referring Provider: Sharon Baum MD, [address] [facility] , [address] [place] D/B/A: [place], [address]. tel:[phone] Family History Family Member Type Diagnosis Age At Onset No Information Payers Payer name Insurance type Covered democrat ID Authoriza tiradha(s) Azeb [id number] Social History Type Description Quantity Date Captured Comments Alcohol Use Details Unknown Caffeine Use Details Unknown Tobacco Use Status No Information Smoking Status Former Smoker Non-Smoking Tobacco Use Details : No Details Available : No Details Available Sex Female Vital Signs Date / Time: Height Weight BMI Pulse Rate Blood Pressure Temperature Respiratory Rate Body Surface Area Head Circumference Head Circ. Percentile Wt./David. Percentile BMI percentile Pulse Ox Inhaled Ox 63.050 kg (139.00 lbs) 22.5 0 kg/m eter (2) 112/72 mm[Hg] Chief Complaint And Reason For Visit No Information Reason For Referral Reason For Referral No Information Plan Of Treatment Date Type Action Status Goal Tobacco cessation counseling completed History Of Present Illness Encounter Date Complaint History Of Prese nt Illness No Information Functional Status Date Functional Assessmen t No Information Instructions Date Instruction Additional Infor mation Patient education booklet given Related to Chronic venous hypertension (idiopathic) with other complications of bilateral lower extremity Pre and post instruc tions reviewed and provided Related to Chronic venous hypertension (idiopathic) with other complications of bilateral lower extremity Assessments Type Assessment Date No Information Patient Care Teams Name Effective Dates (start - stop) Status Members No Information
--- OUTSIDE RECORDS SUMMARY | 2025-05-04 09:17 | XMS_ITS | Clinical Summary ---
Author Organization [facility] Address [address] [place] [address] Phone Care Team Providers Care Finished Goods Stock Clerk Name Role Phone Sharon Lopes MD Primary Care Provid er Allergies Active Allergy Reactions Criticality Noted Date Comments Penicillins Swelling 07/08/2024 Medications calcium carbonate-vitam in D3 (CALTRATE 600 PLUS D) 600 mg-20 mcg (800 unit) Chew Take by mouth daily. Active gabapentin (NEURONTIN) 600 MG tablet Take 600 mg by mouth 3 (three) times a day. Active ibuprofen (ADVIL,MOTRIN) 800 MG tablet Take 800 mg by mouth every 8 (eight) hours as needed for pain (specific location in comments). Active levothyroxine (SYNTHROID, LEVOTHROID) 75 MCG tablet Take 75 mcg by mouth every morning. Active LORazepam (ATIVAN) 0.5 MG tablet Take 0.5 mg by mouth nightly at bedtime as needed. Active polyethylene glycol (MIRALAX) 17 gram/dose powder Take 17 g by mouth daily. Active Family History Medical History Relation Comments Diabetes Brother Alzheimer's disease Father Diabetes Father Stroke Father Alzheimer's disease Mother Arthritis Mother Depression Mother Parkinson's disease Mother Diabetes Sister Hypertension Sister Multiple sclerosis Son Relation Status Comments Brother Father Mother Sister Son Social History Tobacco Use Types Packs/Day Years Used Date Smoking Tobacco: Never Assessed Education Answer Date Recorded Are you interested in more education? Not on leobardo e 01/22/2024 Are you concerned about learning? Not on file 01/22/2024 No 01/22/2024 No 01/22/2024 Digital Access Answer Date Recorded No 01/22/2024 No 01/22/2024 Reliable internet access at home? Not on file 01/22/2024 Device with a working camera? Not on file Comments Unknown Sex and Gender Information Value Date Recorded Sex Assigned at Not on file Legal Sex Female 2:36 PM EST Gender Identity Not on file Sexual Orientation Not on file Plan of Treatment Health Maintenance Due Date Last Done Comments Adult Td,Tdap Booster 1960 LIPID PANEL 1960 TSH LEVEL 1960 DEPRESSION SCREENING 1970 SMOKING Hx and SMOKELESS TOB ACCO SCREENING 1971 HEPATITIS C SCREENING 1976 MAMMOGRAM 1998 COLOGUARD 2003 COLONOSCOPY 2003 COLORECTAL CANCER SCREENING 2003 FIT TEST 2003 FOBT 2003 SIGMOIDOSCOPY 2003 VIRTUAL COLONOSCOPY 2003 PNEUMOCOCCAL VACCINES (50+ y ears) (1 of 1 - PCV) 2008 ZOSTER VACCINES (1 of 2) 2008 OSTEOPOROSIS SCREENING INITI AL (ONE-TIME) 2023 COVID-19 VACCINE ( - 2023-2 5 season) 2024 RSV VACCINE (1 - 1-dose 75+ series) 2033 HEPATITIS A VACCINES Aged Out No long er eligible based on patient's age to complete this topic HIB VACCINES Aged Out No longer eligi ble based on patient's age to complete this topic MENINGOCOCCAL VACCINES (ACWY) Aged Out No longer eligible based on patient's age to complete this topic MENINGOCOCCAL VACCINES (B) Aged Out N o longer eligible based on patient's age to complete this topic Medical Devices Not on file Insurance [employer] PPO MEDICARE A CIGNA PPO MEDICARE A CIGNA PPO MEDICARE A [facility] PPO MEDICARE A CIGNA PPO MEDICARE A CIGNA PPO MEDICARE A Care Teams Finished Goods Stock Clerk Relationship Specialty Start Date End Date [place] Unruly, Sharon Elizabeth, MD [address] [place] [address] PCP - General Internal Medicine 12/04/23 Additional Source Comments The information contained in this document represents components of the legal health record. It is not the complete legal health record.[facility]
--- OUTSIDE RECORDS SUMMARY | 2025-05-04 09:17 | XMS_ITS | Data Portability ---
Author Organization [place] - [facility], Allergy Address [address] [address] Care Team Providers Care 7Th Grade Social Studies Teacher Name Role Phone MIRLANDE LARSON Primary Care Provider Assessment No assessment recorded. Plan of Treatment Reminders Order Date Submit Date Provider Last Modified By Organization Details Last Modified Time Details Appointments None recorded. Lab surgical pathology study - right lower lip, eval for Sjogren's 2024 025 ROXANA [facility] (Centralized Electronic Ordering - All Locations), Patient Can Go To The Location Of Their Choice, [id number] 5 08:56:55 Referral None recorded. Procedures None recorded. Surgeries None recorded. Imaging None recorded. Medication Orders Peridex 0.12 % mouthwash 2024 025 ROXANA [id number], [phone] [place], [address], 5 16:20:30 Patient TargetsNo targets recorded. Patient InstructionsNo instructions recorded. Reason for Referral None Reported. Results Created Date Observation Date Name Description Value Unit Range Abnormal Flag Note LastModifiedBy Organization Detail LastModifiedTime Result Notes None recorded. Problems Name Problem SNOMED Code Status Onset Date Resolution Date Notes Provider Name and Address Organization Details Recorded Time Dysphagia 71160235 Active 021 Dyspha hernán, unspec ified; Note: Date Diagno sed: 021 1:44 PM (R13.1 0) Not Available [facility] 4 03:29:52 Dysphonia 19448484 Active 021 Dyspho sayra; Note: Date Diagno sed: 021 1:44 PM (R49.0 ) Not Available [facility] 4 03:29:52 Xerostomia 30141897 Active 025 LAN DÍAZ MD 100 [facility] [place] [address], [place], [address] , [facility] - [facility] 5 15:58:08 Problem Notes None recorded. Procedures Surgical History Date Name Laterality Status Provider Name and Address Organization Details Recorded Time 5 Minor salivary gland biopsy_JMS completed LAN DÍAZ MD 100 [facility],[place] [address], [place], [address], [facility] 04/20/2025 17:00:18 operation on brain completed LAN DAÍZ MD 100 [facility] [place] [address], [place], [address], [facility] - [facility] 04/20/2025 16:59:42 Imaging Results None recorded. Procedure Notes None recorded. Medical Equipment None Reported. Allergies Allergen ID Allergen Name Allergen Category Reaction Reaction Severity Criticality Documentation Date Start Date Code Code System Note Provider Name and Address Organization Details Recorded Time 730469 Product containin g penicilli n (product) medicatio n other Not available Not available 02/19/2024 52702 8001 SNOMED React ion: Unkno wn; Not Available [facility] 4 01:26:26 Medications Name Sig Start Date Stop Date Status Note LastModified by Organization Details LastModified Time pilocarpi ne 5 mg tablet 04/20 completed Medicati on ID: [id number] B rand Name: pilocarp ine HCl Send Method: E-Prescr ibed Sub s Allowed: subs OK Medic ationGen ericName : pilocarp ine HCl Not Available Not Available Not Available gabapenti n 600 mg tablet TAKE 1 TABLET BY MOUTH THREE TIMES A DAY active Not Available Not Available No t Available ibuprofen 800 mg tablet TAKE 1 TABLET ORALLY EVERY 8 HOURS NEEDED FOR PAIN FOR 30 DAYS active Not Available Not Available No t Available citalopra m 10 mg tablet 04/20 completed Medicati on ID: [id number] B rand Name: citalopr am Send Method: E-Prescr ibed Sub s Allowed: subs OK Medic ationGen ericName : citalopr am Not Available Not Available Not Available Peridex 0.12 % mouthwash Place 15 mL twice a day by mucous membrane route for 7 days. 2024 active Not Available Not Available Not Avai lable levothyro xine 75 mcg tablet TAKE 1 TABLET BY MOUTH EVERY DAY 04/20 completed Not Available Not Available Not Available levothyro xine 100 mcg tablet TAKE 1 TABLET BY MOUTH EVERY DAY X 90 DAYS 04/20 completed Not Available Not Available Not Available levothyro xine 88 mcg tablet TAKE 1 TABLET BY MOUTH DAILY active Not Available Not Available No t Available famotidin e 20 mg tablet 04/20 completed Medicati on ID: [id number] B rand Name: famotidi ne Send Method: E-Prescr ibed Sub s Allowed: subs OK Medic ationGen ericName : famotidi ne Not Available Not Available Not Available lorazepam 0.5 mg tablet TAKE 1 TABLET BY MOUTH AT BEDTIME NEEDED FOR ANXIETY active Not Available Not Available No t Available methotrex ate sodium 2.5 mg tablet TAKE 4 TABLETS ORALLY EVERY WEEK FOR 30 DAYS 04/20 completed Not Available Not Available Not Available losartan 25 mg tablet TAKE 1 TABLET BY MOUTH EVERY DAY active Not Available Not Available No t Available folic acid 1 mg tablet TAKE 1 TABLET BY MOUTH DAILY FOR 90 DAYS 04/20 completed Not Available Not Available Not Available hydroxych loroquine 200 mg tablet TAKE 1 & 1/2 TABLET BY MOUTH DAILY FOR 30 DAYS active Not Available Not Available No t Available ipratropi um bromide 21 mcg (0.03 %) nasal spray PLACE 2 SPRAYS IN EACH NOSTRIL TWICE DAILY FOR 7 DAYS 04/20 completed Not Available Not Available Not Available duloxetin e 20 mg capsule,d elayed release TAKE 1 CAPSULE BY MOUTH TWICE A DAY 04/20 completed Not Available Not Available Not Available Vitals Date Recorded Body height Body mass index (BMI) Body weight Provider Name and Address Organization Details Last Updated DateTime 04/20/2025 167.64 cm 24.2 kg/m2 48907.86 g Sharlene Rene [place] - [facility] 04/20/2025 15:50:55 Social History None recorded. Functional Status None recorded. Mental Status None recorded. Family History Nothing Reported. Medical History Condition Response Arthritis Y Migraines Y Anxiety Y Hypertension Y Depression Y Gynecological HistoryNo gynecological history recorded. Obstetrics History GPAL:G 0 P 0 0 0 0 Past Encounters Encounter ID Performer Location Encounter Start Date Encounter Closed Date Diagnosis/Indication Diagnosis SNOMED-CT Code Diagnosis ICD10 Code Diagnosis Note [id number] LAN DÍAZ MD [facility] [address] [address] 04/20/2025 15:34:59 04/20/2025 16:23:39 Xerostomia 88232341 R68.2 Minor salivary gland biopsy was performed today and tolerated well. We reviewed local wound care. Will review results by phone and she has follow-up with Dr. Abbott next month. Health Concerns Section Related Observation LastModified by Organization Detai ls LastModified Time None Recorded Concern Status LastModified by Organization Details LastModified Time None Recorded Advance Directives Directive None Recorded Payers Insurance Date Sequence Insurance Name Policy Number Policy Chilel Covered Member ID Chilel Member ID Guarantor Name 04/20/2025 1 [employer] [id number] Lily Turk [id number] 1 [id number] Lily Turk OBGyn Episode No OBEpisode recorded.
--- OUTSIDE RECORDS SUMMARY | 2025-05-04 09:17 | XMS_ITS | Clinical Summary ---
Author Organization [facility] Address [address] [place] [address] Care Team Providers Care Child Care Supervisor Name Role Phone Unavailable Primary Care Provider [...] DX:Anxiety; COMM ENT: 04/16-negative stress test at [facility] Brain cyst 10/24/2010 DX:Brain cyst; [...] 08/02/2017 08/02/2007 Colorectal Cancer Screening: Colonoscopy 09/16/2022 Hepatitis C Screening 09/16/2022 Osteoporosis Screening (Bone Density Screening) 09/16/2022 Social Influencers of Health Screening 09/16/2022 Breast Cancer Screening 08/08/2023 08/08/20 21, 08/08/2020, 01/18/2019 Falls Risk Assessment 2023 COVID-19 Vaccine ( - 2023-2 5 season) 2024 Depression Screening 10/08/2024 Influenza Vaccine (#1) 2025 5, 08/07/2014, 06/26/2011 RSV Immunization Adult Patients [...] Recently Relevant to Health Maintenance Results * [facility] SCREENING DIGITAL (08/08/2021 11:24 AM EDT) Anatomical Region Laterality Modality Mammography 08/08/2021 9:06 AM EDT Narrative 08/08/2021 11:24 AM EDT [facility] Diagnostic Imaging Department [address] [place] [address] Patient: SUMIT DOWNING./Age/Sex: 1960 - 60 - F Unit#: [id number] Location/Status: SPDIMAM/REG CLI Mnemonic/Ordering Site: [facility] Ordering Physician: KENDRICK LARSON MD [facility] Screening Digital - 08/08/21927 EXAM: [facility] Screening Digital EXAM DATE AND TIME: 08/08/2021 9:29 AM HISTORY: Screening. COMPARISON: 08/07/20, 01/18/19, 06/28/17 TECHNIQUE: CC and MLO views of both breasts were obtained using full field digital mammography. Bilateral digital breast tomosynthesis was performed in the MLO projection. Computer aided detection with the BlueArc 7.2-H was employed. TISSUE DENSITY: c. The [...] No evidence of malignancy is seen. BI-RADS: Category 0: Incomplete - Need Additional Imaging Evaluation RECOMMENDATION(S): 1: Repeat film(s) needed RIGHT 85097, 85507 3340F, 7025F Dictating Physician: LISBETH KWOK MD Electronically Signed by: LISBETH KWOK MD Dic Date/Time: 08/08/21 1123 Sign date/Time: 08/08/21 1124 Procedure Note Lisbeth Kwok MD - 09/27/2022 [facility] Diagnostic Imaging Department [address] [place], [place] [id number] Patient: SUMIT DOWNINGO.B./Age/Sex: 1960 - 60 - F Unit#: [id number] [facility] Ordering Physician: KENDRICK LARSON MD [facility] Screening Digital - 08/08/21927 EXAM: [facility] Screening Digital EXAM DATE AND TIME: 08/08/2021 9:29 AM HISTORY: Screening. COMPARISON: 08/07/20, 01/18/19, 06/28/17 TECHNIQUE: CC and MLO views of both breasts were obtained using fullfield digital mammography. Bilateral digital breast tomosynthesis was performedin the MLO projection. Computer aided detection with the BlueArc 7.2-Hwas employed. TISSUE DENSITY: c. The breasts are [...] Evaluation RECOMMENDATION(S): 1: Repeat film(s) needed RIGHT 88814, 98858 3340F, 7025F Dictating Physician: LISBETH KWOK MD Electronically Signed by: LISBETH KWOK MD Dic Date/Time: 08/08/21 1123 Sign date/Time: 08/08/21 1124 Sharon Tolliver MD IMG BI PROCEDURES Final Result from Last 3 Months or Most Recently Relevant to Health Maintenance
[2025-05-04 10:08] LABS: Free T4 (Free Thyroxine) 0.98 ng/dL (0.71-1.85); Thyroid Stimulating Hormone 8.43 uIU/mL (0.32-4.0)
== END 2025-05-04 08:47 | disposition home or self-care (01) ==
LOC: HO.LAB 08:46
PROVIDERS: PCP Internal Medicine; Visit Provider Student in an Organized Health Care Education/Training Program
DX: E89.0 Postprocedural hypothyroidism (principal)
CPT/HCPCS: 36415; 84439; 84443

== ENCOUNTER 2025-05-28 07:32 | Outpatient (REF) | payer OTHER, SELFPAY ==
[2025-05-28 13:11] LABS: MANUAL DIFF FLAG NO
[2025-05-28 13:20] LABS: Hematocrit 34.8 % (37.0-47.0); Hemoglobin 11.4 g/dl (12.0-16.0); Imm Gran Abs Auto 0.02 X10*3/uL (0.00-0.03); Imm Gran Pct Auto 0.6 % (0.0-0.4); Lymphocytes Absolute Auto 1.5 X10*3/uL (1.2-4.9); Mean Corpuscular HGB Conc 32.8 g/dl (31.0-35.0); Mean Corpuscular Hemoglobin 30.3 pg (27.0-33.0); Mean Corpuscular Volume 92.6 fL (80.0-98.0); NRBC Abs Auto 0.000 X10*3/uL (0.0-0.012); NRBC Pct Auto 0.0 /100WBC (0.0-0.2); Platelet Count 153 X10*3/uL (160-400); Red Blood Count 3.76 X10*6/uL (4.20-5.50); White Blood Count 3.5 X10*3/uL (4.8-10.8)
[2025-05-28 13:40] LABS: Alanine Aminotransferase 21 U/L (0-31); Aspartate Amino Transferase 30 U/L (5-31); Estimated Glomerular Filt Rate > 60
== END 2025-05-28 07:33 | disposition home or self-care (01) ==
LOC: HO.HKASLDS 07:32
PROVIDERS: PCP Internal Medicine; Visit Provider Internal Medicine Rheumatology
DX: M32.9 Systemic lupus erythematosus, unspecified (principal); M35.00 Sjogren syndrome, unspecified; I73.00 Raynaud's syndrome without gangrene; M25.561 Pain in right knee; M25.562 Pain in left knee; R76.8 Other specified abnormal immunological findings in serum; Z51.81 Encounter for therapeutic drug level monitoring; Z01.84 Encounter for antibody response examination; Z79.899 Other long term (current) drug therapy
CPT/HCPCS: 36415; 82565; 84450; 84460; 85025; 85652; 86140; 86160; 86225

== ENCOUNTER 2025-05-28 07:32 | Outpatient (AMB) | payer OTHER, SELFPAY ==
--- OUTSIDE RECORDS SUMMARY | 2024-01-03 07:30 | XMS_ITS | Continuity of Care Document ---
Author Organization [facility] Address [address] [place] [address] [address] [place] [address] Phone Care Team Providers Care Peanut Grader Name Role Phone Livan ROSALES, ALTAF, Blayne [...] Mins- [place] & [place] [facility], [address] [place] [address] [address], [place], [id number], [place] tel:[phone] [facility] [place] Chronic venous hypertension (idiopathic) with other complications of bilateral lower extremityPain in right legPain in left legRestless legs syndromeEssen tial (primary) hypertensionV enous insufficiency (chronic) (peripheral)C ramp and spasmLocalize d edema 4 Livan ROSALES, ALTAF, JUAN Cisneros. [address] [facility], [facility] [address], [place], [place], [id number] , [place]. tel:[phone] Referring Provider: Sharon Baum MD, [address] [place] [address] , [address] [place] D/B/A: ana [facility] [place], [address]. tel:[phone] [facility], [address] [facility] [address], [place], [id number], [place] tel:[phone] [facility] Chronic venous hypertension (idiopathic) with other complications of bilateral lower extremity Livan ROSALES, RVT, RPVI Blayne. [address] [facility] [address], [place], [place], [id number] , [place]. tel:[phone] Referring Provider: Sharon Baum MD, [address] [facility] , [address] [place] D/B/A: [place], [address]. tel:[phone] Family History Family Member Type Diagnosis Age At Onset No Information Payers Payer name Insurance type Covered libertarian ID Authoriza tiradha(s) Azeb [id number] Social History Type Description Quantity Date Captured [...]
--- OUTSIDE RECORDS SUMMARY | 2025-05-28 07:35 | XMS_ITS | Clinical Summary ---
Author Organization [facility] [employer] [facility] Address [address] [place] [address] Care Team Providers Care Shore Man Name Role Phone Unavailable Primary Care Provider [...] DX:Anxiety; COMM ENT: 04/16-negative stress test at [facility] Brain cyst 10/24/2010 DX:Brain cyst; C OMMENT: [...] AM EDT [facility] Diagnostic Imaging Department [address] [place] [address] Patient: SUMIT DOWNING./Age/Sex: 1960 - 60 - F Unit#: [id number] Location/Status: SPDIMAM/REG CLI Mnemonic/Ordering Site: [facility] Ordering Physician: KENDRICK LARSON MD [facility] Screening Digital - 08/08/21927 EXAM: [facility] Screening Digital EXAM DATE AND TIME: 08/08/2021 9:29 AM HISTORY: Screening. COMPARISON: 08/07/20, 01/18/19, 06/28/17 TECHNIQUE: CC and MLO views of both breasts were obtained using full field digital mammography. Bilateral digital breast tomosynthesis was performed in the MLO projection. Computer aided detection with the Flaskon 7.2-H was employed. TISSUE DENSITY: c. The [...] Evaluation RECOMMENDATION(S): 1: Repeat film(s) needed RIGHT 61907, 63876 3340F, 7025F Dictating Physician: LISBETH KWOK MD Electronically Signed by: LISBETH KWOK MD Dic Date/Time: 08/08/21 1123 Sign date/Time: 08/08/21 1124 Procedure Note Lisbeth Kwok MD - 09/27/2022 [facility] Diagnostic Imaging Department [address] [place], [place] [address] Patient: SUMIT DOWNINGO.B./Age/Sex: 1960 - 60 - F Unit#: [id number] [facility] Ordering Physician: KENDRICK LARSON MD [facility] Screening Digital - 08/08/21927 EXAM: [facility] Screening Digital EXAM DATE AND TIME: 08/08/2021 9:29 AM HISTORY: Screening. COMPARISON: 08/07/20, 01/18/19, 06/28/17 TECHNIQUE: CC and MLO views of both breasts were obtained using fullfield digital mammography. Bilateral digital breast tomosynthesis was performedin the MLO projection. Computer aided detection with the Flaskon 7.2-Hwas employed. TISSUE DENSITY: c. The breasts [...] Evaluation RECOMMENDATION(S): 1: Repeat film(s) needed RIGHT [address], 37187 3340F, 7025F Dictating Physician: LISBETH KWOK MD Electronically Signed by: LISBETH KWOK MD Dic Date/Time: 08/08/21 1123 Sign date/Time: 08/08/21 1124 Sharon Tolliver MD IMG BI PROCEDURES Final Result from Last 3 Months or Most Recently Relevant to Health Maintenance
--- OUTSIDE RECORDS SUMMARY | 2025-05-28 07:35 | XMS_ITS | Clinical Summary ---
Author Organization [facility] Address [address] [place] [address] Phone Care Team Providers Care Box Car Washer Name Role Phone Sharon Lopes MD Primary [...] PPO MEDICARE A CIGNA PPO MEDICARE A [facility] PPO MEDICARE A CIGNA PPO MEDICARE A CIGNA PPO MEDICARE A Care Teams Box Car Washer Relationship Specialty Start Date End Date [place] Unruly, Sharon Elizabeth, MD [address] [place] [address] PCP - General Internal Medicine 12/04/23 Additional Source Comments The information contained in this document represents components of the legal health record. It is not the complete legal health record.[facility]
--- NOTE | 2025-05-28 07:41 | A.OFFVIS_ITS ---
Vital Signs 05/28/25 07:42 Height 5 ft 6 in Weight 157 lb 13.616 oz BMI 25.5 BP 130/80 Blood Pressure Location Lt brachial Position Sitting Pulse 74 Pulse Source Pulse Oximeter Pulse Oximetry (%) 98 Oxygen Delivery Method Room Air Intake Visit Reasons: 3 Months Intake Note: Patient presents today for a follow up for trochanteric bursitis.Patient states that she has been having bilateral knee pain and would like to go to pt if possible. Accompanied by: Self / Same As Patient Allergies Penicillins Allergy (Unknown, Verified 05/28/25 07:42) Swelling HPI HPI 3 Months: Details: SHe felt better with improvement in polyarthralgias when she first started HCQ. Pain has returned in the last few weeks. Denies recent infection. She has some days where the pain in less intense than others. She is tolerating it. She feels pressure in the eye. She had an appointment to see her thyroid specialist. Labs were done. Her thyroid medicine was not adjusted. 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 Surgical History SS-A antibody positive Sjogren syndrome with lung involvement History of brain surgery Hx of esophagogastroduodenoscopy Hx of colonoscopy History of thyroidectomy Family History Father Diabetes Stroke Alzheimer disease Mother Alzheimer disease Parkinson disease Depression Arthritis Son Multiple sclerosis Son Learning disability Brother Diabetes Sister Diabetes Hypertension Family/Other History of breast cancer Social History Household Members: None Housing: Condominium Alcohol intake: never Patient Tobacco Use Status: Former Tobacco user Tobacco use type: Cigarette e-Cigarette/Vaping Use: Never Used Second Hand Smoke Exposure: No Substance Use Type: Marijuana service: No Current occupational status: employed 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 Good respiratory effort Skin: No lesions seen. No skin tightening. No telangiectasia. MSK: No diffuse allodynia. No tender joints. No synovitis. Normal range of motion of upper extremity and lower extremity. Crepitus right knee palpated. Mild valgus deformity bilateral knees. Assessment & Plan Assessment & Plan (1) Systemic lupus erythematosus: Comment: Tolerating hydroxychloroquine. She has noticed increased pressure in her eyes since being on hydroxychloroquine. She has a history of mild glaucoma. Prior to starting hydroxychloroquine she was experiencing palpitations, which persist. Rheumatology history: Systemic lupus erythematosus with secondary Sjogren syndrome and Raynaud's phenomenon: MIRLANDE 1:1280, +SSA, Rheumatoid factor low titer positive 24.7 01/17/2019 (Subsequent negative on 3 occasions), Anticentromere antibody >8.0 10/19/2023, 07/30/2024, negative Sm/DsDNA, pancytopenia (leukop enia, chronic normocytic anemia, thrombocytopenia), low C3 and C4 (2020), photosensitivity, raynaud's syndrome, peripheral polyneuropathy (uncontrolled thyroid disease could also contribute to peripheral neuropathy). Minor salivary gland biopsy April 2025 confirmed Sjogren syndrome. She was started on hydroxychloroquine 05/2025 to try to control pancytopenia, polyarthralgias and fatigue. Code(s): M32.9 - Systemic lupus erythematosus, unspecified Category: Medical Qualifiers: Systemic lupus erythematosus type: unspecified Systemic lupus erythematosus organ involvement: unspecified Qualified Code(s): M32.9 - Systemic lupus erythematosus, unspecified Plan: Continue hydroxychloroquine 300 mg daily. She will schedule eye exam for HCQ surveillance as well as monitoring of glaucoma Lasts for drug monitoring on high-risk medication ordered PCP follow-up for EKG with consideration of further evaluation of palpitations for arrhythmia with Holter monitor/loop monitor Dry eye management per Ophthalmology: Systane OTC and ocular gel at night Dry mouth: Continue Biotene OTC products Follow up with slotter operator with plan to repeat CT chest July 2025. I recommend repeating PFTs with diffusion lung capacity continue conservative management for Raynaud's phenomenon Follow up with Neurology for management of peripheral neuropathy. She is on gabapentin. return to clinic in 3 months (2) Sjogrens syndrome: Comment: SSA+ and sicca symptoms is suggestive of secondary Sjogren's syndrome. Dry mouth is tolerable with using Biotene products. She did not like xylimelts. She has mild dry eyes managed with Systane OTC and ocular gel at night. She has been following up with slotter operator for interstitial lung disease attributed to Sjogren syndrome 1st found on imaging in July 2023. Repeat imaging July 2024 revealed resolution of 6 mm ground-glass opacity previously seen. PFTs from November 2021 reveal mild to moderate diffusion impairment. Serological profile of high titer positive MIRLANDE and rheumatoid factor can be seen in Sjogren syndrome. Code(s): M35.00 - Sjogren syndrome, unspecified Category: Medical Qualifiers: Sjogren's organ involvement: unspecified organ involvement Qualified Code(s): M35.00 - Sicca syndrome, unspecified Plan: Dry eye management per Ophthalmology: Systane OTC and ocular gel at night Dry mouth: Continue Biotene OTC products Labs to assess disease activity UTD 01/2025 Follow up with slotter operator with plan to repeat CT chest July 2025. I recommend repeating PFTs with diffusion lung capacity. Return to clinic in 3 months (3) Anticentromere antibodies present: Comment: With history of GERD and Raynaud's syndrome. She does not meet criteria for limited cutaneous systemic sclerosis at this time. Code(s): R76.8 - Other specified abnormal immunological findings in serum Category: Medical Plan: Monitor clinically (4) MIRLANDE positive: Code(s): R76.8 - Other specified abnormal immunological findings in serum Category: Medical Plan: See above (5) SS-A antibody positive: Code(s): R76.8 - Other specified abnormal immunological findings in serum Category: Surgical Plan: See above (6) Raynauds phenomenon: Comment: Secondary. Code(s): I73.00 - Raynaud's syndrome without gangrene Category: Medical Qualifiers: Raynaud?s-associated gangrene presence: without gangrene Qualified Code(s): I73.00 - Raynaud's syndrome without gangrene Plan: Continue conservative management (7) Whole body pain: Comment: unremarkable exam. TSH is elevated. Uncontrolled thyroid disease can contribute to myalgias and arthralgias. Code(s): R52 - Pain, unspecified Category: Medical Plan: She will follow up with PCP for management of thyroid disease (8) Knee pain, bilateral: Comment: Clinical osteoarthritis. X-rays February 2025 left knee revealed loose bodies without significant arthritis. Code(s): M25.561 - Pain in right knee; M25.562 - Pain in left knee Category: Medical Plan: PT for knee strengthening Orders: Orders Complete Blood Count Auto Diff Today Z79.899 - Other terminal system operator (current) drug therapy Aspartate Amino Transferase Today Z79.899 - Other terminal system operator (current) drug therapy Creatinine Today Z79.899 - Other long-term (current) drug therapy C Reactive Protein Today Z79.899 - Other terminal system operator (current) drug therapy Complement C3 Today M32.9 - Systemic lupus erythematosus, unspecified Anti DNA DS Antibody Today M32.9 - Systemic lupus erythematosus, unspecified Protein Creatinine Ratio, Ur Today M32.9 - Systemic lupus erythematosus, un specified Alanine Aminotransferase Today Z79.899 - Other terminal system operator (current) drug therapy Erythrocyte Sedimentation Rate Today Z79.899 - Other terminal system operator (current) drug therapy Complement C4 Today M32.9 - Systemic lupus erythematosus, unspecified UA ClnCatch+Micro w/rflx Cult Today M32.9 - Systemic lupus erythematosus, unspecified PT Evaluation and Treatment Today M25.561 - Pain in right knee, M25.562 - Pain in left knee Medications: Refilled hydroxychloroquine 300 mg (1.5 x 200 mg) PO DAILY 45 tabs 5RF 30 days Coding Level of Care Code Est Pt Level 4 (55421) Complex EM visit Add On G2211 Diagnoses Systemic lupus erythematosus, unspecified SLE type, unspecified organ involvement status M32.9 Systemic lupus erythematosus type: unspecified Systemic lupus erythematosus organ involvement: unspecified Sjogren's syndrome, with unspecified organ involvement M35.00 Sjogren's organ involvement: unspecified organ involvement Anticentromere antibodies present R76.8 MIRLANDE positive R76.8 SS-A antibody positive R76.8 Raynaud's phenomenon without gangrene I73.00 Raynaud?s-associated gangrene presence: without gangrene Whole body pain R52 Knee pain, bilateral M25.561; M25.562
[2025-05-28 07:42] VITALS: BP 130/80; PULSE 74; O2SAT 98; BMI 25.5
== END 2025-05-28 08:27 | disposition home or self-care (01) ==
LOC: HO.RHES 07:33
PROVIDERS: PCP Internal Medicine; Visit Provider Internal Medicine Rheumatology
DX: M32.9 Systemic lupus erythematosus, unspecified (principal); M25.561 Pain in right knee; M25.562 Pain in left knee; M35.00 Sjogren syndrome, unspecified; R76.8 Other specified abnormal immunological findings in serum; I73.00 Raynaud's syndrome without gangrene
CPT/HCPCS: 99214

== ENCOUNTER 2025-06-01 13:30 | Outpatient (REF) | payer OTHER, SELFPAY ==
--- OUTSIDE RECORDS SUMMARY | 2024-01-03 07:30 | XMS_ITS | Continuity of Care Document ---
Author Organization [facility] Address [address] [place] [address] [address] [place] [phone] Phone Care Team Providers Care Professor Computer Science Name Role Phone Livan ROSALES, ALTAF, Blayne [...] Mins- [place] & [place] [facility], [address] [place] [address] [address], [place], [id number], [place] tel:[phone] CVR - [place] - [place] Chronic venous hypertension (idiopathic) with other complications of bilateral lower extremityPain in right legPain in left legRestless legs syndromeEssen tial (primary) hypertensionV enous insufficiency (chronic) (peripheral)C ramp and spasmLocalize d edema 4 Livan ROSALES, ALTAF, JUAN Cisneros. [address] [facility], [facility] [address], [place], [place], [id number] , [place]. tel:[phone] Referring Provider: Sharon Baum MD, [address] [place] [address] , [address] [place] D/B/A: ana [facility] [place], [address]. tel:[phone] [facility], [address] [facility] [address], [place], [id number], [place] tel:[phone] [facility] Chronic venous hypertension (idiopathic) with other complications of bilateral lower extremity Livan ROSALES, RVT, RPVI Blayne. [address] [facility] [address], [place], [place], [id number] , [place]. tel:[phone] Referring Provider: Sharon Baum MD, [address] [facility] , [address] [place] D/B/A: [place], [address]. tel:[phone] Family History Family Member Type Diagnosis Age At Onset No Information Payers Payer name Insurance type Covered alliance party ID Authoriza tiradha(s) Azeb [id number] Social History Type Description Quantity Date Captured [...]
--- OUTSIDE RECORDS SUMMARY | 2025-06-01 14:49 | XMS_ITS | Clinical Summary ---
Author Organization [facility] Address [address] [place] [address] Phone Care Team Providers Care Plasticator Name Role Phone Sharon Lopes MD Primary [...] PPO MEDICARE A CIGNA PPO MEDICARE A [facility] PPO MEDICARE A CIGNA PPO MEDICARE A [employer]IGNA PPO MEDICARE A Care Teams Plasticator Relationship Specialty Start Date End Date [place] Unruly, Sharon Elizabeth, MD [address] [place] [address] PCP - General Internal Medicine 12/04/23 Additional Source Comments The information contained in this document represents components of the legal health record. It is not the complete legal health record.[facility]
--- OUTSIDE RECORDS SUMMARY | 2025-06-01 14:49 | XMS_ITS | Clinical Summary ---
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 Smith who is monitoring for now Anxiety 06/10/2010 DX:Anxiety; COMM ENT: 04/16-negative stress test at [facility] Brain cyst 10/24/2010 DX:Brain cyst; C [...] Recently Relevant to Health Maintenance Results * [facility] SCREENING DIGITAL (08/08/2021 11:24 AM EDT) Anatomical Region Laterality Modality Mammography 08/08/2021 9:06 AM EDT Narrative 08/08/2021 11:24 AM EDT [facility] Diagnostic Imaging Department [address] [place] [address] Patient: SUMIT DOWNING./Age/Sex: 1960 - 60 - F Unit#: [id number] Location/Status: SPDIMAM/REG CLI Mnemonic/Ordering Site: [facility] Ordering Physician: KENDRICK LARSON MD [facility] Screening Digital - 08/08/21927 EXAM: [facility] Screening Digital EXAM DATE AND TIME: 08/08/2021 9:29 AM HISTORY: Screening. COMPARISON: 08/07/20, 01/18/19, 06/28/17 TECHNIQUE: CC and MLO views of both breasts were obtained using full field digital mammography. Bilateral digital breast tomosynthesis was performed in the MLO projection. Computer aided detection with the [employer] 7.2-H was employed. TISSUE DENSITY: c. The [...] Evaluation RECOMMENDATION(S): 1: Repeat film(s) needed RIGHT 37329, 72004 3340F, 7025F Dictating Physician: LISBETH KWOK MD Electronically Signed by: LISBETH KWOK MD Dic Date/Time: 08/08/21 1123 Sign date/Time: 08/08/21 1124 Procedure Note Lisbeth Kwok MD - 09/27/2022 [facility] Diagnostic Imaging Department [address] [place], [place] [id number] Patient: SUMIT DOWNINGO.B./Age/Sex: 1960 - 60 - F Unit#: [id number] Location/Status: [facility] Mnemonic/Ordering Site: [facility] Ordering Physician: KENDRICK LARSON MD [facility] Screening Digital - 08/08/21927 EXAM: [facility] Screening Digital EXAM DATE AND TIME: 08/08/2021 9:29 AM HISTORY: Screening. COMPARISON: 08/07/20, 01/18/19, 06/28/17 TECHNIQUE: CC and MLO views of both breasts were obtained using fullfield digital mammography. Bilateral digital breast tomosynthesis was performedin the MLO projection. Computer aided detection with the [employer] 7.2-Hwas employed. TISSUE DENSITY: c. The breasts [...] Evaluation RECOMMENDATION(S): 1: Repeat film(s) needed RIGHT 48957, 18774 3340F, 7025F Dictating Physician: LISBETH KWOK MD Electronically Signed by: LISBETH KWOK MD Dic Date/Time: 08/08/21 1123 Sign date/Time: 08/08/21 1124 Sharon Tolliver MD IMG BI PROCEDURES Final Result from Last 3 Months or Most Recently Relevant to Health Maintenance
[2025-06-01 17:53] LABS: Appearance Urine Clear; Glucose Urine UA Negative (Negative); PH 7.5 (5.0-9.0); Specific Gravity - Urine 1.010 (1.005-1.025)
[2025-06-01 18:30] LABS: Total Protein Urine Random < 7 mg/dL (<12)
== END 2025-06-01 13:31 | disposition home or self-care (01) ==
LOC: HO.HKASLDS 13:30
PROVIDERS: Visit Provider Internal Medicine Rheumatology
DX: M32.9 Systemic lupus erythematosus, unspecified (principal)
CPT/HCPCS: 81001; 82570; 84156

== ENCOUNTER 2025-06-29 09:48 | Outpatient (AMB) | payer OTHER, SELFPAY ==
--- NOTE | 2025-06-29 09:50 | A.OFFPC_ITS ---
Vital Signs 06/29/25 09:51 Height 5 ft 6 in Weight 158 lb 8 oz BMI 25.6 BP 122/62 Blood Pressure Location Lt brachial Position Sitting Respiration 18 Pulse 71 Pulse Source Pulse Oximeter Temp 97.1 F Temp Source Temporal Artery Scan Pulse Oximetry (%) 96 Oxygen Delivery Method Room Air Intake Visit Reasons: thyroid Automotive General Manager Required: No Accompanied by: Self / Same As Patient Allergies Penicillins Allergy (Unknown, Verified 06/29/25 10:07) Swelling Medication List - Last Reconciled 06/29/25 by Sharon Tolliver MD calcium carbonate-vitamin D3 600 mg-20 mcg (800 unit) (Caltrate plus D) 1 tab PO DAILY 90 days gabapentin 600 mg PO TID 90 days hydroxychloroquine 300 mg (1.5 x 200 mg) PO DAILY 30 days ibuprofen 800 mg PO Q8H PRN 90 days levothyroxine 75 mcg PO DAILY 30 days lorazepam 0.5 mg PO BEDTIME PRN losartan 25 mg PO DAILY 90 days multivitamin (Multiple Vitamins tablet) 1 tab PO DAILY Tobacco use date assessed: 06/29/25 Fall risk assessment: No Falls in past year Last assessed Fall Risk: 06/29/25 Dental Screening Dental Screen Date: 06/29/25 Did you have a dental visit in the last 12 months?: Yes Did you have a dental problem in the last 6 months where you did not have access to dental care?: No Was dental information given to patient?: Patient has dentist HPI HPI Comments History of Present Illness0 Details The patient is a 64-year-old female presenting with chronic pain management and medication adjustment. She has systemic lupus erythematosus, contributing to chronic pain and joint stiffness, with worsening symptoms despite hydroxychloroquine treatment. The medication was recently initiated, and she plans to continue it for six months to evaluate its effectiveness. Diagnosed with Sjogren's syndrome after a positive biopsy in April, she suffers from dry eyes and mouth, with management focusing on symptom relief due to the lack of specific treatment. Peripheral neuropathy is a significant concern, with an undetermined cause impacting her daily life. She is under neurologist care, but the etiology remains unclear. Her medical history includes interstitial lung disease and emphysema, monitored by a plastic printer, with a CT scan scheduled for further evaluation. Hypothyroidism is managed with levothyroxine, recently increased to 88 mcg, with follow-up labs planned in six weeks to reassess thyroid function and check vitamin B12 and vitamin D levels. Hypertension is well-controlled with losartan, and she experiences mild major depression, which is being monitored. 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 Surgical History SS-A antibody positive Sjogren syndrome with lung involvement History of brain surgery Hx of esophagogastroduodenoscopy Hx of colonoscopy History of thyroidectomy Family History Father Diabetes Stroke Alzheimer disease Mother Alzheimer disease Parkinson disease Depression Arthritis Son Multiple sclerosis Son Learning disability Brother Diabetes Sister Diabetes Hypertension Family/Other History of breast cancer Social History Household Members: None Housing: Condominium Alcohol intake: never Patient Tobacco Use Status: Former Tobacco user Tobacco use type: Cigarette e-Cigarette/Vaping Use: Never Used Second Hand Smoke Exposure: No Substance Use Type: Marijuana service: No Current occupational status: employed Current occupation: [employer]/ rt hand Current occupational exposures/hazards: No Cognitive needs: No Hearing needs: No Vision needs: No Questionnaire Thrive Questionnaire Date Thrive assessed: 02/09/25 I am a: Patient What is your living situation today?: I choose not to answer this question Within the past 12 months, did the food you bought not last and you didn't have the money to get more?: I choose not to answer this question Within the past 12 months, did you worry whether your food would run out before you got money to buy more?: I choose not to answer this question Do you have trouble paying for medicines?: I choose not to answer this question Do you have trouble getting transportation to medical appointments?: I choose not to answer this question Do you have trouble paying your heating and electricity bill?: I choose not to answer this question Do you have trouble taking care of your child, family member or friend?: I choose not to answer this question Do you have trouble with day-to-day activities such as bathing, preparing meals, shopping, managing finances, etc.?: I choose not to answer this question Are you currently unemployed and looking for a job?: I choose not to answer this question Are you interested in more education?: I choose not to answer this question Please select the resources that you would like help with: None Currently or been in a relationship where the following occur: No concerns reported THRIVE Score: 0 PATTI-7 AMB Questionnaire PATTI-7 Date PATTI - 7 assessed: 02/09/25 Source: Developed by Drs. Blayne Tijerina, Ritika Briggs, Henrry Biggs and colleagues, with an educational zachariah from [employer]. Review of Systems Const All systems reviewed & are unremarkable except as noted in HPI and below Card Denies chest pain at rest, Denies chest pain with activity, Denies edema, Denies irregular heart rhythm, Denies claudication, Denies dyspnea, Denies dyspnea on exertion, Denies orthopnea, Denies paroxysmal nocturnal dyspnea and Denies slow heart rate Resp Denies cough, Denies dyspnea and Denies dyspnea on exertion GI Denies abdominal pain, Denies change in bowel habits, Denies excessive flatus, Denies nausea and Denies vomiting Musc Reports arthralgias Physical exam (Primary Care) Vital Signs: Last Vital Signs Temp 97.1 F 06/29/25 09:51 Pulse 71 06/29/25 09:51 Resp 18 06/29/25 09:51 BP 122/62 06/29/25 09:51 Pulse Ox 96 06/29/25 09:51 Oxygen Delivery Method Room Air 06/29/25 09:51 BMI result Body Mass Index 25.6 Tobacco/Smoking Status: Tobacco use Status Tobacco use date assessed 06/29/25 06/29/25 10:00 Patient Tobacco Use Status Former Tobacco user 06/29/25 10:00 Tobacco use type Cigarette 06/29/25 10:00 e-Cigarette/Vaping Use Never Used 06/29/25 10:00 Thrive Assessment: Date of Thrive Assessment Date Thrive assessed 02/09/25 06/29/25 10:00 Currently or been in a relationship where the following occur: No concerns reported Resp Effort & Inspection: normal respiratory effort Auscultation: clear to auscultation bilaterally Cardio Jugular venous distension: no JVD Rate: regular rate Rhythm: regular rhythm Heart sounds: S1 normal heart sound present and S2 normal heart sound present Extrem General: Yes full ROM Coding Level of Care Code Est Pt Level 4 (02331) Complex EM visit Add On G2211 Diagnoses Essential hypertension I10 Postoperative hypothyroidism E89.0 Hypothyroidism type: postoperative Sjogren syndrome with lung involvement M35.02 Systemic lupus erythematosus, unspecified SLE type, unspecified organ involvement status M32.9 Systemic lupus erythematosus type: unspecified Systemic lupus erythematosus organ involvement: unspecified ILD (interstitial lung disease) J84.9 Emphysema lung J43.9 Mild recurrent major depression F33.0 Time Spent (min) 24 Assessment & Plan Assessment & Plan (1) Essential hypertension: Code(s): I10 - Essential (primary) hypertension Category: Medical (2) Hypothyroidism: Code(s): E03.9 - Hypothyroidism, unspecified Category: Medical Qualifiers: Hypothyroidism type: postoperative Qualified Code(s): E89.0 - Postprocedural hypothyroidism (3) Sjogren syndrome with lung involvement: Code(s): M35.02 - Sjogren syndrome with lung involvement Category: Surgical (4) Systemic lupus erythematosus: Comment: Tolerating hydroxychloroquine. She has noticed increased pressure in her eyes since being on hydroxychloroquine. She has a history of mild glaucoma. Prior to starting hydroxychloroquine she was experiencing palpitations, which persist. Rheumatology history: Systemic lupus erythematosus with secondary Sjogren syndrome and Raynaud's phenomenon: SHARON 1:1280, +SSA, Rheumatoid factor low titer positive 24.7 01/17/2019 (Subsequent negative on 3 occasions), Anticentromere antibody >8.0 10/19/2023, 07/30/2024, negative Sm/DsDNA, pancytopenia (leukopenia, chronic normocytic anemia, thrombocytopenia), low C3 and C4 (2020), photosensitivity, raynaud's syndrome, peripheral polyneuropathy (uncontrolled thyroid disease could also contribute to peripheral neuropathy). Minor salivary gland biopsy April 2025 confirmed Sjogren syndrome. She was started on hy droxychloroquine 05/2025 to try to control pancytopenia, polyarthralgias and fatigue. Code(s): M32.9 - Systemic lupus erythematosus, unspecified Category: Medical Qualifiers: Systemic lupus erythematosus type: unspecified Systemic lupus erythematosus organ involvement: unspecified Qualified Code(s): M32.9 - Systemic lupus erythematosus, unspecified (5) ILD (interstitial lung disease): Code(s): J84.9 - Interstitial pulmonary disease, unspecified Category: Medical (6) Emphysema lung: Code(s): J43.9 - Emphysema, unspecified Category: Medical (7) Mild recurrent major depression: Code(s): F33.0 - Major depressive disorder, recurrent, mild Category: Medical Plan Plan Patient was informed and verbally consented to the use of an ambient scribe for clinic note documentation during this visit. 1. Essential (primary) hypertension I10 The patient's hypertension is well-controlled with losartan 25 mg daily, and no changes to this regimen are currently necessary. 2. Sjogren syndrome, unspecified M35.00 HCC 40 Sjogren's syndrome management focuses on symptomatic relief, as there is no specific treatment available. The patient experiences dry eyes and mouth, and continues with supportive care measures. 3. Systemic lupus erythematosus, unspecified M32.9 HCC 40 The patient is currently on hydroxychloroquine for systemic lupus erythematosus, with plans to continue for six months to assess its effectiveness. Despite treatment, she reports worsening pain and stiffness, indicating a need for ongoing monitoring and potential adjustment of therapy. 4. Polyneuropathy, unspecified G62.9 Peripheral neuropathy remains a significant concern due to its unclear etiology. The patient is under the care of a neurologist, and further evaluation is necessary to determine the underlying cause and appropriate management. 5. Interstitial pulmonary disease, unspecified J84.9 HCC 112 The patient is followed by a plastic printer for interstitial lung disease, with a CT scan scheduled to monitor disease progression and guide management. 6. Emphysema (subcutaneous) resulting from a procedure, initial encounter T81.82XA Emphysema is managed by a plastic printer, with ongoing monitoring and a CT scan planned to assess the condition. 7. Hypothyroidism, unspecified E03.9 The patient's levothyroxine dose has been increased to 88 mcg, with non-fasting labs scheduled in six weeks to reassess thyroid function and check vitamin B12 and vitamin D levels. 8. Major depressive disorder, single episode, unspecified F32.9 The patient experiences mild major depression, which is being monitored. No specific changes to her management plan were discussed during this visit. Orders: Orders Vitamin D 25-OH Total 6 Weeks E55.9 - Vitamin D deficiency, unspecified Vitamin B12 and Folate 6 Weeks E53.8 - Deficiency of other specified B group vitamins Thyroid Stimulating Hormone 6 Weeks E89.0 - Postprocedural hypothyroidism Medications: New levothyroxine (Levoxyl) 88 mcg PO DAILY 90 tabs 1RF 90 days Discontinued levothyroxine Discontinued Reason: Patient Completed Course 75 mcg PO DAILY 30 days 30 tabs 6RF
[2025-06-29 09:51] VITALS: BP 122/62; PULSE 71; RESP 18; TEMP 36.2; O2SAT 96; BMI 25.6
--- OUTSIDE RECORDS SUMMARY | 2025-06-29 11:58 | XMS_ITS | Clinical Summary ---
Author Organization [facility] Address [address] [place] [id number] Phone Care Team Providers Care Synchro Assembler Name Role Phone Sharon Lopes MD Primary [...] 2008 OSTEOPOROSIS SCREENING INITI AL (ONE-TIME) 2023 INFLUENZA VACCINE (#1) 2025 COVID-19 VACCINE (1 - 2023-2 5 season) 2025 RSV VACCINE (1 - 1-dose 75+ series) [...] topic Medical Devices Not on file Insurance [employer] PPO MEDICARE A CIGNA PPO MEDICARE A CIGNA PPO MEDICARE A ([address] PPO MEDICARE A CIGNA PPO MEDICARE A CIGNA PPO MEDICARE A Care Teams Synchro Assembler Relationship Specialty Start Date End Date Sharon Lopes MD [address] [place] [address] PCP - General Internal Medicine 12/04/23 Additional Source Comments The information contained in this document represents components of the legal health record. It is not the complete legal health record.[facility]
--- OUTSIDE RECORDS SUMMARY | 2025-06-29 11:58 | XMS_ITS | Clinical Summary ---
Author Organization [employer] [facility] Address [address] [place] [address] Care Team Providers Care Casing In Line Setter Name Role Phone Unavailable Primary Care Provider [...] DX:Anxiety; COMM ENT: 04/16-negative stress test at [facility] Brain cyst 10/24/2010 DX:Brain cyst; C [...] 21, 08/08/2020, 01/18/2019 Falls Risk Assessment 2023 Depression Screening 10/08/2024 COVID-19 Vaccine (1 - 2023-2 5 season) 2025 Influenza Vaccine (#1) 2025 5, 08/07/2014, 06/26/2011 [...] Relevant to Health Maintenance Results * [facility] SCREENING DIGITAL (08/08/2021 11:24 AM EDT) Anatomical Region Laterality Modality Mammography 08/08/2021 9:06 AM EDT Narrative 08/08/2021 11:24 AM EDT [facility] Diagnostic Imaging Department [address] [place] [address] Patient: SUMIT DOWNING./Age/Sex: 1960 - 60 - F Unit#: [id number] Location/Status: SPDIMAM/REG CLI Mnemonic/Ordering Site: [facility] Ordering Physician: KENDRICK LARSON MD [facility] Screening Digital - 08/08/21927 EXAM: [facility] Screening Digital EXAM DATE AND TIME: 08/08/2021 9:29 AM HISTORY: Screening. COMPARISON: 08/07/20, 01/18/19, 06/28/17 TECHNIQUE: CC and MLO views of both breasts were obtained using full field digital mammography. Bilateral digital breast tomosynthesis was performed in the MLO projection. Computer aided detection with the [employer] 7.2-H was employed. TISSUE DENSITY: c. The [...] Evaluation RECOMMENDATION(S): 1: Repeat film(s) needed RIGHT 66319, 80992 3340F, 7025F Dictating Physician: LISBETH KWOK MD Electronically Signed by: LISBETH KWOK MD Dic Date/Time: 08/08/21 1123 Sign date/Time: 08/08/21 1124 Procedure Note Lisbeth Kwok MD - 09/27/2022 [facility] Diagnostic Imaging Department [address] [place], [place] [id number] Patient: SUMIT DOWNINGO.B./Age/Sex: 1960 - 60 - F Unit#: [id number] [facility] Ordering Physician: KENDRICK LARSON MD [facility] Screening Digital - 08/08/21927 EXAM: [facility] Screening Digital EXAM DATE AND TIME: 08/08/2021 9:29 AM HISTORY: Screening. COMPARISON: 08/07/20, 01/18/19, 06/28/17 TECHNIQUE: CC and MLO views of both breasts were obtained using fullfield digital mammography. Bilateral digital breast tomosynthesis was performedin the MLO projection. Computer aided detection with the [employer] 7.2-Hwas employed. TISSUE DENSITY: c. The breasts [...] Evaluation RECOMMENDATION(S): 1: Repeat film(s) needed RIGHT 64370, 30443 3340F, 7025F Dictating Physician: LISBETH KWOK MD Electronically Signed by: LISBETH KWOK MD Dic Date/Time: 08/08/21 1123 Sign date/Time: 08/08/21 1124 Sharon Tolliver MD IMG BI PROCEDURES Final Result from Last 3 Months or Most Recently Relevant to Health Maintenance
== END 2025-06-29 10:27 | disposition home or self-care (01) ==
LOC: HO.HMCH 09:49
PROVIDERS: PCP Internal Medicine; Visit Provider Internal Medicine
DX: J84.9 Interstitial pulmonary disease, unspecified (principal); M35.02 Sjogren syndrome with lung involvement; M32.9 Systemic lupus erythematosus, unspecified; J43.9 Emphysema, unspecified; I10 Essential (primary) hypertension; E89.0 Postprocedural hypothyroidism; F33.0 Major depressive disorder, recurrent, mild

== ENCOUNTER 2025-07-13 12:45 | Outpatient (REF) | payer OTHER, SELFPAY ==
--- NOTE | ~2025-07-13 | CT_ITS ---
CLINICAL HISTORY: J84.9 - Interstitial pulmonary disease, unspecified CT chest without contrast Comparison: CT/NE/SR - CT CHEST WITHOUT IV CONTRAST - 07/14/24 10:27 EDT Findings: The heart is normal size. The visualized thyroid and mediastinum are unremarkable. The lungs are clear. Ill-defined hypodense lesion is seen in the posterior aspect of the right lobe of the liver unchanged from the prior exam. The liver and gallbladder are otherwise unremarkable. The rest of the solid organs are normal. The bones are intact. There is a hemangioma at T10, unchanged. IMPRESSION: 1. No acute abnormalities. 2. Stable hypodensity right lobe of the liver. This document has been electronically signed by: Michi Cyr MD on 07/15/2025 12:59:52
--- OUTSIDE RECORDS SUMMARY | 2025-07-13 15:09 | XMS_ITS | Clinical Summary ---
Author Organization [facility] Address [address] [place] [id number] Phone Care Team Providers Care Propeller Driven Airplane Mechanic Name Role Phone Sharon Lopes MD Primary [...] VACCINE (#1) 2025 COVID-19 VACCINE (1 - 2024-2 6 season) 2025 RSV VACCINE (1 - 1-dose [...] PPO MEDICARE A CIGNA PPO MEDICARE A ([address] PPO MEDICARE A CIGNA PPO MEDICARE A CIGNA PPO MEDICARE A Care Teams Propeller Driven Airplane Mechanic Relationship Specialty Start Date End Date Sharon Lopes MD [address] [place] [address] PCP - General Internal Medicine 12/04/23 Additional Source Comments The information contained in this document represents components of the legal health record. It is not the complete legal health record.[facility]
--- OUTSIDE RECORDS SUMMARY | 2025-07-13 15:09 | XMS_ITS | Clinical Summary ---
Author Organization [employer] [facility] Address [address] [place] [address] Care Team Providers Care Gun Examiner Name Role Phone Unavailable Primary Care Provider [...] DX:Anxiety; COMM ENT: 04/16-negative stress test at [facility] Brain cyst 10/24/2010 DX:Brain cyst; C OMMENT: [...] Health Maintenance Due Date Last Done Comments Colorectal Cancer Screening: Colonoscopy 1960 Pneumococcal Vaccine: 50+ Years (1 of 1 - PCV) 2008 Zoster Vaccines (1 of 2) 2008 DTaP,Tdap,and Td Vaccines (2 - Td or Tdap) 08/02/2017 08/02/2007 Hepatitis C Screening 09/16/2022 Osteoporosis Screening (Bone Density Screening) 09/16/2022 Social Influencers of Health Screening 09/16/2022 Breast Cancer Screening 08/08/2023 08/08/20 21, 08/08/2020, 01/18/2019 Falls Risk Assessment 2023 Depression Screening 10/08/2024 COVID-19 Vaccine ( - 2023-2 5 season) 2025 Influenza Vaccine [...] Recently Relevant to Health Maintenance Results * [facility] SCREENING DIGITAL (08/08/2021 11:24 AM EDT) Anatomical Region Laterality Modality Mammography 08/08/2021 9:06 AM EDT Narrative 08/08/2021 11:24 AM EDT [facility] Diagnostic Imaging Department [address] [place] [address] Patient: SUMIT DOWNING./Age/Sex: 1960 - 60 - F Unit#: [id number] Location/Status: SPDIMAM/REG CLI Mnemonic/Ordering Site: [facility] Ordering Physician: KENDRICK LARSON MD [facility] Screening Digital - 08/08/21927 EXAM: [facility] Screening Digital EXAM DATE AND TIME: 08/08/2021 9:29 AM HISTORY: Screening. COMPARISON: 08/07/20, 01/18/19, 06/28/17 TECHNIQUE: CC and MLO views of both breasts were obtained using full field digital mammography. Bilateral digital breast tomosynthesis was performed in the MLO projection. Computer aided detection with the [employer] 7.2-H was employed. TISSUE DENSITY: c. The [...] Evaluation RECOMMENDATION(S): 1: Repeat film(s) needed RIGHT 89229, 08231 3340F, 7025F Dictating Physician: LISBETH KWOK MD Electronically Signed by: LISBETH KWOK MD Dic Date/Time: 08/08/21 1123 Sign date/Time: 08/08/21 1124 Procedure Note Lisbeth Kwok MD - 09/27/2022 [facility] Diagnostic Imaging Department [address] [place], [place] [id number] Patient: SUMIT DOWNINGO.B./Age/Sex: 1960 - 60 - F Unit#: [id number] [facility] Ordering Physician: KENDRICK LARSON MD [facility] Screening Digital - 08/08/21927 EXAM: [facility] Screening Digital EXAM DATE AND TIME: 08/08/2021 9:29 AM HISTORY: Screening. COMPARISON: 08/07/20, 01/18/19, 06/28/17 TECHNIQUE: CC and MLO views of both breasts were obtained using fullfield digital mammography. Bilateral digital breast tomosynthesis was performedin the MLO projection. Computer aided detection with the [employer] 7.2-Hwas employed. TISSUE DENSITY: c. The breasts [...] Evaluation RECOMMENDATION(S): 1: Repeat film(s) needed RIGHT 35887, 06227 3340F, 7025F Dictating Physician: LISBETH KWOK MD Electronically Signed by: LISBETH KWOK MD Dic Date/Time: 08/08/21 1123 Sign date/Time: 08/08/21 1124 Sharon Tolliver MD IMG BI PROCEDURES Final Result from Last 3 Months or Most Recently Relevant to Health Maintenance
== END 2025-07-13 12:46 | disposition home or self-care (01) ==
LOC: HO.CT 12:45
PROVIDERS: PCP Internal Medicine; Visit Provider Internal Medicine Pulmonary Disease
DX: J84.9 Interstitial pulmonary disease, unspecified (principal)
CPT/HCPCS: 71250

== ENCOUNTER → 2025-07-13 12:47 | Outpatient (BNV) | payer OTHER, SELFPAY | PROVIDERS: PCP Internal Medicine; Visit Provider Radiology Diagnostic Radiology | DX: J84.9 Interstitial pulmonary disease, unspecified (principal); R93.2 Abnormal findings on diagnostic imaging of liver and biliary tract | CPT/HCPCS: 71250 ==

== ENCOUNTER 2025-08-25 08:24 | Outpatient (AMB) | payer OTHER, SELFPAY ==
[2025-08-25 08:33] VITALS: BP 128/68; PULSE 83; O2SAT 98; BMI 26.5
--- NOTE | 2025-08-25 08:33 | A.OFFVIS_ITS ---
Vital Signs 08/25/25 08:33 Height 5 ft 6 in Weight 164 lb 2 oz BMI 26.5 BP 128/68 Blood Pressure Location Lt brachial Position Sitting Pulse 83 Pulse Source Pulse Oximeter Pulse Oximetry (%) 98 Oxygen Delivery Method Room Air Intake Visit Reasons: 3months Intake Note: Patient presents today for a follow up for trochanteric bursitis.Patient states that she has been having bilateral knee pain and would like to go to pt if possible. Time Study Technologist Required: No Accompanied by: Self / Same As Patient Allergies Penicillins Allergy (Unknown, Verified 08/25/25 08:39) Swelling HPI HPI 3months: Details: She continues to have intermittent increase eye pressure. Hx of glaucoma. Eye exam 12/2025 She has chronic pain in shouldes. L>R. She started PT for knee pain. No oral or genital ulcers, fevers, dyspnea, pleurisy, urinary symptoms. Raynauds is affecting feet with toes turning purple. Resolves right away with warming. [facility] Medical History (Updated 08/25/25 @ 09:31 by Rome Abbott MD) Thrombocytopenia Sjogrens syndrome Mild recurrent major depression Hypothyroidism Obstructive sleep apnea hypopnea, mild Witnessed apneic spells Loud snoring Postherpetic neuralgia Depression Ingrown toenail Overactive bladder Hypothyroidism Pulmonary nodules Ankylosis of thoracic spine Goiter 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 Surgical History SS-A antibody positive Sjogren syndrome with lung involvement History of brain surgery Hx of esophagogastroduodenoscopy Hx of colonoscopy History of thyroidectomy Family History Father Diabetes Stroke Alzheimer disease Mother Alzheimer disease Parkinson disease Depression Arthritis Son Multiple sclerosis Son Learning disability Brother Diabetes Sister Diabetes Hypertension Family/Other History of breast cancer Social History Household Members: None Housing: Condominium Alcohol intake: never Patient Tobacco Use Status: Former Tobacco user Tobacco use type: Cigarette e-Cigarette/Vaping Use: Never Used Second Hand Smoke Exposure: No Substance Use Type: Marijuana service: No Current occupational status: employed 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 Good respiratory effort Skin: No lesions seen. No skin tightening. No telangiectasia. MSK: No diffuse allodynia. No tender joints. No synovitis. Left shoulder restricted abduction above 90 degrees and internal external rotation due to pain. Right shoulder range of motion is normal. Crepitus right knee palpated. Mild valgus deformity bilateral knees. Assessment & Plan Assessment & Plan (1) Systemic lupus erythematosus: Comment: Tolerating hydroxychloroquine. She has noticed intermittent increased pressure in her eyes since being on hydroxychloroquine. She has a history of mild glaucoma. Prior to starting hydroxychloroquine she was experiencing palpitations, which resolved on losartan for HTN management. Rheumatology history: Systemic lupus erythematosus with secondary Sjogren syndrome and Raynaud's phenomenon: SHARON 1:1280, +SSA, Rheumatoid factor low titer positive 24.7 01/17/2019 (Subsequent negative on 3 occasions), Anticentromere antibody >8.0 10/19/2023, 07/30/2024, negative Sm/DsDNA, pancytopenia (leukopenia, chronic normocytic anemia, thrombocytopenia), low C3 and C4 (2020), photosensitivity, raynaud's syndrome, peripheral polyneuropathy (uncontrolled thyroid disease could also contribute to peripheral neuropathy). Minor salivary gland biopsy April 2025 confirmed Sjogren syndrome. She was started on hydro xychloroquine 05/2025 to try to control pancytopenia, polyarthralgias and fatigue. Code(s): M32.9 - Systemic lupus erythematosus, unspecified Category: Medical Qualifiers: Systemic lupus erythematosus organ involvement: unspecified Systemic lupus erythematosus type: unspecified Qualified Code(s): M32.9 - Systemic lupus erythematosus, unspecified Plan: Continue hydroxychloroquine 300 mg daily. She will schedule eye exam for HCQ surveillance as well as monitoring of glaucoma soon. Scheduled 12/2025. Lasts for drug monitoring on high-risk medication ordered Dry eye management per Ophthalmology: Systane OTC and ocular gel at night Dry mouth: Continue Biotene OTC products continue conservative management for Raynaud's phenomenon Follow up with Neurology for management of peripheral neuropathy. She is on gabapentin. return to clinic in 3 months (2) Sjogrens syndrome: Comment: SSA+ and sicca symptoms is suggestive of secondary Sjogren's syndrome. Dry mouth is tolerable with using Biotene products. She did not like xylimelts. She has mild dry eyes managed with Systane OTC and ocular gel at night. She has been following up with spare hand carding for interstitial lung disease attributed to Sjogren syndrome 1st found on imaging in July 2023. Repeat imaging July 2024 revealed resolution of 6 mm ground-glass opacity previously seen. PFTs from November 2021 reveal mild to moderate diffusion impairment. Serological profile of high titer positive SHARON and rheumatoid factor can be seen in Sjogren syndrome. CT 07/2025 lungs are normal. She will be following up with pulmonologists in July. She has not had repeat pulmonary function tests. Code(s): M35.00 - Sjogren syndrome, unspecified Category: Medical Qualifiers: Sjogren's organ involvement: unspecified organ involvement Qualified Code(s): M35.00 - Sicca syndrome, unspecified Plan: Dry eye management per Ophthalmology: Systane OTC and ocular gel at night Dry mouth: Continue Biotene OTC products Labs to assess disease activity UTD 01/2025 She has pulmonary follow-up 09/[address] chest results Return to clinic in 3 months (3) Anticentromere antibodies present: Comment: With history of GERD and Raynaud's syndrome. She does not meet criteria for limited cutaneous systemic sclerosis at this time. Code(s): R76.8 - Other specified abnormal immunological findings in serum Category: Medical Plan: Monitor clinically (4) SHARON positive: Code(s): R76.8 - Other specified abnormal immunological findings in serum Category: Medical Plan: See above (5) SS-A antibody positive: Code(s): R76.8 - Other specified abnormal immunological findings in serum Category: Surgical Plan: See above (6) Raynauds phenomenon: Comment: Secondary. Active. Self resolves with warming. Code(s): I73.00 - Raynaud's syndrome without gangrene Category: Medical Qualifiers: Raynaud?s-associated gangrene presence: without gangrene Qualified Code(s): I73.00 - Raynaud's syndrome without gangrene Plan: Continue conservative management (7) Knee pain, bilateral: Comment: Clinical osteoarthritis. X-rays February 2025 left knee revealed loose bodies wit hout significant arthritis. She started PT Code(s): M25.561 - Pain in right knee; M25.562 - Pain in left knee Category: Medical Plan: Continue PT (8) Left shoulder pain: Comment: I am concerned she has developed adhesive capsulitis. We discussed importance of PT to try to improve range of motion. Code(s): M25.512 - Pain in left shoulder Category: Medical Plan: PT ordered X-ray left shoulder ordered Orders: Orders Erythrocyte Sedimentation Rate Today M32.9 - Systemic lupus erythematosus, unspecified Alanine Aminotransferase Today M32.9 - Systemic lupus erythematosus, unspecified Aspartate Amino Transferase Today M32.9 - Systemic lupus erythematosus, unspecified Anti DNA DS Antibody Today M32.9 - Systemic lupus erythematosus, unspecified UA ClnCatch+Micro w/rflx Cult Today M32.9 - Systemic lupus erythematosus, unspecified XR shoulder LT min 2V Today M25.512 - Pain in left shoulder PT Evaluation and Treatment Today M25.512 - Pain in left shoulder, M75.02 - Adhesive capsulitis of left shoulder Complete Blood Count Auto Diff Today M32.9 - Systemic lupus erythematosus, unspecified Protein Creatinine Ratio, Ur Today M32.9 - Systemic lupus erythematosus, unspecified Complement C3 Today M32.9 - Systemic lupus erythematosus, unspecified Complement C4 Today M32.9 - Systemic lupus erythematosus, unspecified Creatinine Today M32.9 - Systemic lupus erythematosus, unspecified C Reactive Protein Today M32.9 - Systemic lupus erythematosus, unspecified Coding Level of Care Code Est Pt Level 4 (54673) Complex EM visit Add On G2211 Diagnoses Systemic lupus erythematosus, unspecified SLE type, unspecified organ involvement status M32.9 Systemic lupus erythematosus organ involvement: unspecified Systemic lupus erythematosus type: unspecified Sjogren's syndrome, with unspecified organ involvement M35.00 Sjogren's organ involvement: unspecified organ involvement Anticentromere antibodies present R76.8 SHARON positive R76.8 SS-A antibody positive R76.8 Raynaud's phenomenon without gangrene I73.00 Raynaud?s-associated gangrene presence: without gangrene Knee pain, bilateral M25.561; M25.562 Left shoulder pain M25.512
--- OUTSIDE RECORDS SUMMARY | 2025-08-25 15:14 | XMS_ITS | Clinical Summary ---
Author Organization [facility] Address [address] [place] [id number] Phone Care Team Providers Care Cis Coordinator Name Role Phone Sharon Lopes MD Primary [...] patient's age to complete this topic IPV VACCINES Aged Out No longer eligi ble based on patient's age to complete this topic MENINGOCOCCAL VACCINES (ACWY) Aged Out No longer eligible based on patient's age to complete this topic MENINGOCOCCAL VACCINES (B) Aged Out N o longer eligible based on patient's age to complete this topic Medical Devices Not on file Insurance CIGNA PPO MEDICARE A CIGNA O MEDICARE A CIGNA PPO MEDICARE A CIGNA PPO MEDICARE A CIGNA PPO MEDICARE A CIGNA PPO MEDICARE A Care Teams Cis Coordinator Relationship Specialty Start Date End Date Sharon Lopes MD [address] [place] [address] PCP - General Internal Medicine 12/04/23 Additional Source Comments The information contained in this document represents components of the legal health record. It is not the complete legal health record.[facility]
--- OUTSIDE RECORDS SUMMARY | 2025-08-25 15:14 | XMS_ITS | Clinical Summary ---
Author Organization [facility] Address [address] [place] [address] Care Team Providers Care Supervisor Briar [employer] Name Role Phone Unavailable Primary Care Provider [...] DX:Anxiety; COMM ENT: 04/16-negative stress test at [facility] Brain cyst 10/24/2010 DX:Brain cyst; C OMMENT: [...] Depression Screening 10/08/2024 COVID-19 Vaccine (1 - 2024-2 6 season) 2025 Influenza Vaccine (#1) 2025 5, [...] Recently Relevant to Health Maintenance Results * [facility] SCREENING DIGITAL (08/08/2021 11:24 AM EDT) Anatomical Region Laterality Modality Mammography 08/08/2021 9:06 AM EDT Narrative 08/08/2021 11:24 AM EDT [facility] Diagnostic Imaging Department [address] [place] [id number] Patient: SUMIT DOWNING./Age/Sex: 1960 - 60 - F Unit#: [id number] Location/Status: SPDIMAM/REG CLI Mnemonic/Ordering Site: [facility] Ordering Physician: KENDRICK LARSON MD [facility] Screening Digital - 08/08/[address]27 EXAM: [facility] Screening Digital EXAM DATE AND TIME: 08/08/2021 9:29 AM HISTORY: Screening. COMPARISON: 08/07/20, 01/18/19, 06/28/17 TECHNIQUE: CC and MLO views of both breasts were obtained using full field digital mammography. Bilateral digital breast tomosynthesis was performed in the MLO projection. Computer aided detection with the ezzai - how to arab[place] 7.2-H was employed. TISSUE DENSITY: c. The [...] Evaluation RECOMMENDATION(S): 1: Repeat film(s) needed RIGHT 30451, 15622 3340F, 7025F Dictating Physician: LISBETH KWOK MD Electronically Signed by: LISBETH KWOK MD Dic Date/Time: 08/08/21 1123 Sign date/Time: 08/08/21 1124 Procedure Note Lisbeth Kwok MD - 09/27/2022 [facility] Diagnostic Imaging Department [address] [place], [place] [id number] Patient: SUMIT DOWNINGO.B./Age/Sex: 1960 - 60 - F Unit#: [id number] [facility]Ordering Site: [facility] Ordering Physician: KENDRICK LARSON MD [facility] Screening Digital - 08/08/21927 EXAM: [facility] Screening Digital EXAM DATE AND TIME: 08/08/2021 9:29 AM HISTORY: Screening. COMPARISON: 08/07/20, 01/18/19, 06/28/17 TECHNIQUE: CC and MLO views of both breasts were obtained using fullfield digital mammography. Bilateral digital breast tomosynthesis was performedin the MLO projection. Computer aided detection with the ezzai - how to arabia 7.2-Hwas employed. TISSUE DENSITY: c. The breasts [...] Evaluation RECOMMENDATION(S): 1: Repeat film(s) needed RIGHT 22768, 29947 3340F, 7025F Dictating Physician: LISBETH KWOK MD Electronically Signed by: LISBETH KWOK MD Dic Date/Time: 08/08/21 1123 Sign date/Time: 08/08/21 1124 Sharon Tolliver MD IMG BI PROCEDURES Final Result from Last 3 Months or Most Recently Relevant to Health Maintenance
== END 2025-08-25 09:16 | disposition home or self-care (01) ==
PROVIDERS: PCP Internal Medicine; Visit Provider Internal Medicine Rheumatology
DX: M32.9 Systemic lupus erythematosus, unspecified (principal); M35.00 Sjogren syndrome, unspecified; R76.89 Other specified abnormal immunological findings in serum; I73.00 Raynaud's syndrome without gangrene; M25.561 Pain in right knee; M25.562 Pain in left knee; M25.512 Pain in left shoulder
CPT/HCPCS: 99214

== ENCOUNTER 2025-08-25 08:24 | Outpatient (REF) | payer OTHER, SELFPAY ==
[2025-08-25 13:39] LABS: Appearance Urine Cloudy; Glucose Urine UA Negative (Negative); PH 5.5 (5.0-9.0); Specific Gravity - Urine 1.020 (1.005-1.025); UMIC TRIGGER UACC YES
[2025-08-25 13:46] LABS: MANUAL DIFF FLAG NO
[2025-08-25 14:03] LABS: Alanine Aminotransferase 25 U/L (0-31); Aspartate Amino Transferase 29 U/L (5-31); Estimated Glomerular Filt Rate > 60
[2025-08-25 14:29] LABS: Hematocrit 36.3 % (37.0-47.0); Hemoglobin 12.0 g/dl (12.0-16.0); Imm Gran Abs Auto 0.03 X10*3/uL (0.00-0.03); Imm Gran Pct Auto 0.6 % (0.0-0.4); Lymphocytes Absolute Auto 2.0 X10*3/uL (1.2-4.9); Mean Corpuscular HGB Conc 33.1 g/dl (31.0-35.0); Mean Corpuscular Hemoglobin 30.8 pg (27.0-33.0); Mean Corpuscular Volume 93.3 fL (80.0-98.0); NRBC Abs Auto 0.000 X10*3/uL (0.0-0.012); NRBC Pct Auto 0.0 /100WBC (0.0-0.2); Platelet Count 178 X10*3/uL (160-400); Red Blood Count 3.89 X10*6/uL (4.20-5.50); White Blood Count 4.8 X10*3/uL (4.8-10.8)
[2025-08-25 19:41] LABS: Total Protein Urine Random < 7 mg/dL (<12)
== END 2025-08-25 08:25 | disposition home or self-care (01) ==
LOC: HO.HKASLDS 08:24
PROVIDERS: PCP Internal Medicine; Visit Provider Internal Medicine Rheumatology
DX: M25.561 Pain in right knee (principal); M25.562 Pain in left knee; I73.00 Raynaud's syndrome without gangrene; R76.89 Other specified abnormal immunological findings in serum; Z51.81 Encounter for therapeutic drug level monitoring; M32.9 Systemic lupus erythematosus, unspecified; M35.00 Sjogren syndrome, unspecified; M25.512 Pain in left shoulder; Z79.899 Other long term (current) drug therapy
CPT/HCPCS: 36415; 81001; 82565; 82570; 84156; 84450; 84460; 85025; 85652; 86140; 86160; 86225

== ENCOUNTER 2025-09-08 12:47 | Outpatient (AMB) | payer OTHER, SELFPAY ==
--- NOTE | 2025-09-08 13:05 | MHC.OFFVIS ---
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 Patient states she has had bilateral leg pain and swelling . Right leg worse. Also experiences cramping , numbness and tingling. 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 The patient reports experiencing leg cramps, pain with walking, and bilateral ankle swelling, which is more severe on the right side and can be significant. The patient also notes occasional greenish discoloration of the feet. The patient has a history of smoking and reports a diagnosis of neuropathy. The patient denies diabetes, a history of injuries to the legs, or any personal history of blood clots. The patient is not aware of any family history of blood clots, but recalls another doctor mentioning a risk for thrombosis due to blood thickness. 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 A previous ultrasound of the legs was reportedly normal. The patient denies any history of cancer, chemotherapy, or radiation. It has been affecting there daily activities including walking. It is noted more so in right leg. Patient denies any previous venous surgery or injections. Patient denies any history of DVT/ PE. Patient denies any history of phlebitis. Trial of compression includes - [id number] They now present for vascular evaluation regarding their varicose veins. [facility] Medical History Thrombocytopenia Sjogrens syndrome Mild recurrent major depression Hypothyroidism Obstructive sleep apnea hypopnea, mild Witnessed apneic spells Loud snoring Postherpetic neuralgia Depression Ingrown toenail Overactive bladder Hypothyroidism Pulmonary nodules Ankylosis of thoracic spine Goiter 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 Surgical History SS-A antibody positive Sjogren syndrome with lung involvement History of brain surgery Hx of esophagogastroduodenoscopy Hx of colonoscopy History of thyroidectomy Family History Father Diabetes Stroke Alzheimer disease Mother Alzheimer disease Parkinson disease Depression Arthritis Son Multiple sclerosis Son Learning disability Brother Diabetes Sister Diabetes Hypertension Family/Other History of breast cancer Social History Household Members: None Housing: Condominium Alcohol intake: never Patient Tobacco Use Status: Former Tobacco user Tobacco use type: Cigarette e-Cigarette/Vaping Use: Never Used Second Hand Smoke Exposure: No Substance Use Type: Marijuana service: No Current occupational status: employed Current occupation: [employer]/ [employer] Current occupational exposures/hazards: No Cognitive needs: No Hearing needs: No Vision needs: No Review of Systems Const Reports as per HPI ENT Reports no additional complaints Card Denies chest pain, Denies chest pain at rest and Denies chest pain with activity Resp Denies chest congestion and Denies cough GI Reports no additional complaints Musc Details: pain over varicosities, aching of lower extremities, swelling, cramping, heaviness and tiredness, itching Denies abnormal gait Skin/Breast Reports pruritus and Denies wounds Neuro Reports no additional complaints and Denies abnormal gait Psych Denies no additional complaints Physical Exam Const General: cooperative, healthy appearing and comfortable Orientation/consciousness: oriented to person, oriented to place and oriented to time Neck Carotids: no bruits Chest Chest palpation & inspection: normal inspection of the chest and normal palpation of entire chest wall Resp Effort & Inspection: normal respiratory effort and able to speak in complete sentences Cardio Rate: regular rate Heart sounds: S1 normal heart sound present and S2 normal heart sound present Peripheral pulses: Peripheral pulses 2+ throughout GI Inspection: Yes normal to inspection Skin Other: +2 edema, large rope-like varicosities greater than 4 mm CEAP Classification C4 - skin color changes Ep - Etiology Primary As - superficial veins P - reflux General skin exam: dry skin Neuro General: oriented to person, oriented to place and oriented to time Extrem Right lower extremity: full ROM, normal capillary refill and edema Left lower extremity: full ROM, normal capillary refill and edema Psych Mental Status: mental status grossly normal Assessment & Plan Assessment & Plan (1) Varicose veins of right lower extremity with inflammation: Code(s): I83.11 - Varicose veins of right lower extremity with inflammation Category: Medical Plan: In short, the patient has evidence of venous insufficiency. I have discussed the pathophysiology with the patient. In addition I have provided informational material regarding venous disease to the patient. We have discussed conservative measures including compression, elevation, and exercise. I have also provided a handout regarding appropriate use of compression stockings and where to purchase good compression stockings as well. I have taken the liberty of ordering venous insufficiency testing with the patient. They will follow up with me after testing. The patient had an opportunity to ask questions regarding the treatment plan. All questions were answered. Imaging studies, laboratory studies and physical exam results were discussed and reviewed in detail. No major barriers to understanding were identified. The patient expressed understanding and agreement with the above treatment plan. The patient is aware they should contact our office by phone for worsening of the current condition or the appearance of new symptoms. Thank you for allowing me to participate in the vascular care of this patient. If you have any questions or concerns regarding the treatment for the above condition please do not hesitate to contact me. The office telephone contact is [phone]. This note is constructed using voice recognition software. While every effort has been made to ensure accuracy, public health program manager errors may have been included. Thank you for allowing me to participate in the care of your patient. Yours sincerely, Ever Mcdonald MD, FACS, R.P.V.I. Orders: Orders US venous duplex LE BI Today I83.11 - Varicose veins of right lower extremity with inflammation Coding Level of Care Code New Pt Level 4 (94190) Diagnoses Varicose veins of right lower extremity with inflammation I83.11
--- OUTSIDE RECORDS SUMMARY | 2025-09-08 14:41 | XMS_ITS | Clinical Summary ---
Author Organization [facility] Address [address] [place] [address] Care Team Providers Care Continuous Improvement Director Name Role Phone Unavailable Primary Care Provider [...] DX:Anxiety; COMM ENT: 04/16-negative stress test at [facility] Brain cyst 10/24/2010 DX:Brain cyst; C OMMENT: [...] Recently Relevant to Health Maintenance Results * [facility] SCREENING DIGITAL (08/08/2021 11:24 AM EDT) Anatomical Region Laterality Modality Mammography 08/08/2021 9:06 AM EDT Narrative 08/08/2021 11:24 AM EDT [facility] Diagnostic Imaging Department [address] [place] [address] Patient: SUMIT DOWNING./Age/Sex: 1960 - 60 - F Unit#: [id number] Location/Status: SPDIMAM/REG CLI Mnemonic/Ordering Site: [facility] Ordering Physician: KENDRICK LARSON MD [facility] Screening Digital - 08/08/21927 EXAM: [facility] Screening Digital EXAM DATE AND TIME: 08/08/2021 9:29 AM HISTORY: Screening. COMPARISON: 08/07/20, 01/18/19, 06/28/17 TECHNIQUE: CC and MLO views of both breasts were obtained using full field digital mammography. Bilateral digital breast tomosynthesis was performed in the MLO projection. Computer aided detection with the Cuff-Protect 7.2-H was employed. TISSUE DENSITY: c. The [...] Evaluation RECOMMENDATION(S): 1: Repeat film(s) needed RIGHT 17919, 93739 3340F, 7025F Dictating Physician: LISBETH KWOK MD Electronically Signed by: LISBETH KWOK MD Dic Date/Time: 08/08/21 1123 Sign date/Time: 08/08/21 1124 Procedure Note Lisbeth Kwok MD - 09/27/2022 [facility] Diagnostic Imaging Department [address] [place], [place] [id number] Patient: SUMIT DOWNINGO.B./Age/Sex: 1960 - 60 - F Unit#: [id number] [facility]Ordering Site: [facility] Ordering Physician: KENDRICK LARSON MD [facility] Screening Digital - 08/08/21927 EXAM: [facility] Screening Digital EXAM DATE AND TIME: 08/08/2021 9:29 AM HISTORY: Screening. COMPARISON: 08/07/20, 01/18/19, 06/28/17 TECHNIQUE: CC and MLO views of both breasts were obtained using fullfield digital mammography. Bilateral digital breast tomosynthesis was performedin the MLO projection. Computer aided detection with the Cuff-Protect 7.2-Hwas employed. TISSUE DENSITY: c. The breasts [...] Evaluation RECOMMENDATION(S): 1: Repeat film(s) needed RIGHT 82587, 56317 3340F, 7025F Dictating Physician: LISBETH KWOK MD Electronically Signed by: LISBETH KWOK MD Dic Date/Time: 08/08/21 1123 Sign date/Time: 08/08/21 1124 Sharon Tolliver MD IMG BI PROCEDURES Final Result from Last 3 Months or Most Recently Relevant to Health Maintenance
--- OUTSIDE RECORDS SUMMARY | 2025-09-08 14:41 | XMS_ITS | Clinical Summary ---
Author Organization [facility] Address [address] [place] [address] Phone Care Team Providers Care Cupola Mechanic Name Role Phone Sharon Lopes MD [...] MEDICARE A CIGNA PPO MEDICARE A ([address] PPO MEDICARE A CIGNA PPO MEDICARE A CIGNA PPO MEDICARE A Care Teams Cupola Mechanic Relationship Specialty Start Date End Date Sharon Lopes MD [address] [place] [address] PCP - General Internal Medicine 12/04/23 Additional Source Comments The information contained in this document represents components of the legal health record. It is not the complete legal health record.[facility]
== END 2025-09-08 13:32 | disposition home or self-care (01) ==
LOC: HO.HVS 12:48
PROVIDERS: PCP Internal Medicine; Visit Provider Surgery Vascular Surgery
DX: I83.11 Varicose veins of right lower extremity with inflammation (principal)
CPT/HCPCS: 99204

== ENCOUNTER 2025-09-14 08:54 | Outpatient (REF) | payer OTHER, SELFPAY ==
--- NOTE | ~2025-09-14 | XR_ITS ---
EXAMINATION: XR KNEE, LEFT CLINICAL INFORMATION: X-ray 02/09/2025 COMPARISON: None available. TECHNIQUE: Three views of the left knee. FINDINGS: No acute fracture or dislocation. Mild patellofemoral joint space narrowing. Medial and lateral compartment joint spaces are preserved. Superior and inferior patellar enthesopathy. Redemonstrated 13 mm loose body in the joint space. XR/XR knee LT 3V IMPRESSION: Mild patellofemoral arthritis. 13 mm loose body in the joint space. Electronically signed by: Kt Schulz MD 09/14/2025 01:52 PM HOME
--- NOTE | ~2025-09-14 | XR_ITS ---
EXAMINATION: XR SHOULDER, LEFT CLINICAL INFORMATION: M25.512 - Pain in left shoulder COMPARISON: X-ray 11/15/2016 TECHNIQUE: AP external rotation, Grashey, scapular Y, and axillary views of the left shoulder. FINDINGS: No acute fracture or dislocation. Joint spaces are preserved. No abnormal soft tissue calcifications. XR/XR shoulder LT min 2V IMPRESSION: No acute findings Electronically signed by: Kt Schulz MD 09/14/2025 11:31 AM HOME
[2025-09-14 10:21] LABS: Thyroid Stimulating Hormone 2.01 uIU/mL (0.32-4.0)
[2025-09-14 10:33] LABS: Folate 7.0 ng/mL (> or = 4.0); Vitamin B12 280 pg/mL (200-900)
== END 2025-09-14 08:55 | disposition home or self-care (01) ==
LOC: HO.XRAY 08:54
PROVIDERS: Absent Provider Internal Medicine Rheumatology; PCP Internal Medicine; Visit Provider Internal Medicine
DX: E53.8 Deficiency of other specified B group vitamins (principal); E89.0 Postprocedural hypothyroidism; M25.512 Pain in left shoulder; M25.562 Pain in left knee; E55.9 Vitamin D deficiency, unspecified
CPT/HCPCS: 36415; 73030; 73562; 82306; 82607; 82746; 84443

== ENCOUNTER → 2025-09-14 09:17 | Outpatient (BNV) | payer OTHER, SELFPAY | PROVIDERS: Absent Provider Internal Medicine Rheumatology; PCP Internal Medicine; Visit Provider Radiology Diagnostic Ultrasound | DX: M17.12 Unilateral primary osteoarthritis, left knee (principal); M23.42 Loose body in knee, left knee; M25.512 Pain in left shoulder | CPT/HCPCS: 73030; 73562 ==

== ENCOUNTER 2025-09-28 09:04 | Outpatient (REF) | payer OTHER, SELFPAY ==
--- NOTE | ~2025-09-28 | MM_ITS ---
EXAMINATION: MM SCREENING DIGITAL BREAST TOMOSYNTHESIS, BILATERAL CLINICAL INFORMATION: Screening. Asymptomatic. COMPARISON: Mammography: Comparison is made with available priors TECHNIQUE: Digital breast mammography with tomosynthesis is performed in both the craniocaudal and mediolateral oblique views along with computer-aided detection (CAD). FINDINGS: The breasts are heterogeneously dense, which may obscure small masses. There are no significant masses, abnormal calcifications, or other abnormalities. MM/MM tomosynthesis screening BI IMPRESSION: No mammographic evidence of malignancy. ASSESSMENT: BI-RADS Category 1: Negative RECOMMENDATION: Routine annual mammography screening. 1 year F/U This examination should not preclude the clinical evaluation of a suspicious palpable abnormality. This patient's information was entered into a reminder system with a target due date for their next mammogram. Electronically signed by: Spring Andrews DO 09/30/2025 03:15 PM HOME
--- OUTSIDE RECORDS SUMMARY | 2025-09-28 09:57 | XMS_ITS | Patient Health Record ---
Author Organization [facility] Address [address] [place] [address] Care Team Providers Care Optimization Specialist Name Role Phone PETRA CARLOS DO Primary Care Provider TONY Baron Unavailable [phone] Allergies Allergen (clinical drug ingredient) Drug/Non Drug Allergy documented on EMR Reaction Allergy Type Onset Date Status Penicillin Unknown Drug Allergy Active Reason For Referral No Information Medications Medication SIG (Take, Route, Frequency, Duration) Notes Start Date End Date Status [facility] TH[facility] MULTIPLE VITAMINS WITH MINERALS TABLET 1 TAB(S) ORALLY ONCE A DAY; Duration: 30 DAY(S) *Please review for potential replacement for e-prescription and drug interaction check* Active Plaquenil 200 MG Tablet 2 tab(s) orally q hs Active Ativan 0.5 MG Tablet 1 tab(s) orally prn; Duration: 30 day(s) Active PT AND OT SERVICES PT WITH RA PLEASE EVAL RE HEAT, PARAFFIN, SPLINTS, EXERCISE PROGRAM. DIRECTED *Please review for potential replacement for e-prescription and drug interaction check* Active PROzac 40 MG Capsule 1 cap(s) orally PT STOPPED; Duration: 30 day(s) Active Caltrate 600+D Plus Minerals VITAMIN D WITH MINERALS TABLET 1 TAB(S) ORALLY ONCE A DAY; Duration: 30 DAY(S) NAME ONLY Conversion from Multum Review and pick correct strength-formulat ion from Solumspan options. If intended option is not shown, discontinue and re-order from Quick Search. Active Famotidine 20 MG Tablet 1 tab(s) orally once Active Multivitamin 1 TAB STOPPED NAME ONLY Conversion from Multum Review and pick correct strength-formulat ion from [employer] options. If intended option is not shown, discontinue and re-order from Quick Search. Not-Taking PROzac 40 MG Capsule 1 cap(s) orally PT STOPPED; Duration: 30 day(s) Not-Taking Pilocarpine HCl 5 MG Tablet 1 tab(s) orally 4 times a day; Duration: 30 day(s) Active Levothyroxine Sodium 88 MCG Tablet 1 tab(s) orally once a day Active Aleve 220 MG Tablet 1 tab(s) orally prn; Duration: 5 day(s) Active Ativan 0.5 MG Tablet 1 tab(s) orally prn; Duration: 30 day(s) Active Multivitamin 1 TAB STOPPED NAME ONLY Conversion from Multum Review and pick correct strength-formulat ion from [employer] options. If intended option is not shown, discontinue and re-order from Quick Search. Active B-12 1000 MCG Tablet 1 tab(s) orally once a day; Duration: 30 day(s) Active PT AND OT SERVICES PT WITH RA PLEASE EVAL RE HEAT, PARAFFIN, SPLINTS, EXERCISE PROGRAM. 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, [employer] Hobbies/Exercise habits: Reading Coffee/Tea/Soda: yes 1, Coffee, Tea sometimes Marital Status single experience no Living with son w/ MS Problems Problem Type SNOMED Code ICD Code Onset Dates Problem Status W/U Status Risk Notes Problem Postoperative hypothyroidism (13531522) Postoperative hypothyroidism (E89.0) Active confirmed Plan Of Treatment Pending Test Test Name Order Date ALBUMIN 12/09/2020 TSH 12/09/2020 BASIC METABOLIC PANEL 12/09/2020 FREE T4( SEND TO [facility]) 12/09/2020 Insurance Providers Payer Name Payer Address Payer Phone Subscriber Number Group Number Insured Name Patient Relationship to Insured Coverage Start Date Coverage End Date [employer] OPEN ACCESS [address] [place] [phone] [id number] SUMIT DOWNING Self - patient is the insured Medical (General) History Medical History History ICD Code arthralgia Borderline + RF. + MIRLANDE > 1:3200 sp CCP n eg 2005 ? sjogrens multinodular goiter - s/p to [facility] thyroidectomy 03/2020 - 80.9 gm, nodular follicular hyperplasia w/ micro-/macro-follicles, mild thyroiditis depression M1 Has IUD anemia arthritis Surgical History Surgery Date(Month/Year) thyroidectomy 2019 ovarian cyst cyst removal - brain 1992
--- OUTSIDE RECORDS SUMMARY | 2025-09-28 09:57 | XMS_ITS | Clinical Summary ---
Author Organization Jessica Talicious [facility] Address [address] [place] [address] Care Team Providers Care Asphalt Paver Name Role Phone Unavailable Primary Care Provider [...] DX:Anxiety; COMM ENT: 04/16-negative stress test at [facility] Brain cyst 10/24/2010 DX:Brain cyst; C [...] AM EDT Narrative 08/08/2021 11:24 AM EDT [facility] Diagnostic Imaging Department [address] [place] [address] Patient: SUMIT DOWNING /Age/Sex: 1960 - 60 - F Unit#: [id number] Location/Status: SPDIMAM/REG CLI Mnemonic/Ordering Site: [facility] Ordering Physician: KENDRICK LARSON MD [facility] Screening Digital - 08/08/[address] EXAM: [facility] Screening Digital EXAM DATE AND TIME: 08/08/2021 9:29 AM HISTORY: Screening. COMPARISON: 08/07/20, 01/18/19, 06/28/17 TECHNIQUE: CC and MLO views of both breasts were obtained using full field digital mammography. Bilateral digital breast tomosynthesis was performed in the MLO projection. Computer aided detection with the Coveo 7.2-H was employed. TISSUE DENSITY: c. The [...] Evaluation RECOMMENDATION(S): 1: Repeat film(s) needed RIGHT 32414, 04598 3340F, 7025F Dictating Physician: LISBETH KWOK MD Electronically Signed by: LISBETH KWOK MD Dic Date/Time: 08/08/21 1123 Sign date/Time: 08/08/21 1124 Procedure Note Lisbeth Kwok MD - 09/27/2022 [facility] Diagnostic Imaging Department [address] [place], [place] [id number] Patient: SUMIT DOWNINGO.B./Age/Sex: 1960 - 60 - F Unit#: [id number] Location/Status: [facility] Mnemonic/Ordering Site: [facility] Ordering Physician: KENDRICK LARSON MD [facility] Screening Digital - 08/08/21927 EXAM: [facility] Screening Digital EXAM DATE AND TIME: 08/08/2021 9:29 AM HISTORY: Screening. COMPARISON: 08/07/20, 01/18/19, 06/28/17 TECHNIQUE: CC and MLO views of both breasts were obtained using fullfield digital mammography. Bilateral digital breast tomosynthesis was performedin the MLO projection. Computer aided detection with the iCAD PowerLook 7.2-Hwas employed. TISSUE DENSITY: c. The breasts [...] Evaluation RECOMMENDATION(S): 1: Repeat film(s) needed RIGHT 65007, 10879 3340F, 7025F Dictating Physician: LISBETH KWOK MD Electronically Signed by: LISBETH KWOK MD Dic Date/Time: 08/08/21 1123 Sign date/Time: 08/08/21 1124 Sharon Tolliver MD IMG BI PROCEDURES Final Result from Last 3 Months or Most Recently Relevant to Health Maintenance
--- OUTSIDE RECORDS SUMMARY | 2025-09-28 09:57 | XMS_ITS | Clinical Summary ---
Author Organization [facility] Address [address] [place] [address] Phone Care Team Providers Care Archival Records Clerk Name Role Phone Sharon Lopes MD [...] PPO MEDICARE A CIGNA PPO MEDICARE A ([address] PPO MEDICARE A CIGNA PPO MEDICARE A CIGNA PPO MEDICARE A Care Teams Archival Records Clerk Relationship Specialty Start Date End Date Sharon Lopes MD [address] [place] [address] PCP - General Internal Medicine 12/04/23 Additional Source Comments The information contained in this document represents components of the legal health record. It is not the complete legal health record.[facility]
== END 2025-09-28 09:05 | disposition home or self-care (01) ==
LOC: HO.MAMMO 09:04
PROVIDERS: PCP Internal Medicine; Visit Provider Internal Medicine
DX: Z12.31 Encounter for screening mammogram for malignant neoplasm of breast (principal)
CPT/HCPCS: 77063; 77067

== ENCOUNTER → 2025-09-28 09:30 | Outpatient (BNV) | payer OTHER, SELFPAY | PROVIDERS: PCP Internal Medicine; Visit Provider Internal Medicine | DX: Z12.31 Encounter for screening mammogram for malignant neoplasm of breast (principal) | CPT/HCPCS: 77063; 77067 ==

== ENCOUNTER 2025-10-05 08:21 | Outpatient (REF) | payer OTHER, SELFPAY ==
--- NOTE | ~2025-10-05 | US_ITS ---
EXAMINATION: US LOWER EXTREMITY VENOUS (REFLUX EXAM), BILATERAL CLINICAL INFORMATION: Varicose veins of right lower extremity with inflammation COMPARISON: None. TECHNIQUE: Color flow triplex imaging and compression Doppler was performed to evaluate both the deep and the superficial systems bilaterally. To evaluate the superficial system, the examination was performed in the upright position. Color-flow Doppler ultrasound and compression ultrasound were utilized. In addition, maneuvers were utilized to demonstrate reflux. FINDINGS: 1. DEEP VENOUS ULTRASOUND OF THE RIGHT LOWER EXTREMITY: Common Femoral Vein: Compressible, normal respiratory variation and augmented flow. Femoral Vein: Compressible, normal color flow and augmentation. Popliteal Vein: Compressible, normal augmentation. Deep Reflux: There is no evidence of reflux in the deep system in either the common femoral vein, superficial femoral or the popliteal vein. There is no evidence of a Park's cyst. 2. SUPERFICIAL ULTRASOUND WITH DOPPLER OF RIGHT LOWER EXTREMITY: GREAT SAPHENOUS VEIN: Saphenofemoral Junction: 0.7 cm; Reflux: 0 ms Proximal Thigh: 0.5 cm; Reflux: 0 ms Mid Thigh: 0.5 cm; Reflux: Greater than 3000 ms Distal Thigh: 0.4 cm; Reflux: Greater than 3500 ms At Knee: 0.4 cm; Reflux: Greater than 3400 ms Proximal Calf: 0.4 cm; Reflux: 1640 ms Mid Calf: 0.2 cm; Reflux: 2564 ms Distal Calf: 0.3 cm; Reflux: 0 ms DUPLICATED MEDIAL GREAT SAPHENOUS VEIN: Diameter: None imaged Reflux: NA DUPLICATED LATERAL GREAT SAPHENOUS VEIN: Diameter: 0.4 cm Reflux: NA SMALL SAPHENOUS VEIN: Saphenopopliteal Junction: 0.4 cm; Reflux: 0 ms Proximal: 0.1 cm; Reflux: 0 ms Distal: 0.2 cm; Reflux: 0 ms VEIN OF GIACOMINI: Size: 0.3 cm Reflux: NA PERFORATORS: Location: Mid thigh measuring 0.2 cm without reflux. Proximal calf 27 cm from the heel measuring 0.3 cm without reflux. Mid to distal calf measuring 0.3 cm 18 cm from the heel with greater than 3 second reflux. VARICOSITIES: Location: Proximal and distal calf Size: 0.4 and 0.3 cm Reflux: NA 3. DEEP VENOUS ULTRASOUND OF THE LEFT LOWER EXTREMITY: Common Femoral Vein: Compressible, normal respiratory variation and augmented flow. Femoral Vein: Compressible, normal color flow and augmentation. Popliteal Vein: Compressible, normal augmentation. Deep Reflux: There is no evidence of reflux in the deep system in either the common femoral vein, superficial femoral or the popliteal vein. There is no evidence of a Park's cyst. 4. SUPERFICIAL ULTRASOUND WITH DOPPLER OF LEFT LOWER EXTREMITY: GREAT SAPHENOUS VEIN: Saphenofemoral Junction: 0.9 cm; Reflux: 0 ms Proximal Thigh: 0.4 cm; Reflux: 0 ms Mid Thigh: 0.4 cm; Reflux: 0 ms Distal Thigh: 0.5 cm; Reflux: 0 ms At Knee: 0.4 cm; Reflux: 0 ms Proximal Calf: 0.4 cm; Reflux: 0 ms Mid Calf: 0.1 cm; Reflux: Radiodense 3000 ms Distal Calf: 0.2 cm; Reflux: 964 ms DUPLICATED MEDIAL GREAT SAPHENOUS VEIN: Diameter: None imaged Reflux: NA DUPLICATED LATERAL GREAT SAPHENOUS VEIN: Diameter: 0.2 cm Reflux: NA SMALL SAPHENOUS VEIN: Saphenopopliteal Junction: 0.3 cm; Reflux: 0 ms Proximal: 0.3 cm; Reflux: 0 ms Distal: 0.2 cm; Reflux: 0 ms VEIN OF GIACOMINI: Size: 0.3 cm Reflux: NA PERFORATORS: Location: There are 4 perforators in the calf identified measuring 0.2 cm without reflux. VARICOSITIES: Location: Proximal calf Size: 0.3 Reflux: NA US/US venous insuf bilat IMPRESSION: Right: No evidence of DVT or deep venous reflux. Right greater saphenous vein reflux measuring maximum greater than 3.5 seconds. No lesser saphenous vein reflux. [employer] Rep[employer] Supervisor in the mid to distal calf with greater than 3 second reflux measuring 0.3 cm. Additional perforators and varicosities without reflux. Left: No evidence of DVT or deep venous reflux. Left rater saphenous vein reflux in the mid calf and ankle measuring maximum greater than 3 seconds. Normal caliber lesser saphenous vein without reflux. Multiple perforators in the calf without reflux. Single varicosity in the calf without reflux. Electronically signed by: Staci Matt MD 10/05/2025 10:24 AM [facility]
--- OUTSIDE RECORDS SUMMARY | 2025-10-05 08:24 | XMS_ITS | Clinical Summary ---
Author Organization Jessica [facility] Address [address] [place] [address] Care Team Providers Care Foundry Engineer Name Role Phone Unavailable Primary Care Provider [...] DX:Anxiety; COMM ENT: 04/16-negative stress test at [facility] Brain cyst 10/24/2010 DX:Brain cyst; [...] AM EDT Narrative 08/08/2021 11:24 AM EDT [facility] Diagnostic Imaging Department [address] [place] [address] Patient: SUMIT DOWNING /Age/Sex: 1960 - 60 - F Unit#: [id number] Location/Status: SPDIMAM/REG CLI Mnemonic/Ordering Site: [facility] Ordering Physician: KENDRICK LARSON MD [facility] Screening Digital - 08/08/[address]27 EXAM: [facility] Screening Digital EXAM DATE AND TIME: 08/08/2021 9:29 AM HISTORY: Screening. COMPARISON: 08/07/20, 01/18/19, 06/28/17 TECHNIQUE: CC and MLO views of both breasts were obtained using full field digital mammography. Bilateral digital breast tomosynthesis was performed in the MLO projection. Computer aided detection with the Lellan 7.2-H was employed. TISSUE DENSITY: c. The [...] Evaluation RECOMMENDATION(S): 1: Repeat film(s) needed RIGHT 91171, 33617 3340F, 7025F Dictating Physician: LISBETH KWOK MD Electronically Signed by: LISBETH KWOK MD Dic Date/Time: 08/08/21 1123 Sign date/Time: 08/08/21 1124 Procedure Note Lisbeth Kwok MD - 09/27/2022 [facility] Diagnostic Imaging Department [address] [place], [place] [phone] Patient: SUMIT DOWNINGO.B./Age/Sex: 1960 - 60 - F Unit#: [id number] Location/Status: [facility] Mnemonic/Ordering Site: [facility] Ordering Physician: KENDRICK LARSON MD [facility] Screening Digital - 08/08/21927 EXAM: [facility] Screening Digital EXAM DATE AND TIME: [...] Evaluation RECOMMENDATION(S): 1: Repeat film(s) needed RIGHT 53156, 77975 3340F, 7025F Dictating Physician: LISBETH KWOK MD Electronically Signed by: LISBETH KWOK MD Dic Date/Time: 08/08/21 1123 Sign date/Time: 08/08/21 1124 Sharon Tolliver MD IMG BI PROCEDURES Final Result from Last 3 Months or Most Recently Relevant to Health Maintenance
--- OUTSIDE RECORDS SUMMARY | 2025-10-05 08:24 | XMS_ITS | Clinical Summary ---
Author Organization [facility] Address [address] [place] [address] Phone Care Team Providers Care Clinical Trials Assistant Name Role Phone Sharon Lopes MD Primary [...] PPO MEDICARE A CIGNA PPO MEDICARE A ([address] PPO MEDICARE A CIGNA PPO MEDICARE A CIGNA PPO MEDICARE A Care Teams Clinical Trials Assistant Relationship Specialty Start Date End Date Sharon Lopes MD [address] [place] [address] PCP - General Internal Medicine 12/04/23 Additional Source Comments The information contained in this document represents components of the legal health record. It is not the complete legal health record.[facility]
--- OUTSIDE RECORDS SUMMARY | 2025-10-05 08:24 | XMS_ITS | Patient Health Record ---
Author Organization [facility] Address [address] [place] [address] Care Team Providers Care Glass Forming Engineer Name Role Phone PETRA CARLOS DO Primary Care Provider TONY Baron Unavailable Allergies Allergen (clinical drug ingredient) Drug/Non Drug Allergy documented on EMR Reaction Allergy Type Onset Date Status Penicillin Unknown Drug Allergy Active Reason For Referral No Information Medications Medication SIG (Take, Route, Frequency, Duration) Notes Start Date End Date Status [facility] WOMEN'S THERAPEUTIC MULTIPLE VITAMINS WITH MINERALS TABLET [...] Review and pick correct strength-formulat ion from Pal[employer]romXspan options. If intended option is not shown, discontinue and re-order from Quick Search. Active Famotidine 20 MG Tablet 1 tab(s) orally once Active Multivitamin 1 TAB STOPPED NAME ONLY Conversion from Multum Review and pick correct strength-formulat ion from [employer] options. If intended option is not shown, [...] Review and pick correct strength-formulat ion from [employer] options. 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, [employer] Hobbies/Exercise habits: Reading Coffee/Tea/Soda: yes 1, Coffee, Tea sometimes Marital Status single experience no Living with son w/ MS Problems Problem Type SNOMED Code ICD Code Onset Dates Problem Status W/U Status Risk Notes Problem Postoperative hypothyroidism (31040578) Postoperative hypothyroidism (E89.0) Active confirmed Plan Of Treatment Pending Test Test Name Order Date ALBUMIN 12/09/2020 TSH 12/09/2020 BASIC METABOLIC PANEL 12/09/2020 FREE T4( SEND TO [facility]) 12/09/2020 Insurance Providers Payer Name Payer Address Payer Phone Subscriber Number Group Number Insured Name Patient Relationship to Insured Coverage Start Date Coverage End Date [email or web address] OPEN ACCESS [address] [place] [phone] [id number] SUMIT DOWNING Self - patient is the [...]
--- OUTSIDE RECORDS SUMMARY | 2025-10-05 08:24 | XMS_ITS | Data Portability ---
Author Organization [place] [facility] Address [address] [address] Care Team Providers Care Mixer Operator Name Role Phone MIRLANDE LARSON Primary Care Provider Assessment No assessment recorded. Plan of Treatment Reminders Order Date Submit Date Provider Last Modified By Organization Details Last Modified Time Details Appointments None recorded. Lab surgical pathology study - right lower lip, eval for Sjogren's 2024 025 DECATUR [facility] (Centralized Electronic Ordering - All Locations), Patient Can Go To The Location Of Their Choice, [id number] 5 08:56:55 Referral None recorded. Procedures None recorded. Surgeries None recorded. Imaging None recorded. Medication Orders Peridex 0.12 % mouthwash 2024 025 DECATUR [id number], [phone] [place], [address], 5 16:20:30 Patient TargetsNo targets recorded. Patient InstructionsNo instructions recorded. Reason for Referral None Reported. Results Created Date Observation Date Name Description Value Unit Range Abnormal Flag Note LastModifiedBy Organization Detail LastModifiedTime Result Notes None recorded. Problems Name Problem SNOMED Code Status Onset Date Resolution Date Notes Provider Name and Address Organization Details Recorded Time Dysphagia 19688407 Active 021 Dyspha hrenán, unspec ified; Note: Date Diagno sed: 021 1:44 PM (R13.1 0) Not Available [facility] 4 03:29:52 Dysphonia 14662562 Active 021 Dyspho sayra; Note: Date Diagno sed: 021 1:44 PM (R49.0 ) Not Available [facility] 4 03:29:52 Xerostomia 09103807 Active 025 LAN DÍAZ MD [address] [facility] [place] [address], [place], [address] , [facility] - [facility] 5 15:58:08 Problem Notes None recorded. Procedures Surgical History Date Name Laterality Status Provider Name and Address Organization Details Recorded Time 5 Minor salivary gland biopsy_JMS completed LAN DÍAZ MD [address] [facility],[place] [address], [place], [address], [facility] 04/20/2025 17:00:18 operation on brain completed LAN DÍAZ MD [address] [facility] [place] [address], [place], [address], [facility] - [facility] 04/20/2025 16:59:42 Imaging Results None recorded. Procedure Notes None recorded. Medical Equipment None Reported. Allergies Allergen ID Allergen Name Allergen Category Reaction Reaction Severity Criticality Documentation Date Start Date Code Code System Note Provider Name and Address Organization Details Recorded Time 444707 Product containin g penicilli n (product) medicatio n other Not available Not available 02/19/2024 96622 8001 SNOMED React ion: Unkno wn; Not Available [facility] 4 01:26:26 Medications Name Sig Start Date Stop Date Status Note LastModified by Organization Details LastModified Time pilocarpi ne 5 mg tablet 04/20 completed Medicati on ID: [id number] B rand Name: pilocarp ine HCl Send Method: E-Prescr ibed Sub s Allowed: subs OK Medic ationGen ericName : pilocarp ine HCl Not Available Not Available Not Available gabapenti n 600 mg tablet TAKE 1 TABLET (600 MG) ORALLY 3 TIMES A DAY FOR 30 DAYS active Not Available Not Available No t Available ibuprofen 800 mg tablet TAKE 1 TABLET BY MOUTH EVERY 8 HOURS NEEDED FOR PAIN FOR 90 DAYS active Not Available Not Available No t Available citalopra m 10 mg tablet 04/20 completed Medicati on ID: [id number] B rand Name: citalopr am Send Method: [...] mg tablet 04/20 completed Medicati on ID: [id number] B rand Name: famotidi ne Send Method: [...] Updated DateTime 04/20/2025 167.64 cm 24.2 kg/m2 58580.86 g Sharlene Rene [place] - [facility] 04/20/2025 15:50:55 Social History None recorded. Functional Status None recorded. Mental Status None recorded. Family History Nothing Reported. Medical History Condition Response Migraines Y Arthritis Y Anxiety Y Hypertension Y Depression Y Gynecological HistoryNo gynecological history recorded. Obstetrics History GPAL:G 0 P 0 0 0 0 Past Encounters Encounter ID Performer Location Encounter Start Date Encounter Closed Date Diagnosis/Indication Diagnosis SNOMED-CT Code Diagnosis ICD10 Code Diagnosis IMO Codes Diagnosis Note [id number] LAN DÍAZ MD [facility] [address] [address] 04/20/2025 15:34:59 04/20/2025 16:23:39 Xerostomia [id number] R68.2 8024 Minor salivary gland biopsy was performed today [...] Member ID Guarantor Name 04/20/2025 1 [employer] [id number] Lily Burke [id number] 1 [id number] 01 Lily Turk Notes Date Note Type Note Provider Name and Address Organization Details Recorded Time 04/20/2025 text/html 64-year-old female presents today due to concern for Sjogren's. She has been diagnosed tentatively with Sjogren's but there is also concern for lupus as well. She follows with Dr. Abbott. She does feel that she is able to manage her dry mouth symptoms using Biotene. LAN DÍAZ MD [address] [place] [address], [phone], [facility] - [facility] 04/20/2025 17:01:55 OBGyn Episode No OBEpisode recorded.
== END 2025-10-05 08:22 | disposition home or self-care (01) ==
LOC: HO.US 08:21
PROVIDERS: PCP Internal Medicine; Visit Provider Surgery Vascular Surgery
DX: I83.11 Varicose veins of right lower extremity with inflammation (principal)
CPT/HCPCS: 93970

== ENCOUNTER → 2025-10-05 08:23 | Outpatient (BNV) | payer OTHER, SELFPAY | PROVIDERS: PCP Internal Medicine; Visit Provider Radiology Diagnostic Radiology | DX: I83.11 Varicose veins of right lower extremity with inflammation (principal) | CPT/HCPCS: 93970 ==

== ENCOUNTER 2025-10-05 09:34 | Outpatient (AMB) | payer OTHER, SELFPAY ==
[2025-10-05 09:43] VITALS: BP 132/78; PULSE 75; O2SAT 98; BMI 27.8
--- NOTE | 2025-10-05 09:43 | A.OFFVIS_ITS ---
Vital Signs 10/05/25 09:43 Height 5 ft 6 in Weight 172 lb BMI 27.8 BP 132/78 Blood Pressure Location Lt brachial Position Sitting Pulse 75 Pulse Source Pulse Oximeter Pulse Oximetry (%) 98 Oxygen Delivery Method Room Air Intake Visit Reasons: ILD Allergies Penicillins Allergy (Unknown, Verified 09/08/25 13:12) Swelling HPI HPI ILD: Details: 64-year-old lady, former less than 10 pack-year smoker, quit 20 years prior, now smoking weed at night, with underlying history of Sjogren's syndrome previously on Plaquenil and methotrexate, followed by [facility], followed for pulmonary nodules and possible pulmonary involvement in Sjogren's. Patient denies dyspnea, cough or sputum production.? Her follow-up CT chest now is essentially normal. She denies any dyspnea on exertion. 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 Surgical History SS-A antibody positive Sjogren syndrome with lung involvement History of brain surgery Hx of esophagogastroduodenoscopy Hx of colonoscopy History of thyroidectomy Family History Father Diabetes Stroke Alzheimer disease Mother Alzheimer disease Parkinson disease Depression Arthritis Son Multiple sclerosis Son Learning disability Brother Diabetes Sister Diabetes Hypertension Family/Other History of breast cancer Social History Household Members: None Housing: Condominium Alcohol intake: never Patient Tobacco Use Status: Former Tobacco user Tobacco use type: Cigarette e-Cigarette/Vaping Use: Never Used Second Hand Smoke Exposure: No Substance Use Type: Marijuana service: No Current occupational status: employed Current occupation: [employer] Current occupational exposures/hazards: No Cognitive needs: No Hearing needs: No Vision needs: No Review of Systems Const Denies daytime sleepiness, Denies excessive sweating, Denies fatigue, Denies fever(s), Denies lethargy, Denies malaise, Denies night sweats, Denies snoring and Denies weight loss Eyes Denies blurry vision and Denies itchy eyes ENT Denies nasal congestion, Denies post nasal drip, Denies sinus pain, Denies sinus pressure and Denies other ( Thrush) Card Denies chest pain, Denies pedal edema, Denies dyspnea, Denies orthopnea and Denies paroxysmal nocturnal dyspnea Resp Denies cough, Denies hemoptysis, Denies excessive phlegm production, Denies dyspnea, Denies snoring and Denies wheezing GI Denies abdominal pain and Denies heartburn Musc Denies myalgias, Denies arthralgias and Denies joint swelling Skin/Breast Denies rash Neuro Denies memory loss and Denies seizure-like activity Psych Denies abnormal sleep pattern, Denies anxiety and Denies memory loss Endo Denies excessive sweating, Denies fatigue and Denies heat intolerance Jozef/Lymph Denies easy bruising Aller/Immun Denies itchy eyes, Denies seasonal rhinorrhea and Denies wheezing Physical Exam Vital Signs: Last Vital Signs Pulse 75 10/05/25 09:43 BP 132/78 10/05/25 09:43 Pulse Ox 98 10/05/25 09:43 Oxygen Delivery Method Room Air 10/05/25 09:43 BMI result Body Mass Index 27.8 Const General: no acute distress and alert Nutritional Appearance: not obese Orientation/consciousness: Other orientation findings ( oriented) HEENT Head: Yes atraumatic Eyes General: appearance normal, both eyes and all related structures Sclerae: sclerae normal EOM: EOMs intact bilaterally Neck Neck: Yes supple Lymphatic: no lymphadenopathy noted Resp Effort & Inspection: normal respiratory effort and no use of accessory muscles Auscultation: clear to auscultation bilaterally Cardio Rate: regular rate Rhythm: regular rhythm Heart sounds: no gallops, no murmurs and no rubs Skin General skin exam: other ( warm) Extrem General: No clubbing, No cyanosis and No edema Assessment & Plan Assessment & Plan (1) Sjogrens syndrome: Code(s): M35.00 - Sjogren syndrome, unspecified Category: Medical Qualifiers: Sjogren's organ involvement: unspecified organ involvement Qualified Code(s): M35.00 - Sicca syndrome, unspecified Plan: Results of CT chest reviewed, no pulmonary fibrosis noted at this time. Remains essentially asymptomatic from pulmonary perspective. (2) Pulmonary nodules: Code(s): R91.8 - Other nonspecific abnormal finding of lung field Category: Medical Plan: Results of follow-up CT chest reviewed, no worrisome nodules noted. Coding Level of Care Code Est Pt Level 4 (77097) Diagnoses Sjogren's syndrome, with unspecified organ involvement M35.00 Sjogren's organ involvement: unspecified organ involvement Pulmonary nodules R91.8
== END 2025-10-05 09:59 | disposition home or self-care (01) ==
PROVIDERS: PCP Internal Medicine; Visit Provider Internal Medicine Pulmonary Disease
DX: M35.00 Sjogren syndrome, unspecified (principal); R91.8 Other nonspecific abnormal finding of lung field
CPT/HCPCS: 99214